=== PATIENT | male | born 1960 | race Caucasian/White ===

== ENCOUNTER 2023-12-04 14:30 | Outpatient (OUT) | payer BC, SELFPAY ==
[2023-12-04 15:39] LABS: Basophils Absolute Auto 0.1 10^3/uL (0.0-0.1); Basophils Percent Auto 0.9 % (0.2-2.0); Eosinophils Absolute Auto 0.1 10^3/uL (0.0-0.7); Eosinophils Percent Auto 2.1 % (0.9-7.0); Hematocrit 42.3 % (42.0-54.0); Hemoglobin 15.2 g/dL (14.0-18.0); Immature Granulocytes Abs Auto 0.19 10^3/uL (0.00-0.03); Immature Granulocytes Pct Auto 3.3 % (0.0-0.5); Lymphocytes Absolute Auto 1.8 10^3/uL (1.2-3.8); Lymphocytes Percent Auto 31.3 % (20.5-60.0); Mean Corpuscular HGB Conc 35.9 g/dL (29.9-35.2); Mean Corpuscular Hemoglobin 32.3 pg (25.9-34.0); Mean Corpuscular Volume 89.8 fL (80.0-94.0); Mean Platelet Volume 11.8 fL (9.5-13.5); Monocytes Absolute Auto 0.4 10^3/uL (0.3-0.8); Monocytes Percent Auto 7.5 % (1.7-12.0); Neutrophils Absolute Auto 3.2 10^3/uL (1.4-6.5); Neutrophils Percent Auto 54.9 % (43.0-75.0); Platelet Count 149 10^3/uL (150-450); Red Blood Count 4.71 10^6/uL (4.70-6.10); Red Cell Distribution Width 12.3 % (11.0-15.0); White Blood Count 5.8 10^3/uL (4.0-11.0)
--- NOTE | 2023-12-04 15:41 | CT_ITS ---
The [address] [address] Patient Name: MARGARET PRITCHETT MRN: [id number] date: 1960 Sex: M Assigned Patient Location: CT Current Patient Location: CT Accession/Order Number: [id number] Exam Date: 12/04/2023 15:39 Report Date: 12/04/2023 16:23 At the request of: LEIF SALGUERO Procedure: CT head/brain wo con CT HEAD WITHOUT CONTRAST. INDICATION: Headache. Hypertension. COMPARISON: None available for comparison TECHNIQUE: Axial CT head images from the skull base to the vertex without IV contrast were acquired. Coronal and sagittal reformats were also obtained. FINDINGS: EXTRA-AXIAL SPACE: Age-appropriate ventricles. No acute extra-axial collection. No extra-axial mass. No midline shift. CEREBRUM: There are mild areas of periventricular and deep white matter low-attenuation, which is nonspecific but likely reflective of chronic microvascular ischemic disease.. No CT evidence of acute large territorial cortical infarct, hemorrhage or mass effect. CEREBELLUM: No focal abnormality. No CT evidence of acute infarct, hemorrhage or mass effect. BRAINSTEM: No focal abnormality. No CT evidence of acute infarct, hemorrhage or mass effect. EXTRACRANIAL STRUCTURES. The paranasal sinuses are clear. Mastoid air cells are clear. Orbits are unremarkable. No discrete pituitary mass. Intact calvarium. CT/CT head/brain wo con IMPRESSION: 1. No acute intracranial abnormality. 2. Mild chronic microvascular ischemic changes. Electronically authenticated by: LAURIE MACIAS Date: 12/04/2023 16:23
[2023-12-04 16:01] LABS: Erythrocyte Sedimentation Rate 49 mm/hr (<=20)
[2023-12-04 16:08] LABS: Albumin Globulin Ratio 0.7; Albumin Level 3.1 g/dL (3.4-5.0); Alkaline Phosphatase 136 U/L (46-116); Anion Gap 14.6; BUN Creatinine Ratio 25.6; Bilirubin Total 0.5 mg/dL (0.2-1.0); C Reactive Protein 1.03 mg/dL (<=0.50); Calcium 10.3 mg/dL (8.5-10.1); Carbon Dioxide 26.8 mmol/L (21.0-32.0); Chloride 95 mmol/L (98-107); Estimated GFR (African America >60 (>=60); Estimated GFR (Non-African Ame >60 (>=60); Globulin 4.2 g/dL; Potassium 3.4 mmol/L (3.5-5.1); Sodium 133 mmol/L (136-145); Total Protein 7.3 g/dL (6.4-8.2)
[2023-12-04 16:24] LABS: Alanine Aminotransferase 30 U/L (16-63); Aspartate Amino Transferase 16 U/L (15-37)
[2023-12-04 16:42] LABS: Glucose 266 mg/dL (74-106)
== END 2023-12-04 14:31 | disposition home or self-care (01) ==
LOC: CT 14:31
PROVIDERS: PCP Internal Medicine; Visit Provider Internal Medicine
DX: R51.9 Headache, unspecified (principal); I10 Essential (primary) hypertension; E11.65 Type 2 diabetes mellitus with hyperglycemia
CPT/HCPCS: 36415; 70450; 80053; 85025; 85652; 86140

== ENCOUNTER 2024-05-04 08:56 | Outpatient (OUT) | payer BC, SELFPAY ==
--- OUTSIDE RECORDS SUMMARY | 2024-05-04 09:01 | XMS_ITS | CCD ---
Author Organization [facility] Care Team Providers Care Sap Trainer Name Role Phone Corwin Hannah Unavailable CAMDEN, DR YADAV Admitting Unavailable BALL, DR YADAV Primary Care Unavailable BALL, DR YADAV Consulting Unavailable BALL, DR YADAV Attending Unavailable KORTNEY, DR CHRIS Calhoun Consulting Unavailable CAMDEN, DR YADAV Admitting Unavailable BALL, DR YADAV Primary Care Unavailable BALL, DR YADAV Consulting Unavailable CAMDEN, DR YADAV Attending Unavailable GLENN, DR NAHID Burton Consulting Unavailable CAMDEN, DR YADAV Admitting Unavailable CAMDEN, DR YADAV Primary Care Unavailable BALL, DR YADAV Consulting Unavailable CAMDEN, DR YADAV Attending Unavailable DO Corwin Hannah Primary Care Provider [phone] DO Efren Longo Emergency Provider [phone] Community, Outreach Attending Provider [phone] DO Corwin Hannah Primary Care Provider [phone] DO Meek Franco Attending Provider Efren Longo Admitting Unavailable Efren Longo Attending Unavailable Corwin Hannah Primary Care Unavailable Corwin Hannah Primary Care Unavailable Community, Outreach Admitting Unavailable Community, Outreach Attending Unavailable Corwin Hannah Primary Care Unavailable Meek Franco Admitting Unavailable Meek Franco Attending Unavailable Allergies Allergy Classification Reported Allergen(s) Allergy Type Date of Onset Reaction(s) Facility (17 sources) metFORMIN; Translations: [metformin] Drug Allergy 12-14-2022 Swelling [facility] (14 sources) carvedilol Drug Allergy 07-19-2023 stomach upset [facility] (1 source) carvedilol Drug Allergy 07-19-2023 [facility] Repository Medications Current Medications Medication Drug Class(es) Dates Sig (Normalized) Sig (Original) acetaminophen 325 mg / HYDROcodone bitartrate 5 mg oral tablet (20 sources) Opioid Agonist Start: 05-03-2024 take 1 tablet by mouth every eight hours as needed for pain Hydrocodone-Aceta minophen 5-325 mg tablet Active 1 TAB PO Every 8 hours as needed for pain 30 09May 03, 2024 Start: 12-04-2023 End: 02-23-2024 take 1 tablet by mouth every eight hours as needed for pain Hydrocodone-Acetaminophen 5-325 mg table t Discontinued 1 TAB PO Every 8 hours as needed for pain 30 09December 04, 2023 February 23, 2024 8:10am Start: 08-04-2023 End: 12-04-2023 take 1 tablet by mouth every six hours as needed Hydrocodone-Acetaminophen 5-325 mg table t Discontinued 1 TAB PO Every 6 hours as needed August 03, 2023 11:00pm December 04, 2023 12:33pm Start: 12-30-2022 take 1 tablet by magno th every six hours as needed for pain HYDROcodone-Acetaminophen 5-325 MG 1 tab let as needed Orally every 6 hours as needed for back pain for 7 days Dec, Active Start: 09-05-2013 take 1 tablet by magno th every six hours as needed for pain [place] 5-325 MG 1 tablet as needed Orally every 6 hrs as needed for severe pain, avoid driving, machinery and alcohol use while taking for 5 days Aug, Active Start: 09-05-2013 take 1 tablet by magno th every six hours as needed for pain [place] 5-325 MG 1 tablet as needed Orally every 6 hrs as needed for severe pain, avoid driving, machinery and alcohol use while taking for 5 days Aug, Not-Taking/PRN Start: 09-05-2013 take 1 tablet by magno th every six hours as needed for pain [place] 5-325 MG 1 tablet as needed Orally every 6 hrs as needed for severe pain, avoid driving, machinery and alcohol use while taking for 5 days Aug, Not-Taking amLODIPine (20 sources) Dihydropyridine Calcium Channel Demetria Start: 03-22-2024 Amlodipine 10 mg tablet Active 0 .ROUTE .COMPLEX March 22, 2024 7:02am TAKE 1 TABLET DAILY Start: 12-26-2023 End: 03-22-2024 Amlodipine 10 mg tablet Disc ontinued 0 .ROUTE .COMPLEX December 26, 2023 7:37am Mary 10th, 2025 7:02am TAKE 1 TABLET DAILY Start: 05-23-2020 End: 12-26-2023 take 1 tablet by mouth once daily Amlodipine 10 mg tablet Discontinued 10 MG PO Daily May 23, 2020 12:00am December 26, 2023 7:37am atorvastatin 80 mg oral tablet (20 sources) HMG-CoA Reductase Inhibitor Start: 05-03-2023 End: 04-26-2024 Atorvastatin 80 mg tablet Active 0 .ROUTE .COMPLEX April 26, 2024 1:14pm TAKE 1 TABLET DAILY IN THE EVENING Start: 05-23-2020 End: 05-03-2023 take 1 tablet by mouth once daily at bedtime Atorvastatin 80 mg tablet Discontinued 80 MG PO Daily at bedtime May 23, 2020 12:00am May 03, 2023 8:36am carvedilol 6.25 mg oral tablet (3 sources) alpha-Adrenergic Demetria, beta-Adrenergic Demetria Start: 04-05-2022 take 1 tablet by mouth every twelve hours Carvedilol 6.25 MG 1 tablet Orally Twice a day for 30 day(s) Mar, Active cloNIDine hydrochloride 0.1 mg oral tablet (2 sources) Central alpha-2 Adrenergic Agonist Start: 12-04-2023 take 1 tablet by mouth twice daily Clonidine Hcl 0.1 mg tablet Active 0.1 MG PO Twice daily December 03, 2023 11:00pm Esomeprazole (20 sources) Proton Pump Inhibitor Start: 05-08-2023 Esomeprazole Magnesium Active 0 .ROUTE .COMPLEX May 08, 2023 7:49am TAKE 1 CAPSULE NEEDED Start: 05-23-2020 End: 05-08-2023 take 1 capsule by mouth once daily Esomeprazole Magnesium (Nexium) 40 mg Capsule,Delayed Release(Dr/Ec) Discontinued 40 MG PO Daily May 23, 2020 12:00am May 08, 2023 6:49am NexIUM Active NexIUM Not-Takin g/PRN NexIUM Not-Takin g Esomeprazole Magnesium 40 mg capsule,delayed release(DR/EC) (1 source) Start: 05-08-2023 Esomeprazole M agnesium 40 mg capsule,delayed release(DR/EC) Active 0 .ROUTE .COMPLEX May 08, 2023 6:49am TAKE 1 CAPSULE NEEDED fenofibrate 160 mg oral tablet (20 sources) Peroxisome Proliferator Receptor alpha Agonist Start: 05-22-2023 Fenofibrate 160 mg tablet Active 0 .ROUTE .COMPLEX 90 May 22, 2023 11:41am TAKE 1 TABLET DAILY Start: 05-23-2020 End: 05-22-2023 take 1 tablet by mouth once daily Fenofibrate 160 mg tablet Discontinued 160 MG PO Daily May 23, 2020 12:00am May 22, 2023 11:41am hydroCHLOROthiazide 25 mg / losartan potassium 100 mg oral tablet (20 sources) Thiazide Diuretic, Angiotensin 2 Receptor Demetria Start: 05-03-2023 End: 04-26-2024 Losartan-Hydrochlorothiazide 100-25 mg tablet Active 0 .ROUTE .COMPLEX April 26, 2024 1:14pm TAKE 1 TABLET DAILY Start: 05-23-2020 End: 05-03-2023 take 1 tablet by mouth once daily Losartan-Hydrochlorothiazide 100-25 mg tablet Discontinued 1 TAB PO Daily May 23, 2020 12:00am May 03, 2023 8:36am icosapent ethyl 1000 mg oral capsule (15 sources) Start: 08-04-2023 take 1 capsule by mouth twice daily Icosapent Ethyl 1 gram capsule Active 1 GM PO Twice daily August 03, 2023 11:00pm take 1 capsule by mouth every tw elve hours Vascepa 1 GM 1 capsule Orally Twice a day Active take 1 capsule by mouth every tw elve hours Vascepa 1 GM 1 capsule Orally Twice a day Active 3 ml insulin lispro 25 unt/ml / insulin lispro protamine, human 75 unt/ml pen injector (10 sources) Insulin Analog Start: 02-16-2024 inject 45 [IU] by subcutaneous injection before breakfast, then inject 20 [IU] by subcutaneous injection at dinner Insulin Lispro Protamin-Lispro (Humalog Mix 75-25 Kwikpen) 100 unit/mL (75-25) insulin pen Active 0 .ROUTE .COMPLEX 60 February 16, 2024 6:55am USE DIRECTED UNDER THE SKIN 45 UNITS BEFORE BREAKFAST AND 20 UNITS BEFORE EVENING MEAL HumaLOG Mix 75/2 5 KwikPen (75-25) 100 UNIT/ML as directed Subcutaneous 45 unit before bkfst and 20 units before evening meal Active HumaLOG Mix 75/2 5 KwikPen (75-25) 100 UNIT/ML as directed Subcutaneous 34 unit before bkfst and 20 units before evening meal Active Insulin Lispro Protamin-Lispro (6 sources) Start: 08-04-2023 Insulin Lispro Protamin-Lispro Active 0 SUBCUT .COMPLEX August 04, 2023 12:00am 45 unit before bkfst and 20 units before evening meal meloxicam 15 mg oral tablet (4 sources) Nonsteroidal Anti-inflammatory Drug Start: 08-28-2023 take 1 tablet by mouth once daily Meloxicam 15 mg tablet Active 15 MG PO Daily 90 90 August 27, 2023 11:00pm ondansetron 4 mg disintegrating oral tablet (1 source) Serotonin-3 Receptor Antagonist Start: 05-03-2024 take 1 tablet by mouth every eight hours Ondansetron 4 mg tablet,disintegratin g Active 4 MG PO Every 8 hours 10 7 May 03, 2024 12:00am Post-OP Shoe/Soft Top Men 1 (18 sources) Start: 09-05-2013 Post-OP Shoe/Soft Top Men 1 as directed right foot prn for as directed Aug, Active Start: 09-05-2013 Post-OP Shoe/S oft Top Men 1 as directed left foot prn for as directed Aug, Active Start: 09-05-2013 Post-OP Shoe/S oft Top Men 1 as directed left foot prn for as directed Aug, Not-Taking/PRN Start: 09-05-2013 Post-OP Shoe/S oft Top Men 1 as directed right foot prn for as directed Aug, Not-Taking/PRN Start: 09-05-2013 Post-OP Shoe/S oft Top Men 1 as directed right foot prn for as directed Aug, Not-Taking Start: 09-05-2013 Post-OP Shoe/S oft Top Men 1 as directed left foot prn for as directed Aug, Not-Taking Completed/Discontinued Medications Medication Drug Class(es) Dates Sig (Normalized) Sig (Original) glimepiride 1 mg oral tablet (11 sources) Sulfonylurea Start: 05-23-2020 End: 08-04-2023 take 1 tablet by mouth once daily Glimepiride 1 mg tablet Discontinued 1 MG PO Daily May 23, 2020 12:00am August 04, 2023 10:32am Insulin Lispro Protamin-Lispro 100 unit/mL (75-25) insulin pen (1 source) Start: 08-04-2023 End: 02-16-2024 Insulin Lispro Protamin-Lispro 100 unit/mL (75-25) insulin pen Discontinued 0 SUBCUT .COMPLEX August 03, 2023 11:00pm February 16, 2024 6:55am 45 unit before bkfst and 20 units before evening meal levoFLOXacin 500 mg oral tablet (11 sources) Quinolone Antimicrobial Start: 12-14-2022 End: 08-04-2023 take 1 tablet by mouth every twenty-four hours Levofloxacin 500 mg Tablet Discontinued 500 MG PO Q24H December 13, 2022 11:00pm August 04, 2023 10:32am oxyCODONE hydrochloride 5 mg oral tablet (11 sources) Opioid Agonist Start: 05-23-2020 End: 07-19-2023 take 5-10 mg by mouth every four to six hours as needed for pain Oxycodone 5 mg tablet Discontinued 5 - 10 MG PO EVERY 4-6 HOURS as needed for pain 20 5 May 23, 2020 July 19, 2023 7:49am Start: 05-23-2020 End: 07-19-2023 take 5-10 mg by mouth every four to six hours Oxycodone Discontinued 5 - 10 MG PO EVERY 4-6 HOURS 20 5 May 23, 2020 July 19, 2023 8:49am polyethylene glycol 3350 19681 mg powder for oral solution (11 sources) Osmotic Laxative Start: 05-23-2020 End: 07-19-2023 Polyethylene Glycol 3350 (Miralax) 17 gram/dose powder Discontinued 17 GM PO Daily as needed for constipation 119 May 23, 2020 12:00am July 19, 2023 7:49am traMADol hydrochloride 50 mg oral tablet (11 sources) Opioid Agonist Start: 05-23-2020 End: 07-19-2023 take 1 tablet by mouth every six hours as needed for pain Tramadol 50 mg tablet Discontinued 50 MG PO Q6H as needed for Pain May 23, 2020 12:00am July 19, 2023 7:49am Problems Active Problems Problem Classification Problem Date Documented Da te Episodic/Chronic Acute bronchitis (2 sources) Acute bronchitis; Translations: [Acute bronchitis due to other specified organisms] Episodic Aortic; peripheral; and visceral artery aneurysms (2 sources) Aneurysm of renal artery; 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] Onset: 1 Chronic Deficiency and other anemia (2 sources) Chronic anemia; Translations: [Anemia in other chronic diseases classified elsewhere] Onset: 7 Chronic Deficiency and other anemia (3 sources) Pancytopenia; Translations: [Other pancytopenia] Chronic Deficiency and other anemia (1 source) Other pancytopenia Chronic Diabetes mellitus with complications (20 sources) Type 2 diabetes mellitus; Translations: [Type 2 diabetes mellitus with hyperglycemia] Chronic Diabetes mellitus without complication (5 sources) Type 2 diabetes mellitus without complication; Translations: [Type 2 diabetes mellitus without complications] Chronic Disorders of lipid metabolism (20 sources) Mixed hyperlipidemia; Translations: [Mixed hyperlipidemia] Onset: 5 Chronic Diverticulosis and diverticulitis (2 sources) Diverticulitis of colon; Translations: [Diverticulitis of colon (without mention of hemorrhage)] Onset: 4 Chronic Esophageal disorders (20 sources) Acid reflux; Translations: [Gastro-esophageal reflux disease without esophagitis] 2023 Chronic Essential hypertension (20 sources) Hypertensive disorder; Translations: [Essential (primary) hypertension] Chronic Genitourinary symptoms and ill-defined conditions (9 sources) Delay when starting to pass urine; Translations: [Hesitancy of micturition] Episodic Headache; including migraine (12 sources) Headache; Translations: [Headache] 12-14-2022 Episodic Headache; including migraine (1 source) Headache; including migraine; Translations: [Headache, unspecified] Onset: 3 Hyperplasia of prostate (12 sources) Benign prostatic hyperplasia; Translations: [Benign prostatic hyperplasia with lower urinary tract symptoms] Onset: 8 Chronic Immunizations and screening for infectious disease (2 sources) Contact with and (suspected) exposure to other viral communicable diseases; Translations: [Contact with and (suspected) exposure to COVID-19] Episodic Melanomas of skin (2 sources) Malignant melanoma of trunk; Translations: [Malignant melanoma of other part of trunk] Onset: 7 Chronic Nonmalignant breast conditions (3 sources) Hypertrophy of breast; Translations: [HYPERTROPHY OF BREAST] Onset: 3 Episodic Osteoarthritis (20 sources) Osteoarthritis of knee; Translations: [Unilateral primary osteoarthritis, left knee] Onset: 5 07-10-2023 Chronic Other aftercare (9 sources) Long-term current use of insulin; Translations: [USP (current) use of insulin] Episodic Other aftercare (3 sources) USP (current) use of insulin Episodic Other diseases of veins and lymphatics (12 sources) Peripheral venous insufficiency; Translations: [Venous insufficiency (chronic) (peripheral)] 2023 Episodic Other diseases of veins and lymphatics (7 sources) Venous insufficiency (chronic) (peripheral); Translations: [Venous (peripheral) insufficiency, unspecified] Episodic Other gastrointestinal disorders (2 sources) H/O: gastrointestinal disease; Translations: [Personal history of other diseases of the digestive system] Episodic Other injuries and conditions due to external causes (2 sources) History of fall; Translations: [History of falling] Episodic Other non-traumatic joint disorders (2 sources) Lower limb joint arthritis; Translations: [Osteoarthrosis, unspecified whether generalized or localized, lower leg] Onset: 5 Chronic Other non-traumatic joint disorders (10 sources) Pain in right knee; Translations: [Pain in both knees] Onset: 4 07-10-2023 Episodic Other non-traumatic joint disorders (1 source) Pain in left knee; Translations: [Pain in left knee] Onset: 4 Episodic Other nutritional; endocrine; and metabolic disorders (4 sources) Simple obesity ; Translations: [Other obesity due to excess calories] Chronic Other nutritional; endocrine; and metabolic disorders (20 sources) Body mass index 30+ - obesity; Translations: [Obesity, unspecified] Onset: 5 07-19-2023 Chronic Other nutritional; endocrine; and metabolic disorders (19 sources) Obesity, unspecified; Translations: [Obesity, unspecified] Chronic Other nutritional; endocrine; and metabolic disorders (6 sources) Obese class II; Translations: [Body mass index 35.0-35.9, adult] Onset: 5 Chronic Other nutritional; endocrine; and metabolic disorders (2 sources) Obesity; Translations: [Obesity, unspecified] Onset: 2 Chronic Other nutritional; endocrine; and metabolic disorders (5 sources) Severe obesity; Translations: [Morbid (severe) obesity due to excess calories] Chronic Other nutritional; endocrine; and metabolic disorders (2 sources) Morbid (severe) obesity due to excess calories Chronic Other nutritional; endocrine; and metabolic disorders (2 sources) Body mass index (BMI) 39.0-39.9, adult Chronic Other screening for suspected conditions (not mental disorders or infectious disease) (8 sources) Encounter for screening for malignant neoplasm of prostate; Translations: [Screening for malignant neoplasms of prostate] Onset: 3 Episodic Pancreatic disorders (not diabetes) (13 sources) Pancreatitis; Translations: [Acute pancreatitis without necrosis or infection, unspecified] Resolved: 2 05-23-2020 Episodic Comment on above: Problem List clean-u p per request of Phys. EHR Cmte Pneumonia (except that caused by tuberculosis or sexually transmitted disease) (12 sources) Pneumonia; Translations: [Pneumonia, unspecified organism] 12-14-2022 Episodic Residual codes; unclassified (4 sources) Obstructive sleep apnea syndrome; Translations: [Obstructive sleep apnea (adult) (pediatric)] Onset: 7 Chronic Spondylosis; intervertebral disc disorders; other back problems (7 sources) Lumbosacral spondylosis without myelopathy; Translations: [Spondylosis without myelopathy or radiculopathy, lumbar region] Onset: 8 Chronic Spondylosis; intervertebral disc disorders; other back problems (2 sources) Pain in thoracic spine; Translations: [Thoracic back pain] Episodic Substance-related disorders (2 sources) Nicotine dependence; Translations: [Nicotine dependence, cigarettes, with other nicotine-induced disorders] Onset: 5 Chronic Superficial injury; contusion (14 sources) Contusion of right hip, initial encounter; Translations: [Contusion of right knee, initial encounter] Onset: 7 Episodic Unclassified (3 sources) CONTACT W/AND (SUSP) EXPOS COVID-19; Translations: [CONTACT W/AND (SUSP) EXPOS COVID-19] Onset: 2 Past or Other Problems Problem Classification Problem Date Documented Da te Episodic/Chronic Abdominal pain (2 sources) Epigastric pain; Translations: [Epigastric pain] Resolved: 03-29-2021 Episodic Allergic reactions (2 sources) Contact dermatitis; Translations: [Contact dermatitis and other eczema, due to unspecified cause] Onset: 05-30-2014 Episodic Deficiency and other anemia (2 sources) Anemia; Translations: [Anemia, unspecified] Onset: 03-25-2016 Episodic Diabetes mellitus without complication (2 sources) Impaired fasting glycemia; Translations: [Impaired fasting glucose] Resolved: 10-01-2019 Episodic Disorders of teeth and jaw (2 sources) Disorder of teeth AND/OR supporting structures; Translations: [Other specified disorders of teeth and supporting structures] Onset: 10-29-2018 Episodic Esophageal disorders (3 sources) Esophageal disorders Fever of unknown origin (1 source) Fever, unspecified; Translations: [Fever, unspecified] Onset: 12-14-2022 Episodic Fluid and electrolyte disorders (2 sources) Dehydration; Translations: [Dehydration] Onset: 07-31-2013 Episodic Malaise and fatigue (2 sources) Malaise and fatigue; Translations: [Other malaise and fatigue] Onset: 08-06-2014 Episodic Melanomas of skin (2 sources) History of malignant melanoma of the skin; Translations: [Personal history of malignant melanoma of skin] Onset: 04-25-2017 Episodic Neoplasms of unspecified nature or uncertain behavior (2 sources) Neoplasm of uncertain behavior of skin; Translations: [Neoplasm of uncertain behavior of skin] Onset: 10-07-2016 Episodic Other connective tissue disease (2 sources) Achilles bursitis; Translations: [Achilles bursitis or tendinitis] Onset: 11-02-2016 Episodic Other gastrointestinal disorders (2 sources) Diarrhea; Translations: [Diarrhea] Onset: 07-31-2013 Episodic Other infections; including parasitic (2 sources) Lyme disease; Translations: [Lyme disease] Onset: 10-07-2016 Episodic Other non-traumatic joint disorders (2 sources) Arthralgia of the lower leg; Translations: [Pain in joint, lower leg] Onset: 03-09-2015 Episodic Residual codes; unclassified (4 sources) Tobacco user; Translations: [Tobacco use] Onset: 08-06-2014 Episodic Skin and subcutaneous tissue infections (2 sources) Cellulitis and abscess of trunk; Translations: [Cutaneous abscess of abdominal wall] Resolved: 03-29-2021 Episodic Unclassified (1 source) CONTACT W/AND (SUSP) EXPOS COVID-19; Translations: [CONTACT W/AND (SUSP) EXPOS COVID-19] Onset: 10-04-2021 Unclassified (2 sources) Long-term current use of drug therapy; Translations: [Long-term (current) use of other medications] Onset: 03-25-2016 Results Test Name Value Interpretation Reference Range Facility XR knee BI 3V - NOT FOR ER U Indra 07-19-2023 XR knee BI 3V - NOT FOR ER USE [facility] [address] [place] [address] XRay Report Signed Patient: Margaret Woods MR#: [id number] : 1960 Acct:[id number] Age/Sex: 62 / M ADM Date: 07/19/23 [place] [facility] [place]: [facility] Attending Dr: Meek Franco DO Copies to: Meek Franco DO Ordering Provider: Meek Franco DO Date of Service: 07/19/23 XR/XR knee BI 3V - NOT FOR ER USE: M25.561 - Pain in right knee 3 views both knee plain film COMPARISON: None HISTORY: Bilateral knee pain for 5 months. Fell in February. ACUTE FINDINGS: No acute findings DEGENERATIVE CHANGE: Moderate right and medial joint space narrowing. Mild left medial joint space narrowing. Mild bilateral patellar subluxation. The bilateral superior patellar enthesophytes. SOFT TISSUE FINDINGS: Unremarkable JOINT EFFUSION: Small to moderate right joint effusion. POSTOP CHANGES: None BONE MINERALIZATION: Adequate XR/XR knee BI 3V - NOT FOR ER USE IMPRESSION: Bilateral mild to moderate medial degeneration greater on the right. A small to moderate right effusion. Impression dictated by: Connor Buck M.D.07/19/2023 11:06 AM Dictation Location: [place] [address] Transcribed By: [facility] 07/19/23 1106 Dictated By: Connor Buck DO 07/19/23 110 Signed By: 07/19/23 1106 Normal [facility] Alanine aminotransferase [En zymatic activity/volume] in Serum or PlasmaOrdered By: [facility] on 12-17-2022 ALT [Catalytic activity/Vol] 53 U/L 7 [facility] Albumin [Mass/volume] in Ser um or Plasma by Bromocresol green (BCG) dye binding methoOrdered By: [facility] on 12-17-2022 Albumin BCG dye [Mass/Vol] 3.9 g/dL 3.5-5.7 [facility] Alkaline phosphatase [Enzyma tic activity/volume] in Serum or PlasmaOrdered By: [facility] on 12-17-2022 ALP [Catalytic activity/Vol] 73 U/L 34-104 [facility] Aspartate aminotransferase [ Enzymatic activity/volume] in Serum or PlasmaOrdered By: [facility] on 12-17-2022 AST [Catalytic activity/Vol] 34 U/L 13-39 [facility] Bilirubin.total [Mass/volume ] in Serum or PlasmaOrdered By: OUTREACH [facility] on 12-17-2022 Bilirubin [Mass/Vol] 0.4 mg/dL 0.3-1.0 [facility] CBC Without Differentialon 1 Erythrocyte distribution width (RBC) [Ratio] 13.7 % Normal 12.0-14.8 [facility] Comment on above: Performed By: #### O UTREACH LIPID, LDL CHOL (M), OUTREACH GLYCO, CBCNOOUTREACH, PSA OUTREACH, OUTREACH CMP #### [facility] [address] Hematocrit (Bld) [Volume fraction] 34.7 % Low 38.8-50.0 [facility] Comment on above: Performed By: #### O UTREACH LIPID, LDL CHOL (M), OUTREACH GLYCO, CBCNOOUTREACH, PSA OUTREACH, OUTREACH CMP #### [facility] [address] [place] [address] [place] Hemoglobin (Bld) [Mass/Vol] 12.0 g/dL Low 13.0-17.0 [facility] Comment on above: Performed By: #### O UTREACH LIPID, LDL CHOL (M), OUTREACH GLYCO, CBCNOOUTREACH, PSA OUTREACH, OUTREACH CMP #### [facility] [address] MCH (RBC) [Entitic mass] 30.5 pg Normal 27.5-35.2 [facility] Comment on above: Performed By: #### O UTREACH LIPID, LDL CHOL (M), OUTREACH GLYCO, CBCNOOUTREACH, PSA OUTREACH, OUTREACH CMP #### [address] MCV (RBC) [Entitic vol] 88.3 fL Normal 83.5-101 [facility] Comment on above: Performed By: #### O UTREACH LIPID, LDL CHOL (M), OUTREACH GLYCO, CBCNOOUTREACH, PSA OUTREACH, OUTREACH CMP #### [address] Mean Corpuscular HGB Conc 34.6 g/dL Normal 32.5-35.6 [facility] Comment on above: Performed By: #### O UTREACH LIPID, LDL CHOL (M), OUTREACH GLYCO, CBCNOOUTREACH, PSA OUTREACH, OUTREACH CMP #### [address] Platelet mean volume (Bld) [Entitic vol] 8.8 fL Normal 6.6-10.1 [facility] [facility] Comment on above: Result Comment: PERF ORMED BY: [place] [address] PATHOLOGIST BULK SEALER OPERATOR ELIZABETH CR M.D. Performed By: #### O UTREACH LIPID, LDL CHOL (M), OUTREACH GLYCO, CBCNOOUTREACH, PSA OUTREACH, OUTREACH CMP #### [place] [address] [place] Platelets (Bld) [#/Vol] 141 10*3/uL Low 150-450 [facility] Comment on above: Performed By: #### O UTREACH LIPID, LDL CHOL (M), OUTREACH GLYCO, CBCNOOUTREACH, PSA OUTREACH, OUTREACH CMP #### [place] [address] [place] RBC (Bld) [#/Vol] 3.93 10*6/uL Normal 3.90-5.60 [facility] Comment on above: Performed By: #### O UTREACH LIPID, LDL CHOL (M), OUTREACH GLYCO, CBCNOOUTREACH, PSA OUTREACH, OUTREACH CMP #### [address] WBC (Bld) [#/Vol] 3.9 10*3/uL Low 4.1-10.5 [facility] Comment on above: Performed By: #### O UTREACH LIPID, LDL CHOL (M), OUTREACH GLYCO, CBCNOOUTREACH, PSA OUTREACH, OUTREACH CMP #### [address] CMP Outreachon 12-17-2022 Albumin [Mass/Vol] 3.9 g/dL Normal 3.5-5.7 [facility] Comment on above: Performed By: #### O UTREACH LIPID, LDL CHOL (M), OUTREACH GLYCO, CBCNOOUTREACH, PSA OUTREACH, OUTREACH CMP #### [address] ALP [Catalytic activity/Vol] 73 U/L Normal 34-104 [facility] Comment on above: Performed By: #### O UTREACH LIPID, LDL CHOL (M), OUTREACH GLYCO, CBCNOOUTREACH, PSA OUTREACH, OUTREACH CMP #### [address] ALT [Catalytic activity/Vol] 53 U/L High 7-52 [facility] Comment on above: Performed By: #### O UTREACH LIPID, LDL CHOL (M), OUTREACH GLYCO, CBCNOOUTREACH, PSA OUTREACH, OUTREACH CMP #### [address] Anion gap [Moles/Vol] 10.7 mmol/L Normal 6.0-15.0 [facility] Comment on above: Performed By: #### O UTREACH LIPID, LDL CHOL (M), OUTREACH GLYCO, CBCNOOUTREACH, PSA OUTREACH, OUTREACH CMP #### [address] AST [Catalytic activity/Vol] 34 U/L Normal 13-39 [facility] Comment on above: Performed By: #### O UTREACH LIPID, LDL CHOL (M), OUTREACH GLYCO, CBCNOOUTREACH, PSA OUTREACH, OUTREACH CMP #### [facility] [address] [place] [address] [place] Bilirubin [Mass/Vol] 0.4 mg/dL Normal 0.3-1.0 [facility] Comment on above: Performed By: #### O UTREACH LIPID, LDL CHOL (M), OUTREACH GLYCO, CBCNOOUTREACH, PSA OUTREACH, OUTREACH CMP #### [place] [address] [place] Calcium [Mass/Vol] 9.7 mg/dL Normal 8.6-10.3 [facility] Comment on above: Performed By: #### O UTREACH LIPID, LDL CHOL (M), OUTREACH GLYCO, CBCNOOUTREACH, PSA OUTREACH, OUTREACH CMP #### [place] [address] [place] Chloride [Moles/Vol] 105 mmol/L Normal 98-107 [facility] Comment on above: Performed By: #### O UTREACH LIPID, LDL CHOL (M), OUTREACH GLYCO, CBCNOOUTREACH, PSA OUTREACH, OUTREACH CMP #### [place] [address] [place] CO2 [Moles/Vol] 30.1 mmol/L Normal 21.0-31.0 [facility] Comment on above: Performed By: #### O UTREACH LIPID, LDL CHOL (M), OUTREACH GLYCO, CBCNOOUTREACH, PSA OUTREACH, OUTREACH CMP #### [place] [address] [place] Creatinine [Mass/Vol] 0.87 mg/dL Normal 0.70-1.30 [facility] Comment on above: Performed By: #### O UTREACH LIPID, LDL CHOL (M), OUTREACH GLYCO, CBCNOOUTREACH, PSA OUTREACH, OUTREACH CMP #### [place] [address] [place] GFR/1.73 sq M.predicted MDRD (S/P/Bld) [Vol rate/Area] mL/min/{1.73_m2} Normal [facility] Comment on above: Performed By: #### O UTREACH LIPID, LDL CHOL (M), OUTREACH GLYCO, CBCNOOUTREACH, PSA OUTREACH, OUTREACH CMP #### [facility] [address] [place] [id number] [place] Glucose [Mass/Vol] 98 mg/dL Normal 70-100 [facility] Comment on above: Result Comment: [facility] Glucose Reference Range is dependent on time and content of last meal. Glucose of more than 200 mg/dL in a nonstressed, ambulatory subject supports the diagnosis of Diabetes Mellitus. ADA recommended reference range Performed By: #### O UTREACH LIPID, LDL CHOL (M), OUTREACH GLYCO, CBCNOOUTREACH, PSA OUTREACH, OUTREACH CMP #### [facility] [address] [place] [address] [place] Potassium [Moles/Vol] 3.8 mmol/L Normal 3.5-5.1 [facility] Comment on above: Performed By: #### O UTREACH LIPID, LDL CHOL (M), OUTREACH GLYCO, CBCNOOUTREACH, PSA OUTREACH, OUTREACH CMP #### [facility] [address] [place] [address] [place] Protein [Mass/Vol] 6.5 g/dL Normal 6.4-8.9 [facility] Comment on above: Performed By: #### O UTREACH LIPID, LDL CHOL (M), OUTREACH GLYCO, CBCNOOUTREACH, PSA OUTREACH, OUTREACH CMP #### [facility] [address] [place] [id number] [place] Sodium [Moles/Vol] 142 mmol/L Normal 136-145 [facility] Comment on above: Performed By: #### O UTREACH LIPID, LDL CHOL (M), OUTREACH GLYCO, CBCNOOUTREACH, PSA OUTREACH, OUTREACH CMP #### [facility] [address] [place] [phone] [place] Urea nitrogen [Mass/Vol] 21 mg/dL Normal 7-25 [facility] Comment on above: Performed By: #### O UTREACH LIPID, LDL CHOL (M), OUTREACH GLYCO, CBCNOOUTREACH, PSA OUTREACH, OUTREACH CMP #### [facility] [address] [place] [id number] [place] Calcium [Mass/volume] in Ser um or PlasmaOrdered By: OUTREACH COMMUNITY on 12-17-2022 Calcium [Mass/Vol] 9.7 mg/dL 8.6-10.3 [facility] Carbon dioxide, total [Moles /volume] in Serum or PlasmaOrdered By: OUTREACH COMMUNITY on 12-17-2022 CO2 [Moles/Vol] 30.1 mmol/L 21.0-31.0 [facility] Chloride [Moles/volume] in S mike or PlasmaOrdered By: OUTREACH COMMUNITY on 12-17-2022 Chloride [Moles/Vol] 105 mmol/L 98-107 [facility] Cholesterol [Mass/volume] in Serum or PlasmaOrdered By: OUTREACH COMMUNITY on 12-17-2022 Cholesterol [Mass/Vol] 180 mg/dL 140-200 [facility] Comment on above: Chol less than 200 m g/dl low riskChol 201-239 mg/dl borderline riskChol 240 mg/dl and greater high risk Cholesterol in LDL Calc [Mas s/Vol]Ordered By: OUTREACH COMMUNITY on 12-17-2022 Cholesterol in LDL [Mass/Vol] TNP [facility] Comment on above: Test not performed Cholesterol in LDL [Mass/vol ume] in Serum or PlasmaOrdered By: OUTREACH COMMUNITY on 12-17-2022 Cholesterol in LDL [Mass/Vol] 59 mg/dL 0-100 [facility] Comment on above: LDL ATP III CLASSIFI CATIONLDL less than 100 mg/dL OptimalLDL 100-129 mg/dL Near or above optimalLDL 130-159 mg/dL Borderline highLDL 160-189 mg/dL HighLDL greater than 189 mg/dL Very high Cholesterol in VLDL Calc [Ma ss/Vol]Ordered By: OUTREACH COMMUNITY on 12-17-2022 Cholesterol in VLDL [Mass/Vol] 119 mg/dL [facility] Creatinine [Mass/volume] in Serum or PlasmaOrdered By: OUTREACH COMMUNITY on 12-17-2022 Creatinine [Mass/Vol] 0.87 mg/dL 0.70-1.30 [facility] Erythrocyte distribution wid th Auto (RBC) [Ratio]Ordered By: OUTREACH COMMUNITY on 12-17-2022 Erythrocyte distribution width (RBC) [Ratio] 13.7 % 12.0-14.8 [facility] Glucose [Mass/volume] in Ser um or PlasmaOrdered By: [facility] on 12-17-2022 Glucose [Mass/Vol] 98 mg/dL 70-100 [facility] Comment on above: ADA recommended refe rence rangeRandom Glucose Reference Range is dependent on time and content of last meal. Glucose of more than 200 mg/dL in a nonstressed, ambulatory subject supports the diagnosis of Diabetes Mellitus. Glucose mean value [Mass/vol ume] in Blood Estimated from glycated hemoglobinOrdered By: [facility] on 12-17-2022 Average glucose Estimated from glycated hemoglobin (Bld) [Mass/Vol] 171 mg/dL [facility] Hematocrit Auto (Bld) [Volum e fraction]Ordered By: [facility] on 12-17-2022 Hematocrit (Bld) [Volume fraction] 34.7 % 38.8-50.0 [facility] Hemoglobin [Mass/volume] in BloodOrdered By: [facility] on 12-17-2022 Hemoglobin (Bld) [Mass/Vol] 12.0 g/dL 13.0-17.0 [facility] LDL Cholesterol Measured Ref lexon 12-17-2022 LDL Cholesterol Measured Reflex 59 mg/dL Normal 0-100 [facility] Comment on above: Result Comment: LDL ATP III CLASSIFICATION LDL less than 100 mg/dL Optimal LDL 100-129 mg/dL Near or above optimal LDL 130-159 mg/dL Borderline high LDL 160-189 mg/dL High LDL greater than 189 mg/dL Very high PERFORMED BY: [place] [address] PATHOLOGIST BULK SEALER OPERATOR ELIZABETH CR M.D. Performed By: #### O [facility] LIPID, LDL CHOL (M), OUTREACH GLYCO, CBCNOOUTREACH, PSA OUTREACH, OUTREACH CMP #### [facility] [address] Laboratory - Hematology and Cell countsOrdered By: [facility] on 12-17-2022 HbA1c (Bld) [Mass fraction] 7.6 % 4.3-5.6 [facility] Comment on above: Increased risk for d iabetes: 5.7 - 6.4diabetes: >6.4glycemic control for adults with diabetes: <7.0 Leukocytes [#/volume] correc abhijeet for nucleated erythrocytes in Blood by Automated counOrdered By: OUTREACH COMMUNITY on 12-17-2022 WBC corrected for nucl RBC Auto (Bld) [#/Vol] 3.9 10*3/uL 4.1-10.5 [facility] Lipid Profile Outreachon Cholesterol [Mass/Vol] 180 mg/dL Normal 140-200 [facility] Comment on above: Result Comment: Chol less than 200 mg/dl low risk Chol 201-239 mg/dl borderline risk Chol 240 mg/dl and greater high risk Performed By: #### O UTREACH LIPID, LDL CHOL (M), OUTREACH GLYCO, CBCNOOUTREACH, PSA OUTREACH, OUTREACH CMP #### [facility] [address] Cholesterol in HDL [Mass/Vol] 25 mg/dL Normal 23-92 [facility] Comment on above: Result Comment: HDL CHOL ATP-III CLASSIFICATION Cardiovascular Risk HDL > or equal to 60 mg/dL LOW HDL < 40 mg/dL HIGH Performed By: #### O UTREACH LIPID, LDL CHOL (M), OUTREACH GLYCO, CBCNOOUTREACH, PSA OUTREACH, OUTREACH CMP #### [facility] [address] [place] [phone] [place] Cholesterol.total/Rema sterol in HDL [Mass ratio] 7.2 {ratio} Normal <5.0 [facility] Comment on above: Result Comment: PERF ORMED BY: [place] [address] PATHOLOGIST BULK SEALER OPERATOR ELIZABETH CR M.D. Performed By: #### O UTREACH LIPID, LDL CHOL (M), OUTREACH GLYCO, CBCNOOUTREACH, PSA OUTREACH, OUTREACH CMP #### [facility] [address] [place] [phone] [place] LDL Cholesterol,Calculated Not performed Normal 0-100 [facility] Comment on above: Performed By: #### O UTREACH LIPID, LDL CHOL (M), OUTREACH GLYCO, CBCNOOUTREACH, PSA OUTREACH, OUTREACH CMP #### [facility] [address] [place] [phone] [place] Triglyceride w/Reflex 595 mg/dL High 0-149 [facility] Comment on above: Result Comment: TRIG ATP III CLASSIFICATION TRIG less than 150 mg/dL Normal TRIG 150-199 mg/dL Borderline high TRIG 200-500 mg/dL High TRIG greater than 500 mg/dL Very high Standard traceable to the Center for Disease Conrtrol and Prevention (CDC) test method. If the triglyceride result is greater than 400, LDLC and related calculations cannot be calculated and resulted. Performed By: #### O UTREACH LIPID, LDL CHOL (M), OUTREACH GLYCO, CBCNOOUTREACH, PSA OUTREACH, OUTREACH CMP #### [facility] [address] VLDL CHOLESTEROL 119 mg/dL Normal [facility] Comment on above: Performed By: #### O UTREACH LIPID, LDL CHOL (M), OUTREACH GLYCO, CBCNOOUTREACH, PSA OUTREACH, OUTREACH CMP #### [facility] [address] MCH Auto (RBC) [Entitic mass ]Ordered By: OUTREACH COMMUNITY on 12-17-2022 MCH (RBC) [Entitic mass] 30.5 pg 27.5-35.2 [facility] MCHC Auto (RBC) [Mass/Vol]Or dered By: OUTREACH COMMUNITY on 12-17-2022 MCHC (RBC) [Mass/Vol] 34.6 g/dL 32.5-35.6 [facility] MCV Auto (RBC) [Entitic vol] Ordered By: OUTREACH COMMUNITY on 12-17-2022 MCV (RBC) [Entitic vol] 88.3 fL 83.5-101 [facility] No Panel InformationOrdered By: OUTREACH COMMUNITY on 12-17-2022 Estimated GFR (CKD-EPI) > 60.0 mL/Min [facility] Creatinine Clearance (Chem N/A [facility] Outreach Glycoon 12-17-2022 Glucose [Mass/Vol] 171 mg/dL Normal [facility] Comment on above: Result Comment: PERF ORMED BY: [place] [address] PATHOLOGIST BULK SEALER OPERATOR ELIZABETH CR M.D. Performed By: #### O UTREACH LIPID, LDL CHOL (M), OUTREACH GLYCO, CBCNOOUTREACH, PSA OUTREACH, OUTREACH CMP #### [facility] [address] HbA1c (Bld) [Mass fraction] 7.6 % High 4.3-5.6 [facility] Comment on above: Result Comment: Incr eased risk for diabetes: 5.7 - 6.4 diabetes: >6.4 glycemic control for adults with diabetes: <7.0 Performed By: #### O UTREACH LIPID, LDL CHOL (M), OUTREACH GLYCO, CBCNOOUTREACH, PSA OUTREACH, OUTREACH CMP #### [facility] [address] [facility] on 12-17-2022 [facility] 1.300 ng/mL Normal 0.000-4.000 [facility] Comment on above: Result Comment: PERF ORMED BY: [place] [address] PATHOLOGIST BULK SEALER OPERATOR ELIZABETH CR M.D. Performed By: #### O UTREACH LIPID, LDL CHOL (M), OUTREACH GLYCO, CBCNOOUTREACH, PSA OUTREACH, OUTREACH CMP #### [facility] [address] [place] [address] Platelet mean volume Auto (B ld) [Entitic vol]Ordered By: OUTREACH COMMUNITY on 12-17-2022 Platelet mean volume (Bld) [Entitic vol] 8.8 fL 6.6-10.1 [facility] Platelets Auto (Bld) [#/Vol] Ordered By: OUTREACH COMMUNITY on 12-17-2022 Platelets (Bld) [#/Vol] 141 10*3/uL 150-450 [facility] Potassium [Moles/volume] in Serum or PlasmaOrdered By: OUTREACH COMMUNITY on 12-17-2022 Potassium [Moles/Vol] 3.8 mmol/L 3.5-5.1 [facility] Prostate specific Ag [Mass/v olume] in Serum or PlasmaOrdered By: OUTREACH COMMUNITY on 12-17-2022 Prostate specific Ag [Mass/Vol] 1.300 ng/mL 0.000-4.000 [facility] Protein [Mass/volume] in Ser um or PlasmaOrdered By: OUTREACH COMMUNITY on 12-17-2022 Protein [Mass/Vol] 6.5 g/dL 6.4-8.9 [facility] RBC Auto (Bld) [#/Vol]Ordere d By: OUTREACH COMMUNITY on 12-17-2022 RBC (Bld) [#/Vol] 3.93 10*6/uL 3.90-5.[address] [facility] Serum or plasma anion gap de terminationOrdered By: OUTREACH [facility] on 12-17-2022 Anion gap [Moles/Vol] 10.7 mmol/L 6.0-15.0 [facility] Serum or plasma high density lipoprotein (HDL) cholesterol measurementOrdered By: OUTREACH [facility] on 12-17-2022 Cholesterol in HDL [Mass/Vol] 25 mg/dL 23-92 [facility] Comment on above: HDL CHOL ATP-III CLA SSIFICATION Cardiovascular RiskHDL > or equal to 60 mg/dL LOWHDL < 40 mg/dL HIGH Serum or plasma total choles terol/high density lipoprotein (HDL) cholesterol mass ratOrdered By: OUTREACH [facility] on 12-17-2022 Cholesterol.total/Rema sterol in HDL [Mass ratio] 7.2 {ratio} <5.0 [facility] Sodium [Moles/volume] in Ser um or PlasmaOrdered By: OUTREACH COMMUNITY on 12-17-2022 Sodium [Moles/Vol] 142 mmol/L 136-145 [facility] Triglyceride [Mass/volume] i n Serum or PlasmaOrdered By: OUTREACH COMMUNITY on 12-17-2022 Triglyceride [Mass/Vol] 595 mg/dL 0-149 [facility] Comment on above: If the triglyceride result is greater than 400, LDLC and related calculations cannot be calculated and resulted.TRIG ATP III CLASSIFICATIONTRIG less than 150 mg/dL NormalTRIG 150-199 mg/dL Borderline highTRIG 200-500 mg/dL High TRIG greater than 500 mg/dL Very highStandard traceable to the Center for Disease Conrtrol and Prevention (CDC) test method. Urea nitrogen [Mass/volume] in Serum or PlasmaOrdered By: OUTREACH COMMUNITY on 12-17-2022 Urea nitrogen [Mass/Vol] 21 mg/dL 7-25 [facility] Alanine aminotransferase [En zymatic activity/volume] in Serum or PlasmaOrdered By: Efren Longo on 12-14-2022 ALT [Catalytic activity/Vol] 46 U/L 7-52 [facility] Albumin [Mass/volume] in Ser um or Plasma by Bromocresol green (BCG) dye binding methoOrdered By: Efren Longo on 12-14-2022 Albumin BCG dye [Mass/Vol] 3.8 g/dL 3.5-5.7 [facility] Alkaline phosphatase [Enzyma tic activity/volume] in Serum or PlasmaOrdered By: Efren Longo on 12-14-2022 ALP [Catalytic activity/Vol] 65 U/L 34-104 [facility] Aspartate aminotransferase [ Enzymatic activity/volume] in Serum or PlasmaOrdered By: Efren Longo on 12-14-2022 AST [Catalytic activity/Vol] 38 U/L 13-39 [facility] Band form neutrophils/100 WB C Manual cnt (Bld)Ordered By: Efren Longo on 12-14-2022 Band form neutrophils/100 WBC (Bld) 12 % 0-5 [facility] Basophils Auto (Bld) [#/Vol] Ordered By: Efren Longo on 12-14-2022 Basophils (Bld) [#/Vol] N/A F [facility] Basophils/100 WBC Auto (Bld) Ordered By: Efren Longo on 12-14-2022 Basophils/100 WBC (Bld) N/A F [facility] Bilirubin.total [Mass/volume ] in Serum or PlasmaOrdered By: Efren Longo on 12-14-2022 Bilirubin [Mass/Vol] 0.6 mg/dL 0.3-1.0 [facility] COVID CepheidOrdered By: Fiona Longo on 12-14-2022 SARS-CoV-2 (COVID-19) Ab IA Ql Negative Negative [facility] Comment on above: This is a duplicate [employer] Xpert Xpress CoV-2/Flu/RSV Plus RNA by RT-PCR result to be used for statistical tracking purpose only. SARS-CoV-2 (COVID-19) RNA MAGALIS+probe Ql (Unsp spec) [facility] COVID-19 / Flu A/B / RSV PCR on 12-14-2022 SARS-CoV-2 (COVID-19) RNA MAGALIS+probe Ql (Unsp spec) COVID-19 Cepheid Result Negative for SARS-CoV-2 RNA by RT-PCR Flu A Cepheid Result Negative for Flu A RNA by RT-PCR Flu B Cepheid Result Negative for Flu B RNA by RT-PCR RSV Cepheid Result Negative for RSV RNA by RT-PCR COVID19 Blank Space Reference: Negative COVID19 Blank Space [employer]epheid Disclaimer The Cepheid Xpert Xpress CoV-2/Flu/RSV Plus has Cepheid Disclaimer not been FDA cleared or approved; this test has Cepheid Disclaimer been authorized by FDA under an EUA for use by Cepheid Disclaimer authorized laboratories; this test has been Cepheid Disclaimer authorized only for the simultaneous qualitative [employer]epheid Disclaimer detection and differentiation of nucleic acids from [employer]epheid Disclaimer SARS-CoV-2, influenza A, influenza B, and [employer]ep[employer] Disclaimer respiratory syncytial virus (RSV), and not for any [employer]epheid Disclaimer other viruses or pathogens; and this test is only Cepheid Disclaimer authorized for the duration of the declaration that Cepheid Disclaimer circumstances exist justifying the authorization of Cepheid Disclaimer emergency use of in vitro diagnostic tests for Cepheid Disclaimer detection and/or diagnosis of COVID-19 under Cepheid Disclaimer Section 564(b)(1) of the Act, 21 U.S.C. 360bbb- [employer]epheid Disclaimer 3(b)(1), unless the authorization is terminated or Cepheid Disclaimer revoked sooner. PERFORMED BY: [facility] [place] [address] PATHOLOGIST BULK SEALER OPERATOR ELIZABETH CR M.D. Normal [facility] Comment on above: Performed By: #### C OVID19 FLU RSV, CEPHEID NEG #### [facility] [address] [place] [address] [place] Calcium [Mass/volume] in Ser um or PlasmaOrdered By: Efren Longo on 12-14-2022 Calcium [Mass/Vol] 9.7 mg/dL 8.6-10.3 [facility] Carbon dioxide, total [Moles /volume] in Serum or PlasmaOrdered By: Efren Longo on 12-14-2022 CO2 [Moles/Vol] 26.9 mmol/L 21.0-31.0 [facility] Cepheid COVID PCR Negativeon 12-14-2022 SARS-CoV-2 (COVID-19) RNA MAGALIS+probe Ql (Unsp spec) Negative Normal Negative [facility] Comment on above: Result Comment: This is a duplicate [employer] Xpert Xpress CoV-2/Flu/RSV Plus RNA by RT-PCR result to be used for statistical tracking purpose only. PERFORMED BY: [address] [address] PATHOLOGIST BULK SEALER OPERATOR ELIZABETH CR M.D. Performed By: #### O UTREACH LIPID, LDL CHOL (M), OUTREACH GLYCO, CBCNOOUTREACH, PSA OUTREACH, OUTREACH CMP #### [facility] [address] [place] [address] [place] Chloride [Moles/volume] in S mike or PlasmaOrdered By: Efren Longo on 12-14-2022 Chloride [Moles/Vol] 100 mmol/L 98-107 [facility] Comprehensive Metabolic Pane ritu 12-14-2022 Albumin [Mass/Vol] 3.8 g/dL Normal 3.5-5.7 [facility] Comment on above: Performed By: #### O UTREACH LIPID, LDL CHOL (M), OUTREACH GLYCO, CBCNOOUTREACH, PSA OUTREACH, OUTREACH CMP #### [facility] [address] [place] [address] [place] Albumin/Globulin [Mass ratio] 1.2 {ratio} Normal [facility] Comment on above: Performed By: #### O UTREACH LIPID, LDL CHOL (M), OUTREACH GLYCO, CBCNOOUTREACH, PSA OUTREACH, OUTREACH CMP #### [facility] [address] [place] [phone] [place] ALP [Catalytic activity/Vol] 65 U/L Normal 34-104 [facility] Comment on above: Performed By: #### O UTREACH LIPID, LDL CHOL (M), OUTREACH GLYCO, CBCNOOUTREACH, PSA OUTREACH, OUTREACH CMP #### [facility] [address] [place] [address] [place] ALT [Catalytic activity/Vol] 46 U/L Normal 7-52 [facility] Comment on above: Performed By: #### O UTREACH LIPID, LDL CHOL (M), OUTREACH GLYCO, CBCNOOUTREACH, PSA OUTREACH, OUTREACH CMP #### [facility] [address] [place] [address] [place] Anion gap [Moles/Vol] 12.9 mmol/L Normal 6.0-15.0 [facility] Comment on above: Performed By: #### O UTREACH LIPID, LDL CHOL (M), OUTREACH GLYCO, CBCNOOUTREACH, PSA OUTREACH, OUTREACH CMP #### [place] [id number] [place] AST [Catalytic activity/Vol] 38 U/L Normal 13-39 [facility] Comment on above: Performed By: #### O UTREACH LIPID, LDL CHOL (M), OUTREACH GLYCO, CBCNOOUTREACH, PSA OUTREACH, OUTREACH CMP #### [place] [address] [place] Bilirubin [Mass/Vol] 0.6 mg/dL Normal 0.3-1.0 [facility] Comment on above: Performed By: #### O UTREACH LIPID, LDL CHOL (M), OUTREACH GLYCO, CBCNOOUTREACH, PSA OUTREACH, OUTREACH CMP #### [facility] [address] [place] [address] [place] Calcium [Mass/Vol] 9.7 mg/dL Normal 8.6-10.3 [facility] Comment on above: Performed By: #### O UTREACH LIPID, LDL CHOL (M), OUTREACH GLYCO, CBCNOOUTREACH, PSA OUTREACH, OUTREACH CMP #### [address] Chloride [Moles/Vol] 100 mmol/L Normal 98-107 [facility] Comment on above: Performed By: #### O UTREACH LIPID, LDL CHOL (M), OUTREACH GLYCO, CBCNOOUTREACH, PSA OUTREACH, OUTREACH CMP #### [address] CO2 [Moles/Vol] 26.9 mmol/L Normal 21.0-31.0 [facility] Comment on above: Performed By: #### O UTREACH LIPID, LDL CHOL (M), OUTREACH GLYCO, CBCNOOUTREACH, PSA OUTREACH, OUTREACH CMP #### [address] Creatinine [Mass/Vol] 0.94 mg/dL Normal 0.70-1.30 [facility] Comment on above: Performed By: #### O UTREACH LIPID, LDL CHOL (M), OUTREACH GLYCO, CBCNOOUTREACH, PSA OUTREACH, OUTREACH CMP #### [address] Creatinine Clr Calc Pharmacy 117.48 Normal [facility] Comment on above: Result Comment: PERF ORMED BY: [place] [address] PATHOLOGIST BULK SEALER OPERATOR ELIZABETH CR M.D. Performed By: #### O UTREACH LIPID, LDL CHOL (M), OUTREACH GLYCO, CBCNOOUTREACH, PSA OUTREACH, OUTREACH CMP #### [place] [address] [place] GFR/1.73 sq M.predicted MDRD (S/P/Bld) [Vol rate/Area] mL/min/{1.73_m2} Normal [facility] Comment on above: Performed By: #### O UTREACH LIPID, LDL CHOL (M), OUTREACH GLYCO, CBCNOOUTREACH, PSA OUTREACH, OUTREACH CMP #### [facility] [address] [id number] [place] Globulin (S) [Mass/Vol] 3.2 g/dL Normal T [facility] Comment on above: Performed By: #### O UTREACH LIPID, LDL CHOL (M), OUTREACH GLYCO, CBCNOOUTREACH, PSA OUTREACH, OUTREACH CMP #### [facility] [address] [place] [address] [place] Glucose [Mass/Vol] 169 mg/dL High 70-100 [facility] Comment on above: Result Comment: [facility] Glucose Reference Range is dependent on time and content of last meal. Glucose of more than 200 mg/dL in a nonstressed, ambulatory subject supports the diagnosis of Diabetes Mellitus. ADA recommended reference range Performed By: #### O UTREACH LIPID, LDL CHOL (M), OUTREACH GLYCO, CBCNOOUTREACH, PSA OUTREACH, OUTREACH CMP #### [facility] [address] [place] [address] [place] Potassium [Moles/Vol] 3.8 mmol/L Normal 3.5-5.1 [facility] Comment on above: Performed By: #### O UTREACH LIPID, LDL CHOL (M), OUTREACH GLYCO, CBCNOOUTREACH, PSA OUTREACH, OUTREACH CMP #### [facility] [address] [phone] [place] Protein [Mass/Vol] 7.0 g/dL Normal 6.4-8.9 [facility] Comment on above: Performed By: #### O UTREACH LIPID, LDL CHOL (M), OUTREACH GLYCO, CBCNOOUTREACH, PSA OUTREACH, OUTREACH CMP #### [facility] [address] [phone] [place] Sodium [Moles/Vol] 136 mmol/L Normal 136-145 [facility] Comment on above: Performed By: #### O UTREACH LIPID, LDL CHOL (M), OUTREACH GLYCO, CBCNOOUTREACH, PSA OUTREACH, OUTREACH CMP #### [facility] [address] [phone] [place] Urea nitrogen [Mass/Vol] 18 mg/dL Normal 7-25 [facility] Comment on above: Performed By: #### O UTREACH LIPID, LDL CHOL (M), OUTREACH GLYCO, CBCNOOUTREACH, PSA OUTREACH, OUTREACH CMP #### [facility] [address] Creatinine [Mass/volume] in Serum or PlasmaOrdered By: Efren Longo on 12-14-2022 Creatinine [Mass/Vol] 0.94 mg/dL 0.70-1.30 [facility] Diff and CBCon 12-14-2022 Band form neutrophils/100 WBC (Bld) 12 % High 0-5 [facility] Comment on above: Performed By: #### O UTREACH LIPID, LDL CHOL (M), OUTREACH GLYCO, CBCNOOUTREACH, PSA OUTREACH, OUTREACH CMP #### [facility] [address] [place] [address] Erythrocyte distribution width (RBC) [Ratio] 13.6 % Normal 12.0-14.8 [facility] Comment on above: Performed By: #### O UTREACH LIPID, LDL CHOL (M), OUTREACH GLYCO, CBCNOOUTREACH, PSA OUTREACH, OUTREACH CMP #### [facility] [address] [place] [address] Giant Platelet Tally 3 /100{WBC} Normal [facility] Comment on above: Performed By: #### O UTREACH LIPID, LDL CHOL (M), OUTREACH GLYCO, CBCNOOUTREACH, PSA OUTREACH, OUTREACH CMP #### [facility] [address] [place] [address] Hematocrit (Bld) [Volume fraction] 37.7 % Low 38.8-50.0 [facility] Comment on above: Performed By: #### O UTREACH LIPID, LDL CHOL (M), OUTREACH GLYCO, CBCNOOUTREACH, PSA OUTREACH, OUTREACH CMP #### [facility] [address] [place] [address] Hemoglobin (Bld) [Mass/Vol] 12.9 g/dL Low 13.0-17.0 [facility] Comment on above: Performed By: #### O UTREACH LIPID, LDL CHOL (M), OUTREACH GLYCO, CBCNOOUTREACH, PSA OUTREACH, OUTREACH CMP #### [place] [address] [place] Lymphocytes/100 WBC (Bld) 14 % Low 18-42 [facility] Comment on above: Performed By: #### O UTREACH LIPID, LDL CHOL (M), OUTREACH GLYCO, CBCNOOUTREACH, PSA OUTREACH, OUTREACH CMP #### [address] MCH (RBC) [Entitic mass] 30.4 pg Normal 27.5-35.2 [facility] Comment on above: Performed By: #### O UTREACH LIPID, LDL CHOL (M), OUTREACH GLYCO, CBCNOOUTREACH, PSA OUTREACH, OUTREACH CMP #### [address] MCV (RBC) [Entitic vol] 88.9 fL Normal 83.5-101 [facility] Comment on above: Performed By: #### O UTREACH LIPID, LDL CHOL (M), OUTREACH GLYCO, CBCNOOUTREACH, PSA OUTREACH, OUTREACH CMP #### [address] Mean Corpuscular HGB Conc 34.2 g/dL Normal 32.5-35.6 [facility] Comment on above: Performed By: #### O UTREACH LIPID, LDL CHOL (M), OUTREACH GLYCO, CBCNOOUTREACH, PSA OUTREACH, OUTREACH CMP #### [place] [address] [place] Monocytes/100 WBC (Bld) 36.68 % High 0.00-20.00 [facility] Comment on above: Result Comment: The predictive value of MDW for identifying sepsis in patients with hematological abnormalities has not been established Performed By: #### O UTREACH LIPID, LDL CHOL (M), OUTREACH GLYCO, CBCNOOUTREACH, PSA OUTREACH, OUTREACH CMP #### [place] [address] [place] Monocytes/100 WBC (Bld) 17 % High 2-11 [facility] Comment on above: Performed By: #### O UTREACH LIPID, LDL CHOL (M), OUTREACH GLYCO, CBCNOOUTREACH, PSA OUTREACH, OUTREACH CMP #### [address] Myelocytes 2 % High 0-0 [facility] Comment on above: Performed By: #### O UTREACH LIPID, LDL CHOL (M), OUTREACH GLYCO, CBCNOOUTREACH, PSA OUTREACH, OUTREACH CMP #### [place] [address] [place] Platelet Estimate Decreased Normal Normal [facility] Comment on above: Performed By: #### O UTREACH LIPID, LDL CHOL (M), OUTREACH GLYCO, CBCNOOUTREACH, PSA OUTREACH, OUTREACH CMP #### [place] [address] [place] Platelet mean volume (Bld) [Entitic vol] 8.9 fL Normal 6.6-10.1 [facility] Comment on above: Performed By: #### O UTREACH LIPID, LDL CHOL (M), OUTREACH GLYCO, CBCNOOUTREACH, PSA OUTREACH, OUTREACH CMP #### [address] Platelet Morphology Normal Normal Normal [facility] Comment on above: Result Comment: PERF ORMED BY: [place] [address] PATHOLOGIST BULK SEALER OPERATOR ELIZABETH RC M.D. Performed By: #### O UTREACH LIPID, LDL CHOL (M), OUTREACH GLYCO, CBCNOOUTREACH, PSA OUTREACH, OUTREACH CMP #### [place] [address] [place] Platelets (Bld) [#/Vol] 106 10*3/uL Low 150-450 [facility] Comment on above: Performed By: #### O UTREACH LIPID, LDL CHOL (M), OUTREACH GLYCO, CBCNOOUTREACH, PSA OUTREACH, OUTREACH CMP #### [place] [address] [place] RBC (Bld) [#/Vol] 4.24 10*6/uL Normal 3.90-5.60 [facility] Comment on above: Performed By: #### O UTREACH LIPID, LDL CHOL (M), OUTREACH GLYCO, CBCNOOUTREACH, PSA OUTREACH, OUTREACH CMP #### [address] RBC morphology finding Nom (Bld) Normal Normal Normal [facility] Comment on above: Performed By: #### O UTREACH LIPID, LDL CHOL (M), OUTREACH GLYCO, CBCNOOUTREACH, PSA OUTREACH, OUTREACH CMP #### [address] Segmented neutrophils/100 WBC (Bld) 56 % Normal 50-70 [facility] Comment on above: Performed By: #### O UTREACH LIPID, LDL CHOL (M), OUTREACH GLYCO, CBCNOOUTREACH, PSA OUTREACH, OUTREACH CMP #### [address] WBC (Bld) [#/Vol] 2.9 10*3/uL Low 4.1-10.5 [facility] Comment on above: Performed By: #### O UTREACH LIPID, LDL CHOL (M), OUTREACH GLYCO, CBCNOOUTREACH, PSA OUTREACH, OUTREACH CMP #### [address] ECG 12 lead ECGon 12-14-2022 ECG 12 lead ECG [facility] Main [place] [place] [address] Electrocardiograph Report Signed Patient: Margaret Woods MR#: [id number] : 1960 Acct:[id number] Age/Sex: 62 / M ADM Date: 12/14/22 Loc: ER Room: Type: [facility] ER Attending Dr: Ordering Provider: Efren Longo DO Date of Service: 12/14/2207/04/539 ECG/ECG 12 lead ECG: Headache Copies to: Test Reason : Blood Pressure : 134/098 mmHG Vent. Rate : 080 BPM Atrial Rate : 080 BPM P-R Int : 198 ms QRS Dur : 164 ms QT Int : 428 ms P-R-T Axes : 051 -80 -05 degrees QTc Int : 493 ms Normal sinus rhythm Left axis deviation Right bundle branch block Abnormal ECG No previous ECGs available Confirmed by EFREN LONGO DO ([id number]) on 12/14/2022 6:58:21 AM Referred By: Electronically Signed By:EFREN LONGO DO Transcribed By: MUS Signed By Efren Longo DO [id number] Normal [facility] Eosinophils Auto (Bld) [#/Vo l]Ordered By: Efren Longo on 12-14-2022 Eosinophils (Bld) [#/Vol] N/A [facility] Eosinophils/100 WBC Auto (Bl d)Ordered By: Efren Longo on 12-14-2022 Eosinophils/100 WBC (Bld) N/A [facility] Erythrocyte distribution wid th Auto (RBC) [Ratio]Ordered By: Efren Longo on 12-14-2022 Erythrocyte distribution width (RBC) [Ratio] 13.6 % 12.0-14.8 [facility] Giant platelets/100 leukocyt es [Ratio] in Blood by Manual countOrdered By: Efren Longo on 12-14-2022 Giant platelets/100 WBC Manual cnt (Bld) [Ratio] 3 /100{WBC} [facility] Globulin Calc (S) [Mass/Vol] Ordered By: Efren Longo on 12-14-2022 Globulin (S) [Mass/Vol] 3.2 g/dL [facility] Glucose [Mass/volume] in Ser um or PlasmaOrdered By: Efren Longo on 12-14-2022 Glucose [Mass/Vol] 169 mg/dL 70-100 [facility] Comment on above: ADA recommended refe rence rangeRandom Glucose Reference Range is dependent on time and content of last meal. Glucose of more than 200 mg/dL in a nonstressed, ambulatory subject supports the diagnosis of Diabetes Mellitus. Hematocrit Auto (Bld) [Volum e fraction]Ordered By: Efren Longo on 12-14-2022 Hematocrit (Bld) [Volume fraction] 37.7 % 38.8-50.0 [facility] Hemoglobin [Mass/volume] in BloodOrdered By: Efren Longo on 12-14-2022 Hemoglobin (Bld) [Mass/Vol] 12.9 g/dL 13.0-17.0 [facility] Leukocytes [#/volume] correc abhijeet for nucleated erythrocytes in Blood by Automated counOrdered By: Efren Longo on 12-14-2022 WBC corrected for nucl RBC Auto (Bld) [#/Vol] 2.9 10*3/uL 4.1-10.5 [facility] Lymphocytes Auto (Bld) [#/Vo l]Ordered By: Efren Longo on 12-14-2022 Lymphocytes (Bld) [#/Vol] N/A [facility] Lymphocytes/100 WBC Auto (Bl d)Ordered By: Efren Longo on 12-14-2022 Lymphocytes/100 WBC (Bld) N/A [facility] Lymphocytes/100 WBC Manual c nt (Bld)Ordered By: Efren Longo on 12-14-2022 Lymphocytes/100 WBC (Bld) 14 % 18-42 [facility] MCH Auto (RBC) [Entitic mass ]Ordered By: Efren Longo on 12-14-2022 MCH (RBC) [Entitic mass] 30.4 pg 27.5-35.2 [facility] MCHC Auto (RBC) [Mass/Vol]Or dered By: Efren Longo on 12-14-2022 MCHC (RBC) [Mass/Vol] 34.2 g/dL 32.5-35.6 [facility] MCV Auto (RBC) [Entitic vol] Ordered By: Efren Longo on 12-14-2022 MCV (RBC) [Entitic vol] 88.9 fL 83.5-101 F [facility] Monocyte distribution width [Entitic volume] in Blood by AutomatedOrdered By: Efren Longo on 12-14-2022 Monocyte distribution width Auto (Bld) [Entitic vol] 36.68 % 0.00-20.00 [facility] Comment on above: The predictive value of MDW for identifying sepsis in patients with hematological abnormalities has not been established Monocytes Auto (Bld) [#/Vol] Ordered By: Efren Longo on 12-14-2022 Monocytes (Bld) [#/Vol] N/A [facility] Monocytes/100 WBC Auto (Bld) Ordered By: Efren Longo on 12-14-2022 Monocytes/100 WBC (Bld) N/A [facility] Monocytes/100 WBC Manual cnt (Bld)Ordered By: Efren Longo on 12-14-2022 Monocytes/100 WBC (Bld) 17 % 2-11 [facility] Myelocytes/100 WBC Manual cn t (Bld)Ordered By: Efren Longo on 12-14-2022 Myelocytes/100 WBC (Bld) 2 % 0-0 [facility] Neutrophils Auto (Bld) [#/Vo l]Ordered By: Efren Longo on 12-14-2022 Neutrophils (Bld) [#/Vol] N/A [facility] Neutrophils/100 WBC Auto (Bl d)Ordered By: Efren Longo on 12-14-2022 Neutrophils/100 WBC (Bld) N/A [facility] No Panel InformationOrdered By: Efren Longo on 12-14-2022 Estimated GFR (CKD-EPI) > 60.0 mL/Min [facility] Creatinine Clearance (Chem 117.48 [facility] Nucleated erythrocytes [Pres ence] in Blood by Automated countOrdered By: Efren Longo on 12-14-2022 Nucleated RBC Auto Ql (Bld) N/A [facility] Platelet adequacy [Presence] in Blood by Light microscopyOrdered By: Efren Longo on 12-14-2022 Platelets LM Ql (Bld) Decreased Normal [facility] Platelet mean volume Auto (B ld) [Entitic vol]Ordered By: Efren Longo on 12-14-2022 Platelet mean volume (Bld) [Entitic vol] 8.9 fL 6.6-10.1 [facility] Platelet morphology finding [Identifier] in BloodOrdered By: Efren Longo on 12-14-2022 Platelet morphology finding Nom (Bld) Normal Normal [facility] Platelets Auto (Bld) [#/Vol] Ordered By: Efren Longo on 12-14-2022 Platelets (Bld) [#/Vol] 106 10*3/uL 150-450 [facility] Potassium [Moles/volume] in Serum or PlasmaOrdered By: Efren Longo on 12-14-2022 Potassium [Moles/Vol] 3.8 mmol/L 3.5-5.1 [facility] Protein [Mass/volume] in Ser um or PlasmaOrdered By: Efren Longo on 12-14-2022 Protein [Mass/Vol] 7.0 g/dL 6.4-8.9 [facility] RBC Auto (Bld) [#/Vol]Ordere d By: Efren Longo on 12-14-2022 RBC (Bld) [#/Vol] 4.24 10*6/uL 3.90-5.[address] [facility] RBC morphologyOrdered By: Nadir Longo on 12-14-2022 RBC morphology finding Nom (Bld) Normal Normal [facility] Segmented neutrophils/100 WB C Manual cnt (Bld)Ordered By: Efren Longo on 12-14-2022 Segmented neutrophils/100 WBC (Bld) 56 % 50-70 [facility] Serum or plasma albumin/glob ulin mass ratioOrdered By: Efren Longo on 12-14-2022 Albumin/Globulin [Mass ratio] 1.2 {ratio} [facility] Serum or plasma anion gap de terminationOrdered By: Efren Longo on 12-14-2022 Anion gap [Moles/Vol] 12.9 mmol/L 6.0-15.0 [facility] Sodium [Moles/volume] in Ser um or PlasmaOrdered By: Efren Longo on 12-14-2022 Sodium [Moles/Vol] 136 mmol/L 136-145 [facility] Urea nitrogen [Mass/volume] in Serum or PlasmaOrdered By: Efren Longo on 12-14-2022 Urea nitrogen [Mass/Vol] 18 mg/dL 7-25 [facility] WBC Auto (Bld) [#/Vol]Ordere d By: Efren Longo on 12-14-2022 WBC (Bld) [#/Vol] 2.9 10*3/uL 4.1-10.5 [facility] XR chest 1V portableon 12-14 XR chest 1V portable [address] [address] XRay Report Signed Patient: Margaret Woods MR#: [id number] : 1960 Acct:[id number] Age/Sex: 62 / M ADM Date: 12/14/22 Loc: ER Room: Type: [facility] ER Attending Dr: Copies to: Efren Longo DO Ordering Provider: Efren Longo DO Date of Service: 12/14/22 XR/XR chest 1V portable: Headache PORTABLE AP ERECT CHEST 0534 hours CLINICAL HISTORY: Headaches, chills, body aches and weakness COMPARISON: None There is slight elevation of the left hemidiaphragm. The heart is within normal limits. There is no vascular congestion. No focal consolidation is noted. There is no effusion or pneumothorax. The osseous structures are intact. XR/XR chest 1V portable IMPRESSION: NO ACUTE FINDINGS Impression dictated by: Lynn Renner M.D.12/14/2022 8:10 AM Dictation Location: [place] [address] Transcribed By: [facility] 12/14/22809 Dictated By: Lynn Renner MD 12/14/22808 Signed By: 12/14/22809 Normal [facility] LIPID PROFILE SEND OUTon Cholesterol [Mass/Vol] 471 mg/dL Critically high 100-199 [facility] Comment on above: Performed By: #### L IPIDLC, CMPLC #### [facility] [address] [address] [address] Smitha Finnegan Cholesterol in HDL [Mass/Vol] 15 mg/dL Critically low >39 [facility] Comment on above: Performed By: #### L IPIDLC, CMPLC #### [facility] [address] [address] [address] Smitha Finnegan Comment: Normal [facility] Comment on above: Performed By: #### L IPIDLC, CMPLC #### [facility] [address] [address] [address] Smitha Finnegan LDL Chol. Calc. ([facility]) Comment Abnormal 0-99 [facility] Comment on above: Result Comment: Trig lyceride result indicated is too high for an accurate LDL cholesterol estimation. Performed By: #### L IPIDLC, CMPLC #### [facility] [address] [place] [address] Dr. Smitha Finnegan Triglyceride [Mass/Vol] 3806 mg/dL Invalid Interpretation Code 0-149 [facility] Comment on above: Result Comment: Resu lts confirmed on dilution. Performed By: #### L IPIDLC, CMPLC #### [facility] [address] [address] [address] Smitha Finnegan VLDL Cholesterol, Calc Comment Abnormal 40 [facility] Comment on above: Result Comment: The calculation for the VLDL cholesterol is not valid when triglyceride level is >800 mg/dL. Performed By: #### L IPIDLC, CMPLC #### [facility] [address] [place] [address] Dr. Smitha Finnegan PROF 14(COMP METB) SEND OUTo n 04-14-2022 Albumin [Mass/Vol] 4.2 g/dL Normal 3.8-4.8 [facility] Comment on above: Result Comment: Spec imen received lipemic. Value may be decreased by lipemia. Clinical correlation indicated. Performed By: #### L IPIDLC, CMPLC #### [facility] [address] [place] [address] Dr. Smitha Finnegan Albumin/Globulin [Mass ratio] 1.4 {ratio} Normal 1.2-2.2 [facility] Comment on above: Performed By: #### L IPIDLC, CMPLC #### [facility] [address] [place] [address] Dr. Smitha Finnegan ALP [Catalytic activity/Vol] 131 U/L Critically high 44-121 [facility] Comment on above: Performed By: #### L IPIDLC, CMPLC #### [facility] [address] [place] [address] Dr. Smitha Finnegan ALT [Catalytic activity/Vol] 42 U/L Normal 0-44 [facility] Comment on above: Performed By: #### L IPIDLC, CMPLC #### [facility] [address] [place], [place] [address] Dr. Smitha Finnegan AST [Catalytic activity/Vol] 31 U/L Normal 0-40 [facility] Comment on above: Performed By: #### L IPIDLC, CMPLC #### [facility] [address] [place] [address] Dr. Smitha Finnegan Bilirubin [Mass/Vol] mg/dL Normal 0.0-1.2 [facility] Comment on above: Performed By: #### L IPIDLC, CMPLC #### [facility] [address] [place] [address] Dr. Smitha Finnegan Calcium [Mass/Vol] 10.2 mg/dL Normal 8.6-10.[address] [facility] Comment on above: Performed By: #### L IPIDLC, CMPLC #### [facility] [address] [place] [address] Dr. Smitha Finnegan Chloride [Moles/Vol] 95 mmol/L Critically low 96-106 [facility] Comment on above: Performed By: #### L IPIDLC, CMPLC #### [facility] [address] [place] [address] Dr. Smitha Finnegan CO2 [Moles/Vol] 23 mmol/L Normal 20-29 [facility] Comment on above: Performed By: #### L IPIDLC, CMPLC #### [facility] [address] [place] [address] Dr. Smitha Finnegan Creatinine [Mass/Vol] 0.92 mg/dL Normal 0.76-1.27 [facility] Comment on above: Performed By: #### L IPIDLC, CMPLC #### [facility] [address] [place] [address] Dr. Smitha Finnegan GFR/1.73 sq M.predicted among non-blacks MDRD (S/P/Bld) [Vol rate/Area] 95 mL/min/{1.73_m2} Normal >59 [facility] Comment on above: Performed By: #### L IPIDLC, CMPLC #### [facility] [address] [place] [address] Dr. Smitha Finnegan Globulin (S) [Mass/Vol] 3.0 g/dL Normal 1.5-4.5 [facility] Comment on above: Performed By: #### L IPIDLC, CMPLC #### [facility] [address] [address] [address] Smitha Finnegan Glucose [Mass/Vol] 281 mg/dL Critically high 70-99 [facility] Comment on above: Performed By: #### L IPIDLC, CMPLC #### [facility] [address] [address] [address] Smitha Finnegan Potassium [Moles/Vol] 4.2 mmol/L Normal 3.5-5.2 [facility] Comment on above: Performed By: #### L IPIDLC, CMPLC #### [facility] [address] [place] [address] Dr. Smitha Finnegan Protein [Mass/Vol] 7.2 g/dL Normal 6.0-8.5 [facility] Comment on above: Performed By: #### L IPIDLC, CMPLC #### [facility] [address] [place] [address] Dr. Smitha Finnegan Sodium [Moles/Vol] 135 mmol/L Normal 134-[address] [facility] Comment on above: Performed By: #### L IPIDLC, CMPLC #### [facility] [address] [place] [address] Dr. Smitha Finnegan Urea nitrogen [Mass/Vol] 17 mg/dL Normal 8-27 [facility] Comment on above: Performed By: #### L IPIDLC, CMPLC #### [facility] [address] [place] [address] Dr. Smitha Finnegan Urea nitrogen/Creatinine [Mass ratio] 18 mg/mg Normal 10-24 [facility] Comment on above: Performed By: #### L IPIDLC, CMPLC #### [facility] [address] [place] [address] Dr. Smitha Finnegan CBC AUTO DIFFon 04-13-2022 BASO # 0.0 103/ul Normal 0.0-0.1 [facility] Comment on above: Performed By: #### C BC ####[facility] [address] [place] [id number]. Smitha Finnegan Basophils/100 WBC (Bld) 0.4 % Normal 0.2-2.0 [facility] Comment on above: Performed By: #### C BC ####[facility] [address] [place] [id number]. Smitha Finnegan EO # 0.1 103/ul Normal 0.0-0.7 [facility] Comment on above: Performed By: #### C BC ####[facility] [address] [place], [place] [address]Dr. Smitha Finnegan Eosinophils/100 WBC (Bld) 1.9 % Normal 0.9-7.0 [facility] Comment on above: Performed By: #### C BC ####[facility] [address] [place], [place] [address]Dr. Smitha Finnegan Erythrocyte distribution width (RBC) [Ratio] 12.9 % Normal 11.0-15.0 [facility] Comment on above: Performed By: #### C BC ####[facility] [address] [place], [place] [address]Dr. Smitha Finnegan Hematocrit (Bld) [Volume fraction] 42.8 % Normal 42.0-54.0 [facility] Comment on above: Performed By: #### C BC ####[facility] [address] [place], [place] [address]Dr. Smitha Finnegan Hemoglobin (Bld) [Mass/Vol] 15.2 g/dL Normal 14.0-18.0 [facility] Comment on above: Performed By: #### C BC ####[facility] [address] [place], [place] [address]Dr. Smitha Finnegan IG # 0.09 10e3/ul Critically high 0.00-0.03 [facility] Comment on above: Performed By: #### C BC ####[facility] [address] [place], [place] [address]Dr. Smitha Finnegan IG % 1.3 % Critically high 0.0-0.5 [facility] Comment on above: Performed By: #### C BC ####[facility] [address] [place] [id number]. Smitha Finnegan LYMPH # 1.7 103/ul Normal 1.2-3.8 [facility] Comment on above: Performed By: #### C BC ####[facility] [address] [place] [id number]. Smitha Finnegan Lymphocytes/100 WBC (Bld) 24.3 % Normal 20.5-60.0 [facility] [facility] Comment on above: Performed By: #### C BC ####[facility] [address] [place] [id number]. Smitha Finnegan MANUAL DIFF REQ NO Normal [facility] Comment on above: Performed By: #### C BC ####[facility] [address] [place] [id number]. Smitha Finnegan MCH (RBC) [Entitic mass] 32.1 pg Normal 25.9-34.0 [facility] Comment on above: Performed By: #### C BC ####[facility] [address] [place] [id number]. Smitha Finnegan MCHC (RBC) [Mass/Vol] 35.5 g/dL Critically high 29.9-35.2 [facility] Comment on above: Performed By: #### C BC ####[facility] [address]off[address]tb[address] [place] [id number]. Smitha Finnegan MCV (RBC) [Entitic vol] 90.5 fL Normal 80.0-94.0 [facility] Comment on above: Performed By: #### C BC ####[facility] [address] [place] [id number]. Smitha Finnegan MONO # 0.4 103/ul Normal 0.3-0.8 [facility] Comment on above: Performed By: #### C BC ####[facility] [address] [place] [id number]. Smitha Finnegan Monocytes/100 WBC (Bld) 6.5 % Normal 1.7-12.0 [facility] Comment on above: Performed By: #### C BC ####[facility] [address]ccfol[address] [place] [id number]. Sarinabelgica Finnegan NEUT # 4.5 103/ul Normal 1.4-6.5 [facility] Comment on above: Performed By: #### C BC ####[facility] Fr[address]ws[address] [place] [id number] Finnegan Neutrophils/100 WBC (Bld) 65.6 % Normal 43.0-75.0 [facility] Comment on above: Performed By: #### C BC ####[facility] [address] [place] [id number] Finnegan Platelet mean volume (Bld) [Entitic vol] 10.5 fL Normal 9.5-13.5 [facility] Comment on above: Performed By: #### C BC ####[facility] [address] [place] [id number]. Smitha Finnegan PLT 192 103/ul Normal 150-450 [facility] Comment on above: Performed By: #### C BC ####[facility] [address] [place] [id number] Finnegan RBC 4.73 106/ul Normal 4.70-6.10 [facility] Comment on above: Performed By: #### C BC ####[facility] [address] [place] [id number] Finnegan WBC 6.8 103/ul Normal 4.0-11.0 [facility] Comment on above: Performed By: #### C BC ####[facility] [address]pop[address] [place] [id number]. Smitha Finnegan GLYCOHEMOGLOBIN A1Con 2022 ADA RECOMMENDATION SEE BELOW Normal [facility] Comment on above: Result Comment: ADA RECOMMENDED LIMIT 4.0 - 6.0 ADA THERAPEUTIC TARGET < 7.0 ACTION SUGGESTED > 7.0 Performed By: #### A 1C #### [facility] Laboratory [address] [place], [place] [address] Dr. Smitha Finnegan Glucose [Mass/Vol] 194 mg/dL Normal [facility] Comment on above: Performed By: #### A 1C #### [facility] Laboratory [address] [place], [place] [address] Dr. Smitha Finnegan HbA1c (Bld) [Mass fraction] 8.4 % Critically high 4.5-6.2 [facility] Comment on above: Performed By: #### A 1C #### [facility] Laboratory [address] [place], [place] [address] Dr. Smitha Finnegan MG MAMM DIAGNOSTIC 3D JERMAINE CA Don 04-13-2022 MG MAMM DIAGNOSTIC 3D JERMAINE CAD Patient: MARGARET WOODS Exam Date: 04/13/2022 : 1960 Gender:M Ordering : DR CORWIN HANNAH D.O. Admission #: [id number] Family : Order #: [id number] CLICK HERE TO VIEW EXAM RADIOLOGY REPORT PROCEDURE: MAMMOGRAM DIAGNOSTIC 3D BILATERAL CAD, 04/13/2022, 12:46 ULTRASOUND BREAST LEFT LIMITED, 04/13/2022, 13:38 COMPARISON: None. INDICATIONS: Hypertrophy of breast Calculator Name NCI Breast Cancer Risk Assessment Tool 5 Year Breast Cancer Risk Not Applicable. Lifetime Breast Cancer Risk Not Applicable. Personal Breast Cancer No Personal Ovarian Cancer No Treatments None Family Cancers None LOCATION: [facility] BREAST COMPOSITION: Almost entirely fatty. FINDINGS: DIAGNOSTIC CATEGORY 3--PROBABLY BENIGN FINDING. THE FOLLOWING FINDING(S) HAS A HIGH PROBABILITY OF A BENIGN ETIOLOGY: RIGHT BREAST: No significant suspicious finding. LEFT BREAST: Several subtle rounded fatty areas within the fatty tissue of the anterior upper-outer quadrant on today's mammogram. Ultrasound evaluation demonstrates at the 3 o'clock position what appears to be a 6.7 x 2.8 x 2.1 cm fatty mass and adjacent 3.6 x 2.8 x 1.9 cm fatty mass. Given the appearance on the mammogram, these most likely represent lipomas. Ultrasound-guided tissue sampling could be performed if clinically desired. Otherwise consider follow-up imaging in 3 -6 months to document stability. RECOMMENDATIONS: SHORT TERM FOLLOW-UP DIAGNOSTIC MAMMOGRAM LEFT BREAST IN 6 MONTHS. SHORT TERM FOLLOW-UP ULTRASOUND LEFT BREAST IN 6 MONTHS. PLEASE NOTE: A NORMAL MAMMOGRAM DOES NOT EXCLUDE THE POSSIBILITY OF BREAST CANCER. A CLINICALLY SUSPICIOUS PALPABLE LUMP SHOULD BE BIOPSIED. Dictated by: Chris Reno M.D. on 04/13/2022 at 14:37 Approved by: Chris Reno M.D. on 04/13/2022 at 14:54 Normal [facility] MICROALBUMIN, RAND URon 02-0 mALB 35.6 mg/L Critically high <=30.0 [facility] Comment on above: Performed By: #### M ALBR #### [facility] Laboratory [address] [place] [address] [address] Smitha Finnegan US BREAST LEFT LIMITEDon US BREAST LEFT LIMITED Patient: ZINA WOODS Exam Date: 04/13/2022 : 1960 Gender:M Ordering : DR CORWIN HANNAH D.O. Admission #: [id number] Family : Order #: [id number] CLICK HERE TO VIEW EXAM RADIOLOGY REPORT PROCEDURE: MAMMOGRAM DIAGNOSTIC 3D BILATERAL CAD, 04/13/2022, 12:46 ULTRASOUND BREAST LEFT LIMITED, 04/13/2022, 13:38 COMPARISON: None. INDICATIONS: Hypertrophy of breast Calculator Name NCI Breast Cancer Risk Assessment Tool 5 Year Breast Cancer Risk Not Applicable. Lifetime Breast Cancer Risk Not Applicable. Personal Breast Cancer No Personal Ovarian Cancer No Treatments None Family Cancers None LOCATION: [facility] BREAST COMPOSITION: Almost entirely fatty. FINDINGS: DIAGNOSTIC CATEGORY 3--PROBABLY BENIGN FINDING. THE FOLLOWING FINDING(S) HAS A HIGH PROBABILITY OF A BENIGN ETIOLOGY: RIGHT BREAST: No significant suspicious finding. LEFT BREAST: Several subtle rounded fatty areas within the fatty tissue of the anterior upper-outer quadrant on today's mammogram. Ultrasound evaluation demonstrates at the 3 o'clock position what appears to be a 6.7 x 2.8 x 2.1 cm fatty mass and adjacent 3.6 x 2.8 x 1.9 cm fatty mass. Given the appearance on the mammogram, these most likely represent lipomas. Ultrasound-guided tissue sampling could be performed if clinically desired. Otherwise consider follow-up imaging in 3 -6 months to document stability. RECOMMENDATIONS: SHORT TERM FOLLOW-UP DIAGNOSTIC MAMMOGRAM LEFT BREAST IN 6 MONTHS. SHORT TERM FOLLOW-UP ULTRASOUND LEFT BREAST IN 6 MONTHS. PLEASE NOTE: A NORMAL MAMMOGRAM DOES NOT EXCLUDE THE POSSIBILITY OF BREAST CANCER. A CLINICALLY SUSPICIOUS PALPABLE LUMP SHOULD BE BIOPSIED. Dictated by: Chris Reno M.D. on 04/13/2022 at 14:37 Approved by: Chris Reno M.D. on 04/13/2022 at 14:54 Normal [facility] Covid-19 PCR (CVDTB)on 09-11 SARS-CoV-2 (COVID-19) RNA MAGALIS+probe Ql (Unsp spec) Not detected Normal NOT DETECTED [facility] Comment on above: Result Comment: When diagnostic testing is negative, the possibility of a false negative should be considered in the context of a patient's recent exposures and the presence of clinical signs and symptoms consistent with SARS-CoV-2. This test is not yet approved or cleared by the [place] FDA. When there are no FDA-approved or cleared tests available, and other criteria are met, FDA can make tests available under an emergency access mechanism called an Emergency Use Authorization (EUA). The EUA for this test is supported by the Cadastral Surveyor of Health and Human Service's declaration that circumstances exist to justify the emergency use of in vitro diagnostics for the detection and/or diagnosis of the virus that causes COVID-19. This EUA will remain in effect for the duration of the COVID-19 declaration justifying emergency of IVDs, unless it is terminated or revoked by the FDA (after which the test may no longer be used). Performed By: #### C [facility] ####[facility] [address] [place], [place] [address]Vu. Sarinabelgica Finnegan Physician Orderon 05-20-2020 Physician Order [id number]# 1.00CD:127 Normal [facility] Vital Signs Date Time Vital Sign Value Performing Clinician Facility 05-03-2024 11:49-0500 Body height 187.96 cm [facility] 05-03-2024 11:49-0500 Body mass index (BMI) [Ratio] 40.4 kg/m2 [facility] 05-03-2024 11:49-0500 Body weight 142.93 kg [facility] 05-03-2024 11:49-0500 Diastolic blood pressure 123 mm[Hg] [facility] 05-03-2024 11:49-0500 Heart rate 108 /min [facility] 05-03-2024 11:49-0500 Respiratory rate 12 /min [facility] 05-03-2024 11:49-0500 Systolic blood pressure 187 mm[Hg] [facility] 12-04-2023 13:32-0400 Body height 187.96 cm [facility] 12-04-2023 13:32-0400 Body mass index (BMI) [Ratio] 40 kg/m2 [facility] 12-04-2023 13:32-0400 Body temperature 97.8 [degF] [facility] 12-04-2023 13:32-0400 Body weight 141.52 kg [facility] 12-04-2023 13:32-0400 Diastolic blood pressure 80 mm[Hg] [facility] 12-04-2023 13:32-0400 Heart rate 90 /min [facility] 12-04-2023 13:32-0400 SaO2% (BldA) [Mass fraction] 98 % [facility] 12-04-2023 13:32-0400 Systolic blood pressure 156 mm[Hg] [facility] 08-08-2023 08:40-0400 Body height 187.96 cm DO Corwin Ball Work Phone: [facility] 08-08-2023 08:40-0400 Body mass index (BMI) [Ratio] 39.6 kg/m2 DO Corwin Ball Work Phone: [facility] 08-08-2023 08:40-0400 Body weight 140.33 kg DO Corwin Ball Work Phone: [facility] 08-08-2023 08:40-0400 Diastolic blood pressure 100 mm[Hg] DO Corwin Ball Work Phone: [facility] 08-08-2023 08:40-0400 Heart rate 109 /min DO Corwin Ball Work Phone: [facility] 08-08-2023 08:40-0400 Respiratory rate 16 /min DO Corwin Ball Work Phone: [facility] 08-08-2023 08:40-0400 Systolic blood pressure 176 mm[Hg] DO Corwin Ball Work Phone: [facility] 07-19-2023 09:06-0400 Body height 187.96 cm DO Corwin Ball Work Phone: [facility] 07-19-2023 09:06-0400 Body mass index (BMI) [Ratio] 39.5 kg/m2 DO Corwin Ball Work Phone: [facility] 07-19-2023 09:06-0400 Body weight 139.7 kg DO Corwin Ball Work Phone: [facility] 12-30-2022 09:30-0400 Body height 187.96 cm Corwin Ball Other [employer] [facility] [employer] Other 12-30-2022 09:30-0400 Body mass index (BMI) [Ratio] 39.62 kg/m2 Corwin Ball Other [employer] [facility] [employer] Other 12-30-2022 09:30-0400 Body weight 139.98 kg Corwin Ball Other [employer] Other 12-30-2022 09:30-0400 Diastolic blood pressure 88 mm[Hg] Corwin Ball Other [employer] Other 12-30-2022 09:30-0400 Respiratory rate 12 /min Corwin Ball Other [employer] Other 12-30-2022 09:30-0400 Systolic blood pressure 138 mm[Hg] Corwin Ball Other [employer] Other 12-14-2022 06:56-0400 Body temperature 98 [degF] DO Corwin Ball Work Phone: [facility] 12-14-2022 06:56-0400 Diastolic blood pressure 85 mm[Hg] DO Corwin Ball Work Phone: [facility] 12-14-2022 06:56-0400 Heart rate 78 /min DO Corwin Ball Work Phone: [facility] 12-14-2022 06:56-0400 Respiratory rate 20 /min DO Corwin Ball Work Phone: [facility] 12-14-2022 06:56-0400 SaO2% (BldA) [Mass fraction] 95 % DO Corwin Ball Work Phone: [facility] 12-14-2022 06:56-0400 Systolic blood pressure 134 mm[Hg] DO Corwin Ball Work Phone: [facility] 12-14-2022 02:49-0400 Body height 187.96 cm DO Corwin Ball Work Phone: [facility] 12-14-2022 02:49-0400 Body weight 131.54 kg DO Corwin Ball Work Phone: [facility] 07-04-2022 12:15-0400 Body height 187.96 cm Corwin Ball Other [facility] [employer] Other 07-04-2022 12:15-0400 Body mass index (BMI) [Ratio] 40.18 kg/m2 Corwin Ball Other [facility] [employer] Other 07-04-2022 12:15-0400 Body weight 141.98 kg Corwin Ball Other [employer] Other 07-04-2022 12:15-0400 Diastolic blood pressure 90 mm[Hg] Corwin Ball Other [employer] Other 07-04-2022 12:15-0400 Respiratory rate 16 /min Corwin Ball Other [employer] Other 07-04-2022 12:15-0400 Systolic blood pressure 170 mm[Hg] Corwin Ball Other [employer] Other 04-05-2022 10:00-0500 Body height 187.96 cm Corwin Ball Other [employer] Other 04-05-2022 10:00-0500 Body mass index (BMI) [Ratio] 38.94 kg/m2 Corwin Hannah Other [employer] Other 04-05-2022 10:00-0500 Body weight 137.58 kg Corwin Hannah Other [employer] Other 04-05-2022 10:00-0500 Respiratory rate 16 /min Corwin Hannah Other [employer] Other Encounters Encounter Date Encounter Type Care Provider Facility Start: 05-03-2024 End: 05-03-2024 ambulatory [facility] Work Phone: Start: 05-03-2024 End: 05-03-2024 Patient encounter procedure [facility] Work Phone: Start: 03-08-2024 End: 03-08-2024 Patient encounter procedure [facility] Work Phone: Start: 03-01-2024 End: 03-01-2024 Patient encounter procedure [facility] Work Phone: Start: 02-23-2024 End: 02-23-2024 Patient encounter procedure [facility] Work Phone: Start: 12-04-2023 End: 12-04-2023 ambulatory [facility] Work Phone: Start: 12-04-2023 End: 12-04-2023 Patient encounter procedure [facility] Work Phone: Start: 09-04-2023 End: 09-04-2023 ambulatory DO Corwin Ball Work Phone: [facility] Work Phone: Start: 09-04-2023 End: 09-04-2023 Patient encounter procedure DO Corwin Ball Work Phone: [facility] Work Phone: Start: 08-28-2023 End: 08-28-2023 ambulatory DO Corwin Ball Work Phone: [facility] Work Phone: Start: 08-28-2023 End: 08-28-2023 Patient encounter procedure DO Corwin Ball Work Phone: [facility] Work Phone: Start: 08-21-2023 End: 08-21-2023 ambulatory DO Corwin Ball Work Phone: [facility] Work Phone: Start: 08-21-2023 End: 08-21-2023 Patient encounter procedure DO Corwin Ball Work Phone: [facility] [place] Work Phone: Start: 08-08-2023 End: 08-08-2023 ambulatory DO Corwin Ball Work Phone: [facility] Work Phone: Start: 08-08-2023 End: 08-08-2023 Encounter for general adult medical examination without abnormal findings DO Corwin Ball Work Phone: [facility] Start: 08-08-2023 End: 08-08-2023 Patient encounter procedure DO Corwin Ball Work Phone: [facility] Work Phone: Start: 07-19-2023 End: 07-19-2023 ambulatory Corwin Ball Facility:[facility] Start: 07-19-2023 End: 07-19-2023 ambulatory DO Corwin Ball Work Phone: [facility] Work Phone: Start: 07-19-2023 End: 07-19-2023 Patient encounter procedure DO Corwin Hannah Work Phone: [facility] [place] [place] Work Phone: Start: 04-06-2023 End: 04-06-2023 ambulatory Corwin Hannah Other [employer] Other Start: 04-06-2023 Encounter for genera l adult medical examination without abnormal findings Corwin Hannah [facility] Start: 04-06-2023 Periodic preventive med est patient 40-64yrs Corwin Hannah [facility] Start: 02-21-2023 End: 02-21-2023 ambulatory Corwin Hannah Other [employer] Other Start: 02-21-2023 Telephone encounter Corwin Hannah [facility] Start: 12-30-2022 End: 12-30-2022 ambulatory Corwin Hannah Other [employer] Other Start: 12-30-2022 Office outpatient vi sit 25 minutes Corwin Hannah [facility] Start: 12-20-2022 End: 12-20-2022 ambulatory Corwin Hannah Other [employer] Other Start: 12-20-2022 Telephone encounter Crowin Hannah [facility] Start: 12-17-2022 End: 12-17-2022 ambulatory Corwin [place] Facility:[facility] Start: 12-17-2022 End: 12-17-2022 ambulatory DO Corwin Ball Work Phone: [facility] Work Phone: Start: 12-17-2022 End: 12-17-2022 Departed Referred DO Corwin Ball Work Phone: [facility] Work Phone: Start: 12-14-2022 End: 12-14-2022 ambulatory Corwin [place] Other [employer] Other Start: 12-14-2022 Telephone encounter Corwin Hannah [facility] Start: 12-14-2022 End: 12-14-2022 Emergency department patient visit Efren Longo Facility:[facility] Start: 12-14-2022 End: 12-14-2022 Emergency department patient visit DO Corwin Hannah Work Phone: [facility] Work Phone: Start: 07-04-2022 End: 07-04-2022 ambulatory Corwin Hannah Other [employer] Other Start: 07-04-2022 Office outpatient vi sit 25 minutes Corwin Hannah [facility] Start: 04-16-2022 Encounter for genera l adult medical examination without abnormal findings DR CORWIN HANNAH [facility] Start: 04-14-2022 End: 04-14-2022 ambulatory Corwin Hannah Other [employer] Other Start: 04-14-2022 Telephone encounter Corwin Hannah [facility] Start: 04-13-2022 End: 04-14-[address] CORWIN HANNAH Facility:[facility] Start: 04-13-2022 End: 04-14-2022 Encounter for general adult medical examination without abnormal findings DR CORWIN HANNAH Facility:[facility] Start: 04-06-2022 End: 04-06-2022 ambulatory Corwin Hannah Other [employer] Other Start: 04-06-2022 Telephone encounter Corwin ARAIZA [facility] Start: 04-05-2022 End: 04-05-2022 ambulatory Corwin Hannah Other [employer] Other Start: 04-05-2022 Patient encounter procedure Corwin Hannah [facility] Start: 04-05-2022 Periodic preventive med est patient 40-64yrs Corwin Hannah [facility] Start: 01-10-2022 End: 01-11-[address] CORWIN HANNAH Facility:[facility] Start: 10-04-2021 End: 10-04-[address] CORWIN HANNAH Facility:[facility] Start: 09-29-2020 Adult health examination Corwin Hannah Other [employer] Other Procedures Date Procedure Procedure Detail Performing Clinician Start: 07-19-2023 X-ray of both knees DO Corwin Hannah Work Phone: Start: 12-14-2022 SARS-CoV-2, Influenz a & RSV (PCR) DO Corwin Hannah Work Phone: Start: 12-14-2022 Plain chest X-ray DO Be josh Hannah Work Phone: Start: 04-13-[address] JIMENEZ IN [place] Comment on above: Performed By: #### P [facility] #### [facility] Laboratory [address] [place] [address] Dr. Smitha Finnegan Start: 09-29-2020 Depression screening Be josh Hannah Other Start: 03-16-2016 General examination of patient Corwin Hannah Other Start: 03-16-2016 Screening for malign ant neoplasm of colon Corwin Hannah Other Start: 03-16-2016 Screening for malign ant neoplasm of prostate Corwin Hannah Other Screening for malign ant neoplasm of prostate Corwin Hannah Other Plan of Treatment Date Care Activity Detail Author Start: 07-19-2023 X-ray of both knees XR knee BI 3V - NOT FOR ER USE [facility] Start: 07-19-2023 XR Knee - bilateral 3 Views [facility] Start: 12-14-2022 Plain chest X-ray XR chest 1V portab le [facility] Start: 12-14-2022 XR Chest Single view [facility] Comprehensive metabo lic 1999 panel - Serum or Plasma [facility] Comprehensive metabo lic 1999 panel - Serum or Plasma [facility] Comprehensive metabo lic 1999 panel - Serum or Plasma [facility] CT Unspecified body region WO contrast [facility] Microalbumin [Mass/v olume] in Urine [facility] Patient Education Pneumonia, Adult ED [facility] Work Phone: Patient referral [facility] Work Phone: [facility] Payers Date Payer Category Payer Unknown [id number] 2022 Self-pay [id number] 1960 Unknown [id number] 2.16.84 [id number] 1960 Unknown [id number] 2.16.84 [id number] 1960 Unknown [id number] 2.16.84 [id number] 1959 [place] [id number] 1959 Unknown [id number] Unknown MMO [id number] Unknown [id number] 2.16.8 [id number] Unknown [id number] 2.16.8 [id number] Unknown [id number] 2.16.8 [id number] Unknown Suze BC/BS [id number] Social History Date Type Detail Facility Sex Assigned At [facility] Other Start: [facility]14-20[facility] Start: 1960 Sex Assigned At Male F [facility] Start: 04-09-2023 End: 04-09-2023 Tobacco smoking status NHIS Current some day smoker [facility] Start: 05-03-2024 Sex Male (finding) [facility] Medical Equipment Procedure Code Equipment Code Equipment Original Text Equi pment Identifier Dates Clinical Notes 04-13-2016 to 02-23-2024 Note Date & Type Note Facility 02-23-2024 Evaluation note Diagnosis Onset Date Resolution Obesity (BMI 30-39.9) acute Dec ember 2023 8:04am Primary osteoarthritis of knees, bilateral acute February 8:04am Obesity (BMI 30-39.9) acute Dec ember 2023 7:56am Primary osteoarthritis of knees, bilateral acute February 7:56am Obesity (BMI 30-39.9) acute Dec ember 2023 8:20am Primary osteoarthritis of knees, bilateral acute February 8:20am [facility] Work Phone: [phone] 557-774901-25-2024 Evaluation note* Encounter Date Diagnosis Assessment Notes Treatment Notes Treatment Clinical Notes Mar, Wellness examination (ICD-10 - Z00.00) Healthy diet and exercise. Reviewed age-appropriate preventive testing recommended. Mar, Type 2 diabetes mellitus with hyperglycemia (ICD-10 - E11.65) This patient is following a comprehensive diabetic treatment plan. They are checking their feet daily for calluses and nonhealing ulcers. They are being seen for yearly dilated eye examinations. Goals: SBP less than 130, LDL less than 100, FBS less than 140, A1C less than 7%. They are checking their BS daily, will which are reviewed at the office visit. Continue regular routine monitoring of A1C, Microalbumin, Dilated eye exam and Foot exam Mar, Type 2 diabetes mellitus with diabetic polyneuropathy (ICD-10 - E11.42) Inspect feet daily for cuts and calluses.Recommend diabetic shoes and inserts to prevent callus formation.Fall precautions. Mar, Primary hypertension (ICD-10 - I10) This patient is instructed to consume a healthy, low-fat, low-salt diet. They are also encouraged to continue exercise to achieve/maintain a normal BMI. Patient is instructed on home BP measurements: - rest for 5 minutes w/o talking.- positioned w/ feet on floor and arm supported.- average best 2/3 readings w/ goal < 135/85.- update office w/ home readings in 2 weeks. Mar, Mixed hyperlipidemia (ICD-10 - E78.2) Instructed on diet and exercise with continued statin therapy.Discussed the beneficial effects of lowering cholesterol in reducing the risk for cerebrovascular and cardiovascular disease. Mar, Gastroesophageal reflux disease with esophagitis without hemorrhage (ICD-10 - K21.00) Avoid lying flat after eating. Avoid eating 2 hours prior to bedtime. Smaller, frequent meals may be better tolerated.Weight loss if overweight.PPI with any heartburn.Monitor for dysphagia. Mar, Chronic venous insufficiency (ICD-10 - I87.2) Avoid salt and elevate lower extremities, support stockings, inspect legs and feet daily for blisters and ulcerations. Mar, Morbid (severe) obesity due to excess calories (ICD-10 - E66.01) This patient has been instructed on a low-fat, high-fiber diet. They are instructed to reduce calories, portion sizes and snacks. It is recommended that they exercise for 30 minutes, 3-5 times weekly. Mar, Body mass index [BMI ] 39.0-39.9, adult (ICD-10 - Z68.39) Mar, Lumbar spondylosis (ICD-10 - M47.816) The patient is instructed to avoid bending, twisting or lifting. They are to use intermittent heat and ice as needed. They may schedule a massage or gentle manipulation. They may safely use Tylenol as needed. 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 They are checking their feet daily for calluses and nonhealing ulcers. They are being seen for yearly dilated eye examinations. Goals: SBP less than 130, LDL less than 100, FBS less than 140, A1C less than 7%. They are checking their BS daily, will which are reviewed at the office visit. Continue regular routine monitoring of A1C,] Microalbumin, Dilated eye exam and Foot exam Dec, Type 2 diabetes mellitus with diabetic polyneuropathy (ICD-10 - E11.42) Inspect feet daily for cuts and calluses.Recommend diabetic shoes and inserts to prevent callus formation.Fall precautions. Dec, Primary hypertension (ICD-10 - I10) This patient is instructed to consume a healthy, low-fat, low-salt diet. They are also encouraged to continue exercise to achieve/maintain a normal BMI. Dec, Mixed hyperlipidemia (ICD-10 - E78.2) Instructed on diet and exercise with continued statin therapy.Discussed the beneficial effects of lowering cholesterol in reducing the risk for cerebrovascular and cardiovascular disease. Dec, Pancytopenia (ICD-10 - D61.818) Due to pneumonia, likely will recover but recommend rechecking in month Dec, Pneumonia of left lower lobe due to infectious organism (ICD-10 - J18.9) Clinically recovered w/ fever or cough. Recommend recheck CXR in month Dec, Gastroesophageal reflux disease with esophagitis without hemorrhage (ICD-10 - K21.00) Diet instructions: Smaller portions, avoid eating and laying flat, avoid eating or drinking prior to bedtime. Weight loss. Dec, Chronic venous insufficiency (ICD-10 - I87.2) Avoid salt and elevate lower extremities, support stockings, inspect legs and feet daily for blisters and ulcerations. Dec, Morbid (severe) obesity due to excess calories (ICD-10 - E66.01) This patient has been instructed on a low-fat, high-fiber diet. They are instructed to reduce calories, portion sizes and snacks. It is recommended that they exercise for 30 minutes, 3-5 times weekly. Dec, Body mass index [BMI ] 39.0-39.9, adult (ICD-10 - Z68.39) Dec, Lumbar spondylosis (ICD-10 - M47.816) The patient is instructed to avoid bending, twisting or lifting. They are to use intermittent heat and ice as needed. They may schedule a massage or gentle manipulation. They may safely use Tylenol as needed. 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 They are also encouraged to continue exercise to achieve/maintain a normal BMI. Check BP mid day w/ instructions on proper way to take BP GOal < 135/85 Jun, Type 2 diabetes mellitus with hyperglycemia (ICD-10 - E11.65) This patient is following a comprehensive diabetic treatment plan. They are checking their feet daily for calluses and nonhealing ulcers. They are being seen for yearly dilated eye examinations. Goals: SBP less than 130, LDL less than 100, FBS less than 140, AC and A1C less than 7%. They are checking their BS daily, will which are reviewed at the office visit. A1C: [ ] Microalbumin: [ ] Eye exam: [ ] Foot exam: [ ] Increase Insulin to 45/20 Jun, Mixed hyperlipidemia (ICD-10 - E78.2) Continue Statin and Fenofibrate. Add Fish oil Events Core Other 01-25-2023 Evaluation note* Encounter Date Diagnosis Assessment Notes Treatment Notes Treatment Clinical Notes Mar, Gynecomastia, male (ICD-10 - N62) Left sided gynecomastia w/ fullness UIQ and UOQ Events Core Other 01-24-2023 Evaluation note* Encounter Date Diagnosis Assessment Notes Treatment Notes Treatment Clinical Notes Mar, Annual physical exam (ICD-10 - Z00.00) Healthy diet and exercise. Reviewed age-appropriate preventive testing recommended. Mar, Gastroesophageal reflux disease with esophagitis without hemorrhage (ICD-10 - K21.00) Diet instructions: Smaller portions, avoid eating and laying flat, avoid eating or drinking prior to bedtime. Weight loss. Continue PPI Mar, Type 2 diabetes mellitus with hyperglycemia (ICD-10 - E11.65) This patient is following a comprehensive diabetic treatment plan. They are checking their feet daily for calluses and nonhealing ulcers. They are being seen for yearly dilated eye examinations. Goals: SBP less than 130, LDL less than 100, FBS less than 140, AC and A1C less than 7%. They are checking their BS daily, will which are reviewed at the office visit. Mar, Primary hypertension (ICD-10 - I10) Mar, Mixed hyperlipidemia (ICD-10 - E78.2) Diet and exercise with continued statin therapy. Mar, Gynecomastia, male (ICD-10 - N62) Fullness superior to the right nipple, recommend mammogram. Mar, Benign prostatic hyperplasia with lower urinary tract symptoms (ICD-10 - N40.1) Yearly HUONG and PSA Mar, Obesity (BMI 35.0-39 .9 without comorbidity) (ICD-10 - E66.9) This patient has been instructed on a low-fat, high-fiber diet. They are instructed to reduce calories, portion sizes and snacks. It is recommended that they exercise for 30 minutes, 3-5 times weekly. Mar, Screening PSA (prostate specific antigen) (ICD-10 - Z12.5) Mar, USP (current) use of insulin (ICD-10 - Z79.4) Mar, Other This patient is instructed to consume a healthy, low-fat, low-salt diet. They are also encouraged to continue exercise to achieve/maintain a normal BMI. Events Core Other 10-31-2022 NotePROCEDURE: XR KNEE RT 1_2 V COMPARISON: None. HISTORY: Contusion of knee FINDINGS: BONES:No acute fracture or dislocation. Enthesopathic spurring of the patella at the quadriceps insertion SOFT TISSUES:Negative. No visible soft tissue swelling. EFFUSION:None visible. OTHER: Negative. IMPRESSION: No acute abnormality Electronically authenticated by: NAHID ELIZABETH Date: 2022-01-10 13:34[facility]10-31-2022 NotePROCEDURE: XR HIP RT 2 3V WO PELVIS COMPARISON: None. HISTORY: Contusion of right hip region FINDINGS: BONES:No acute fracture or dislocation. Minimal marginal osteophyte formation of the acetabulum SOFT TISSUES:Negative. No visible soft tissue swelling. EFFUSION:None visible. OTHER: Negative. IMPRESSION: Minimal degenerative changes Electronically authenticated by: NAHID ELIZABETH Date: 2022-01-10 13:33[facility]10-31-2022 NotePROCEDURE: XR ANKLE RT 2V COMPARISON: None. HISTORY: Contusion of right ankle FINDINGS: BONES:No acute fracture or dislocation. Corticated calcific density inferior medial malleolus, remote injury. Moderate to severe enthesopathic spurring of the calcaneus. Degenerative changes with marginal osteophyte formation and joint space narrowing SOFT TISSUES:Negative. No visible soft tissue swelling. EFFUSION:None visible. OTHER: Negative. IMPRESSION: Degenerative changes, no acute fracture Electronically authenticated by: NAHID ELIZABETH Date: 2022-01-10 13:32[facility]02-01-2017 History general Narrative - Reported* Type Description Date Medical History Hypertension Medical History Acid reflux Medical History Hyperlipidemia Surgical History colonoscopy 04/2016 Surgical History EGD 04/2016 Surgical History Excision of Melanoma 2016 Hospitalization History see surgical history [facility] [place] [employer] Other Evaluation noteNo [facility] [place] [employer] Other evaluation noteNo assessment information available [facility] Work Phone: Evaluation note* Diagnosis Onset Date Resolution Status Obesity (BMI 30-39.9) acute Primary osteoarthritis of knees, bilateral acute [facility] Work Phone: Evaluation note* Diagnosis Onset Date Resolution Status Obesity (BMI 30-39.9) acute Primary osteoarthritis of knees, bilateral acute Chronic venous insufficiency acute Mixed hyperlipidemia acute Primary hypertension acute Primary osteoarthritis of knee acute Type 2 diabetes mellitus wit h diabetic polyneuropathy acute Type 2 diabetes mellitus with hyperglycemia acute Screening PSA (prostate specific antigen) noneactive Wellness examination noneact dina [facility] Work Phone: Evaluation note* Diagnosis Onset Date Resolution Status Obesity (BMI 30-39.9) acute Primary osteoarthritis of knees, bilateral acute Chronic venous insufficiency acute Mixed hyperlipidemia acute Primary hypertension acute Primary osteoarthritis of knee acute Type 2 diabetes mellitus wit h diabetic polyneuropathy acute Type 2 diabetes mellitus with hyperglycemia acute Screening PSA (prostate specific antigen) noneactive Wellness examination noneact dina Obesity (BMI 30-39.9) acute Primary osteoarthritis of knees, bilateral acute [facility] Work Phone: Evaluation note* Diagnosis Onset Date Resolution Status Obesity (BMI 30-39.9) acute Primary osteoarthritis of knees, bilateral acute Chronic venous insufficiency acute Mixed hyperlipidemia acute Primary hypertension acute Primary osteoarthritis of knee acute Type 2 diabetes mellitus wit h diabetic polyneuropathy acute Type 2 diabetes mellitus with hyperglycemia acute Screening PSA (prostate specific antigen) noneactive Wellness examination noneact dina Obesity (BMI 30-39.9) acute Primary osteoarthritis of knees, bilateral acute Obesity (BMI 30-39.9) acute Primary osteoarthritis of knees, bilateral acute [facility] Work Phone: Evaluation note* Diagnosis Onset Date Resolution Status Obesity (BMI 30-39.9) acute Primary osteoarthritis of knees, bilateral acute Chronic venous insufficiency acute Mixed hyperlipidemia acute Primary hypertension acute Primary osteoarthritis of knee acute Type 2 diabetes mellitus wit h diabetic polyneuropathy acute Type 2 diabetes mellitus with hyperglycemia acute Screening PSA (prostate specific antigen) noneactive Wellness examination noneact dina Obesity (BMI 30-39.9) acute Primary osteoarthritis of knees, bilateral acute Obesity (BMI 30-39.9) acute Primary osteoarthritis of knees, bilateral acute Obesity (BMI 30-39.9) acute Primary osteoarthritis of knees, bilateral acute [facility] Work Phone: Evaluation note* Diagnosis Onset Date Resolution Status Primary hypertension acute Type 2 diabetes mellitus with hyperglycemia acute [facility] Work Phone: History general Narrative - Reported* Type Description Date Medical History Hypertension Medical History Acid reflux Medical History Hyperlipidemia Events [facility] Other Summary Purpose Family History Relationship Condition Age at Onset Recorded Date/T desirae father Malignant neoplasm Unknown Not Specified Malignant neoplasm Unknown Relationship Condition Age at Onset Recorded Date/T desirae father Malignant neoplasm Unknown mother Malignant neoplasm Unknown Advance Directives Advance Directive Response Recorded Date/ Time Advance Directives No December 24, 2016 7:48am Advance Directive Response Recorded Date/ Time Advance Directives No December 24, 2016 6:48am Chief Complaint and Reason for Visit Chief Complaint Headache/ ill Chief Complaint Headache/ ill cbc psa a1c Chief Complaint ER [facility] BILAT KNEE P AIN NX M25.561 - Pain in right knee Reason for Visit Obesity (BMI 30-39.9 ) Primary osteoarthritis of knees, bilateral Chief Complaint ER [facility] BILAT KNEE P AIN NX M25.561 M25.562 4 MONTH FOLLOW UP Reason for Visit Obesity (BMI 30-39.9 ) Primary osteoarthritis of knees, bilateral Chronic venous insufficiency Mixed hyperlipidemia Primary hypertension Primary osteoarthritis of knee Type 2 diabetes mellitus with diabetic polyneuropathy Type 2 diabetes mellitus with hyperglycemia Screening PSA (prostate specific antigen) Wellness examination Chief Complaint ER [facility] BILAT KNEE P AIN NX M25.561 M25.562 4 MONTH FOLLOW UP VISCO 3 RT KNEE Reason for Visit Obesity (BMI 30-39.9 ) Primary osteoarthritis of knees, bilateral Chronic venous insufficiency Mixed hyperlipidemia Primary hypertension Primary osteoarthritis of knee Type 2 diabetes mellitus with diabetic polyneuropathy Type 2 diabetes mellitus with hyperglycemia Screening PSA (prostate specific antigen) Wellness examination Obesity (BMI 30-39.9) Primary osteoarthritis of knees, bilateral Chief Complaint ER [facility] BILAT KNEE P AIN NX M25.561 M25.562 4 MONTH FOLLOW UP VISCO 3 RT KNEE VISCO 3 RT KNEE Reason for Visit Obesity (BMI 30-39.9 ) Primary osteoarthritis of knees, bilateral Chronic venous insufficiency Mixed hyperlipidemia Primary hypertension Primary osteoarthritis of knee Type 2 diabetes mellitus with diabetic polyneuropathy Type 2 diabetes mellitus with hyperglycemia Screening PSA (prostate specific antigen) Wellness examination Obesity (BMI 30-39.9) Primary osteoarthritis of knees, bilateral Obesity (BMI 30-39.9) Primary osteoarthritis of knees, bilateral Chief Complaint ER [facility] BILAT KNEE P AIN NX M25.561 M25.562 4 MONTH FOLLOW UP VISCO 3 RT KNEE VISCO 3 RT KNEE VISCO 3 RT KNEE Reason for Visit Obesity (BMI 30-39.9 ) Primary osteoarthritis of knees, bilateral Chronic venous insufficiency Mixed hyperlipidemia Primary hypertension Primary osteoarthritis of knee Type 2 diabetes mellitus with diabetic polyneuropathy Type 2 diabetes mellitus with hyperglycemia Screening PSA (prostate specific antigen) Wellness examination Obesity (BMI 30-39.9) Primary osteoarthritis of knees, bilateral Obesity (BMI 30-39.9) Primary osteoarthritis of knees, bilateral Obesity (BMI 30-39.9) Primary osteoarthritis of knees, bilateral Chief Complaint Headaches Reason for Visit Primary hypertension Type 2 diabetes mellitus with hyperglycemia Chief Complaint Admit Date VISCO #1 RT KNEE February 23, 2024 8:04am VISCO #2 RT KNEE March 01, 2024 7:56am VISCO #3 RT KNEE March 08, 2024 8:20am possible pancreatitis May 03 11:43am Reason for Visit Admit Date Obesity (BMI 30-39.9) February 22 8:04am Primary osteoarthritis of knees, bilater al February 23, 2024 8:04am Obesity (BMI 30-39.9) March 01 7:56am Primary osteoarthritis of knees, bilater al March 01, 2024 7:56am Obesity (BMI 30-39.9) March 08 8:20am Primary osteoarthritis of knees, bilater al March 08, 2024 8:20am Additional Source Comments (unrecognized sect ion and content) No Status Records FoundNo Status Records FoundNo Status Records Found INFORMATION SOURCE (unrecogn ized section and content) DATE CREATED AUTHOR 05/22/2020 [facility] DATE CREATED AUTHOR AUTHOR'S ORGANIZ ATION 06/19/2022 [facility] DATE CREATED AUTHOR AUTHOR'S ORGANIZ ATION 07/24/2023 [facility] REASON FOR VISIT (unrecogniz ed section and content) WellnessNo Informationmessag eelevated BS/BP, back painfollow upLab results4 month Follow upRefillwellness Care Teams (unrecognized sec tion and content) Team Status: Active Member Role Status Dates Corwin Hannah DO Primary Care Provider Active Team Status: Inactive Member Role Status Dates Corwin Hannah DO Primary Care Provider Active Efren Longo DO Emergency Provider Active Team Status: Inactive Member Role Status Dates [employer] Attending Provider Active Corwin Hannah DO Primary Care Provider Active Team Status: Inactive Member Role Status Dates Corwin Hannah DO Primary Care Provider Active Start: July 19, 2023 End: July 19, 2023 Meek Franco DO Attending Provider Active S tart: July 19, 2023 End: July 19, 2023 Team Status: Active Member Role Status Dates Corwin Hannah DO Primary Care Provider Active Start: July 19, 2023 Meek Franco DO Attending Provider Active S tart: July 19, 2023 Team Status: Inactive Member Role Status Dates Corwin Hannah DO Primary Care Provide r, Attending Provider Active Start: August 08, 2023 End: August 08, 2023 Team Status: Inactive Member Role Status Dates Corwin Hannah DO Primary Care Provider Active Start: August 21, 2023 End: August 21, 2023 Meek Franco , DO Attending Provider Active S tart: August 21, 2023 End: August 21, 2023 Team Status: Inactive Member Role Status Dates Corwin Hannah DO Primary Care Provider Active Start: August 28, 2023 End: August 28, 2023 Meek Franco DO Active Start: August 28, 2023 End: August 28, 2023 Melida Rodriguez NP-C Attending Provider Active Start: August 28, 2023 End: August 28, 2023 Team Status: Inactive Member Role Status Dates Corwin Hannah DO Primary Care Provider Active Start: August 28, 2023 End: August 28, 2023 Meek Franco , DO Attending Provider Active S tart: August 28, 2023 End: August 28, 2023 Team Status: Inactive Member Role Status Dates Corwin Hannah DO Primary Care Provider Active Start: September 04, 2023 End: September 04, 2023 Meek Franco , DO Attending Provider Active S tart: September 04, 2023 End: September 04, 2023 Team Status: Inactive Member Role Status Dates Corwin Hannah DO Primary Care Provide r, Attending Provider Active Start: December 04, 2023 End: December 04, 2023 Team Status: Inactive Member Role Status Dates Corwin Hannah DO Primary Care Provider Active Start: February 23, 2024 End: February 23, 2024 Meek Franco , DO Attending Provider Active S tart: February 23, 2024 End: February 23, 2024 Team Status: Inactive Member Role Status Dates Corwin Hannah DO Primary Care Provider Active Start: March 01, 2024 End: March 01, 2024 Meek Franco , DO Attending Provider Active S tart: March 01, 2024 End: March 01, 2024 Team Status: Inactive Member Role Status Dates Corwin Hannah DO Primary Care Provider Active Start: March 08, 2024 End: March 08, 2024 Meek Franco , DO Attending Provider Active S tart: March 08, 2024 End: March 08, 2024 Team Status: Inactive Member Role Status Dates Corwin Hannah , DO Primary Care Provide r, Attending Provider Active Start: May 03, 2024 End: May 03, 2024 Goals (unrecognized section and content) Goals may be documented in a n alternate section FOR RECORDS PERTAINING TO PATIENTS WHO ARE OR HAVE BEEN ENROLLED IN A CHEMICAL DEPENDENCY/SUBSTANCEABUSE PROGRAM, SOME INFORMATION MAY BE OMITTED. This clinical summary was aggregated from multiple sources. Caution should be exercised in using it in the provision of clinical care. This summary normalizes information from multiple sources, and as a consequence, information in this document may materially change the coding, format and clinical context of patient data. In addition, data may be omitted in some cases. CLINICAL DECISIONS SHOULD BE BASED ON THE PRIMARY CLINICAL RECORDS. [employer] provides no warranty or guarantee of the accuracy or completeness of information in this document.
[2024-05-04 09:52] LABS: Basophils Percent Auto 0.3 % (0.2-2.0); Eosinophils Absolute Auto 0.2 10^3/uL (0.0-0.7); Eosinophils Percent Auto 2.5 % (0.9-7.0); Hematocrit 39.6 % (42.0-54.0); Hemoglobin 14.7 g/dL (14.0-18.0); Immature Granulocytes Abs Auto 0.05 10^3/uL (0.00-0.03); Immature Granulocytes Pct Auto 0.8 % (0.0-0.5); Lymphocytes Absolute Auto 1.8 10^3/uL (1.2-3.8); Lymphocytes Percent Auto 29.9 % (20.5-60.0); Mean Corpuscular HGB Conc 37.1 g/dL (29.9-35.2); Mean Corpuscular Hemoglobin 32.9 pg (25.9-34.0); Mean Corpuscular Volume 88.6 fL (80.0-94.0); Mean Platelet Volume 11.1 fL (9.5-13.5); Monocytes Absolute Auto 0.4 10^3/uL (0.3-0.8); Monocytes Percent Auto 6.9 % (1.7-12.0); Neutrophils Absolute Auto 3.5 10^3/uL (1.4-6.5); Neutrophils Percent Auto 59.6 % (43.0-75.0); Platelet Count 213 10^3/uL (150-450); Red Blood Count 4.47 10^6/uL (4.70-6.10); Red Cell Distribution Width 12.9 % (11.0-15.0); White Blood Count 5.9 10^3/uL (4.0-11.0)
== END 2024-05-04 08:57 | disposition home or self-care (01) ==
LOC: LAB 08:58
PROVIDERS: PCP Internal Medicine; Visit Provider Internal Medicine
DX: M54.9 Dorsalgia, unspecified (principal); E11.65 Type 2 diabetes mellitus with hyperglycemia; I10 Essential (primary) hypertension
CPT/HCPCS: 36415; 80053; 83690; 85025

== ENCOUNTER 2024-05-14 15:19 | Outpatient (OUT) | payer BC, SELFPAY ==
--- NOTE | 2024-05-14 15:25 | XR_ITS ---
The [address] [address] Patient Name: MARGARET PRITCHETT MRN: [id number] date: 1960 Sex: M Assigned Patient Location: [facility] Current Patient Location: [facility] Accession/Order Number: [id number] Exam Date: 05/14/2024 15:54 Report Date: 05/14/2024 16:00 At the request of: LEIF SALGUERO DO Procedure: XR thoracic spine 3V THORACIC SPINE - 3 views: CLINICAL HISTORY: Mid Back Pain On Right Side. No injury. COMPARISON: None AP and lateral upper and lower views were obtained. There is slight dextroscoliotic curvature. There is no evidence of compression fracture or displacement. The pedicles, as visualized are intact. There are flowing anterior osteophytes. This may be DISH. There are no paraspinal soft tissue abnormalities. XR/XR thoracic spine 3V IMPRESSION: DEGENERATIVE CHANGES. NO ACUTE BONY FINDINGS. Impression dictated by: Lynn Renner M.D.05/14/2024 4:00 PM Dictation Location: [email or web address] Electronically authenticated by: [id number] Y Date: 05/14/2024 16:00
== END 2024-05-14 15:20 | disposition home or self-care (01) ==
LOC: RAD 15:20
PROVIDERS: PCP Internal Medicine; Visit Provider Internal Medicine
DX: M54.6 Pain in thoracic spine (principal)
CPT/HCPCS: 72072

== ENCOUNTER 2024-05-22 08:00 | Outpatient (RCR) | payer BC, SELFPAY | END 2024-05-23 06:50 | disposition home or self-care (01) | LOC: PT 08:00 | PROVIDERS: PCP Internal Medicine; Visit Provider Internal Medicine | DX: M54.50 Low back pain, unspecified (principal) | CPT/HCPCS: 97010; 97014; 97110; 97162 ==

== ENCOUNTER 2025-01-28 06:33 | Outpatient (OUT) | payer BC, SELFPAY ==
--- OUTSIDE RECORDS SUMMARY | 2025-01-24 09:18 | XMS_ITS | Continuity of Care Document ---
Author Organization [facility] Address [address] [place] [address] Phone Care Team Providers Care Sour Bleaching Pleater Name Role Phone Corwin Hannah DO Primary Care Provider [phone] Corwin Hannah DO Attending Provider Care Teams Patient Care Team Team Status: Active Member Role/Relationship Status Dates Corwin Hannah DO Primary Care Provider Active Patient Care Team Team Status: Inactive Member Role/Relationship Status Dates Corwin Hannah DO Primary Care Provider Active Start: January 24, 2025 End: January 24enzuly Hannah DOAttending ProviderActiveStart: January 24, 2025 End: January 24, 2025 Chief Complaint and Reason for Visit Chief Complaint Admit Date 5 Month F/U January 24, 2025 1:22pm Reason for Visit Admit Date Benign prostatic hyperplasia with lower urinary tract symptoms January 24, 2025 1:22pm Chronic venous insufficiency January 242024 1:22pm Daily headache January 24, 2025 1:22pm GERD (gastroesophageal reflux disease) N ovember 2024 1:22pm Mixed hyperlipidemia January 24, 2025 1:22pm Obesity January 24, 2025 1:22pm Primary hypertension January 24, 2025 1:22pm Type 2 diabetes mellitus with diabetic p olyneuropathy January 24, 2025 1:22pm Type 2 diabetes mellitus with hyperglyce roxanna January 24, 2025 1:22pm Allergies, Adverse Reactions, Alerts Allergen Type Severity Reaction Last Updated Verified Status carvedilol Allergy Unknown stomach upset January 24, 2025 1:3 5pm Yes Active metformin Allergy Unknown Swelling January 24, 2025 1:35pm Ye s Active Social History Smoking Status Status Start Date End Date Date of Observa tion Current some day smoker April 09, 2023 8:29pm Observation Status Observation Response Date of Response Legal Sex Male (finding) Sex Assigned At BirthMaleMay 1960 Family History Relationship Condition Age at Onset Recorded Date/T desirae father Malignant neoplasm Unknown motherMalignant neoplasmUnknown Problems Active Problems Problem Diagnosis/Recorded Date Onset Date Status C omments Daily headache January 24, 2025 2:10pm Unknown Activ e Screening PSA (prostate specific antigen)August 10, 2024 7:10amUnknownActiveType 2 diabetes mellitus with hyperglycemiaMay 2023 7:43amUnknownActiveType 2 diabetes mellitus with diabetic polyneuropathyMay 2023 7:43amUnknownActive Primary osteoarthritis of knees, bilateralApril 2023 4:44pmUnknownActive Wellness examinationMay 2024 7:06amUnknownActiveMixed hyperlipidemiaMay 2023 7:43amUnknownActivePrimary osteoarthritis of kneeMay 2023 8:16am UnknownActivePrimary hypertensionMay 2023 7:43amUnknownActiveBenign prostatic hyperplasia with lower urinary tract symptomsNov2024 2:09pmUnknownActiveChronic venous insufficiencyMay 2023 7:43amUnknownActive GERD (gastroesophageal reflux disease)May 23, 2020 6:45amUnknownActive ObesityJune 2024 9:28amUnknownActiveInactive/Resolved Problems Problem Diagnosis/Recorded Date Onset Date Status C omments Headache December 14, 2022 4:47am Unknown Resolved PancreatitisMarch 2020 10:26amUnknownResolvedProblem List clean-up per request of Phys. EHR CmtePneumoniaOct2022 4:47amUnknownResolved Medications Medication Status Dose Units Route Directions Qty Days Refills S tart Date Stop Date End Date Reason(s) Instructions Adherence Atorvastatin 80 mg tablet Discontinued 0 .ROUTE.CNXKKGZ659Wdhmzdxz 2023 8:36amFebruary 2024 1:14pmTAKE 1 TABLET DAILY IN THE EVENINGLosartan-Hydrochlorothiazide 100-25 mg tablet Discontinued0.ROUTE.NDUCYIQ518Rbfwdkdb 2023 8:36amFebrva [facility] 20[facility] 1:14pmTAKE 1 TABLET DAILYEsomeprazole Magnesium 40 mg capsule,delayed release(DR/EC)Active0.ROUTE.KHBEOFI969Mzsxcdby 2023 6:49amTAKE 1 CAPSULE NEEDEDComplies with drug therapyFenofibrate 160 mg tabletDiscontinued0.ROUTE .SQSXQMR716Vmkwc 2023 11:41amMarch 2024 8:43amTAKE 1 TABLET DAILY Amlodipine 10 mg tabletDiscontinued0.ROUTE.[address] 2023 7:37am March 22, 2024 7:02amTAKE 1 TABLET DAILYInsulin Lispro Protamin-Lispro (Humalog Mix 75-25 Kwikpen) 100 unit/mL (75-25) insulin penDiscontinued0.ROUTE .DYLEBIN182Fxgoshar 2023 6:55amFebruary 2024 1:18pmUSE DIRECTED UNDER THE SKIN 45 UNITS BEFORE BREAKFAST AND 20 UNITS BEFORE EVENING MEAL Amlodipine 10 mg tabletDiscontinued0.ROUTE.UUDLUIF793Ibluqmx 2024 7:02am June 20, 2024 6:30amTAKE 1 TABLET DAILYAtorvastatin 80 mg tabletActive0.ROUTE .IYTQBSI070Eehvrhpy 2024 1:14pmTAKE 1 TABLET DAILY IN THE EVENINGComplies with drug therapyLosartan-Hydrochlorothiazide 100-25 mg tabletActive0.ROUTE .YSNYORL015Oilrcecf 2024 1:14pmTAKE 1 TABLET DAILYComplies with drug therapyClonidine Hcl 0.2 mg tabletDiscontinued0.2MGPOTwice nqwhn15955Zsevfaag 2024 1:05pmC[facility] 20[facility] 2:58pmInsulin Lispro Protamin-Lispro (Humalog Mix 75-25 Kwikpen) 100 unit/mL (75-25) insulin ymsPfasukclomfw6ELNIJCRpmfq daily 78289Mumeyzsv 2024 4:57pmMarch 2024 3:57pm51 units SC BEFORE BREAKFAST AND 21 units SC BEFORE EVENING MEAL; subcutaneously twice daily; Fenofibrate 160 mg tabletActive0.ROUTE.GLXLNIV883Xpbjg 2024 8:43amTAKE 1 TABLET DAILYComplies with drug therapyInsulin Lispro Protamin-Lispro (Humalog Mix 75-25 Kwikpen) 100 unit/mL (75-25) insulin xcvRnkqwz0WVXLFUFjlvi pbksb19705 May 22, 2024 3:46pm65 units SC BEFORE BREAKFAST AND 35 units SC BEFORE EVENING MEAL; subcutaneously twice daily;Complies with drug therapyAmlodipine 10 mg tabletActive0.ROUTE.RYFVMIZ431Bzcdq 2024 6:30amTAKE 1 TABLET DAILY Complies with drug therapyClonidine Hcl 0.1 mg tabletDiscontinued0.1MGPOTwice zwfiu35024Baw 2024 11:59amAugust 2024 11:45amClonidine Hcl 0.1 mg tabletActive0.1MGPOTwice evkhe63619Jcrdnx 2024 11:45amComplies with drug therapyLevofloxacin 500 mg EncgwqEawrqipcrfxv404NHAKY52K633Mqfkdur 2022 11:00pmMay 2023 10:32amAtorvastatin 80 mg hwpmdsYcgtynfidabv43XDTJBtccx at bedtimeMarch 2020 12:00amFebruary 2023 8:36amTramadol 50 mg tablet Davkoltouhir13PFOSJ6R as needed for PainMarch 2020 12:00amMay 2023 7:49amGlimepiride 1 mg hzkwscPiefglffprdu9FMUDBqoxfUxpqa 2020 12:00amMay 2023 10:32amLosartan-Hydrochlorothiazide 100-25 mg pzmzmaHdwjxhewohlz2QQW PODailyMarch 2020 12:00amFebruary 2023 8:36amAmlodipine 10 mg tablet Rfwclfuqxsyo37TLOFZeyhsSqolj 2020 12:00amOctober 2023 7:37am Esomeprazole Magnesium (Nexium) 40 mg Capsule,Delayed Release(Dr/Ec)Discontinued 40MGPODailyMarch 2020 12:00amFebruary 2023 6:49amFenofibrate 160 mg fpnbvdGhfgynlzdoso695MUVNLcppzKguto 2020 12:00amMarch 2023 11:41am Oxycodone 5 mg tabletDiscontinued5 - 10MGPOEVERY 4-6 HOURS as needed for zvwm869 0March 2020May 2023 7:49amPancreatitis Acute pancreatitis without necrosis or infection, unspecifiedPolyethylene Glycol 3350 (Miralax) 17 gram/dose eiqwliRaflbpgyfcil84SEAMSxaay as needed for iowttuclgmpj1060Kduko 2020 12:00amMay 2023 7:49amInsulin Lispro Protamin-Lispro 100 unit/mL (75-25) insulin tqaIahbsqdirfkk8SLLYOS.COMPLEXMay 2023 11:00pmDecember 2023 6:55am45 unit before bkfst and 20 units before evening mealHydrocodone-Acetaminophen 5-325 mg whedujGvxztbkxresu3FEEFW Every 6 hours as ydntlx9Hoq 2023 11:00pmSeptember 2023 12:33pm Icosapent Ethyl 1 gram epbnprlVhjjtqfdndlw0CZLLYstbc dailyMay 2023 11:00pm August 14, 2024 2:29pmHydrocodone-Acetaminophen 5-325 mg jkqgyxVwhhdhtmhwxu2XBILC Every 8 hours as needed for vcni2260Jeonckcd 2024March 2024 3:13pmMid back pain on right side Dorsalgia, unspecifiedOndansetron 4 mg tablet,qntztdycdlvuadNqpjujqiwgqj6ENWO Every 8 iuwko3148Apitlpdm 2024 12:00amJune 2024 2:29pmInsulin Lispro Protamin-Lispro (Humalog Mix 75-25 Kwikpen) 100 unit/mL (75-25) insulin pen Discontinued0.ROUTE.COMPLEXFebruary 2024 1:18pmFebruary 2024 4:58pm USE DIRECTED UNDER THE SKIN 51 UNITS BEFORE BREAKFAST AND 26 UNITS BEFORE EVENING MEALMeloxicam 15 mg rxemraErwczqyqsmyr74YWCQDromt37017Jemt 2023 11:00pmJune 2024 7:18amPrimary osteoarthritis of knee Unilateral primary osteoarthritis, unspecified kneeHydrocodone-Acetaminophen 5- 325 mg fjwairOgmfwmvjzeam7YAGTZLombw 8 hours as needed for raxs5201Loipowvjw 23rd, 2024Deceer 2023 8:10amHeadache Headache, unspecifiedClonidine Hcl 0.1 mg tabletDiscontinued0.1MGPOTwice daily60 302Sept2023 11:00pmFebruary 2024 1:05pmSemaglutide (Ozempic) 0.25 mg or 0.5 mg (2 mg/3 mL) pen injectorDiscontinued0.25MGSUBCUTevery dila0733 September 03, 2024 11:00pmNov2024 1:34pmfor 4 weeksClonidine Hcl 0.1 mg tabletDiscontinued0.1MGPOTwice dekcq95194Xazbt 2024 2:58pmMay 2024 11:59amHydrocodone-Acetaminophen 5-325 mg nbwjcpSjkjthfgmreq7JLRKUQhspx 8 hours as needed for dqdv5298Mshze 2024June 2024 6:53amMid back pain on right side Dorsalgia, unspecifiedMeloxicam 15 mg cxwexiAmgqzo53RCQMBjuhk30668Lzrj 11th, 2025 7:17amPrimary osteoarthritis of knee Unilateral primary osteoarthritis, unspecified kneeComplies with drug therapy Hydrocodone-Acetaminophen 5-325 mg njxsxyJflwfe3XRRARTmxxc at bedtime as needed for kfvw96473Mxwkikoq2024Primary osteoarthritis of both knees Bilateral primary osteoarthritis of kneeComplies with drug therapyTamsulosin 0.4 mg capsuleActive0.3SSYCLcgka70680Tgobodjd 14th, 2025 12:00amTake after evening mealComplies with drug therapy Vital Signs Vital Reading Result Reference Range Collection Date/Time Height 74 [in_i] January 24, 2025 1:26joXygndz699.41 kgJanuary 24, 2025 1:34pmHeart Axhc984 /dws70-703IuonddwnJanuary 24, 2025 1:34pmRespiratory rate14 /cem65-24AmoxxgerJanuary 24, 2025 1:34pmOxygen saturation by Pulse tovlyzaw23 %95-100January 24, 2025 1:34pmBP Hfdfqmep256 mm[Hg]100-140January 24, 2025 1:34pmBP Lnkkfmlqd86 mm[Hg]60-100January 24, 2025 1:34pmBMI (Body Mass Index)41.7 kg/o1UifquigmJanuary 24, 2025 1:34pm Advance Directives Advance Directive Response Recorded Date/ Time Advance Directives No December 24, 2016 6:48am Insurance Providers Guarantor Jean Woods [facility] [address] [facility] [address]Wxxvblb Info.Home Phone: Coverage Status Update:2024 Payer Group Member ID Coverage Type Subscriber Relationship to Subscriber Effective Date Expiration Date MMO Retired Id: [id number] E Gill Id: [id number] [address] [facility] [address] Home Phone: Email: [email or web address]. Louis Behavior[facility]/ Retired Id: [id number] E Gill Id: [id number] [address] [facility] [address] Home Phone: Email: [email or web address]/BS [id number] E Gill Id: [id number] [address] [place] [address] Home Phone: Email: [email or web address] Encounter Location(s) Arrival/Admit Date Discharge/Departure Date Discharge/Departure Disposition Provider(s) Departed Physician/ Provider [facility] January 24, 2025 1:22pm January 24, 2025 2:17pm Discharged to home care or self care (routine discharge) Corwin Hannah , Recent Diagnosis Onset Date Admit Date Benign prostatic hyperplasia with lower urinary tract symptoms Unknown January 24, 2025 1:22pm Chronic venous insufficiency Unknown Nov ember 2024 1:22pm Daily headache Unknown January 24, 025 1:22pm GERD (gastroesophageal reflux disease) Unknown January 24, 2025 1:22pm Mixed hyperlipidemia Unknown January 242024 1:22pm Obesity Unknown January 24, 025 1:22pm Primary hypertension Unknown January 242024 1:22pm Type 2 diabetes mellitus wit h diabetic polyneuropathy Unknown January 24, 2025 1:22pm Type 2 diabetes mellitus with hyperglycemia Unkn own January 24, 2025 1:22pm Assessments Diagnosis Onset Date Resolution Status Admit Date Benign prostatic hyperplasia with lower urinary tract symptoms acuteNov2024 1:22pmChronic venous insufficiencyacuteJanuary 24, 2025 1:22pmDaily headacheacuteNov2024 1:22pmGERD (gastroesophageal reflux disease)acuteJanuary 24, 2025 1:22pmMixed hyperlipidemiaacuteJanuary 24, 2025 1:22pmObesityacuteNov2024 1:22pmPrimary hypertensionacute January 24, 2025 1:22pmType 2 diabetes mellitus with diabetic polyneuropathy acuteJanuary 24, 2025 1:22pmType 2 diabetes mellitus with hyperglycemiaacute January 24, 2025 1:22pm Plan of Treatment Author Corwin Hannah [facility] CenterAuthodoctors hospital of mantecaNov2024 2:11pmI have instructed this patient to follow a comprehensive diabetic treatment plan. I have also instructed them to check their feet daily for calluses and nonhealing ulcers. I have instructed them to have a yearly dilated eye examination. I have reviewed their treatment goals: SBP less than 130, LDL less than 100, FBS less than 140, A1C less than 7%. I have instructed them to maintain a home BS log and bring the results to each of their office visits for review. I have explained the importance of routine monitoring of their A1C, Microalbumin and Lipids. I have explained the benefits of well controlled diabetes in preventing micro and macrovascular complications. Recommend initiating GLP1 to improve BS control, weight reduction, ASCVD risk reduction and metabolic liver disease, but insurance wouldn't approve I have instructed the patient to inspect their feet daily for cuts and calluses. I have recommended shoes and inserts to prevent callus formation. I have reviewed fall precautions. I have instructed this patient to consume a healthy, low-fat, low-salt diet. I have also encouraged them to continue exercise with weight loss to achieve/maintain a BMI < 30. I have instructed this patient on the correct procedure for obtaining home BP measurements:? - rest for 5 minutes w/o talking. - positioned w/ feet on floor and arms supported. - average best 2/3 readings w/ goal < 135/85. Continue Amlodipine, Losartan and Clonidine without interruption I have instructed this patient to avoid lying flat after eating.?? I have also recommended to avoid eating 2 hours prior to bedtime.?? They were also informed that smaller, frequent meals may be better tolerated. I have discussed additional treatment options for persistent symptoms, which includes: weight loss, H2 blockers and PPI. I have also instructed them to notify the office with any pain or difficulty swallowing. Continue Nexium without interruption I have instructed this patient to avoid salt and elevate their lower extremities. I have also recommended use of support stockings. I instructed them to inspect their legs and feet daily for blisters and ulcerations. I have instructed this patient on a low fat, high fiber diet and exercise. I have discussed the primary and secondary prevention benefits attributed to lowering LDL cholesterol. I have also discussed the medical treatment of elevated cholesterol, which is based on the 10 year ASCVD risk. Continue Atorvastatin and Fenofibrate without interruption I have instructed this patient on a low-fat, high-fiber diet.?? I have also instructed them to reduce calories, portions sizes, sweet drinks and snacks.?? I have also recommended they exercise for 30 minutes, 3-5 times weekly. They are aware of the comorbid conditions associated with excessive weight: Diabetes, HTN, Hyperlipidemia, CAD and arthritis. Instructed to decrease evening fluid Initiated Flomax, update office in week Suspect secondary to poor sleep habits and HTN Flomax to improve sleep Continue to use CPAP nightly I have instructed this patient to consume a healthy, low-fat, low-salt diet. I have also encouraged them to continue exercise with weight loss to achieve/maintain a BMI < 30. I have instructed this patient on the correct procedure for obtaining home BP measurements:? - rest for 5 minutes w/o talking. - positioned w/ feet on floor and arms supported. - average best 2/3 readings w/ goal < 135/85. Update office w/ home readings in 2 weeks. Future Tests Future scheduled test information is unavailable Pending Tests Pending diagnostic test information is unavailable Future Visits Future appointment information is unavailable Future Procedures Procedure Name Ordered Date Scheduled Date Michelle Moran January 24, 2025 2:01pm Future Medications Future medication information is unavailable Patient Instructions Patient instructions are unavailable
--- OUTSIDE RECORDS SUMMARY | 2025-01-27 08:08 | XMS_ITS | CCD ---
Author Organization [facility] CliniSywi Care Team Providers Care Plant General Manager Name Role Phone Corwin Hannah Unavailable NOEMY, DR YADAV Admitting Unavailable BALL, DR YADAV Primary Care Unavailable BALL, DR YADAV Consulting Unavailable BALL, DR YADAV Attending Unavailable KORTNEY, DR CHRIS Calhoun Consulting Unavailable BALL, DR YADAV Admitting Unavailable BALL, DR YADAV Primary Care Unavailable BALL, DR YADAV Consulting Unavailable BALL, DR YADAV Attending Unavailable WEST, DR NAHID Burton Consulting Unavailable NOEMY, DR YADAV Admitting Unavailable BALL, DR YADAV Primary Care Unavailable BALL, DR YADAV Consulting Unavailable BALL, DR YADAV Attending Unavailable DO Corwin Hannah Primary Care Provider [phone] DO Efren Longo Emergency Provider [phone] Community, Outreach Attending Provider [phone] DO Corwin Hannah Primary Care Provider [phone] DO Meek Franco Attending Provider [phone] Efren Longo Admitting Unavailable Efren Longo Attending Unavailable Corwin Hannah Primary Care Unavailable Corwin Hannah Primary Care Unavailable Community, Outreach Admitting Unavailable Community, Outreach Attending Unavailable Corwin Hannah Primary Care Unavailable Meek Franco Admitting Unavailable Meek Franco Attending Unavailable Corwin Hannah DO Primary Care Provider [phone] Meek Franco DO Attending Provider [phone] Corwin Hannah DO Attending Provider [phone] Allergies Allergy ClassificationReported Allergen(s)Allergy TypeDate of OnsetReaction(s) Facility (20 sources)metFORMIN; Translations: [metformin]Drug Nwgvbeo03-65-2272QapyxmklMer[facility] (19 sources)carvedilolDrug Tcfqnjy92-49-0692owpejuzUniversity Hospitals Health System (1 source)carvedilolDrug Pbvtwuc91-67-4085CvibavgxrAk[facility] Medications Current Medications MedicationDrug Class(es)DatesSig (Normalized)Sig (Original)amLODIPine 10 mg oral tablet (20 sources)Dihydropyridine Calcium Channel BlockerStart: 92-61-4738Ievyoruozi 10 mg tablet Active 0 .ROUTE .COMPLEX June 20, 2024 7:30am TAKE 1 TABLET DAILYStart: 03-22-2024 End: 84-24-7928Ztkxwdgqet 10 mg tablet Discontinued 0 .ROUTE .COMPLEX March 22, 2024 8:02am June 20, 2024 7:30am TAKE 1 TABLET DAILYStart: 03-22-2024 Amlodipine 10 mg tablet Active 0 .ROUTE .COMPLEX March 22, 2024 7:02am TAKE 1 TABLET DAILYStart: 12-26-2023 End: 12-10-1377Ajqkfgolyi 10 mg tablet Active 0 .ROUTE .COMPLEX June 20, 2024 7:30am TAKE 1 TABLET DAILY Complies with drug therapyStart: 12-26-2023 End: 75-31-8761Bxetgafujq 10 mg tablet Discontinued 0 .ROUTE .COMPLEX December 26, 2023 8:37am March 22, 2024 8:02am TAKE 1 TABLET DAILYStart: 12-26-2023 End: 38-59-7729Tgynetklnb 10 mg tablet Discontinued 0 .ROUTE .COMPLEX December 26, 2023 7:37am March 22, 2024 7:02am TAKE 1 TABLET DAILYStart: 05-23-2020 End: 58-76-2985mrxr 1 tablet by mouth once dailyAmlodipine 10 mg tablet Discontinued 10 MG PO Daily May 23, 2020 1:00am December 26, 2023 8:37am atorvastatin 80 mg oral tablet (20 sources)HMG-CoA Reductase InhibitorStart: 05-03-2023 End: 81-37-0776Jyhuyifsvceb 80 mg tablet Active 0 .ROUTE .COMPLEX April 26, 2024 2:14pm TAKE 1 TABLET DAILY IN THE EVENING Complies with drug therapy Start: 05-23-2020 End: 35-22-1469ymlo 1 tablet by mouth once daily at bedtimeAtorvastatin 80 mg tablet Discontinued 80 MG PO Daily at bedtime May 23, 2020 1:00am May 03, 2023 9:36amcarvedilol 6.25 mg oral tablet (3 sources)alpha-Adrenergic Demetria, beta-Adrenergic BlockerStart: 04-05-2022 take 1 tablet by mouth every twelve hoursCarvedilol 6.25 MG 1 tablet Orally Twice a day for 30 day(s) Mar, ActivecloNIDine hydrochloride 0.1 mg oral tablet (20 sources)Central alpha-2 Adrenergic AgonistStart: 05-14-2024 End: 64-35-9849nhoz 1 tablet by mouth twice dailyClonidine Hcl 0.1 mg tablet Active 0.1 MG PO Twice daily 60 August 09, 2024 12:59pm Complies withdrug therapyStart: 05-10-2024 End: 16-75-3766jpsn 1 tablet by mouth twice dailyClonidine Hcl 0.2 mg tablet Discontinued 0.2 MG PO Twice daily 60 May 10, 2024 2:05pm May 14, 2024 3:58pmStart: 12-04-2023 End: 44-50-7366tmdg 1 tablet by mouth twice dailyClonidine Hcl 0.1 mg tablet Discontinued 0.1 MG PO Twice daily 60 December 04, 2023 12:00am May 10, 2024 2:05pmesomeprazole 40 mg delayed release oral capsule (20 sources)Proton Pump InhibitorStart: 68-93-2192Lfdgrikutlhz Magnesium 40 mg capsule,delayed release(DR/EC) Active 0 .ROUTE .COMPLEX May 08, 2023 7:49am TAKE 1 CAPSULE NEEDED Complies with drug therapyStart: 05-08-2023 Esomeprazole Magnesium Active 0 .ROUTE .COMPLEX May 08, 2023 7:49am TAKE 1 CAPSULE NEEDEDStart: 05-23-2020 End: 10-26-5871jowb 1 capsule by mouth once dailyEsomeprazole Magnesium (Nexium) 40 mg Capsule,Delayed Release(Dr/Ec) Discontinued 40 MG PO Daily May 23, 2020 1:00am May 08, 2023 7:49amNexIUM ActiveNexIUM Not-Taking/PRNNexIUM Not-TakingEsomeprazole Magnesium 40 mg capsule,delayed release(DR/EC) (5 sources)Start: 29-77-2674Wxgouujlfxxd Magnesium 40 mg capsule,delayed release(DR/EC) Active 0 .ROUTE .COMPLEX May 08, 2023 7:49am TAKE 1 CAPSULE NEEDEDStart: 30-66-9682Vqbdtumbfffq Magnesium 40 mg capsule,delayed release(DR/EC) Active 0 .ROUTE .COMPLEX May 08, 2023 6:49am TAKE 1 CAPSULE NEEDEDfenofibrate 160 mg oral tablet (20 sources)Peroxisome Proliferator Receptor alpha AgonistStart: 05-22-2023 End: 82-73-5584Varmogsrzzf 160 mg tablet Active 0 .ROUTE .COMPLEX May 16, 2024 9:43am TAKE 1 TABLET DAILY Complies with drug therapyStart: 05-23-2020 End: 92-84-7195ahfl 1 tablet by mouth once dailyFenofibrate 160 mg tablet Discontinued 160 MG PO Daily May 23, 2020 1:00am May 22, 2023 12:41pm hydroCHLOROthiazide 25 mg / losartan potassium 100 mg oral tablet (20 sources)Thiazide Diuretic, Angiotensin 2 Receptor BlockerStart: 05-03-2023 End: 19-65-0451Paplhtiu-Hydrochlorothiazide 100-25 mg tablet Active 0 .ROUTE .COMPLEX April 26, 2024 2:14pm TAKE 1 TABLET DAILY Complies with drug therapyStart: 05-23-2020 End: 64-61-4984zcev 1 tablet by mouth once dailyLosartan-Hydrochlorothiazide 100-25 mg tablet Discontinued 1 TAB PO Daily May 23, 2020 1:00am May 03, 2023 9:36am3 ml insulin lispro 25 unt/ml / insulin lispro protamine, human 75 unt/ml pen injector (19 sources)Insulin AnalogStart: 63-59-2506lxfiid 65 [IU] by subcutaneous injection twice daily before breakfast, then inject 35 [IU] by subcutaneous injection at dinnerInsulin Lispro Protamin-Lispro (Humalog Mix 75-25 Kwikpen) 100 unit/mL (75-25) insulin pen Active 0SUBCUT Twice daily May 22, 2024 4:46pm 65 units SC BEFORE BREAKFAST AND 35 units SC BEFORE EVENING MEAL; subcutaneously twice daily; Complies with drug therapyStart: 05-10-2024 End: 92-66-0487embmcm 51 [IU] by subcutaneous injection twice daily before breakfast, then inject 21 [IU] by subcutaneous injection at dinnerInsulin Lispro Protamin-Lispro (Humalog Mix 75-25 Kwikpen) 100 unit/mL (75-25) insulin pen Discontinued 0 SUBCUT Twice daily May 10, 2024 5:57pm May 22, 2024 4:57pm 51 units SC BEFORE BREAKFAST AND 21 units SC BEFORE EVENING MEAL; subcutaneously twice daily;Start: 05-10-2024 End: 36-03-0855dhuucq 51 [IU] by subcutaneous injection before breakfast, then inject 26 [IU] by subcutaneous injection at dinnerInsulin Lispro Protamin-Lispro (Humalog Mix 75-25 Kwikpen) 100 unit/mL (75-25) insulin pen Discontinued 0 .ROUTE .COMPLEX May 10, 2024 2:18pm May 10, 2024 5:58pm USE DIRECTED UNDER THE SKIN 51 UNITS BEFORE BREAKFAST AND 26 UNITS BEFORE EVENING MEALStart: 08-04-2023 End: 53-79-1459wrfpms 45 [IU] by subcutaneous injection before breakfast, then inject 20 [IU] by subcutaneous injection at dinnerInsulin Lispro Protamin-Lispro (Humalog Mix 75-25 Kwikpen) 100 unit/mL (75-25) insulin pen Discontinued 0 .ROUTE .COMPLEX 60 February 16, 2024 7:55am May 10, 2024 2:18pm USE DIRECTED UNDERTHE SKIN 45 UNITS BEFORE BREAKFAST AND 20 UNITS BEFORE EVENING MEALHumaLOG Mix 75/25 KwikPen (75-25) 100 UNIT/ML as directed Subcutaneous 45 unit before bkfst and 20 units before evening meal ActiveHumaLOG Mix 75/25 KwikPen (75-25) 100 UNIT/ML as directed Subcutaneous 34 unit before bkfst and 20 units before evening meal ActiveInsulin Lispro Protamin-Lispro (6 sources)Start: 03-17-8993Dsaucfj Lispro Protamin-Lispro Active 0 SUBCUT .COMPLEX August 04, 2023 12:00am 45 unit before bkfstand 20 units before evening mealInsulin Lispro Protamin-Lispro (Humalog Mix 75-25 Kwikpen) 100 unit/mL (75- 25) insulin pen (11 sources)Start: 69-27-4330fvpplg 65 [IU] by subcutaneous injection twice daily before breakfast, then inject 35 [IU] by subcutaneous injection at dinner Insulin Lispro Protamin-Lispro (Humalog Mix 75-25 Kwikpen) 100 unit/mL (75-25) insulin pen Active 0SUBCUT Twice daily 90 May 22, 2024 4:46pm 65 units SC BEFORE BREAKFAST AND 35 units SC BEFORE EVENING MEAL; subcutaneously twice daily;Start: 05-10-2024 End: 10-71-3380yklhmj 51 [IU] by subcutaneous injection twice daily before breakfast, then inject 21 [IU] by subcutaneous injection at dinnerInsulin Lispro Protamin-Lispro (Humalog Mix 75-25 Kwikpen) 100 unit/mL (75-25) insulin pen Discontinued 0 SUBCUT Twice daily May 10, 2024 5:57pm May 22, 2024 4:57pm 51 units SC BEFORE BREAKFAST AND 21 units SC BEFORE EVENING MEAL; subcutaneously twice daily;Start: 28-95-4131hskyjr 51 [IU] by subcutaneous injection twice daily before breakfast, then inject 21 [IU] by subcutaneous injection at dinnerInsulin Lispro Protamin-Lispro (Humalog Mix 75-25 Kwikpen) 100 unit/mL (75-25) insulin pen Active 0SUBCUT Twice daily May 10, 2024 4:57pm 51 units SC BEFORE BREAKFAST AND 21 units SC BEFORE EVENING MEAL; subcutaneously twice daily;Start: 05-10-2024 End: 58-86-9091wetovz 51 [IU] by subcutaneous injection before breakfast, then inject 26 [IU] by subcutaneous injection at dinnerInsulin Lispro Protamin-Lispro (Humalog Mix 75-25 Kwikpen) 100 unit/mL (75-25) insulin pen Discontinued 0 .ROUTE .COMPLEX May 10, 2024 2:18pm May 10, 2024 5:58pm USE DIRECTED UNDER THE SKIN 51 UNITS BEFORE BREAKFAST AND 26 UNITS BEFORE EVENING MEALStart: 05-10-2024 End: 11-81-9671toymvj 51 [IU] by subcutaneous injection before breakfast, then inject 26 [IU] by subcutaneous injection at dinnerInsulin Lispro Protamin-Lispro (Humalog Mix 75-25 Kwikpen) 100 unit/mL (75-25) insulin pen Discontinued 0 .ROUTE .COMPLEX May 10, 2024 1:18pm May 10, 2024 4:58pm USE DIRECTED UNDER THE SKIN 51 UNITS BEFORE BREAKFAST AND 26 UNITS BEFORE EVENING MEALmeloxicam 15 mg oral tablet (11 sources)Nonsteroidal Anti-inflammatory DrugStart: 08-28-2023 End: 66-49-7308xcbq 1 tablet by mouth once dailyMeloxicam 15 mg tablet Active 15 MG PO Daily August 21, 2024 8:17am Complies with drug therapyPost-OP Shoe/Soft Top Men 1 (18 sources)Start: 83-72-8504Acni-OP Shoe/Soft Top Men 1 as directed right foot prn for as directed Aug, ActiveStart: 89-38-2051Yuoc-OP Shoe/Soft Top Men 1 as directed left foot prn for as directed Aug, ActiveStart: 46-21-9191Soon-OP Shoe/Soft Top Men 1 as directed left foot prn for as directed Aug, Not-Taking/PRNStart: 36-46-7977Wtta-OP Shoe/Soft Top Men 1 as directed right foot prn for as directed Aug, Not-Taking/PRNStart: 87-90-9055Zurj-OP Shoe/Soft Top Men 1 as directed right foot prn for as directed Aug, Not-TakingStart: 59-28-1337Ncmc-OP Shoe/Soft Top Men 1 as directed left foot prn for as directed Aug, Not-TakingSemaglutide (1 source)Start: 09-89-3263Jxirgsftszy (Ozempic) 0.25 mg or 0.5 mg (2 mg/3 mL) pen injector Active 0.25 MG SUBCUT every week 328 September 04, 2024 12:00am for 4 weeks Complies with drug therapy Completed/Discontinued Medications MedicationDrug Class(es)DatesSig (Normalized)Sig (Original)acetaminophen 325 mg / HYDROcodone bitartrate 5 mg oral tablet (20 sources)Opioid AgonistStart: 05-03-2024 End: 35-02-6212lpqo 1 tablet by mouth every eight hours as needed for pain Hydrocodone-Acetaminophen 5-325 mg tablet Discontinued 1 TAB PO Every 8 hours as needed for pain 217 May 14, 2024 August 21, 2024 7:53amStart: 12-04-2023 End: 18-15-6812ngpz 1 tablet by mouth every eight hours as needed for pain Hydrocodone-Acetaminophen 5-325 mg tablet Discontinued 1 TAB PO Every 8 hours as needed for pain 217 December 04, 2023 February 23, 2024 9:10amStart: 08-04-2023 End: 51-21-3676ngap 1 tablet by mouth every six hours as neededHydrocodone- Acetaminophen 5-325 mg tablet Discontinued 1 TAB PO Every 6 hours as needed August 04, 2023 12:00am December 04, 2023 1:33pmStart: 05-80-3179yotl 1 tablet by mouth every six hours as needed for painHYDROcodone-Acetaminophen 5-325 MG 1 tablet as needed Orally every 6 hours as needed for back pain for 7 days Dec, ActiveStart: 45-16-6343bnkr 1 tablet by mouth every six hours as needed for painNorco 5-325 MG 1 tablet as needed Orally every 6 hrs as needed for severe pain, avoid driving, machinery and alcohol use while taking for 5 days Aug, ActiveStart: 92-90-9399hkgc 1 tablet by mouth every six hours as needed for painNorco 5-325 MG 1 tablet as needed Orally every 6 hrs as needed for severe pain, avoid driving, machinery and alcohol use while taking for 5 days Aug, Not-Taking/PRNStart: 74-38-5180egaj 1 tablet by mouth every six hours as needed for painNorco 5-325 MG 1 tablet as needed Orally every 6 hrs as needed for severe pain, avoid driving, machinery and alcohol use while taking for 5 days Aug, Not-Takingglimepiride 1 mg oral tablet (16 sources)SulfonylureaStart: 05-23-2020 End: 87-85-5704nfeh 1 tablet by mouth once dailyGlimepiride 1 mg tablet Discontinued 1 MG PO Daily May 23, 2020 1:00am August 04, 2023 11:32am icosapent ethyl 1000 mg oral capsule (20 sources)Start: 08-04-2023 End: 62-01-2768bqzg 1 capsule by mouth twice dailyIcosapent Ethyl 1 gram capsule Discontinued 1 GM PO Twice daily August 04, 2023 12:00am August 14, 2024 3:29pm take 1 capsule by mouth every twelve hoursVascepa 1 GM 1 capsule Orally Twice a day Activetake 1 capsule by mouth every twelve hoursVascepa 1 GM 1 capsule Orally Twice a day ActiveInsulin Lispro Protamin-Lispro 100 unit/mL (75-25) insulin pen (5 sources)Start: 08-04-2023 End: 70-88-4525Zwxyryt Lispro Protamin-Lispro 100 unit/mL (75-25) insulin pen Discontinued 0 SUBCUT .COMPLEX August 04, 2023 12:00am February 16, 2024 7:55am 45 unit before bkfst and 20 units before evening mealStart: 08-04-2023 End: 35-12-9219Kpsizvk Lispro Protamin-Lispro 100 unit/mL (75-25) insulin pen Discontinued 0 SUBCUT .COMPLEX August 03, 2023 11:00pm February 16, 2024 6:55am 45 unit before bkfst and 20 units before evening meallevoFLOXacin 500 mg oral tablet (16 sources)Quinolone AntimicrobialStart: 12-14-2022 End: 38-61-2694nthh 1 tablet by mouth every twenty-four hoursLevofloxacin 500 mg Tablet Discontinued 500 MG PO Q24H December 14, 2022 12:00am August 04, 2023 11:32amondansetron 4 mg disintegrating oral tablet (6 sources)Serotonin-3 Receptor AntagonistStart: 05-03-2024 End: 47-46-2158jccc 1 tablet by mouth every eight hoursOndansetron 4 mg tablet,disintegrating Discontinued 4 MG PO Every 8 hours 12 17May 03, 2024 1:00am August 14, 2024 3:29pmoxyCODONE hydrochloride 5 mg oral tablet (16 sources)Opioid AgonistStart: 05-23-2020 End: 50-17-1437iewf 5-10 mg by mouth every four to six hours as needed for pain Oxycodone 5 mg tablet Discontinued 5 - 10 MG PO EVERY 4-6 HOURS as needed for pain MayJuly 19, 2023 8:49amStart: 05-23-2020 End: 29-66-7129gwmz 5-10 mg by mouth every four to six hoursOxycodone Discontinued 5 - 10 MG PO EVERY 4-6 HOURS 30 07May 23, 2020 July 19, 2023 8:49ampolyethylene glycol 3350 09452 mg powder for oral solution (16 sources)Osmotic LaxativeStart: 05-23-2020 End: 43-78-8464Pxhtlykvknig Glycol 3350 (Miralax) 17 gram/dose powder Discontinued 17 GM PO Daily as needed for constipation 119 May 23, 2020 1:00am July 19, 2023 8:49amtraMADol hydrochloride 50 mg oral tablet (16 sources)Opioid AgonistStart: 05-23-2020 End: 09-44-9431prjk 1 tablet by mouth every six hours as needed for painTramadol 50 mg tablet Discontinued 50 MG PO Q6H as needed for Pain May 23, 2020 1:00am July 8:49am Problems Active Problems Problem ClassificationProblemDateDocumented DateEpisodic/ChronicAcute bronchitis (2 sources)Acute bronchitis; Translations: [Acute bronchitis due to other specified organisms]EpisodicAortic; peripheral; and visceral artery aneurysms (2 sources)Aneurysm of renal artery; 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] Onset: 06-38-0885KuclaffBschjbrhcz and other anemia (2 sources)Chronic anemia; Translations: [Anemia in other chronic diseases classified elsewhere]Onset: 46-83-8698IcmbfmaTnisctzgoy and other anemia (3 sources)Pancytopenia; Translations: [Other pancytopenia]ChronicDeficiency and other anemia (1 source)Other pancytopeniaChronicDiabetes mellitus with complications (20 sources)Type 2 diabetes mellitus; Translations: [Type 2 diabetes mellitus with hyperglycemia]ChronicDiabetes mellitus without complication (5 sources)Type 2 diabetes mellitus without complication; Translations: [Type 2 diabetes mellitus without complications]ChronicDisorders of lipid metabolism (20 sources)Mixed hyperlipidemia; Translations: [Mixed hyperlipidemia]Onset: 73-81-2694YjruhoqAktusdxyijpjbu and diverticulitis (2 sources)Diverticulitis of colon; Translations: [Diverticulitis of colon (without mention of hemorrhage)]Onset: 76-24-3426HbxxdwdFyxdithilo disorders (20 sources)Acid reflux; Translations: [Gastro-esophageal reflux disease without esophagitis]56-57-6250IclbwhhTxjbanhfx hypertension (20 sources)Hypertensive disorder; Translations: [Essential (primary) hypertension]ChronicGenitourinary symptoms and ill-defined conditions (9 sources)Delay when starting to pass urine; Translations: [Hesitancy of micturition]EpisodicHeadache; including migraine (19 sources)Headache; Translations: [Headache]56-37-6853XqbobavmEpyrdmto; including migraine (1 source)Headache; including migraine; Translations: [Headache, unspecified] Onset: 47-08-2783Gvdrfkoruei of prostate (12 sources)Benign prostatic hyperplasia; Translations: [Benign prostatic hyperplasia with lower urinary tract symptoms]Onset: 21-46-1674Kjjqgph Immunizations and screening for infectious disease (2 sources)Contact with and (suspected) exposure to other viral communicable diseases; Translations: [Contact with and (suspected) exposure to COVID-19] EpisodicMelanomas of skin (2 sources)Malignant melanoma of trunk; Translations: [Malignant melanoma of other part of trunk]Onset: 01-73-4245UklginjLiusgawsgyzg breast conditions (3 sources)Hypertrophy of breast; Translations: [HYPERTROPHY OF BREAST]Onset: 84-22-5191YxfaqgstCvodqfzwpenlly (20 sources)Osteoarthritis of knee; Translations: [Unilateral primary osteoarthritis, left knee]Onset: 688439-68-9233MclzcfwEbvqc aftercare (9 sources)Long-term current use of insulin; Translations: [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]EpisodicOther aftercare (3 sources)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EpisodicOther diseases of veins and lymphatics (18 sources)Peripheral venous insufficiency; Translations: [Venous insufficiency (chronic) (peripheral)]62-73-4179YpmqxwhoEbapi diseases of veins and lymphatics (7 sources)Venous insufficiency (chronic) (peripheral); Translations: [Venous (peripheral) insufficiency, unspecified]EpisodicOther gastrointestinal disorders (2 sources)H/O: gastrointestinal disease; Translations: [Personal history of other diseases of the digestive system]EpisodicOther injuries and conditions due to external causes (2 sources)History of fall; Translations: [History of falling]EpisodicOther non- traumatic joint disorders (2 sources)Lower limb joint arthritis; Translations: [Osteoarthrosis, unspecified whether generalized or localized, lower leg]Onset: 72-23-6870Svbdltd Other non-traumatic joint disorders (12 sources)Pain in right knee; Translations: [Pain in both knees]Onset: 910617-91-6146XpjmrksqKtsbd non-traumatic joint disorders (1 source)Pain in left knee; Translations: [Pain in left knee]Onset: 07-19-2023 EpisodicOther nutritional; endocrine; and metabolic disorders (4 sources)Simple obesity ; Translations: [Other obesity due to excess calories] ChronicOther nutritional; endocrine; and metabolic disorders (20 sources)Body mass index 30+ - obesity; Translations: [Obesity, unspecified] Onset: 630225-09-0995CgzydqlZjowc nutritional; endocrine; and metabolic disorders (20 sources)Obesity, unspecified; Translations: [Obesity, unspecified]Chronic Other nutritional; endocrine; and metabolic disorders (6 sources)Obese class II; Translations: [Body mass index 35.0-35.9, adult] Onset: 91-17-7682VxreuciNlhfu nutritional; endocrine; and metabolic disorders (4 sources)Obesity; Translations: [Obesity, unspecified]Onset: 03-31-2021 97-82-4805TjkdmmuMeqyp nutritional; endocrine; and metabolic disorders (5 sources)Severe obesity; Translations: [Morbid (severe) obesity due to excess calories]ChronicOther nutritional; endocrine; and metabolic disorders (2 sources)Morbid (severe) obesity due to excess caloriesChronicOther nutritional; endocrine; and metabolic disorders (2 sources)Body mass index (BMI) 39.0-39.9, adultChronicOther screening for suspected conditions (not mental disorders or infectious disease) (12 sources)Encounter for screening for malignant neoplasm of prostate; Translations: [Screening for malignant neoplasms of prostate]Onset: 04-16-2022 EpisodicPancreatic disorders (not diabetes) (20 sources)Pancreatitis; Translations: [Acute pancreatitis without necrosis or infection, unspecified] Resolved: [id number] on above:Problem List clean-up per request of Phys. EHR CmtePneumonia (except that caused by tuberculosis or sexually transmitted disease) (17 sources)Pneumonia; Translations: [Pneumonia, unspecified organism]12-14-2022 EpisodicResidual codes; unclassified (4 sources)Obstructive sleep apnea syndrome; Translations: [Obstructive sleep apnea (adult) (pediatric)]Onset: 81-06-5512UtjtbslVizhysscazj; intervertebral disc disorders; other back problems (7 sources)Lumbosacral spondylosis without myelopathy; Translations: [Spondylosis without myelopathy or radiculopathy, lumbar region]Onset: 66-53-1112PjmhbsuZmgopnhvrom; intervertebral disc disorders; other back problems (5 sources)Pain in thoracic spine; Translations: [Thoracic back pain]Episodic Sprains and strains (2 sources)Strain of thoracic region; Translations: [Strain of muscle and tendon of unspecified wall of thorax, initial encounter]98-52-2704CslghthuSvebvrxlv- related disorders (2 sources)Nicotine dependence; Translations: [Nicotine dependence, cigarettes, with other nicotine-induced disorders]Onset: 14-85-6868LuqanspHhbdbfxyvqr injury; contusion (14 sources)Contusion of right hip, initial encounter; Translations: [Contusion of right knee, initial encounter]Onset: 03-08-9140IyekolrvAzhbxqhfdsqu (3 sources)CONTACT W/AND (SUSP) EXPOS COVID-19; Translations: [CONTACT W/AND (SUSP) EXPOS COVID-19]Onset: 10-05-2021 Past or Other Problems Problem ClassificationProblemDateDocumented DateEpisodic/ChronicAbdominal pain (2 sources)Epigastric pain; Translations: [Epigastric pain] Resolved: 45-14-7446GshfpmkjUnerysev reactions (2 sources)Contact dermatitis; Translations: [Contact dermatitis and other eczema, due to unspecified cause]Onset: 42-61-9983QfpsxtxbLxlmkgcabc and other anemia (2 sources)Anemia; Translations: [Anemia, unspecified]Onset: 22-15-0347Bkcjozzn Diabetes mellitus without complication (2 sources)Impaired fasting glycemia; Translations: [Impaired fasting glucose] Resolved: 05-05-4675AkeuxwipPcupwhzdb of teeth and jaw (2 sources)Disorder of teeth AND/OR supporting structures; Translations: [Other specified disorders of teeth and supporting structures]Onset: 00-24-6264Acucrskx Esophageal disorders (3 sources)Esophageal disordersFever of unknown origin (1 source)Fever, unspecified; Translations: [Fever, unspecified]Onset: 36-45-7899WxvpswynHmdua and electrolyte disorders (2 sources)Dehydration; Translations: [Dehydration]Onset: 62-18-6136Fxbkwjrk Malaise and fatigue (2 sources)Malaise and fatigue; Translations: [Other malaise and fatigue]Onset: 03-50-7185RoeyhfxeOuvmyqzwm of skin (2 sources)History of malignant melanoma of the skin; Translations: [Personal history of malignant melanoma ofskin]Onset: 68-19-6373ZcjmmmxxCuwsufait of unspecified nature or uncertain behavior (2 sources)Neoplasm of uncertain behavior of skin; Translations: [Neoplasm of uncertain behavior of skin]Onset: 99-69-1824CyjukbfiWfjbp connective tissue disease (2 sources)Achilles bursitis; Translations: [Achilles bursitis or tendinitis] Onset: 62-91-0728ZakeysoePgwqo gastrointestinal disorders (2 sources)Diarrhea; Translations: [Diarrhea]Onset: 34-24-5206CxuexojbBbpul infections; including parasitic (2 sources)Lyme disease; Translations: [Lyme disease]Onset: 74-85-5544Uofnveau Other non-traumatic joint disorders (2 sources)Arthralgia of the lower leg; Translations: [Pain in joint, lower leg] Onset: 76-64-0787CfmbygqxXzowbbsy codes; unclassified (4 sources)Tobacco user; Translations: [Tobacco use]Onset: 29-11-2141Ilhjmkxy Skin and subcutaneous tissue infections (2 sources)Cellulitis and abscess of trunk; Translations: [Cutaneous abscess of abdominal wall] Resolved: 25-04-4007XshbnobyUdzfzcqeksqm (1 source)CONTACT W/AND (SUSP) EXPOS COVID-19; Translations: [CONTACT W/AND (SUSP) EXPOS COVID-19]Onset: 17-66-3347Ujdhwnzkamci (2 sources)Long-term current use of drug therapy; Translations: [Long-term (current) use of other medications]Onset: 03-25-2016 Results Test NameValueInterpretationReference RangeFacilityBasophils Auto (Bld) [#/Vol] on 15-81-2439Oedjvxarq (Bld) [#/Vol]Automated basophil count0.0-0.1FMercy Health St. Joseph [place] HospitalBasophils/100 WBC Auto (Bld)on 05-20-9698Pbanxbtgf/100 WBC (Bld)Automated basophil %0.2-2.0[facility] Eosinophils/100 WBC Auto (Bld)on 25-91-2097Edlpjbfawso/100 WBC (Bld)Automated eosinophil %0.9-7.0[facility] HospitalErythrocyte distribution width Auto (RBC) [Ratio]on 99-44-1793Bzmwisgshdx distribution width (RBC) [Ratio]Erythrocyte distribution width [Ratio] by Automated count11.0-15.0 [facility] HospitalHematocrit Auto (Bld) [Volume fraction]on 84-88-2953Uiqrwqkgkq (Bld) [Volume fraction]Hematocrit [Volume Fraction] of Blood by Automated byslvZby37.0-54.0[facility] HospitalHemoglobin [Mass/volume] in Bloodon 53-07-0482Vokublflgy (Bld) [Mass/Vol]Hemoglobin [Mass/volume] in Blood14.0-18.0[facility] HospitalLaboratory - Hematology and Cell countson 83-25-7820Wcnrliah granulocytes/100 WBC (Bld)0.8 % High0.0-0.5FMercy Health St. Joseph [place] HospitalLeukocytes [#/volume] corrected for nucleated erythrocytes in Blood by Automated counon 36-17-0149XBR corrected for nucl RBC Auto (Bld) [#/Vol]Leukocytes [#/volume] corrected for nucleated erythrocytes in Blood by Automated coun4.0-11.0[facility] Lymphocytes Auto (Bld) [#/Vol]on 81-11-2091Fnunfspbboi (Bld) [#/Vol]Lymphocytes [#/volume] in Blood by Automated count1.2-3.8[facility] Lymphocytes/100 WBC Auto (Bld)on 92-62-1456Uyoktdekwlt/100 WBC (Bld) Lymphocytes/100 leukocytes in Blood by Automated count20.5-60.0[facility] HospitalMCH Auto (RBC) [Entitic mass]on 30-90-9951DNV (RBC) [Entitic mass]MCH [Entitic mass] by Automated count25.9-34.0[facility] HospitalMCHC Auto (RBC) [Mass/Vol]on 73-91-8407KBWO (RBC) [Mass/Vol]MCHC [Mass/volume] by Automated lsyjfFjhn23.9-35.2FMercy Health St. [facility] [place] [facility] MCV Auto (RBC) [Entitic vol]on 93-45-2672QHH (RBC) [Entitic vol]MCV [Entitic volume] by Automated count80.0-94.0[facility] HospitalMonocytes Auto (Bld) [#/Vol]on 56-27-8604Pgwnothda (Bld) [#/Vol]Automated blood monocyte count0.3-0.8[facility] HospitalMonocytes/100 WBC Auto (Bld)on 79-94-7478Ifcdxiexi/100 WBC (Bld)Automated monocyte %1.7-12.0[facility] HospitalNeutrophils Auto (Bld) [#/Vol]on 48-31-6856Uybdcohzbzi (Bld) [#/Vol]Neutrophils [#/volume] in Blood by Automated count1.4-6.5FMercy Health St. Joseph [place] HospitalNeutrophils/100 WBC Auto (Bld)on 05-04-2024 Neutrophils/100 WBC (Bld)Automated neutrophil %43.0-75.0[facility] HospitalNo Panel Informationon 29-16-6365Raipzfluqpk # (Auto)0.2 10 3/uL 0.0-0.7FMercy Health St. Joseph [place] HospitalImmature Granulocyte # (Auto)0.05 10 3/uLHigh0.00-0.03[facility] HospitalMiscellaneous TestCOMMENT. [facility] HospitalComment on above:Test Ordered: 251907 Comp. Metabolic Panel (14)Glucose 252 [H ] mg/dL CB Reference Range: 70-99BUN 21 mg/dL CB Reference Range: 8-27Creatinine 0.99 mg/dL CB Reference Range: 0.76-1.27eGFR 86 CB Unitsof Measure: mL/min/1.73 Reference Range: >59BUN/Creatinine Ratio 21 CB Reference Range: 10-24Sodium 130 [L ] mmol/L CB Reference Range: 134- 144Potassium mmol/L CB Reference Range: .Test not performed. Specimen is hemolyzed. Unable to obtainvalid results.Chloride 91 [L ] mmol/L CB Reference Range: 96-106Carbon Dioxide, Total 19 [L ] mmol/L CB Reference Range: 20- 29Calcium 10.0 mg/dL CB Reference Range: 8.6-10.2Protein, Total 6.5 g/dL CB Reference Range: 6.0-8.5Albumin 4.2 g/dL CB Reference Range: 3.9-4.9Globulin, Total 2.3 g/dL CB Reference Range: 1.5-4.5Bilirubin, Total 0.2 mg/dL CB Referen ce Range: 0.0-1.2Alkaline Phosphatase 125 [H ] IU/L CB Reference Range: 44- 121AST (SGOT) 40 IU/L CBReference Range: 0-40Specimen received hemolyzed. Value may be increased by hemolysis.Clinical correlation indicated.ALT (SGPT) 33 IU/L CB Reference Range: 0-44Performed at: CB - [facility] [address] [id number] Director: Willy Isaacs PhD, Phone: [phone] Platelet mean volume Auto (Bld) [Entitic vol]on 52-48-5243Yclzsrwc mean volume (Bld) [Entitic vol]Platelet mean volume [Entitic volume] in Blood by Automated count9.5-13.5FMercy Health St. Joseph [place] HospitalPlatelets Auto (Bld) [#/Vol]on 36-21-9517Adlgxymvz (Bld) [#/Vol]Platelets [#/volume] in Blood by Automated qepff439-101FdayqcztbAkron Children'S HospitalRBC Auto (Bld) [#/Vol]on 05-04-2024 RBC (Bld) [#/Vol]Erythrocytes [#/volume] in Blood by Automated countLow4.70-6.10 [facility] HospitalXR knee BI 3V - NOT FOR ER USEon 24-73-9434UJ knee BI 3V - NOT FOR ER USEST[facility] [place] [address] XRay Report Signed Patient: Margaret Woods MR#: [id number] : 1960 Acct:[id number] Age/Sex: 62 / M ADM Date: 07/19/23 Loc: SOXD Room: Type: [facility] Attending Dr: Meek Franco DO Copies [...] Connor Buck M.D.07/19/2023 11:06 AM Dictation Location: [place] [address] Transcribed By: [facility] 07/19/23 1106 Dictated By: Connor Buck DO 07/19/23 1104 Signed By: 07/19/23 1106[facility] Physician GroupAlanine aminotransferase [Enzymatic activity/volume] in Serum or PlasmaOrdered By: OUTREACH COMMUNITY on 22-43-4942IUJ [Catalytic activity/Vol]53 U/L7-52[facility] HospitalAlbumin [Mass/volume] in Serum or Plasma by Bromocresol green (BCG) dye binding methoOrdered By: OUTREACH COMMUNITY on 70-66-5440Pjluwjv BCG dye [Mass/Vol]3.9 g/dL3.5-5.7FMercy Health St. Joseph [place] HospitalAlkaline phosphatase [Enzymatic activity/volume] in Serum or PlasmaOrdered By: OUTREACH COMMUNITY on 27-53-6404OSX [Catalytic activity/Vol]73 U/T97-737SlhrngokiAkron Children'S HospitalAspartate aminotransferase [Enzymatic activity/volume] in Serum or Plasma Ordered By: OUTREACH COMMUNITY on 42-25-5018DZF [Catalytic activity/Vol]34 U/L 13-39[facility] HospitalBilirubin.total [Mass/volume] in Serum or PlasmaOrdered By: OUTREACH COMMUNITY on 03-04-0948Bxhhgcgzb [Mass/Vol]0.4 mg/dL 0.3-1.0[facility] HospitalCBC Without Differentialon 12-17-2022 Erythrocyte distribution width (RBC) [Ratio]13.7 %Kapntp99.0-14.8The [facility] Physician GroupComment on above:Performed By: #### OUTREACH LIPID, LDL CHOL (M), OUTREACH GLYCO, CBCNOOUTREACH, PSA OUTREACH, OUTREACH CMP #### [facility] [address] [place] [address] USAHematocrit (Bld) [Volume fraction]34.7 %Low38.8-50.0The [facility] Physician GroupComment on above:Performed By: #### OUTREACH LIPID, LDL CHOL (M), OUTREACH GLYCO, CBCNOOUTREACH, PSA OUTREACH, OUTREACH CMP #### [facility] [address] [place] [address] USAHemoglobin (Bld) [Mass/Vol]12.0 g/dLLow13.0-17.0The [facility] Physician GroupComment on above:Performed By: #### OUTREACH LIPID, LDL CHOL (M), OUTREACH GLYCO, CBCNOOUTREACH, PSA OUTREACH, OUTREACH CMP #### [facility] [address] [place] [id number] [facility] ([facility]BC) [Entitic mass]30.5 pgRshsey58.5-35.2The [facility] Physician GroupComment on above:Performed By: #### OUTREACH LIPID, LDL CHOL (M), OUTREACH GLYCO, CBCNOOUTREACH, PSA OUTREACH, OUTREACH CMP #### [facility] [address] [place] [id number] [facility] (RBC) [Entitic vol]88.3 gFZrqcam52.5-101The [facility] Physician GroupComment on above:Performed By: #### OUTREACH LIPID, LDL CHOL (M), OUTREACH GLYCO, CBCNOOUTREACH, PSA OUTREACH, OUTREACH CMP #### [place] [address] USAMean Corpuscular HGB Conc34.6 g/pDBnvisc39.5-35.6The [facility] Physician GroupComment on above:Performed By: #### OUTREACH LIPID, LDL CHOL (M), OUTREACH GLYCO, CBCNOOUTREACH, PSA OUTREACH, OUTREACH CMP #### [place] [address] USAPlatelet mean volume (Bld) [Entitic vol]8.8 fLNormal 6.6-10.1The [facility] Physician GroupComment on above:Result Comment: PERFORMED BY: [place] [address] PATHOLOGIST PRESS OPERATOR [employer] ELIZABETH CR M.D.Performed By: #### OUTREACH LIPID, LDL CHOL (M), OUTREACH GLYCO, CBCNOOUTREACH, PSA OUTREACH, OUTREACH CMP #### [place] [address] USAPlatelets (Bld) [#/Vol]141 10*3/zPQdw165-558Wdy [facility] Physician GroupComment on above:Performed By: #### OUTREACH LIPID, LDL CHOL (M), OUTREACH GLYCO, CBCNOOUTREACH, PSA OUTREACH, OUTREACH CMP #### [place] [address] USARBC (Bld) [#/Vol]3.93 10*6/uLNormal3.90-5.60The [facility] Physician GroupComment on above:Performed By: #### OUTREACH LIPID, LDL CHOL (M), OUTREACH GLYCO, CBCNOOUTREACH, PSA OUTREACH, OUTREACH CMP #### [place] [address] USAWBC (Bld) [#/Vol]3.9 10*3/uLLow4.1-10.5The [facility] Physician GroupComment on above:Performed By: #### OUTREACH LIPID, LDL CHOL (M), OUTREACH GLYCO, CBCNOOUTREACH, PSA OUTREACH, OUTREACH CMP #### [place] [address] USACMP Outreachon 34-43-4018Wqtxgsa [Mass/Vol]3.9 g/dLNormal 3.5-5.7The [facility] Physician GroupComment on above:Performed By: #### OUTREACH LIPID, LDL CHOL (M), OUTREACH GLYCO, CBCNOOUTREACH, PSA OUTREACH, OUTREACH CMP #### [facility] [address] [place] [id number] USAALP [Catalytic activity/Vol]73 U/ROrvplq78-990Zuy [facility] Physician GroupComment on above:Performed By: #### OUTREACH LIPID, LDL CHOL (M), OUTREACH GLYCO, CBCNOOUTREACH, PSA OUTREACH, OUTREACH CMP #### [facility] [address] [place] [address] USAALT [Catalytic activity/Vol]53 U/LHigh7-52The [facility] Physician GroupComment on above:Performed By: #### OUTREACH LIPID, LDL CHOL (M), OUTREACH GLYCO, CBCNOOUTREACH, PSA OUTREACH, OUTREACH CMP #### [facility] [address] [place] [address] USAAnion gap [Moles/Vol]10.7 mmol/LNormal6.0-15.0The [facility] Physician GroupComment on above:Performed By: #### OUTREACH LIPID, LDL CHOL (M), OUTREACH GLYCO, CBCNOOUTREACH, PSA OUTREACH, OUTREACH CMP #### [facility] [address] [place], [place] [id number] USAAST [Catalytic activity/Vol]34 U/LHyjqtt77-07Ukk [facility]ician GroupComment on above:Performed By: #### OUTREACH LIPID, LDL CHOL (M), OUTREACH GLYCO, CBCNOOUTREACH, PSA OUTREACH, OUTREACH CMP #### [facility] [address] [place], [place] [phone] USABilirubin [Mass/Vol]0.4 mg/dLNormal0.3-1.0The [facility] Physician GroupComment on above:Performed By: #### OUTREACH LIPID, LDL CHOL (M), OUTREACH GLYCO, CBCNOOUTREACH, PSA OUTREACH, OUTREACH CMP #### [facility] [address] [place], [place] [phone] USACalcium [Mass/Vol]9.7 mg/dLNormal8.6-10.3The [facility] Physician GroupComment on above:Performed By: #### OUTREACH LIPID, LDL CHOL (M), OUTREACH GLYCO, CBCNOOUTREACH, PSA OUTREACH, OUTREACH CMP #### [facility] [address] [place] [address] USAChloride [Moles/Vol]105 mmol/QWdzbnq38-432Rpf [facility] Physician GroupComment on above:Performed By: #### OUTREACH LIPID, LDL CHOL (M), OUTREACH GLYCO, CBCNOOUTREACH, PSA OUTREACH, OUTREACH CMP #### [facility] [address] [place] [id number] USACO2 [Moles/Vol]30.1 mmol/EYavrsi44.0-31.0The [facility] Physician GroupComment on above:Performed By: #### OUTREACH LIPID, LDL CHOL (M), OUTREACH GLYCO, CBCNOOUTREACH, PSA OUTREACH, OUTREACH CMP #### [facility] [address] [place] [address] USACreatinine [Mass/Vol]0.87 mg/dLNormal0.70-1.30The [facility] Physician GroupComment on above:Performed By: #### OUTREACH LIPID, LDL CHOL (M), OUTREACH GLYCO, CBCNOOUTREACH, PSA OUTREACH, OUTREACH CMP #### [place] [address] USAGFR/1.73 sq M.predicted MDRD (S/P/Bld) [Vol rate/Area] mL/min/{1.73_m2}NormalThe [facility] Physician GroupComment on above:Performed By: #### OUTREACH LIPID, LDL CHOL (M), OUTREACH GLYCO, CBCNOOUTREACH, PSA OUTREACH, OUTREACH CMP #### [facility] [address] [place] [id number] USAGlucose [Mass/Vol]98 mg/yJHmxopy83-333Eko [facility] Physician GroupComment on above:Result Comment: Random Glucose Reference Range is dependent on time and content of last meal. Glucose of more than 200 mg/dL in a nonstressed, ambulatory subject supports the diagnosis of Diabetes Mellitus. ADA recommended reference rangePerformed By: #### OUTREACH LIPID, LDL CHOL (M), OUTREACH GLYCO, CBCNOOUTREACH, PSA OUTREACH, OUTREACH CMP #### [address] [place] [address] USAPotassium [Moles/Vol]3.8 mmol/LNormal3.5-5.1The [facility] Physician GroupComment on above:Performed By: #### OUTREACH LIPID, LDL CHOL (M), OUTREACH GLYCO, CBCNOOUTREACH, PSA OUTREACH, OUTREACH CMP #### [facility] [address] [place] [id number] USAProtein [Mass/Vol]6.5 g/dLNormal6.4-8.9The [facility] Physician GroupComment on above:Performed By: #### OUTREACH LIPID, LDL CHOL (M), OUTREACH GLYCO, CBCNOOUTREACH, PSA OUTREACH, OUTREACH CMP #### [facility] [address] [place] [id number] USASodium [Moles/Vol]142 mmol/UPbxjwn694-322Teg [facility] Physician GroupComment on above:Performed By: #### OUTREACH LIPID, LDL CHOL (M), OUTREACH GLYCO, CBCNOOUTREACH, PSA OUTREACH, OUTREACH CMP #### [facility] [address] [place] [id number] USAUrea nitrogen [Mass/Vol]21 mg/dLNormal7-25The [facility] Physician GroupComment on above:Performed By: #### OUTREACH LIPID, LDL CHOL (M), OUTREACH GLYCO, CBCNOOUTREACH, PSA OUTREACH, OUTREACH CMP #### [facility] [address] [place], [place] [phone] USACalcium [Mass/volume] in Serum or PlasmaOrdered By: OUTREACH COMMUNITY on 34-02-6076Wszxbkn [Mass/Vol]9.7 mg/dL8.6-10.3FMercy Health St. Joseph [place] HospitalCarbon dioxide, total [Moles/volume] in Serum or Plasma Ordered By: OUTREACH COMMUNITY on 36-61-4772IP8 [Moles/Vol]30.1 mmol/L21.0-31.0 [facility] HospitalChloride [Moles/volume] in Serum or Plasma Ordered By: OUTREACH COMMUNITY on 32-66-1819Goxnwauq [Moles/Vol]105 mmol/L98-107 [facility] HospitalCholesterol [Mass/volume] in Serum or Plasma Ordered By: OUTREACH COMMUNITY on 69-36-7586Dvnpepvsosb [Mass/Vol]180 mg/dL 140-200[facility] HospitalComment on above:Chol less than 200 mg/dl low riskChol 201-239 mg/dl borderline riskChol 240 mg/dl and greater high riskCholesterol in LDL Calc [Mass/Vol]Ordered By: [facility] on 55-63-0427Rbuyifnshot in LDL [Mass/Vol]TNPAkron Children'S Hospital Comment on above:Test not performedCholesterol in LDL [Mass/volume] in Serum or PlasmaOrdered By: [facility] on 12-93-9933Oxxfkatandf in LDL [Mass/Vol] 59 mg/dL0-100[facility] HospitalComment on above:LDL ATP III CLASSIFICATIONLDL less than 100 mg/dL OptimalLDL 100-129 mg/dL Near or above ieliulhPHF446-923 mg/dL Borderline highLDL 160-189 mg/dL HighLDL greater than 189 mg/dL Very highCholesterol in VLDL Calc [Mass/Vol]Ordered By: [facility] on 99-12-6692Sjgdeuvscrz in VLDL [Mass/Vol]119 mg/dLAkron Children'S HospitalCreatinine [Mass/volume] in Serum or PlasmaOrdered By: [facility] on 55-40-9669Xljdjqamdl [Mass/Vol]0.87 mg/dL0.70-1.30[facility] HospitalErythrocyte distribution width Auto (RBC) [Ratio]Ordered By: [facility] on 34-77-6233Ufhrujvvaxy distribution width (RBC) [Ratio] 13.7 %12.0-14.8[facility] HospitalGlucose [Mass/volume] in Serum or PlasmaOrdered By: [facility] on 48-70-0630Cchbkzs [Mass/Vol]98 mg/dL 70-100[facility] HospitalComment on above:ADA recommended reference rangeRandom Glucose Reference Range is dependent on time and content of last meal. Glucose of more than 200 mg/dL in a nonstressed, ambulatory subject supports the diagnosisof Diabetes Mellitus.Glucose mean value [Mass/volume] in Blood Estimated from glycated hemoglobinOrdered By: [facility] on 71-66-1116Afwdjtz glucose Estimated from glycated hemoglobin (Bld) [Mass/Vol]171 mg/dLAkron Children'S HospitalHematocrit Auto (Bld) [Volume fraction]Ordered By: [facility] on 87-69-0914Rzqralkgbm (Bld) [Volume fraction]34.7 %38.8-50.0[facility] HospitalHemoglobin [Mass/volume] in BloodOrdered By: [facility] on 52-20-8525Tvvjoqmlwq (Bld) [Mass/Vol]12.0 g/dL13.0-17.0[facility] HospitalLDL Cholesterol Measured Reflexon 41-13-2984MOW Cholesterol Measured Nigkxe73 mg/dL Normal0-100The [facility] Physician GroupComment on above:Result Comment: LDL ATP III CLASSIFICATION LDL less than 100 mg/dL Optimal LDL 100-129 mg/dL Near or above optimal LDL 130-159 mg/dL Borderline high LDL 160-189 mg/dL High LDL greater than 189 mg/dL Very high PERFORMED BY: [place] [address] PATHOLOGIST PRESS OPERATOR [employer] ELIZABETH CR M.D.Performed By: #### OUTREACH LIPID, LDL CHOL (M), OUTREACH GLYCO, CBCNOOUTREACH, PSA OUTREACH, OUTREACH CMP #### [place] [address] USALaboratory - Hematology and Cell countsOrdered By: [facility] on 60-38-8710FzC2z (Bld) [Mass fraction]7.6 %4.3-5.6FMercy Health St. Joseph [place] HospitalComment on above:Increased risk for diabetes: 5.7 - 6.4diabetes: >6.4glycemic control for adults with diabetes: <7.0Leukocytes [#/volume] corrected for nucleated erythrocytes in Blood by Automated coun Ordered By: [facility] on 58-53-0716MAA corrected for nucl RBC Auto (Bld) [#/Vol]3.9 10*3/uL4.1-10.5FMercy Health St. Joseph [place] HospitalLipid Profile Outreachon 28-06-1657Sohcrdgbdsh [Mass/Vol]180 mg/vLRedtht661-789Gct [facility] Physician GroupComment on above:Result Comment: Chol less than 200 mg/dl low risk Chol 201-239 mg/dl borderline risk Chol 240 mg/dl and greater high riskPerformed By: #### OUTREACH LIPID, LDL CHOL (M), OUTREACH GLYCO, CBCNOOUTREACH, PSA OUTREACH, OUTREACH CMP #### [facility] [address] [place] [address] USACholesterol in HDL [Mass/Vol]25 mg/tVPfskbz12-35Qrj [facility] Physician GroupComment on above:Result Comment: HDL CHOL ATP-III CLASSIFICATION Cardiovascular Risk HDL > or equal to 60 mg/dL LOW HDL < 40 mg/dL HIGHPerformed By: #### OUTREACH LIPID, LDL CHOL (M), OUTREACH GLYCO, CBCNOOUTREACH, PSA OUTREACH, OUTREACH CMP #### [facility] [address] [place] [address] USACholesterol.total/Cholesterol in HDL [Mass ratio]7.2 {ratio}Normal<5.0The [facility] Physician GroupComment on above:Result Comment: PERFORMED BY: [place] [address] PATHOLOGIST PRESS OPERATOR [employer] ELIZABETH CR M.D.Performed By: #### OUTREACH LIPID, LDL CHOL (M), OUTREACH GLYCO, CBCNOOUTREACH, PSA OUTREACH, OUTREACH CMP #### [facility] [address] [place] [address] USALDL Cholesterol,CalculatedNot performedNormal0-100The [facility] Physician GroupComment on above:Performed By: #### OUTREACH LIPID, LDL CHOL (M), OUTREACH GLYCO, CBCNOOUTREACH, PSA OUTREACH, OUTREACH CMP #### [facility] [address] [place] [id number] USATriglyceride w/Ttipwb797 mg/dLHigh0-149The [facility] Physician GroupComment on above:Result Comment: TRIG ATP III CLASSIFICATION TRIG less than 150 mg/dL Normal TRIG 150-199 mg/dL Borderline high TRIG 200-500 mg/dL High TRIG greater than 500 mg/dL Very high Standard traceable to the Center for Disease Conrtrol and Prevention (CDC) test method. If the triglyceride result is greater than 400, LDLC and related calculations cannot be calculated and resulted.Performed By: #### OUTREACH LIPID, LDL CHOL (M), OUTREACH GLYCO, CBCNOOUTREACH, PSA OUTREACH, OUTREACH CMP #### [facility] [address] [place] [address] USAVLDL DZNSMVDVXYW408 mg/dLNoUNC Health Appalachian Physician GroupComment on above:Performed By: #### OUTREACH LIPID, LDL CHOL (M), OUTREACH GLYCO, CBCNOOUTREACH, PSA OUTREACH, OUTREACH CMP #### [facility] [address] [place] [address] [facility] Auto (RBC) [Entitic mass]Ordered By: OUTREACH COMMUNITY on 62-53-2306SLJ (RBC) [Entitic mass]30.5 pg27.5-35.2FKettering Health HamiltonHC Auto (RBC) [Mass/Vol]Ordered By: OUTREACH COMMUNITY on 85-45-8852ASTW (RBC) [Mass/Vol]34.6 g/dL32.5-35.6FMercy Health St. Joseph [place] HospitalMCV Auto (RBC) [Entitic vol]Ordered By: OUTREACH COMMUNITY on 12-17-2022 MCV (RBC) [Entitic vol]88.3 fL83.5-101[facility] HospitalNo Panel InformationOrdered By: OUTREACH COMMUNITY on 94-29-1689Ekwrdxezi GFR (CKD-EPI)> 60.0 mL/MinAkron Children'S HospitalPharmacy Creatinine Clearance (Chem N/[facility] JacksonOutreach Glycoon 00-31-2797Ejdxlzj [Mass/Vol]171 mg/dLNoUNC Health Appalachian Physician GroupComment on above:Result Comment: PERFORMED BY: [facility] [address] [place] [address] PATHOLOGIST PRESS OPERATOR [employer] ELIZABETH CR M.D.Performed By: #### OUTREACH LIPID, LDL CHOL (M), OUTREACH GLYCO, CBCNOOUTREACH, PSA OUTREACH, OUTREACH CMP #### [facility] [address] [place] [address] CGRFtV1k (Bld) [Mass fraction]7.6 %High4.3-5.6The [facility] Physician GroupComment on above:Result Comment: Increased risk for diabetes: 5.7 - 6.4 diabetes: >6.4 glycemic control for adults with diabetes: <7.0Performed By: #### OUTREACH LIPID, LDL CHOL (M), OUTREACH GLYCO, CBCNOOUTREACH, PSA OUTREACH, OUTREACH CMP #### [facility] [address] [place] [id number] USAPSA Total Community Outreachon 07-84-7996KKQ Total Community Outreach1.300 ng/mLNormal0.000-4.000The [facility] Comment on above:Result Comment: PERFORMED BY: [facility] [address] [facility] [place] [address] PATHOLOGIST PRESS OPERATOR [employer] ELIZABETH CR M.D.Performed By: #### OUTREACH LIPID, LDL CHOL (M), OUTREACH GLYCO, CBCNOOUTREACH, PSA OUTREACH, OUTREACH CMP #### [facility] [address] [place] [id number] USAPlatelet mean volume Auto (Bld) [Entitic vol]Ordered By: OUTREACH COMMUNITY on 13-77-0784Kacuhcop mean volume (Bld) [Entitic vol]8.8 fL 6.6-10.1FMercy Health St. Joseph [place] HospitalPlatelets Auto (Bld) [#/Vol]Ordered By: OUTREACH COMMUNITY on 47-77-8289Mnmwrepni (Bld) [#/Vol]141 10*3/eO686-456 [facility] HospitalPotassium [Moles/volume] in Serum or Plasma Ordered By: [facility] on 48-74-7217Nwiobsofm [Moles/Vol]3.8 mmol/L 3.5-5.1FMercy Health St. Joseph [place] HospitalProstate specific Ag [Mass/volume] in Serum or PlasmaOrdered By: [facility]REACH COMMUNITY on 26-73-1348Rkxkkjlf specific Ag [Mass/Vol]1.300 ng/mL0.000-4.000[facility]'S HospitalProtein [Mass/volume] in Serum or PlasmaOrdered By: OUTREACH COMMUNITY on 12-17-2022 Protein [Mass/Vol]6.5 g/dL6.4-8.9[facility]S HospitalRBC Auto (Bld) [#/Vol]Ordered By: [facility]REACH COMMUNITY on 52-28-7628KLE (Bld) [#/Vol]3.93 10*6/uL3.90-5.60Detwiler Memorial Hospitalerum or plasma anion gap determinationOrdered By: [facility]REACH COMMUNITY on 92-50-4186Oivze gap [Moles/Vol] 10.7 mmol/L6.0-15.0Detwiler Memorial Hospitalerum or plasma high density lipoprotein (HDL) cholesterol measurementOrdered By: [facility] on 59-65-6584Cyildocutni in HDL [Mass/Vol]25 mg/zT17-61KiesovgtcAkron Children'S HospitalComment on above:HDL CHOL ATP-III CLASSIFICATION Cardiovascular RiskHDL > or equal to 60 mg/dL LOWHDL < 40 mg/dL HIGHSerum or plasma total cholesterol/high density lipoprotein (HDL) cholesterol mass ratOrdered By: [facility] on 93-35-5985Hynmjvraijj.total/Cholesterol in HDL [Mass ratio]7.2 {ratio}<5.0Det[facility] Hospitalodium [Moles/volume] in Serum or PlasmaOrdered By: [facility] on 64-00-7279Peaxhf [Moles/Vol]142 mmol/A554-197WkpzqurklAkron Children'S HospitalTriglyceride [Mass/volume] in Serum or PlasmaOrdered By: [facility] on 78-84-0729Tqskrqmyabwz [Mass/Vol]595 mg/dL0-149[facility]S HospitalComment on above:If the triglyceride result is greater than 400, LDLC and related calculations cannot be calculated and resulted.TRIG ATP III CLASSIFICATIONTRIG less than 150 mg/dL NormalTRIG 150-199 mg/dL BorderlinehighTRIG 200-500 mg/dL High TRIG greater than 500 mg/dL Very highStandard traceable to the Center for Disease Conrtrol and Prevention (CDC) test method.Urea nitrogen [Mass/volume] in Serum or Plasma Ordered By: [facility] on 52-47-8422Kuqm nitrogen [Mass/Vol]21 mg/dL7-25 [facility]S HospitalAlanine aminotransferase [Enzymatic activity/volume] in Serum or PlasmaOrdered By: Efren Longo on 96-50-0629KRA [Catalytic activity/Vol]46 U/L7-52[facility]S HospitalAlbumin [Mass/volume] in Serum or Plasma by Bromocresol green (BCG) dye binding metho Ordered By: Efren Longo on 26-31-4808Ohofyku BCG dye [Mass/Vol]3.8 g/dL3.5-5.7 [facility]S HospitalAlkaline phosphatase [Enzymatic activity/volume] in Serum or PlasmaOrdered By: fEren Longo on 09-91-6917GYG [Catalytic activity/Vol]65 U/E31-705NglojpfryAkron Children'S HospitalAspartate aminotransferase [Enzymatic activity/volume] in Serum or PlasmaOrdered By: Efren Longo on 91-25-1896FHR [Catalytic activity/Vol]38 U/J37-99EafdtjizxAkron Children'S HospitalBand form neutrophils/100 WBC Manual cnt (Bld)Ordered By: Efren Longo on 77-90-6865Wotl form neutrophils/100 WBC (Bld)12 %0-5FMercy Health St. Joseph Warren HospitalBasophils Auto (Bld) [#/Vol]Ordered By: Efren Longo on 39-70-6468Ghnbohbxr (Bld) [#/Vol]N/[facility] Basophils/100 WBC Auto (Bld)Ordered By: Efren Longo on 73-34-8990Pboxanpor/100 WBC (Bld)N/[facility] JacksonBilirubin.total [Mass/volume] in Serum or PlasmaOrdered By: Efren Longo on 31-42-6908Movmdhvfy [Mass/Vol]0.6 mg/dL0.3-1.0[facility] HospitalCOVID CepheidOrdered By: Efren Longo on 27-68-2621YQCQ-CoV-2 (COVID-19) Ab IA QlNegativeNegativeAkron Children'S HospitalComment on above:This is a duplicate Cepheid Xpert Xpress CoV-2/Flu/RSV Plus RNA by RT-PCR result to be used for statistical tracking purpose only.SARS-CoV-2 (COVID-19) RNA MAGALIS+probe Ql (Unsp spec)[facility]S HospitalCOVID-19 / Flu A/B / RSV PCRon 71-86-0212HWFW-CoV-2 (COVID-19) RNA MAGALIS+probe Ql (Unsp spec)COVID-19 Cepheid Result Negative for SARS-CoV-2 RNA by [...] or Cepheid Disclaimer revoked sooner. PERFORMED BY: [facility] [address] [place] [address] PATHOLOGIST PRESS OPERATOR [employer] ELIZABETH CR M.D.[facility] Physician GroupComment on above:Performed By: #### COVID19 FLU RSV, CEPHEID NEG #### [facility] [address] [place] [address] USACalcium [Mass/volume] in Serum or PlasmaOrdered By: Efren Longo on 08-32-1298Bcmpmmh [Mass/Vol]9.7 mg/dL8.6-10.3FMercy Health St. Joseph Warren HospitalCarbon dioxide, total [Moles/volume] in Serum or PlasmaOrdered By: Efren Longo on 17-45-8049MM1 [Moles/Vol]26.9 mmol/L21.0-31.0[facility]S HospitalCepheid COVID PCR Negativeon 59-84-2887SVNQ-CoV-2 (COVID-19) RNA MAGALIS+probe Ql (Unsp spec)NegativeNormalNegativeThe [facility] Comment on above:Result Comment: This is a duplicate Cepheid Xpert Xpress CoV- 2/Flu/RSV Plus RNA by RT-PCR result to be used for statistical tracking purpose only. PERFORMED BY: [place] [address] PATHOLOGIST PRESS OPERATOR [employer] ELIZABETH CR M.D.Performed By: #### OUTREACH LIPID, LDL CHOL (M), OUTREACH GLYCO, CBCNOOUTREACH, PSA OUTREACH, OUTREACH CMP #### [facility] [address] [place] [address] USAChloride [Moles/volume] in Serum or PlasmaOrdered By: Efren Qing on 16-88-4340Rioytvpt [Moles/Vol]100 mmol/R40-825KhffnpjfaAkron Children'S HospitalComprehensive Metabolic Panelon 44-19-9781Kibpmnx [Mass/Vol]3.8 g/dLNormal3.5-5.7The [facility] Physician GroupComment on above:Performed By: #### OUTREACH LIPID, LDL CHOL (M), OUTREACH GLYCO, CBCNOOUTREACH, PSA OUTREACH, OUTREACH CMP #### [facility] [address] [place] [address] USAAlbumin/Globulin [Mass ratio]1.2 {ratio}NormalThe [facility] Physician GroupComment on above:Performed By: #### OUTREACH LIPID, LDL CHOL (M), OUTREACH GLYCO, CBCNOOUTREACH, PSA OUTREACH, OUTREACH CMP #### [facility] [address] [place] [address] USAALP [Catalytic activity/Vol]65 U/QTptipv63-241Sok [facility] Physician GroupComment on above:Performed By: #### OUTREACH LIPID, LDL CHOL (M), OUTREACH GLYCO, CBCNOOUTREACH, PSA OUTREACH, OUTREACH CMP #### [facility] [address] [place] [address] USAALT [Catalytic activity/Vol]46 U/LNormal7-52The [facility] Physician GroupComment on above:Performed By: #### OUTREACH LIPID, LDL CHOL (M), OUTREACH GLYCO, CBCNOOUTREACH, PSA OUTREACH, OUTREACH CMP #### [facility] [address] [place] [address] USAAnion gap [Moles/Vol]12.9 mmol/LNormal6.0-15.0The [facility] Physician GroupComment on above:Performed By: #### OUTREACH LIPID, LDL CHOL (M), OUTREACH GLYCO, CBCNOOUTREACH, PSA OUTREACH, OUTREACH CMP #### [facility] [address] [place] [address] USAAST [Catalytic activity/Vol]38 U/JFpyowv93-55Itw [facility] Physician GroupComment on above:Performed By: #### OUTREACH LIPID, LDL CHOL (M), OUTREACH GLYCO, CBCNOOUTREACH, PSA OUTREACH, OUTREACH CMP #### [facility] [address] [place], [place] [id number] USABilirubin [Mass/Vol]0.6 mg/dLNormal0.3-1.0The [facility] Physician GroupComment on above:Performed By: #### OUTREACH LIPID, LDL CHOL (M), OUTREACH GLYCO, CBCNOOUTREACH, PSA OUTREACH, OUTREACH CMP #### [facility] [address] [place] [address] USACalcium [Mass/Vol]9.7 mg/dLNormal8.6-10.3The [facility] Physician GroupComment on above:Performed By: #### OUTREACH LIPID, LDL CHOL (M), OUTREACH GLYCO, CBCNOOUTREACH, PSA OUTREACH, OUTREACH CMP #### [facility] [address] [place] [address] USAChloride [Moles/Vol]100 mmol/WFckwpm46-368Sbc [facility] Physician GroupComment on above:Performed By: #### OUTREACH LIPID, LDL CHOL (M), OUTREACH GLYCO, CBCNOOUTREACH, PSA OUTREACH, OUTREACH CMP #### [place] [address] USACO2 [Moles/Vol]26.9 mmol/QBnfdkb11.0-31.0The [facility] Physician GroupComment on above:Performed By: #### OUTREACH LIPID, LDL CHOL (M), OUTREACH GLYCO, CBCNOOUTREACH, PSA OUTREACH, OUTREACH CMP #### [place] [address] USACreatinine [Mass/Vol]0.94 mg/dLNormal0.70-1.30The [facility] Physician GroupComment on above:Performed By: #### OUTREACH LIPID, LDL CHOL (M), OUTREACH GLYCO, CBCNOOUTREACH, PSA OUTREACH, OUTREACH CMP #### [place] [address] USACreatinine Clr Calc Lkjhydjl420.48NormHealthPark Medical Center Physician GroupComment on above:Result Comment: PERFORMED BY: [place] [address] PATHOLOGIST PRESS OPERATOR [employer] ELIZABETH CR M.D.Performed By: #### OUTREACH LIPID, LDL CHOL (M), OUTREACH GLYCO, CBCNOOUTREACH, PSA OUTREACH, OUTREACH CMP #### [place] [address] USAGFR/1.73 sq M.predicted MDRD (S/P/Bld) [Vol rate/Area] mL/min/{1.73_m2}NormalThe [facility] Physician GroupComment on above:Performed By: #### OUTREACH LIPID, LDL CHOL (M), OUTREACH GLYCO, CBCNOOUTREACH, PSA OUTREACH, OUTREACH CMP #### [place] [address] USAGlobulin (S) [Mass/Vol]3.2 g/dLNoUNC Health Appalachian Physician GroupComment on above:Performed By: #### OUTREACH LIPID, LDL CHOL (M), OUTREACH GLYCO, CBCNOOUTREACH, PSA OUTREACH, OUTREACH CMP #### [address] [address] USAGlucose [Mass/Vol]169 mg/xCOkwg38-608Ytp [facility] Physician GroupComment on above:Result Comment: Random Glucose Reference Range is dependent on time and content of last meal. Glucose of more than 200 mg/dL in a nonstressed, ambulatory subject supports the diagnosis of Diabetes Mellitus. ADA recommended reference rangePerformed By: #### OUTREACH LIPID, LDL CHOL (M), OUTREACH GLYCO, CBCNOOUTREACH, PSA OUTREACH, OUTREACH CMP #### [facility] [address] [place] [address] USAPotassium [Moles/Vol]3.8 mmol/LNormal3.5-5.1The [facility] Physician GroupComment on above:Performed By: #### OUTREACH LIPID, LDL CHOL (M), OUTREACH GLYCO, CBCNOOUTREACH, PSA OUTREACH, OUTREACH CMP #### [facility] [address] [place] [address] USAProtein [Mass/Vol]7.0 g/dLNormal6.4-8.9The [facility] Physician GroupComment on above:Performed By: #### OUTREACH LIPID, LDL CHOL (M), OUTREACH GLYCO, CBCNOOUTREACH, PSA OUTREACH, OUTREACH CMP #### [facility] [address] [place] [address] USASodium [Moles/Vol]136 mmol/ZTzdgkh110-531Iwh [facility] Physician GroupComment on above:Performed By: #### OUTREACH LIPID, LDL CHOL (M), OUTREACH GLYCO, CBCNOOUTREACH, PSA OUTREACH, OUTREACH CMP #### [facility] [address] [place] [address] USAUrea nitrogen [Mass/Vol]18 mg/dLNormal7-25The [facility] Physician GroupComment on above:Performed By: #### OUTREACH LIPID, LDL CHOL (M), OUTREACH GLYCO, CBCNOOUTREACH, PSA OUTREACH, OUTREACH CMP #### [facility] [address] [place] [address] USACreatinine [Mass/volume] in Serum or PlasmaOrdered By: Efren Longo on 28-03-6016Srmqdqpblf [Mass/Vol]0.94 mg/dL0.70-1.30[facility] HospitalDiff and CBCon 44-17-5905Zdlb form neutrophils/100 WBC (Bld)12 %High0-5The [facility] Physician GroupComment on above:Performed By: #### OUTREACH LIPID, LDL CHOL (M), OUTREACH GLYCO, CBCNOOUTREACH, PSA OUTREACH, OUTREACH CMP #### [facility] [address] [place] [address] USAErythrocyte distribution width (RBC) [Ratio]13.6 %Normal 12.0-14.8The [facility] Physician GroupComment on above:Performed By: #### OUTREACH LIPID, LDL CHOL (M), OUTREACH GLYCO, CBCNOOUTREACH, PSA OUTREACH, OUTREACH CMP #### [facility] [address] [place] [address] USAGiant Platelet Tally3 /100{WBC}NormalThe [facility] Physician GroupComment on above:Performed By: #### OUTREACH LIPID, LDL CHOL (M), OUTREACH GLYCO, CBCNOOUTREACH, PSA OUTREACH, OUTREACH CMP #### [facility] [address] [place] [address] USAHematocrit (Bld) [Volume fraction]37.7 %Low38.8-50.0The [facility] Physician GroupComment on above:Performed By: #### OUTREACH LIPID, LDL CHOL (M), OUTREACH GLYCO, CBCNOOUTREACH, PSA OUTREACH, OUTREACH CMP #### [facility] [address] [place], [place] [address] USAHemoglobin (Bld) [Mass/Vol]12.9 g/dLLow13.0-17.0The [facility] Physician GroupComment on above:Performed By: #### OUTREACH LIPID, LDL CHOL (M), OUTREACH GLYCO, CBCNOOUTREACH, PSA OUTREACH, OUTREACH CMP #### [facility] [address] [place], [place] [address] USALymphocytes/100 WBC (Bld)14 %Ddc45-87Szi [facility] Physician GroupComment on above:Performed By: #### OUTREACH LIPID, LDL CHOL (M), OUTREACH GLYCO, CBCNOOUTREACH, PSA OUTREACH, OUTREACH CMP #### Fire[address] Quinn StreetH (RBC) [Entitic mass]30.4 mfRslqcs95.5-35.2The [facility] Physician GroupComment on above:Performed By: #### OUTREACH LIPID, LDL CHOL (M), OUTREACH GLYCO, CBCNOOUTREACH, PSA OUTREACH, OUTREACH CMP #### [address]V (RBC) [Entitic vol]88.9 rIIluspe50.5-101The [facility] Physician GroupComment on above:Performed By: #### OUTREACH LIPID, LDL CHOL (M), OUTREACH GLYCO, CBCNOOUTREACH, PSA OUTREACH, OUTREACH CMP #### [place] [address] USAMean Corpuscular HGB Conc34.2 g/pVKdrzpw17.5-35.6The [facility] Physician GroupComment on above:Performed By: #### OUTREACH LIPID, LDL CHOL (M), OUTREACH GLYCO, CBCNOOUTREACH, PSA OUTREACH, OUTREACH CMP #### [place] [address] USAMonocytes/100 WBC (Bld)36.68 %High0.00-20.00The [facility] Physician GroupComment on above:Result Comment: The predictive value of MDW for identifying sepsis in patients with hematological abnormalities has not been establishedPerformed By: #### OUTREACH LIPID, LDL CHOL (M), OUTREACH GLYCO, CBCNOOUTREACH, PSA OUTREACH, OUTREACH CMP #### [place] [address] USAMonocytes/100 WBC (Bld)17 %High2-11The [facility] Physician GroupComment on above:Performed By: #### OUTREACH LIPID, LDL CHOL (M), OUTREACH GLYCO, CBCNOOUTREACH, PSA OUTREACH, OUTREACH CMP #### [place] [address] USAMyelocytes2 %High0-0The [facility] Physician GroupComment on above:Performed By: #### OUTREACH LIPID, LDL CHOL (M), OUTREACH GLYCO, CBCNOOUTREACH, PSA OUTREACH, OUTREACH CMP #### [place] [address] USAPlatelet EstimateDecreasedNormalUF Health Shands Hospital Physician GroupComment on above:Performed By: #### OUTREACH LIPID, LDL CHOL (M), OUTREACH GLYCO, CBCNOOUTREACH, PSA OUTREACH, OUTREACH CMP #### [place] [address] USAPlatelet mean volume (Bld) [Entitic vol]8.9 fLNormal 6.6-10.1The [facility] Physician GroupComment on above:Performed By: #### OUTREACH LIPID, LDL CHOL (M), OUTREACH GLYCO, CBCNOOUTREACH, PSA OUTREACH, OUTREACH CMP #### [place] [address] USAPlatelet MorphologyNormalNormalUF Health Shands Hospital Physician GroupComment on above:Result Comment: PERFORMED BY: [place] [address] PATHOLOGIST PRESS OPERATOR [employer] ELIZABETH CR M.D.Performed By: #### OUTREACH LIPID, LDL CHOL (M), OUTREACH GLYCO, CBCNOOUTREACH, PSA OUTREACH, OUTREACH CMP #### [place] [address] USAPlatelets (Bld) [#/Vol]106 10*3/iUQgd534-922Zet [facility] Physician GroupComment on above:Performed By: #### OUTREACH LIPID, LDL CHOL (M), OUTREACH GLYCO, CBCNOOUTREACH, PSA OUTREACH, OUTREACH CMP #### [place] [address] USARBC (Bld) [#/Vol]4.24 10*6/uLNormal3.90-5.60The [facility] Physician GroupComment on above:Performed By: #### OUTREACH LIPID, LDL CHOL (M), OUTREACH GLYCO, CBCNOOUTREACH, PSA OUTREACH, OUTREACH CMP #### [place] [address] USARBC morphology finding Nom (Bld)NormalNormalUF Health [facility] Hospital Physician GroupComment on above:Performed By: #### OUTREACH LIPID, LDL CHOL (M), OUTREACH GLYCO, CBCNOOUTREACH, PSA OUTREACH, OUTREACH CMP #### [facility] [address] [place] [address] USASegmented neutrophils/100 WBC (Bld)56 %Tlcaat15-69Fil [facility] Physician GroupComment on above:Performed By: #### OUTREACH LIPID, LDL CHOL (M), OUTREACH GLYCO, CBCNOOUTREACH, PSA OUTREACH, OUTREACH CMP #### [facility] [address] [place] [address] USAWBC (Bld) [#/Vol]2.9 10*3/uLLow4.1-10.5The [facility] Physician GroupComment on above:Performed By: #### OUTREACH LIPID, LDL CHOL (M), OUTREACH GLYCO, CBCNOOUTREACH, PSA OUTREACH, OUTREACH CMP #### [facility] [address] [place], [place] [phone] USAECG 12 lead ECGon 20-04-4456BPK 12 lead ECGST[facility] [place] [address] [place] [address] Electrocardiograph Report Signed Patient: Margaret Woods MR#: [id number] : 1960 Acct:[id number] Age/Sex: 62 / M ADM Date: 12/14/22 Loc: ER Room: Type: [facility] ER Attending Dr: Ordering Provider: Efren Longo [...] By: MUS Signed By Efren Longo DO 0658[facility] Physician GroupEosinophils Auto (Bld) [#/Vol]Ordered By: Efren Longo on 35-82-8291Eceduffmcjg (Bld) [#/Vol]N/[facility] JacksonEosinophils/100 WBC Auto (Bld)Ordered By: Efren Longo on 80-79-3113Hppwulppjzw/100 WBC (Bld)N/[facility] Erythrocyte distribution width Auto (RBC) [Ratio]Ordered By: Efren Longo on 03-70-9701Qvbtwvnnxmf distribution width (RBC) [Ratio]13.6 %12.0-14.8[facility]S HospitalGiant platelets/100 leukocytes [Ratio] in Blood by Manual countOrdered By: Efren Longo on 83-41-0890Yrovh platelets/100 WBC Manual cnt (Bld) [Ratio]3 /100{WBC}[facility]'S HospitalGlobulin Calc (S) [Mass/Vol]Ordered By: Efren Longo on 49-16-7902Bhijouyc (S) [Mass/Vol]3.2 g/dL [facility] HospitalGlucose [Mass/volume] in Serum or PlasmaOrdered By: Efren Longo on 56-50-3548Gjkktye [Mass/Vol]169 mg/fU42-560YoaklsjnsAkron Children'S HospitalComment on above:ADA recommended reference rangeRandom Glucose Reference Range is dependent on time and content of last meal. Glucose of more than 200 mg/dL in a nonstressed, ambulatory subject supports the diagnosisof Diabetes Mellitus.Hematocrit Auto (Bld) [Volume fraction]Ordered By: Efren Longo on 76-35-9735Udaikkjlln (Bld) [Volume fraction]37.7 %38.8-50.0 [facility]S HospitalHemoglobin [Mass/volume] in BloodOrdered By: Efren Longo on 73-73-0668Lfdjukrodc (Bld) [Mass/Vol]12.9 g/dL13.0-17.0[facility]S HospitalLeukocytes [#/volume] corrected for nucleated erythrocytes in Blood by Automated counOrdered By: Efren Longo on 04-38-7779BPX corrected for nucl RBC Auto (Bld) [#/Vol]2.9 10*3/uL4.1-10.5FMercy Health St. Joseph Warren HospitalLymphocytes Auto (Bld) [#/Vol]Ordered By: Efren Longo on 17-49-6454Ithhnhsrowy (Bld) [#/Vol]N/[facility] Lymphocytes/100 WBC Auto (Bld)Ordered By: Efren Longo on 12-14-2022 Lymphocytes/100 WBC (Bld)N/[facility] JacksonLymphocytes/100 WBC Manual cnt (Bld)Ordered By: Efren Longo on 38-56-2474Ylhdlhknggg/100 WBC (Bld) 14 %18-42[facility] HospitalH Auto (RBC) [Entitic mass]Ordered By: Efren Longo on 90-70-3248CUH (RBC) [Entitic mass]30.4 pg27.5-35.2FKettering Health HamiltonHC Auto (RBC) [Mass/Vol]Ordered By: Efren Longo on 97-16-4638LQMS (RBC) [Mass/Vol]34.2 g/dL32.5-35.6FMercy Health St. Joseph Warren HospitalMCV Auto (RBC) [Entitic vol]Ordered By: Efren Longo on 42-10-0799COP (RBC) [Entitic vol]88.9 fL83.5-101[facility]S HospitalMonocyte distribution width [Entitic volume] in Blood by AutomatedOrdered By: Efren Longo on 95-21-2103Gziebiyz distribution width Auto (Bld) [Entitic vol]36.68 % 0.00-20.00[facility] HospitalComment on above:The predictive value of MDW for identifying sepsis in patients with hematological abnormalities has not been establishedMonocytes Auto (Bld) [#/Vol]Ordered By: Efren Longo on 76-14-6786Iiyaiourg (Bld) [#/Vol]N/[facility] Monocytes/100 WBC Auto (Bld)Ordered By: Efren Longo on 80-12-1595Rhkxxocdy/100 WBC (Bld)N/[facility] JacksonMonocytes/100 WBC Manual cnt (Bld) Ordered By: Efren Longo on 29-82-0229Gjzfhmdwo/100 WBC (Bld)17 %2-11[facility] HospitalMyelocytes/100 WBC Manual cnt (Bld)Ordered By: Efren Longo on 43-68-3780Eiphdhlxfr/100 WBC (Bld)2 %0-0[facility] HospitalNeutrophils Auto (Bld) [#/Vol]Ordered By: Efren Longo on 12-14-2022 Neutrophils (Bld) [#/Vol]N/[facility] JacksonNeutrophils/100 WBC Auto (Bld)Ordered By: Efren Longo on 01-01-2712Ulpobqkzgmt/100 WBC (Bld)N/A [facility] HospitalNo Panel InformationOrdered By: Efren Longo on 85-76-1913Qmzmsarox GFR (CKD-EPI)> 60.0 mL/MinAkron Children'S Hospital Pharmacy Creatinine Clearance (Ajuc475.48[facility] Nucleated erythrocytes [Presence] in Blood by Automated countOrdered By: Efren Longo on 29-70-5185Txrorfjpp RBC Auto Ql (Bld)N/[facility] JacksonPlatelet adequacy [Presence] in Blood by Light microscopyOrdered By: Efren Longo on 06-24-6831Dwqbriuhs LM Ql (Bld)DecreasedNormAkron Children's HospitalPlatelet mean volume Auto (Bld) [Entitic vol]Ordered By: Efren Longo on 83-92-7052Zlthsfmn mean volume (Bld) [Entitic vol]8.9 fL6.6-10.1 [facility]S HospitalPlatelet morphology finding [Identifier] in BloodOrdered By: Efren Longo on 44-59-7827Kxucnzbc morphology finding Nom (Bld) NormalNormAkron Children's HospitalPlatelets Auto (Bld) [#/Vol]Ordered By: Efren Longo on 32-03-7024Ouhxyfgkl (Bld) [#/Vol]106 10*3/cO534-847 [facility] HospitalPotassium [Moles/volume] in Serum or Plasma Ordered By: Efren Longo on 78-53-1139Xhoaonrdn [Moles/Vol]3.8 mmol/L3.5-5.1 [facility] HospitalProtein [Mass/volume] in Serum or PlasmaOrdered By: Efren Longo on 41-88-3092Ofgthuh [Mass/Vol]7.0 g/dL6.4-8.9[facility] HospitalRBC Auto (Bld) [#/Vol]Ordered By: Efren Longo on 89-31-8579SFG (Bld) [#/Vol]4.24 10*6/uL3.90-5.60[facility] HospitalRB morphologyOrdered By: Efren Longo on 72-50-0330GIS morphology finding Nom (Bld)NormalNormalDetwiler Memorial Hospitalegmented neutrophils/100 WBC Manual cnt (Bld)Ordered By: Efren Longo on 14-53-3342Kfzycxoji neutrophils/100 WBC (Bld)56 %50-70Det[facility] Memorial Hospitalerum or plasma albumin/globulin mass ratioOrdered By: Efren Longo on 12-14-2022 Albumin/Globulin [Mass ratio]1.2 {ratio}[facility] Hospitalerum or plasma anion gap determinationOrdered By: Efren Longo on 15-95-9841Xvojb gap [Moles/Vol]12.9 mmol/L6.0-15.0[facility] Hospitalodium [Moles/volume] in Serum or PlasmaOrdered By: Efren Longo on 42-36-4768Kyggbj [Moles/Vol]136 mmol/B069-055EhgxautvvAkron Children'S HospitalUrea nitrogen [Mass/volume] in Serum or PlasmaOrdered By: Efren Longo on 50-14-2091Qczw nitrogen [Mass/Vol]18 mg/dL7-25[facility]S HospitalWBC Auto (Bld) [#/Vol]Ordered By: Efren Longo on 26-59-9233KWN (Bld) [#/Vol]2.9 10*3/uL 4.1-10.5FMercy Health St. Joseph Warren HospitalXR chest 1V portableon 94-48-2504ZD chest 1[place] [address] XRay Report Signed Patient: Margaret Woods MR#: [id number] : 1960 Acct:[id number] Age/Sex: 62 / M ADM Date: 12/14/22 Loc: ER Room: Type: [facility] ER Attending Dr: Copies to: Efren Longo [...] Lynn Renner M.D.12/14/2022 8:10 AM Dictation Location: [place] [address] Transcribed By: KIMMY 12/14/22809 Dictated By: Lynn Renner MD 12/14/22808 Signed By: 12/14/22 0810[facility] Physician GroupLIPID PROFILE SEND OUTon 45-52-1956Cjnwecipzuz [Mass/Vol]471 mg/dLCritically ugqr941-204Etl [facility] HospitalComment on above:Performed By: #### LIPIDLC, CMPLC #### [facility] [address] [place] [address] Dr. Smitha FinneganCholesterol in HDL [Mass/Vol]15 mg/dLCritically low>39The [facility]erm[facility] HospitalComment on above:Performed By: #### LIPIDLC, CMPLC #### [facility] [address] [place] [address] [address] Smitha FinneganComment:NormalThe [facility]erm[facility] HospitalComment on above:Performed By: #### LIPIDLC, CMPLC #### [facility] [address] [place] [address] [address] Smitha FinneganLDL Chol. Calc. ([facility])CommentAbnormal0-99[facility] Comment on above:Result Comment: Triglyceride result indicated is too high for an accurate LDL cholesterol estimation.Performed By: #### LIPIDLC, CMPLC #### [facility] 62 [place] [address] [address]. Smitha FinneganTriglyceride [Mass/Vol]3806 mg/dLInvalid Interpretation Code0-149 [facility] on above:Result Comment: Results confirmed on dilution.Performed By: #### LIPIDLC, CMPLC #### [facility] [address] [place] [address] Dr. Smitha FinneganVLDL Cholesterol, CalcCommentAbnormal5-40The [facility] Comment on above:Result Comment: The calculation for the VLDL cholesterol is not valid when triglyceride level is >800 mg/dL.Performed By: #### LIPIDLC, CMPLC #### [facility] [address] [place] [address] Dr. Smitha FinneganPROF 14(COMP METB) SEND OUTon 20-20-1953Qughmhy [Mass/Vol]4.2 g/dLNormal3.8-4.8The [facility] HospitalComment on above:Result Comment: Specimen received lipemic. Value may be decreased by lipemia. Clinical correlation indicated.Performed By: #### LIPIDLC, CMPLC #### [facility] [address] [place] [address] Dr. Smitha FinneganAlbumin/Globulin [Mass ratio]1.4 {ratio}Normal1.2-2.2The [facility] HospitalComment on above:Performed By: #### LIPIDLC, CMPLC #### [facility] [address] [place] [address] Dr. Smitha Bhandari [Catalytic activity/Vol]131 U/LCritically rqls10-461Apv [facility] HospitalComment on above:Performed By: #### LIPIDLC, CMPLC #### [facility] [address] [place] [address] Dr. Smitha Whitman [Catalytic activity/Vol]42 U/LNormal0-44The [facility] Comment on above:Performed By: #### LIPIDLC, CMPLC #### [facility] [address] [place] [address] Dr. Simtha FinneganAST [Catalytic activity/Vol]31 U/LNormal0-40The [facility] Comment on above:Performed By: #### LIPIDLC, CMPLC #### [facility] [address] [place] [address] Dr. Smitha FinneganBilirubin [Mass/Vol]mg/dLNormal0.0-1.2The [facility] Comment on above:Performed By: #### LIPIDLC, CMPLC #### [facility] [address] [place] [address] Dr. Smitha FinneganCalcium [Mass/Vol]10.2 mg/dLNormal8.6-10.2The [facility] Comment on above:Performed By: #### LIPIDLC, CMPLC #### [facility] [address] [place] [address] Dr. Smitha FinneganChloride [Moles/Vol]95 mmol/LCritically fqt64-629Lax [facility] HospitalComment on above:Performed By: #### LIPIDLC, CMPLC #### [facility] [address] [place] [address] Dr. Smitha FinneganCO2 [Moles/Vol]23 mmol/LGrarkp80-34Xfo [facility] HospitalComment on above:Performed By: #### LIPIDLC, CMPLC #### [facility] [address] [place] [address] Dr. Smitha FinneganCreatinine [Mass/Vol]0.92 mg/dLNormal0.76-1.27The [facility] HospitalComment on above:Performed By: #### LIPIDLC, CMPLC #### [facility] [address] [place] [address] Dr. Smitha FinneganGFR/1.73 sq M.predicted among non-blacks MDRD (S/P/Bld) [Vol rate/Area]95 mL/min/{1.73_m2}Normal>59The [facility] HospitalComment on above: Performed By: #### LIPIDLC, CMPLC #### [facility] [address] [place] [address] Dr. Smitha FinneganGlobulin (S) [Mass/Vol]3.0 g/dLNormal1.5-4.5The [facility] Comment on above:Performed By: #### LIPIDLC, CMPLC #### [facility] [address] [address] [address] Smitha FinneganGlucose [Mass/Vol]281 mg/dLCritically mgcb71-05Zll [facility] HospitalComment on above:Performed By: #### LIPIDLC, CMPLC #### [facility] [address] [address] [address] Smitha FinneganPotassium [Moles/Vol]4.2 mmol/LNormal3.5-5.2[facility] Comment on above:Performed By: #### LIPIDLC, CMPLC #### [facility] [address] [address] [address] Smitha FinneganProtein [Mass/Vol]7.2 g/dLNormal6.0-8.5ThBlanchard [facility] Comment on above:Performed By: #### LIPIDLC, CMPLC #### [facility] [address] [address] [address] Smitha FinneganSodium [Moles/Vol]135 mmol/SAvcgwn521-074JmdPromedica Defiance Regional Hospital Comment on above:Performed By: #### LIPIDLC, CMPLC #### [facility] [address] [address] [address] Smitha FinneganUrea nitrogen [Mass/Vol]17 mg/dLNormal8-27[facility] Comment on above:Performed By: #### LIPIDLC, CMPLC #### [facility] [address] [address] [address] Smitha FinneganUrea nitrogen/Creatinine [Mass ratio]18 mg/cjXirazz99-69Abe [facility] HospitalComment on above:Performed By: #### LIPIDLC, CMPLC #### [facility] [address] [place] [address] Dr. Smitha FinneganCBC AUTO DIFFon 56-05-2749WDMT #0.0 103/ulNormal0.0-0.1The [facility] HospitalComment on above:Performed By: #### CBC ####[facility] [address] [place], [place] [address]Dr.Smitha ChangBasophils/100 WBC (Bld)0.4 %Normal0.2-2.0The [facility] HospitalComment on above:Performed By: #### CBC ####[facility] Cs[address] [place], [place] [address]Dr.Yilan ChangEO #0.1 103/ulNormal0.0-0.7The [facility] HospitalComment on above:Performed By: #### CBC ####[facility] [address] [place], [place] [address]Dr.Smitha ChangEosinophils/100 WBC (Bld)1.9 %Normal 0.9-7.0The [facility] HospitalComment on above:Performed By: #### CBC ####[facility] [address] [place], [place] [address]Dr.Sarinabelgica Finnegan Erythrocyte distribution width (RBC) [Ratio]12.9 %Qtnkzz49.0-15.0The [facility] HospitalComment on above:Performed By: #### CBC ####[facility] [address] [place], [place] [address]Dr.Smitha ChangHematocrit (Bld) [Volume fraction]42.8 %Lswczw57.0-54.0The [facility] HospitalComment on above:Performed By: #### CBC ####[facility] V[address] [place], [place] [address]Dr.Smitha ChangHemoglobin (Bld) [Mass/Vol]15.2 g/dL Vynowf12.0-18.0The [facility] HospitalComment on above:Performed By: #### CBC ####[facility] [address] [place], [place] [address]Dr. Sarinalan ChangIG #0.09 10e3/ulCritically high0.00-0.03The [facility] HospitalComment on above:Performed By: #### CBC ####[facility] [address]kx[address] [place], [place] [address]Dr.Smitha ChangIG %1.3 %Critically high0.0-0.5The [facility] HospitalComment on above:Performed By: #### CBC ####[facility] [address] [address]Dr.Smitha KainLYMPH #1.7 103/ulNormal1.2-3.8The [facility] HospitalComment on above:Performed By: #### CBC ####[facility] [address] [address]Dr. Smitha KainLymphocytes/100 WBC (Bld)24.3 %Ukesnu82.5-60.0The [facility] Comment on above:Performed By: #### CBC ####[facility] K[address] [place], [place] [address]Dr.Sarinabelgica KainMANUAL DIFF REQNONormalThe [facility] HospitalComment on above:Performed By: #### CBC ####[facility] [address] [place], [place] [address]Dr.Smitha FinneganH (RBC) [Entitic mass]32.1 ppUphxiv61.9-34.0The [facility] HospitalComment on above: Performed By: #### CBC ####[facility] [address] [place], [place] [address]Dr.Smitha FinneganMCHC (RBC) [Mass/Vol]35.5 g/dLCritically high29.9-35.2[facility] HospitalComment on above:Performed By: #### CBC ####[facility] [address] [place], [place] [address]Dr. Smitha FinneganV (RBC) [Entitic vol]90.5 iAMmwkkv03.0-94.0[facility] Comment on above:Performed By: #### CBC ####[facility] [address] [place], [place] [address]Dr.Smitha FinneganMONO #0.4 103/ulNormal0.3-0.8 The [facility] HospitalComment on above:Performed By: #### CBC ####[facility] [address] [place], [place] [address]Dr.Smitha Finnegan Monocytes/100 WBC (Bld)6.5 %Normal1.7-12.0The [facility] HospitalComment on above: Performed By: #### CBC ####[facility] [address] [address]Dr.Smitha FinneganNEUT #4.5 103/ulNormal1.4-6.5The [facility] HospitalComment on above:Performed By: #### CBC ####[facility] [address] [address]Dr.Smitha FinneganNeutrophils/100 WBC (Bld)65.6 %Ngvwko22.0-75.0The [facility] HospitalComment on above:Performed By: #### CBC ####[facility] [address] [address]Dr.Smitha FinneganPlatelet mean volume (Bld) [Entitic vol]10.5 fLNormal9.5-13.5 The [facility] HospitalComment on above:Performed By: #### CBC ####[facility] [address] [place], [place] [address]Dr.Smitha OasrdTEG319 103/ivDifhnc541-990Uly [facility] HospitalComment on above:Performed By: #### CBC ####[facility] U[address] [place], [place] [address]Dr. Smitha ChangRBC4.73 106/ulNormal4.70-6.10The [facility] HospitalComment on above: Performed By: #### CBC ####[facility] Im[address] [place], [place] [address]Dr.Smitha ChangWBC6.8 103/ulNormal4.0-11.0The [facility] HospitalComment on above:Performed By: #### CBC ####[facility] Z[address] [place], [place] [address]Dr.Smitha FinneganGLYCOHEMOGLOBIN A1Con 22-22-9561SJT RECOMMENDATIONSEE [facility] on above:Result Comment: ADA RECOMMENDED LIMIT 4.0 - 6.0 ADA THERAPEUTIC TARGET < 7.0 ACTION SUGGESTED > 7.0Performed By: #### A1C #### [facility] [address] [place], [place] [address] Dr. Smitha FinneganGlucose [Mass/Vol]194 mg/dLNormalThe [facility] HospitalComment on above:Performed By: #### A1C #### [facility] [address] [place], [place] [address] Dr. Smitha FinneganHbA1c (Bld) [Mass fraction]8.4 %Critically high4.5-6.2The [facility] HospitalComment on above:Performed By: #### A1C #### [facility] [address] [address] [address] Smitha FinneganMG MAMM DIAGNOSTIC 3D JERMAINE CADon 64-76-9699WP MAMM DIAGNOSTIC 3D JERMAINE CADPatient: MARGARET WOODS Exam Date: 04/13/2022 : 1960 Gender:M Ordering : DR CORWIN HANNAH D.O. Admission #: [id number] Family : Order #: [id number] CLICK HERE TO VIEW EXAM RADIOLOGY REPORT PROCEDURE: MAMMOGRAM DIAGNOSTIC 3D BILATERAL CAD, 04/13/2022, 12:46 ULTRASOUND BREAST LEFT LIMITED, 04/13/2022, 13:38 COMPARISON: None. INDICATIONS: Hypertrophy of breast Calculator Name NCI Breast Cancer Risk Assessment Tool 5 Year Breast Cancer Risk Not Applicable. Lifetime Breast Cancer Risk Not Applicable. Personal Breast Cancer No Personal Ovarian Cancer No Treatments None Family Cancers None LOCATION: The [facility] BREAST COMPOSITION: Almost entirely fatty. FINDINGS: DIAGNOSTIC [...] by: Chris Reno M.D. on 04/13/2022 at 14:54[facility] HospitalMICROALBUMIN, RAND URon 22-56-8661xTXO21.6 mg/LCritically high<=30.0The [facility] HospitalComment on above:Performed By: #### MALBR #### [facility] [address] [address] [address] Smitha Hawkins BREAST LEFT LIMITEDon 65-53-2137BZ BREAST LEFT LIMITEDPatient: MARGARET WOODS Exam Date: 04/13/2022 : 1960 Gender:M Ordering : DR CORWIN HANNAH D.O. Admission #: [id number] Family : Order #: [id number] CLICK HERE TO VIEW EXAM RADIOLOGY REPORT PROCEDURE: MAMMOGRAM DIAGNOSTIC 3D BILATERAL CAD, 04/13/2022, 12:46 ULTRASOUND BREAST LEFT LIMITED, 04/13/2022, 13:38 COMPARISON: None. INDICATIONS: Hypertrophy of breast Calculator Name NCI Breast Cancer Risk Assessment Tool 5 Year Breast Cancer Risk Not Applicable. Lifetime Breast Cancer Risk Not Applicable. Personal Breast Cancer No Personal Ovarian Cancer No Treatments None Family Cancers None LOCATION: [facility] BREAST COMPOSITION: Almost entirely fatty. FINDINGS: DIAGNOSTIC [...] by: Chris Reno M.D. on 04/13/2022 at 14:54NoDoctors HospitalCovid-19 PCR (CVDTBH)on 31-77-4551LVCB-CoV-2 (COVID-19) RNA MAGALIS+probe Ql (Unsp spec)Not detectedNormalNOT DETECTEDThe [facility] HospitalComment on above: Result Comment: When diagnostic testing [...] for this test is supported by the [place] of Health and Human Service's declaration that circumstances exist to justify the emergency use of in vitro diagnostics for the detection and/or diagnosis of the virus that causes COVID-19. This EUA will remain in effect for the duration of the COVID-19 declaration justifying emergency of IVDs, unless it is terminated or revoked by the FDA (after which the test may no longer be used).Performed By: #### CVDTB ####[facility] [address] [place], [place] [address]Zf. Yilan ChangPhysician Orderon [id number] Order [id number]#1.00CD:127[facility] Vital Signs Date TimeVital SignValuePerforming BrcztogwuPqfezdbe16-25-9346 10:06-0400Body htziny884.96 cmBenjamin Ball DO Work Phone: [facility]06-25-2025 10:06-0400 Body mass index (BMI) [Ratio]41.2 kg/o2Vcayaxwu Ball DO Work Phone: [facility]06-25-2025 10:06-0400 Body frbhmy546.6 kgBenjamin Ball DO Work Phone: [phone]06-25-2025 10:06-0400 Diastolic blood mm[Hg]Corwin Ball DO Work Phone: [phone]06-25-2025 10:06-0400 Heart rate89 /minBenjamin Ball DO Work Phone: [phone]06-25-2025 10:06-0400 Respiratory rate12 /minBenjamin Ball DO Work Phone: [phone]06-25-2025 10:06-0400 Systolic blood unwkrohf877 mm[Hg]Corwin Ball DO Work Phone: [phone]06-11-2025 07:49-0400 Body jcdsew443.96 cmAkron [facility] Hospital06-11-2025 07:49-0400Body mass index (BMI) [Ratio]41.3 kg/c2WbeyerhruAkron Children'S Hospital06-11-2025 07:49-0400Body huvhjd748 [facility]03-04-2025 14:34-0500Body nibtoo576.96 cmAk[facility] Hospital03-04-2025 14:34-0500Body mass index (BMI) [Ratio]41.3 kg/j9GwmpgczjfAkron Children'S Hospital03-04-2025 14:34-0500Body rulwzc105.05 kgAkron [facility]'S Hospital 05-14-2024 14:34-0500Diastolic blood kqslahyz62 mm[Hg][facility]03-04-2025 14:34-0500Heart rate94 /[facility] 05-14-2024 14:34-0500Systolic blood jtynqwkb054 mm[Hg][facility]02-21-2025 11:49-0500Body .96 cmAk[facility]02-21-2025 11:49-0500Body mass index (BMI) [Ratio]40.4 kg/m5HfhsnrnwkAkron Children'S Hospital02-21-2025 11:49-0500Body aeuhyz669.93 kgAkron Children'S Hospital02-21-2025 11:49-0500Diastolic blood nigywrkd691 mm[Hg] [facility]02-21-2025 11:49-0500Heart ihci931 /min [facility]02-21-2025 11:49-0500Respiratory rate12 /min [facility]02-21-2025 11:49-0500Systolic blood fxcruzny529 mm[Hg][facility]09-23-2024 13:32-0400Body uokuny675.96 cmAk[facility] Hospital09-23-2024 13:32-0400Body mass index (BMI) [Ratio]40 kg/b9PxefoimfqAkron Children'S Hospital09-23-2024 13:32-0400Body .8 [degF][facility]09-23-2024 13:32-0400Body .52 kgAk[facility]'S Hospital09-23-2024 13:32-0400Diastolic blood mwdwegqo13 mm[Hg][facility]09-23-2024 13:32-0400 Heart rate90 /minAkron Children'S Hospital09-23-2024 13:32-8193YmP2% (BldA) [Mass fraction]98 %[facility]09-23-2024 13:32-0400 Systolic blood hgutwszl540 mm[Hg][facility]05-28-2024 08:40-0400Body .96 cmDO August Work Phone: [facility]05-28-2024 08:40-0400 Body mass index (BMI) [Ratio]39.6 kg/m2DO Corwin Ball Work Phone: [facility]05-28-2024 08:40-0400 Body bgiaka006.33 kgDO Corwin O' Doughty's Work Phone: [facility]05-28-2024 08:40-0400 Diastolic blood jdsyodva755 mm[Hg]DO Corwin O' Doughty's Work Phone: [facility]05-28-2024 08:40-0400 Heart zzla298 /minDO Corwin Ball Work Phone: [phone]05-28-2024 08:40-0400 Respiratory rate16 /minDO Corwin Ball Work Phone: [phone]05-28-2024 08:40-0400 Systolic blood mhwyrxvp425 mm[Hg]DO Corwin Ball Work Phone: [phone]05-08-2024 09:06-0400 Body wnlely512.96 cmDO Corwin Hannah Work Phone: [phone]05-08-2024 09:06-0400 Body mass index (BMI) [Ratio]39.5 kg/m2DO Corwin Hannah Work Phone: [phone]05-08-2024 09:06-0400 Body otnpfr899.7 kgDO Corwin Hannah Work Phone: [phone]10-20-2023 09:30-0400 Body cakxoa913.96 cmBenjamin Ball Other [place] [employer] Other [id number] 09:30-0400Body mass index (BMI) [Ratio] 39.62 kg/y5Afiwvowk Ball Other [place] [employer] Other 10-20-2023 09:30-0400Body vramqr535.98 kgBenjamin Ball Other [place] [employer] Other 10-20-2023 09:30-0400Diastolic blood zzcdptob18 mm[Hg] Corwin Ball Other [place] [employer] Other 10-20-2023 09:30-0400Respiratory rate12 /minBenjamin Ball Other [employer] Other 10-20-2023 09:30-0400Systolic blood rpdbapqo517 mm[Hg] Corwin Ball Other [facility] [employer] Other 10-04-2023 06:56-0400Body jhacjidavdo95 [degF]DO Corwin Ball Work Phone: [phone]10-04-2023 06:56-0400 Diastolic blood iwfohmna95 mm[Hg]DO Corwin Ball Work Phone: [phone]10-04-2023 06:56-0400 Heart rate78 /minDO Corwin Ball Work Phone: [phone]10-04-2023 06:56-0400 Respiratory rate20 /minDO Corwin Ball Work Phone: [phone] [place], [place] [address]10-04-2023 06:56-0400 SaO2% (BldA) [Mass fraction]95 %DO Corwin Ball Work Phone: [phone]10-04-2023 06:56-0400 Systolic blood ysyueumr520 mm[Hg]DO Corwin Ball Work Phone: [phone]10-04-2023 02:49-0400 Body iwpdtq527.96 cmDO Corwin Ball Work Phone: [phone]10-04-2023 02:49-0400 Body cheahp114.54 kgDO Corwin Ball Work Phone: [phone]04-24-2023 12:15-0400 Body .96 cmBenjamin Ball Other [place] [employer] Other 04-24-2023 12:15-0400Body mass index (BMI) [Ratio] 40.18 kg/j3Eymgorob Ball Other [place] [employer] Other 04-24-2023 12:15-0400Body .98 kgBenjamin Ball Other [employer] Other 04-24-2023 12:15-0400Diastolic blood rkizowlw79 mm[Hg] Corwin Ball Other [employer] Other 04-24-2023 12:15-0400Respiratory rate16 /minBenjamin Ball Other [employer] Other 04-24-2023 12:15-0400Systolic blood nvwtzcne717 mm[Hg] Corwin Ball Other [employer] Other 01-24-2023 10:00-0500Body oaqqxr509.96 cmBenjamin Ball Other [employer] Other 01-24-2023 10:00-0500Body mass index (BMI) [Ratio] 38.94 kg/s8Abehsnzc Ball Other [employer] Other 01-24-2023 10:00-0500Body xsdugz759.58 kgBenjamin Ball Other [employer] Other 01-24-2023 10:00-0500Respiratory rate16 /minBenjamin Ball Other [employer] Other Encounters Encounter DateEncounter TypeCare ProviderFacilityStart: 09-04-2024 End: 98-40-4745gzlnjkohbiXrczjayx Ball DO Work Phone: [facility] Work Phone: Start: 09-04-2024 End: 94-68-0349Lccghjb encounter procedureBenjamin Ball DO-[facility] Work Phone: Start: 09-04-2024 End: 18-02-3048Jixfudn encounter statusBenjamin [facility]: 08-21-2024 End: 93-73-9180zzxkbixbvwHdhtvrnuyEast [place] [facility] Work Phone: Start: 08-21-2024 End: 17-99-7707Zqsvful encounter procedureFirbon [facility] Phys[facility] GroupCritical [facility] Work Phone: Start: 08-14-2024 End: 04-42-1745jcozfufcbiCnsemjrjbEast [place] [facility] Work Phone: Start: 08-14-2024 End: 29-69-6336Vtixzti encounter procedureFirbon [facility] Physician GroupCritical Access Hospital [facility] Work Phone: Start: 09-95-2649Pyrgfza encounter statusDetwiler Memorial Hospitaltart: 08-07-2024 End: 80-51-4064lqrrczhclmErionttjpEast [place] [facility] Hospital Work Phone: Start: 08-07-2024 End: 57-24-4394Cqeiddj encounter procedureFirbon [facility] Physician [facility] Work Phone: Start: 05-14-2024 End: 48-88-9413fsqjvyvbclTfbldfmcrEast [place] Regional Hospital Work Phone: Start: 05-14-2024 End: 60-40-4336Xocendo encounter procedureFirnorth libertys [facility]ician [facility] Work Phone: Start: 11-38-6621Hrc-patient / Non-visitFirnorth libertys [facility]ician [facility] Work Phone: Start: 21-00-3666Smo-patient / Non-visitFirelands [facility]ician [facility] Work Phone: Start: 05-03-2024 End: 05-54-7347rqvsirnbdkKqbqmunlrEast [place] Regional Hospital Work Phone: Start: 05-03-2024 End: 13-62-7439Rfehscy encounter procedureFirnorth libertys [facility]ician [facility] Work Phone: Start: 03-08-2024 End: 89-63-8767Pqophzj encounter procedureAt[facility] Physician [facility] Work Phone: Start: 03-01-2024 End: 61-13-5751Vqkbvle encounter procedureAt[facility] Physician [facility] Work Phone: Start: 02-23-2024 End: 83-03-7696Rhcnopc encounter procedureAt[facility] Physician [facility] Work Phone: Start: 12-04-2023 End: 15-10-7005qkeptniiloDvqdbjogrLouis [facility] Work Phone: Start: 12-04-2023 End: 66-23-5480Dwqypco encounter procedureAt[facility] Health [facility] Physician [facility] Work Phone: Start: 09-04-2023 End: 70-84-7124kkjfmltodpUY Corwin Ball Work Phone: [facility] Work Phone: Start: 09-04-2023 End: 47-27-8588Yezbpma encounter procedureDO Corwin Ball Work Phone: [facility] Work Phone: Start: 08-28-2023 End: 67-75-7573rttzfotoopXB Corwin Ball Work Phone: [facility] Work Phone: Start: 08-28-2023 End: 59-92-2858Oevafwl encounter procedureDO Corwin Ball Work Phone: [facility] Work Phone: Start: 08-21-2023 End: 28-34-3671imwxmttddbSB Corwin Ball Work Phone: [facility] Work Phone: Start: 08-21-2023 End: 83-16-6482Uxxhgko encounter procedureDO Corwin Hannah Work Phone: [facility] Work Phone: Start: 08-08-2023 End: 63-22-7141mstjuugxxrBH Corwin Hannah Work Phone: [facility] Work Phone: Start: 08-08-2023 End: 73-98-2712Oubwzpplw for general adult medical examination without abnormal findingsDO Corwin Hannah Work Phone: [facility] Hospitaltart: 08-08-2023 End: 27-60-0192Edocmtm encounter procedureDO Corwin Hannah Work Phone: [facility] Work Phone: Start: 07-19-2023 End: 50-48-0783uvtvvgktclRibagcrl BallFacility:[facility] Start: 07-19-2023 End: 28-06-1206cpvlhwqrvsXR Corwin Hannah Work Phone: [facility] Work Phone: Start: 07-19-2023 End: 75-74-9092Vytmkjb encounter procedureDO Corwin Hannah Work Phone: [facility] [facility] Work Phone: Start: 04-06-2023 End: 48-03-5713ubhloceufdRykqvqka Ball Other [employer] Other Start: 91-07-3579Pftpuphyh for general adult medical examination without abnormal findingsBenjamin BallFPG [facility] Medical ClinicStart: 51-23-6693Vkeduhdr preventive med est patient 40-64yrsBenjamin BallFPG [facility] ClinicStart: 02-21-2023 End: 24-01-4923zvvvqbvofqMcdmhwoq Ball Other [employer] Other Start: 75-84-2464Qxofsmhab encounterBenjamin BallFPG [facility] ClinicStart: 12-30-2022 End: 26-80-2079eqrcwtqnfoSkieqoeo Ball Other [facility] [employer] Other Start: 37-88-1608Xastta outpatient visit 25 minutes Corwin BallFPG [facility] ClinicStart: 12-20-2022 End: 25-49-6065cyovbxmspjObkbuflt Ball Other [facility] [employer] Other Start: 81-58-8717Crwujyixc encounterBenjamin BallFPG [facility] ClinicStart: 12-17-2022 End: 74-33-2915lggyhrcmhrTjkfipnw BallFacility:[facility] Start: 12-17-2022 End: 85-54-3309ogqnxjptuiIW Corwin Hannah Work Phone: [facility] Work Phone: Start: 12-17-2022 End: 49-55-7726Joiwpbrj ReferredDO Corwin Hannah Work Phone: [facility]-Community Outreach Work Phone: start: 12-14-2022 End: 39-48-7253okmzinbwujHbzhywmh Ball Other [facility] [employer] Other Start: 33-38-1039Yykitampy encounterBenjamin BallFPG [facility] ClinicStart: 12-14-2022 End: 29-37-1226Jzkhtnqub department patient visitPatricmikey Longo [facility]: 12-14-2022 End: 62-75-2730Jsxfhvzwy department patient visitDO Corwin Hannah Work Phone: [facility]-Emergency Room Work Phone: Start: 07-04-2022 End: 90-93-8508izsbxidncdRoaczqwv Ball Other [employer] Other Start: 20-93-5199Wdfaoa outpatient visit 25 minutes Corwin Howe [facility] ClinicStart: 44-08-3319Vyuqdgdac for general adult medical examination without abnormal findingsDR CORWIN HANNAHOhiohealth Arthur [facility] HospitalStart: 04-14-2022 End: 11-15-6551pdjthmsdxgJneloccn Ball Other [employer] Other Start: 68-18-4811Gxxkzvwxe encounterBenzuly GoodmanG [facility] ClinicStart: 04-13-2022 End: 81-32-5604knwixzhjhtVC CORWIN BALLFacility:E9Jsfyx: 04-13-2022 End: 93-36-4289Imjhrhnbz for general adult medical examination without abnormal findingsDR CORWIN BALLFacility:H8Swhwr: 04-06-2022 End: 37-33-3858pintvpwycpZrjxufwz Ball Other [employer] Other Start: 77-29-9124Qkosdencd encounterBenzuly GoodmanG [facility] ClinicStart: 04-05-2022 End: 96-19-6342jozazfdwoxVmxtofsq Ball Other [employer] Other Start: 63-84-2243Nhooqlm encounter procedureBenzuly BallTEODORAG [facility] ClinicStart: 59-12-2357Kdajrxlq preventive med est patient 40-64yrsBenzuly GoodmanG [facility] ClinicStart: 01-10-2022 End: 85-30-8893ekwogepszjIW CORWIN BALLFacility:V6Ephuz: 10-04-2021 End: 74-92-4950pifpaxlnmwMG CORWIN BALLFacility:I3Kkpvc: 66-90-0825Ofasm health examinationBenzuly Ball Other [employer] Other Procedures DateProcedureProcedure DetailPerforming ClinicianStart: 26-35-2598J-ray of both kneesDO Corwin Hannah Work Phone: Start: 36-64-3973OFHN-CoV-2, Influenza & RSV (PCR)DO Corwin Hannah Work Phone: Start: 27-35-8428Jlzpf chest X-rayDO Corwin Hannah Work Phone: Start: 50-42-3194RST screeningDR CORWIN HANNAHComment on above:Performed By: #### [facility] #### [facility] [address] [place] [address] Dr. Smitha FinneganStart: 59-06-7180Myrhpovzzo screeningCorwin Hannah Other Start: 78-50-9836Laegltx examination of patient Corwin Hannah Other Start: 83-28-7099Rehxjkhsj for malignant neoplasm of colonBejosh Hannah Other Start: 73-89-6262Oqwhmioso for malignant neoplasm of prostateBenzuly Hannah Other Screening for malignant neoplasm of prostateCorwin Hannah Other Plan of Treatment DateCare ActivityDetailAuthorStart: 27-32-0392A-ray of both kneesXR knee BI 3V - NOT FOR ER USEDetwiler Memorial Hospitaltart: 71-93-7972PW Knee - bilateral 3 ViewsDetwiler Memorial Hospitaltart: 73-94-4798Xbodc chest X-rayXR chest 1V portableDetwiler Memorial Hospitaltart: 10-14-7724BH Chest Single viewAkron Children'S HospitalComprehensive metabolic 1999 panel - Serum or PlasmaAkron Children'S HospitalComprehensive metabolic 1999 panel - Serum or PlasmaAkron Children'S HospitalComprehensive metabolic 1999 panel - Serum or [facility] Comprehensive metabolic 1999 panel - Serum or [facility] HospitalCT Unspecified body region WO contrastAkron Children'S Hospital Microalbumin [Mass/volume] in UrineAkron Children'S HospitalPatient EducationPneumonia, Adult EDAtrium Health [facility] Work Phone: [facility] Work Phone: XR Thoracic spine 3 [facility] Payers DatePayer CategoryPayerPolicy [id number] [id number] 2.0.1.381558.3.579.2.36594-68-8940Onxu Cross Blue [id number] [id number] [id number] [id number] [id number] [id number] /[id number] Social History DateTypeDetailFacilitySex Assigned At Birth[facility] [employer] Other Start: 80-54-1959Cbhnykw smoking status NHISSmoker (finding)[facility]tart: 27-97-6965Era Assigned At MaleDetwiler Memorial Hospitaltart: 04-09-2023 End: 67-52-2071Sdoboar smoking status NHISCurrent some day smokerDetwiler Memorial Hospitaltart: 05-03-2024 End: 31-99-9586FqpTytz (finding)[facility] Medical Equipment Procedure CodeEquipment CodeEquipment Original TextEquipment IdentifierDates Clinical Notes 04-13-2016 to 08-07-2024 Note Date & SfgyKmhkZambrcua45-71-5059 Evaluation note* Diagnosis Onset Date Resolution Status Admit Date Primary osteoarthritis of knees, bilater al acuteMay 2024 3:14pmObesity (BMI 30-39.9)2024 3:14pm Primary osteoarthritis of knees, bilateralacuteJune 2024 3:10pm [facility] Work Phone: 1(221) 487-710705-28-2025 Evaluation note* Diagnosis Onset Date Resolution Status Admit Date Primary osteoarthritis of knees, bilater al acuteMay 2024 3:14pmObesity (BMI 30-39.9)2024 3:14pm Primary osteoarthritis of knees, bilateralacuteJune 2024 3:10pmPrimary osteoarthritis of knees, bilateralacuteJune 2024 7:48am [facility] Work Phone: 1(377) 743-558105-28-2025 Evaluation note* Diagnosis Onset Date Resolution Status Admit Date Primary osteoarthritis of knees, bilater al acuteMay 2024 3:14pmObesity (BMI 30-39.9)deletedAugust 07, 2024 3:14pm Primary osteoarthritis of knees, bilateralacuteJune 2024 3:10pmPrimary osteoarthritis of knees, bilateralacuteJune 2024 7:48amChronic venous insufficiencyacuteJune 2024 9:51amGERD (gastroesophageal reflux disease) acuteJune 2024 9:51amMixed hyperlipidemiaacuteJune 2024 9:51am ObesityacuteJune 2024 9:51amPrimary hypertensionacuteJune 2024 9:51amScreening PSA (prostate specific antigen)acuteJune 2024 9:51amType 2 diabetes mellitus with diabetic polyneuropathyacuteJune 2024 9:51amType 2 diabetes mellitus with hyperglycemiaacuteJune 2024 9:51amWellness examinationacuteJun2024 9:51am [facility] Work Phone: 1(471) 335-101103-04-2025 Evaluation note* Diagnosis Onset Date Resolution Status Admit Date Acute thoracic myofascial strain acuteMarch 2024 2:25pmPrimary hypertensionacuteMarch 2024 2:25pmType 2 diabetes mellitus with hyperglycemiaacuteMarch 2024 2:25pmObesity (BMI 30-39.9)acuteMay 2024 3:14pmPrimary osteoarthritis of knees, bilateral acuteMay 2024 3:14pm [facility] Work Phone: 1([phone]) 861-207312-13-2024 Evaluation note* Diagnosis Onset Date Resolution Status Admit Date Obesity (BMI 30-39.9) acuteDecember 2023 8:04amPrimary osteoarthritis of knees, bilateralacute February 23, 2024 8:04amObesity (BMI 30-39.9)acuteDece2023 7:56am Primary osteoarthritis of knees, bilateralacuteDecember 2023 7:56amObesity (BMI 30-39.9)acuteDecember 2023 8:20amPrimary osteoarthritis of knees, bilateralacuteDecember 2023 8:20am [facility] Work Phone: 1(493) 215-157812-13-2024 Evaluation note* Diagnosis Onset Date Resolution Status Admit Date Obesity (BMI 30-39.9) acuteDecember 2023 8:04amPrimary osteoarthritis of knees, bilateralacute February 23, 2024 8:04amObesity (BMI 30-39.9)acuteDece2023 7:56am Primary osteoarthritis of knees, bilateralacuteDecember 2023 7:56amObesity (BMI 30-39.9)acuteDecember 2023 8:20amPrimary osteoarthritis of knees, bilateralacuteDecember 2023 8:20amAcute pancreatitisacuteFebruary 2024 11:43amPrimary hypertensionacuteFebruary 2024 11:43amType 2 diabetes mellitus with hyperglycemiaacuteFebruary 2024 11:43amMid back pain on right sideacuteMarch 2024 2:25pmPrimary hypertensionacuteMarch 2024 2:25pmType 2 diabetes mellitus with hyperglycemiaacuteMarch 2024 2:25pm [facility] Work Phone: 1([phone]) 274-108801-25-2024 Evaluation note* Encounter Date Diagnosis Assessment Notes Treatment Notes Treatment Clinical Notes Mar, Wellness examination (ICD-10 - Z 00.00) Healthy diet and exercise. Reviewed age-appropriate preventive testing recommended. Mar,Type 2 diabetes mellitus with hyperglycemia (ICD-10 - E11.65)This patient is following a comprehensive diabetic treatment [...] office visit. Continue regular routine monitoring of A1C,Microalbumin, Dilated eye exam and Foot exam Mar,Type 2 diabetes mellitus with diabetic polyneuropathy (ICD-10 - E11.42)Inspect feet daily for cuts and calluses.Recommend diabetic shoes and inserts to prevent callus formation.Fall precautions. Mar,rimary hypertension (ICD-10 - I10)This patient is instructed to consume a healthy, low-fat, low-salt diet. They are also encouraged to continue exercise to achieve/maintain a normal BMI. Patient is instructed on home BP measurements: - rest for 5 minutes w/o talking.- positioned w/ feet on floor and arm supported.- average best 2/3 readings w/ goal < 135/85.- update office w/ homereadings in 2 weeks. Mar,Mixed hyperlipidemia (ICD-10 - E78.2)Instructed on diet and exercise with continued statin therapy.Discussed the beneficial effects of lowering cholesterol in reducing the risk for cerebrovascular and cardiovascular disease. Mar,Gastroesophageal reflux disease with esophagitis without hemorrhage (ICD-10 - K21.00)Avoid lying flat after eating. Avoid eating 2 hours prior to bedtime. Smaller, frequent meals may be better tolerated.Weight loss if overweight.PPI with any heartburn.Monitor for dysphagia. Mar,hronic venous insufficiency (ICD-10 - I87.2)Avoid salt and elevate lower extremities, support stockings, inspect legs and feet daily for blisters and ulcerations. Mar,Morbid (severe) obesity due to excess calories (ICD-10 - E66.01)This patient has been instructed on a low-fat, high-fiber diet. They are instructed to reduce calories, portion sizes and snacks. It is recommended that they exercise for 30 minutes, 3-5 times weekly. Mar,ody mass index [BMI] 39.0-39.9, adult (ICD-10 - Z68.39) Mar,Lumbar spondylosis (ICD-10 - M47.816)The patient is instructed to avoid bending, twisting or lifting. They are to use intermittent heat and ice as needed. They may schedule a massage or gentle manipulation. They may safely use Tylenol as needed. Mar,Long term (current) use of insulin (ICD-10 - Z79.4) Mar,Screening PSA (prostate specific antigen) (ICD-10 - Z12.5)Yearly PSA and HUONG [employer] Other 12-12-2023 Evaluation note* Encounter Date Diagnosis Assessment Notes Treatment Notes Treatment Clinical Notes Feb, Type 2 diabetes mellitus with hy perglycemia (ICD-10 - E11.65) [employer] Other 10-20-2023 Evaluation note* Encounter Date Diagnosis Assessment Notes Treatment Notes Treatment Clinical Notes Dec, Type 2 diabetes mellitus with hy perglycemia (ICD-10 - E11.65) This patient is following [...] Microalbumin, Dilated eye exam and Foot exam Dec,Type 2 diabetes mellitus with diabetic polyneuropathy (ICD-10 - E11.42)Inspect feet daily for cuts and calluses.Recommend diabetic shoes and inserts to prevent callus formation.Fall precautions. Dec,rimary hypertension (ICD-10 - I10)This patient is instructed to consume a healthy, low-fat, low-salt diet. They are also encouraged to continue exercise to achieve/maintain a normal BMI. Dec,Mixed hyperlipidemia (ICD-10 - E78.2)Instructed on diet and exercise with continued statin therapy.Discussed the beneficial effects of lowering cholesterol in reducing the risk for cerebrovascular and cardiovascular disease. Dec,ancytopenia (ICD-10 - D61.818)Due to pneumonia, likely will recover but recommend rechecking in month Dec,neumonia of left lower lobe due to infectious organism (ICD-10 - J18.9)Clinically recovered w/ fever or cough. Recommend recheck CXR in month Dec,astroesophageal reflux disease with esophagitis without hemorrhage (ICD-10 - K21.00)Diet instructions: Smaller portions, avoid eating and laying flat, avoid eating or drinking prior to bedtime. Weight loss. Dec,hronic venous insufficiency (ICD-10 - I87.2)Avoid salt and elevate lower extremities, support stockings, inspect legs and feet daily for blisters and ulcerations. Dec,Morbid (severe) obesity due to excess calories (ICD-10 - E66.01)This patient has been instructed on a low-fat, high-fiber diet. They are instructed to reduce calories, portion sizes and snacks. It is recommended that they exercise for 30 minutes, 3-5 times weekly. Dec,ody mass index [BMI] 39.0-39.9, adult (ICD-10 - Z68.39) Dec,Lumbar spondylosis (ICD-10 - M47.816)The patient is instructed to avoid bending, twisting or lifting. They are to use intermittent heat and ice as needed. They may schedule a massage or gentle manipulation. They may safely use Tylenol as needed. Dec,Long term (current) use of insulin (ICD-10 - Z79.4) [employer] Other 04-24-2023 Evaluation note* Encounter Date Diagnosis Assessment Notes Treatment Notes Treatment Clinical Notes Jun, Acute midline thoracic back pain (ICD-10 - M54.6) Suspect acute pancreatitis - check CBC, CMP and Lipase/amylase - clear liquid diet - push fluids - Tylenol for pain ER for increased pain, N/V and fever Jun,Hypertension (ICD-10 - I10)This patient is instructed to consume a healthy, low-fat, low-salt diet. They are also encouraged to continue exercise to achieve/maintain a normal BMI. Check BP mid day w/ instructions on proper way to take BP GOal < 135/85 Jun,Type 2 diabetes mellitus with hyperglycemia (ICD-10 - E11.65)This patient is following a comprehensive diabetic treatment [...] A1C: [ ] Microalbumin: [ ] Eye exam:[ ] Foot exam: [ ] Increase Insulin to 45/20 Jun,Mixed hyperlipidemia (ICD-10 - E78.2)Continue Statin and Fenofibrate. Add Fish oil [facility] Other 01-25-2023 Evaluation note* Encounter Date Diagnosis Assessment Notes Treatment Notes Treatment Clinical Notes Mar, Gynecomastia, male (ICD-10 - N62 ) Left sided gynecomastia w/ fullness UIQ and UOQ [employer] [facility] Other 01-24-2023 Evaluation note* Encounter Date Diagnosis Assessment Notes Treatment Notes Treatment Clinical Notes Mar, Annual physical exam (ICD-10 - Z 00.00) Healthy diet and exercise. Reviewed age-appropriate preventive testing recommended. Mar,astroesophageal reflux disease with esophagitis without hemorrhage (ICD-10 - K21.00)Diet instructions: Smaller portions, avoid eating and laying flat, avoid eating or drinking prior to bedtime. Weight loss. Continue PPI Mar,Type 2 diabetes mellitus with hyperglycemia (ICD-10 - E11.65)This patient is following a comprehensive diabetic treatment plan. They are checking their feet daily for calluses and nonhealing ulcers. They are being seen for yearly dilated eye examinations. Goals: SBP less than 130, LDL less than 100, FBS less than 140, AC and A1C less than 7%. They are checking their BS daily, will which are reviewed at the office visit. Mar,rimary hypertension (ICD-10 - I10) Mar,Mixed hyperlipidemia (ICD-10 - E78.2)Diet and exercise with continued statin therapy. Mar,ynecomastia, male (ICD-10 - N62)Fullness superior to the right nipple, recommend mammogram. Mar,enign prostatic hyperplasia with lower urinary tract symptoms (ICD- 10 - N40.1)Yearly HUONG and PSA Mar,Obesity (BMI 35.0-39.9 without comorbidity) (ICD-10 - E66.9)This patient has been instructed on a low-fat, high-fiber diet. They are instructed to reduce calories, portion sizes and snacks. It is recommended that they exercise for 30 minutes, 3-5 times weekly. Mar,Screening PSA (prostate specific antigen) (ICD-10 - Z12.5) Mar,Long term (current) use of insulin (ICD-10 - Z79.4) Mar,OtherThis patient is instructed to consume a healthy, low-fat, low- salt diet. They are also encouraged to continue exercise to achieve/maintain a normal BMI. [employer] [facility] Other 10-31-2022 NotePROCEDURE: XR KNEE RT 1_2 V COMPARISON: None. HISTORY: Contusion of knee FINDINGS: BONES:No acute fracture or dislocation. Enthesopathic spurring of the patella at the quadriceps insertion SOFT TISSUES:Negative. No visible soft tissue swelling. EFFUSION:None visible. OTHER: Negative. IMPRESSION: No acute abnormality Electronically authenticated by: NAHID ELIZABETH Date: 2022-01-10 13:34[facility]10-31-2022 NotePROCEDURE: XR HIP RT 2 3V WO PELVIS COMPARISON: None. HISTORY: Contusion of right hip region FINDINGS: BONES:No acute fracture or dislocation. Minimal marginal osteophyte formation of the acetabulum SOFT TISSUES:Negative. No visible soft tissue swelling. EFFUSION:None visible. OTHER: Negative. IMPRESSION: Minimal degenerative changes Electronically authenticated by: NAHID ELIZABETH Date: 2022-01-10 13:33[facility] HospitalOqrbpgag65-68-6256 NotePROCEDURE: XR ANKLE RT 2V COMPARISON: None. [...] Electronically authenticated by: NAHID ELIZABETH Date: 2022-01-10 13:32[facility] HospitalJvvmfins34-36-6360 History general Narrative - Reported* Type Description Date Medical History Hypertension Medical HistoryAcid refluxMedical HistoryHyperlipidemiaSurgical History colonoscopy2/2017Surgical HistoryEGD2/2017Surgical HistoryExcision of Melanoma 2017Hospitalization Historysee surgical history [facility] Other Evaluation noteNo InformationNortMercy [facility] Hospital [facility] Other Evaluation noteNo assessment information available [facility] Work Phone: Evaluation note* Diagnosis Onset Date Resolution Status Obesity (BMI 30-39.9) acutePrimary osteoarthritis of knees, bilateralacute [facility] Work Phone: Evaluation note* Diagnosis Onset Date Resolution Status Obesity (BMI 30-39.9) acutePrimary osteoarthritis of knees, bilateralacuteChronic venous insufficiency acuteMixed hyperlipidemiaacutePrimary hypertensionacutePrimary osteoarthritis of kneeacuteType 2 diabetes mellitus with diabetic polyneuropathyacuteType 2 diabetes mellitus with hyperglycemiaacuteScreening PSA (prostate specific antigen)noneactiveWellness examinationnoneactive [facility] Work Phone: Evaluation note* Diagnosis Onset Date Resolution Status Obesity (BMI 30-39.9) acutePrimary osteoarthritis of knees, bilateralacuteChronic venous insufficiency acuteMixed hyperlipidemiaacutePrimary hypertensionacutePrimary osteoarthritis of kneeacuteType 2 diabetes mellitus with diabetic polyneuropathyacuteType 2 diabetes mellitus with hyperglycemiaacuteScreening PSA (prostate specific antigen)noneactiveWellness examinationnoneactiveObesity (BMI 30-39.9)acute Primary osteoarthritis of knees, bilateralacute [facility] Work Phone: Evaluation note* Diagnosis Onset Date Resolution Status Obesity (BMI 30-39.9) acutePrimary osteoarthritis of knees, bilateralacuteChronic venous insufficiency acuteMixed hyperlipidemiaacutePrimary hypertensionacutePrimary osteoarthritis of kneeacuteType 2 diabetes mellitus with diabetic polyneuropathyacuteType 2 diabetes mellitus with hyperglycemiaacuteScreening PSA (prostate specific antigen)noneactiveWellness examinationnoneactiveObesity (BMI 30-39.9)acute Primary osteoarthritis of knees, bilateralacuteObesity (BMI 30-39.9)acutePrimary osteoarthritis of knees, bilateralacute [facility] Work Phone: Evaluation note* Diagnosis Onset Date Resolution Status Obesity (BMI 30-39.9) acutePrimary osteoarthritis of knees, bilateralacuteChronic venous insufficiency acuteMixed hyperlipidemiaacutePrimary hypertensionacutePrimary osteoarthritis of kneeacuteType 2 diabetes mellitus with diabetic polyneuropathyacuteType 2 diabetes mellitus with hyperglycemiaacuteScreening PSA (prostate specific antigen)noneactiveWellness examinationnoneactiveObesity (BMI 30-39.9)acute Primary osteoarthritis of knees, bilateralacuteObesity (BMI 30-39.9)acutePrimary osteoarthritis of knees, bilateralacuteObesity (BMI 30-39.9)acutePrimary osteoarthritis of knees, bilateralacute [facility] Work Phone: Evaluation note* Diagnosis Onset Date Resolution Status Primary hypertension acuteType 2 diabetes mellitus with hyperglycemiaacute [facility] Work Phone: History general Narrative - Reported* Type Description Date Medical History Hypertension Medical HistoryAcid refluxMedical HistoryHyperlipidemia [facility] Other Reason for referral (narrative)No reason for referral information availableMercy Health [facility] Hospital Work Phone: Summary Purpose Family History Relationship Condition Age at Onset Recorded Date/T desirae father Malignant neoplasm Unknown Not SpecifiedMalignant neoplasmUnknown Relationship Condition Age at Onset Recorded Date/T desirae father Malignant neoplasm Unknown motherMalignant neoplasmUnknown Advance Directives Advance Directive Response Recorded Date/ Time Advance Directives No December 24, 2016 7:48am Advance Directive Response Recorded Date/ Time Advance Directives No December 24, 2016 6:48am Chief Complaint and Reason for Visit Chief Complaint Headache/ ill Chief Complaint Headache/ ill cbc psa a1c Chief Complaint ER [facility] BILAT KNEE P AIN NX M25.561 - Pain in right kneeReason for VisitObesity (BMI 30-39.9) Primary osteoarthritis of knees, bilateral Chief Complaint ER [facility] BILAT KNEE P AIN NX M25.561 M25.562 4 MONTH FOLLOW UPReason for VisitObesity (BMI 30-39.9) Primary osteoarthritis of knees, bilateral Chronic venous insufficiency Mixed hyperlipidemia Primary hypertension Primary osteoarthritis of knee Type 2 diabetes mellitus with diabetic polyneuropathy Type 2 diabetes mellitus with hyperglycemia Screening PSA (prostate specific antigen) Wellness examination Chief Complaint ER [facility] BILAT KNEE P AIN NX M25.561 M25.562 4 MONTH FOLLOW UP VISCO 3 RT KNEEReason for VisitObesity (BMI 30-39.9) Primary osteoarthritis of knees, bilateral Chronic venous insufficiency Mixed hyperlipidemia Primary hypertension Primary osteoarthritis of knee Type 2 diabetes mellitus with diabetic polyneuropathy Type 2 diabetes mellitus with hyperglycemia Screening PSA (prostate specific antigen) Wellness examination Obesity (BMI 30-39.9) Primary osteoarthritis of knees, bilateral Chief Complaint ER [facility] BILAT KNEE P AIN NX M25.561 M25.562 4 MONTH FOLLOW UP VISCO 3 RT KNEE VISCO 3 RT KNEEReason for VisitObesity (BMI 30-39.9) Primary osteoarthritis of knees, bilateral Chronic venous insufficiency Mixed hyperlipidemia Primary hypertension Primary osteoarthritis of knee Type 2 diabetes mellitus with diabetic polyneuropathy Type 2 diabetes mellitus with hyperglycemia Screening PSA (prostate specific antigen) Wellness examination Obesity (BMI 30-39.9) Primary osteoarthritis of knees, bilateral Obesity (BMI 30-39.9) Primary osteoarthritis of knees, bilateral Chief Complaint [facility] [place] BILAT KNEE P AIN NX M25.561 M25.562 4 MONTH FOLLOW UP VISCO 3 RT KNEE VISCO 3 RT KNEE VISCO 3 RT KNEEReason for VisitObesity (BMI 30-39.9) Primary osteoarthritis of knees, bilateral Chronic venous [...] knees, bilater al March 08, 2024 8:20am Chief Complaint Admit Date VISCO #1 RT KNEE February 23, 2024 8:04am VISCO #2 RT KNEE March 01, 2024 7:56am VISCO #3 RT KNEE March 08, 2024 8:20am possible pancreatitis May 03 11:43am Amb Documentation May 10, 2024 1:17pm Reoccuring Back Pain May 14, 2024 2:2 5pm Reason for Visit Admit Date Obesity (BMI 30-39.9) February 22 8:04am Primary osteoarthritis of knees, bilater al February 23, 2024 8:04am Obesity (BMI 30-39.9) March 01 7:56am Primary osteoarthritis of knees, bilater al March 01, 2024 7:56am Obesity (BMI 30-39.9) March 08 8:20am Primary osteoarthritis of knees, bilater al March 08, 2024 8:20am Acute pancreatitis May 03, 2024 11:43am Primary hypertension May 03, 2024 11:43am Type 2 diabetes mellitus with hyperglyce roxanna May 03, 2024 11:43am Mid back pain on right side May 14, 025 2:25pm Primary hypertension May 14, 2024 2:2 5pm Type 2 diabetes mellitus with hyperglyce roxanna May 14, 2024 2:25pm Chief Complaint Admit Date Reoccuring Back Pain May 14, 2024 2:2 5pm VISCO 1/3 BILAT KNEE August 07, 2024 3:14 pm Reason for Visit Admit Date Acute thoracic myofascial strain May 142024 2:25pm Primary hypertension May 14, 2024 2:2 5pm Type 2 diabetes mellitus with hyperglyce roxanna May 14, 2024 2:25pm Obesity (BMI 30-39.9) August 07, 2024 3:1 4pm Primary osteoarthritis of knees, bilater al August 07, 2024 3:14pm Chief Complaint Admit Date VISCO 1/3 BILAT KNEE August 07, 2024 3:14 pm VISCO 2/3 BILAT KNEE August 14, 2024 3:10 pm Reason for Visit Admit Date Primary osteoarthritis of knees, bilater al August 07, 2024 3:14pm Obesity (BMI 30-39.9) August 07, 2024 3:1 4pm Primary osteoarthritis of knees, bilater al August 14, 2024 3:10pm Chief Complaint Admit Date VISCO 1/3 BILAT KNEE August 07, 2024 3:14 pm VISCO 2/3 BILAT KNEE August 14, 2024 3:10 pm VISCO 3/3 BILAT KNEE August 21, 2024 7:4 8am Reason for Visit Admit Date Primary osteoarthritis of knees, bilater al August 07, 2024 3:14pm Obesity (BMI 30-39.9) August 07, 2024 3:1 4pm Primary osteoarthritis of knees, bilater al August 14, 2024 3:10pm Primary osteoarthritis of knees, bilater al August 21, 2024 7:48am Chief Complaint Admit Date VISCO 1/3 BILAT KNEE August 07, 2024 3:14 pm VISCO 2/3 BILAT KNEE August 14, 2024 3:10 pm VISCO 3 BILAT KNEE August 21, 2024 7:4 8am Wellness September 04, 2024 9:51 am Reason for Visit Admit Date Primary osteoarthritis of knees, jermaineater al August 07, 2024 3:14pm Obesity (BMI 30-39.9) August 07, 2024 3:1 4pm Primary osteoarthritis of knees, bilater al August 14, 2024 3:10pm Primary osteoarthritis of knees, bilater al August 21, 2024 7:48am Chronic venous insufficiency September 04, 2024 9:51am GERD (gastroesophageal reflux disease) J 2024 9:51am Mixed hyperlipidemia September 04, 2024 9:5 1am Obesity September 04, 2024 9:51 am Primary hypertension September 04, 2024 9:5 1am Screening PSA (prostate specific antigen ) September 04, 2024 9:51am Type 2 diabetes mellitus with diabetic p olyneuropathy September 04, 2024 9:51am Type 2 diabetes mellitus with hyperglyce roxanna September 04, 2024 9:51am Wellness examination September 04, 2024 9:5 1am Additional Source Comments (unrecognized sect ion and content) No Status Records FoundNo Status Records FoundNo Status Records Found INFORMATION SOURCE (unrecogn ized section and content) DATE CREATED AUTHOR 05/22/2020 [facility] DATE CREATED AUTHOR AUTHOR'S ORGANIZ ATION 06/19/2022 [facility] DATE CREATED AUTHOR AUTHOR'S ORGANIZ ATION 07/24/2023 [facility] REASON FOR VISIT (unrecogniz ed section and content) WellnessNo Informationmessag eelevated BS/BP, back painfollow upLab results4 month Follow upRefillwellness Care Teams (unrecognized sec tion and content) Team Status: Active Member Role Status Dates Corwin Hannah DO Primary Care Provider Active Team Status: Inactive Member Role Status Dates Corwin Hannah DO Primary Care Provider Active Isabella Ventura ProviderActive Team Status: Inactive Member Role Status Dates Outreach [facility] Attending Provider Active Lance Trejo Care ProviderActive Team Status: Inactive Member Role Status Dates Corwin Hannah DO Primary Care Provider Active Start: July 19, 2023 End: July 19, 2023Meek Franco DOAttending ProviderActiveStart: July 19, 2023 End: July 19, 2023 Team Status: Active Member Role Status Dates Corwin Hannah DO Primary Care Provider Active Start: July 19, 2023 Courtney Arciniega ProviderActiveStart: July 19, 2023 Team Status: Inactive Member Role Status Dates Corwin Hannah DO Primary Care Provide r, Attending Provider Active Start: August 08, 2023 End: August 08, 2023 Team Status: Inactive Member Role Status Dates Corwin Hannah DO Primary Care Provider Active Start: August 21, 2023 End: August 21, 2023Judavid Franco DOAttending ProviderActiveStart: August 21, 2023 End: August 21, 2023 Team Status: Inactive Member Role Status Dates Corwin Hannah DO Primary Care Provider Active Start: August 28, 2023 End: August 28, 2023Judavid Franco DOActiveStart: August 28, 2023 End: August 28, 2023Melida Rodriguez NP-CAttending ProviderActiveStart: August 28, 2023 End: August 28, 2023 Team Status: Inactive Member Role Status Dates Corwin Hannah DO Primary Care Provider Active Start: August 28, 2023 End: August 28, 2023JuJohnathon Viverosending ProviderActiveStart: August 28, 2023 End: August 28, 2023 Team Status: Inactive Member Role Status Dates Corwin Hannah DO Primary Care Provider Active Start: September 04, 2023 End: September 04, 2023Judavid Franco DOAttending ProviderActiveStart: September 04, 2023 End: September 04, 2023 Team Status: Inactive Member Role Status Dates Corwin Hannah DO Primary Care Provide r, Attending Provider Active Start: December 04, 2023 End: December 04, 2023 Team Status: Inactive Member Role Status Dates Corwin Hannah DO Primary Care Provider Active Start: February 23, 2024 End: February 23, 2024JuJohnathon Viverosending ProviderActiveStart: February 23, 2024 End: February 23, 2024 Team Status: Inactive Member Role Status Dates Corwin Hannah DO Primary Care Provider Active Start: March 01, 2024 End: March 01, 2024JuJohnathon Viverosending ProviderActiveStart: March 01, 2024 End: March 01, 2024 Team Status: Inactive Member Role Status Dates Corwin Hannah DO Primary Care Provider Active Start: March 08, 2024 End: March 08, 2024JuCourtney Viveros ProviderActiveStart: March 08, 2024 End: March 08, 2024 Team Status: Inactive Member Role Status Dates Corwin Hannah DO Primary Care Provide r, Attending Provider Active Start: May 03, 2024 End: May 03, 2024 Team Status: Active Member Role Status Dates Corwin Hannah DO Primary Care Provide r, Attending Provider Active Start: May 04, 2024 Team Status: Active Member Role Status Dates Corwin Hannah DO Primary Care Provider Active Start: May 10, 2024 Cheryl Solorzano ProviderActiveStart: May 10, 2024 Team Status: Inactive Member Role Status Dates Corwin Hannah DO Primary Care Provide r, Attending Provider Active Start: May 14, 2024 End: May 14, 2024 Team Status: Inactive Member Role Status Dates Corwin Hannah DO Primary Care Provider Active Start: August 07, 2024 End: August 07, 2024Courtney Arciniega ProviderActiveStart: August 07, 2024 End: August 07, 2024 Team Status: Inactive Member Role Status Dates Corwin Hannah DO Primary Care Provider Active Start: August 14, 2024 End: August 14, 2024Courtney Arciniega ProviderActiveStart: August 14, 2024 End: August 14, 2024 Team Status: Inactive Member Role Status Dates Corwin Hannah DO Primary Care Provider Active Start: August 21, 2024 End: August 21, 2024JuCourtney Viveros ProviderActiveStart: August 21, 2024 End: August 21, 2024 Team Status: Inactive Member Role Status Dates Corwin Hannah DO Primary Care Provider Active Start: September 04, 2024 End: September 04enCourtney Castaneda ProviderActiveStart: September 04, 2024 End: September 04, 2024 Goals (unrecognized section and content) Goals [...] BE BASED ON THE PRIMARY CLINICAL RECORDS. [facility] [employer] [facility]. provides no warranty or guarantee of the accuracy or completeness of information in this document.
--- OUTSIDE RECORDS SUMMARY | 2025-01-28 06:35 | XMS_ITS | CCD ---
Author Organization [facility]iniSy[facility] Care Team Providers Care Mechanotherapist Name Role Phone Corwin Hannah Unavailable NOEMY, DR YADAV Admitting Unavailable BALL, DR YADAV Primary Care Unavailable BALL, DR YADAV Consulting Unavailable BALL, DR YADAV Attending Unavailable JESSICAEBGUMARO, DR CHRIS Calhoun Consulting Unavailable BALL, DR YADAV Admitting Unavailable BALL, DR YADAV Primary Care Unavailable BALL, DR YADAV Consulting Unavailable BALL, DR YADAV Attending Unavailable WEST, DR NAHID Burton Consulting Unavailable NOEMY, DR YADAV Admitting Unavailable BALL, DR YADAV Primary Care Unavailable BALL, DR YADAV Consulting Unavailable BALL, DR YADAV Attending Unavailable DO Corwin Hannah Primary Care Provider [phone] DO Efren Longo Emergency Provider [phone] Community, Outreach Attending Provider [phone] DO Corwin Hannah Primary Care Provider [phone] DO Meek Franco Attending Provider [phone] Efren Longo Admitting Unavailable Efren Longo Attending Unavailable Corwin Hannah Primary Care Unavailable Corwin Hannah Primary Care Unavailable Community, Outreach Admitting Unavailable Community, Outreach Attending Unavailable Corwin Hannah Primary Care Unavailable Meek Franco Admitting Unavailable Meek Franco Attending Unavailable Corwin Hannah DO Primary Care Provider [phone] Meek Franco DO Attending Provider [phone] Corwin Hannah DO Attending Provider [phone] Allergies Allergy ClassificationReported Allergen(s)Allergy TypeDate of OnsetReaction(s) Facility (20 sources)metFORMIN; Translations: [metformin]Drug Yivnboe31-71-3046[facility]ifccb[facility] ([facility] sources)carvedilolDrug Naxxvwe35-36-2716mqzgfuj[facility] ([facility] source)carvedilolDrug Xvcyqbl54-25-2716UjctkjmenWayne Hospital Repository Medications Current Medications MedicationDrug Class(es)DatesSig (Normalized)Sig (Original)amLODIPine 10 mg oral tablet (20 sources)Dihydropyridine Calcium Channel BlockerStart: 83-51-6420Kcmdpkqhqb 10 mg tablet Active 0 .ROUTE .COMPLEX June 20, 2024 7:30am TAKE 1 TABLET DAILYStart: 03-22-2024 End: 09-46-3213Qmvsnyevrm 10 mg tablet Discontinued 0 .ROUTE .COMPLEX March 22, 2024 8:02am June 20, 2024 7:30am TAKE 1 TABLET DAILYStart: 03-22-2024 Amlodipine 10 mg tablet Active 0 .ROUTE .COMPLEX March 22, 2024 7:02am TAKE 1 TABLET DAILYStart: 12-26-2023 End: 17-69-0498Trlgwxmapd 10 mg tablet Active 0 .ROUTE .COMPLEX June 20, 2024 7:30am TAKE 1 TABLET DAILY Complies with drug therapyStart: 12-26-2023 End: 03-96-8790Srrjfiihmf 10 mg tablet Discontinued 0 .ROUTE .COMPLEX December 26, 2023 8:37am March 22, 2024 8:02am TAKE 1 TABLET DAILYStart: 12-26-2023 End: 58-93-1651Leuxstaenc 10 mg tablet Discontinued 0 .ROUTE .COMPLEX December 26, 2023 7:37am March 22, 2024 7:02am TAKE 1 TABLET DAILYStart: 05-23-2020 End: 86-65-6549ixhe 1 tablet by mouth once dailyAmlodipine 10 mg tablet Discontinued 10 MG PO Daily May 23, 2020 1:00am December 26, 2023 8:37am atorvastatin 80 mg oral tablet (20 sources)HMG-CoA Reductase InhibitorStart: 05-03-2023 End: 55-97-1794Iqmitrcgcagx 80 mg tablet Active 0 .ROUTE .COMPLEX April 26, 2024 2:14pm TAKE 1 TABLET DAILY IN THE EVENING Complies with drug therapy Start: 05-23-2020 End: 27-17-4578bogt 1 tablet by mouth once daily at [...] (20 sources)Central alpha-2 Adrenergic AgonistStart: 05-14-2024 End: 36-70-6645eqzz 1 tablet by mouth twice dailyClonidine Hcl 0.1 mg tablet Active 0.1 MG PO Twice daily 60 August 09, 2024 12:59pm Complies withdrug therapyStart: 05-10-2024 End: 04-23-6902caub 1 tablet by mouth twice dailyClonidine Hcl 0.2 mg tablet Discontinued 0.2 MG PO Twice daily 60 May 10, 2024 2:05pm May 14, 2024 3:58pmStart: 12-04-2023 End: 82-20-8187gyuz 1 tablet by mouth twice dailyClonidine Hcl 0.1 mg tablet Discontinued 0.1 MG PO Twice daily 60 December 04, 2023 12:00am May 10, 2024 2:05pmesomeprazole 40 mg delayed release oral capsule (20 sources)Proton Pump InhibitorStart: 15-05-3294Fgegqfblyofv Magnesium 40 mg capsule,delayed release(DR/EC) Active 0 .ROUTE .COMPLEX May 08, 2023 7:49am TAKE 1 CAPSULE NEEDED Complies with drug therapyStart: 05-08-2023 Esomeprazole Magnesium Active 0 .ROUTE .COMPLEX May 08, 2023 7:49am TAKE 1 CAPSULE NEEDEDStart: 05-23-2020 End: 87-35-5549dqux 1 capsule by mouth once dailyEsomeprazole Magnesium (Nexium) 40 mg Capsule,Delayed Release(Dr/Ec) Discontinued 40 MG PO Daily May 23, 2020 1:00am May 08, 2023 7:49amNexIUM ActiveNexIUM Not-Taking/PRNNexIUM Not-TakingEsomeprazole Magnesium 40 mg capsule,delayed release(DR/EC) (5 sources)Start: 71-96-2280Nfccunlutogl Magnesium 40 mg capsule,delayed release(DR/EC) Active 0 .ROUTE .COMPLEX May 08, 2023 7:49am TAKE 1 CAPSULE NEEDEDStart: 16-43-4411Prftkyskussj Magnesium 40 mg capsule,delayed release(DR/EC) Active 0 .ROUTE .COMPLEX May 08, 2023 6:49am TAKE 1 CAPSULE NEEDEDfenofibrate 160 mg oral tablet (20 sources)Peroxisome Proliferator Receptor alpha AgonistStart: 05-22-2023 End: 42-65-7080Ujbonrgpekg 160 mg tablet Active 0 .ROUTE .COMPLEX May 16, 2024 9:43am TAKE 1 TABLET DAILY Complies with drug therapyStart: 05-23-2020 End: 36-02-0166osnv 1 tablet by mouth once dailyFenofibrate 160 mg tablet Discontinued 160 MG PO Daily May 23, 2020 1:00am May 22, 2023 12:41pm hydroCHLOROthiazide 25 mg / losartan potassium 100 mg oral tablet (20 sources)Thiazide Diuretic, Angiotensin 2 Receptor BlockerStart: 05-03-2023 End: 66-82-3253Ocpxveye-Hydrochlorothiazide 100-25 mg tablet Active 0 .ROUTE .COMPLEX April 26, 2024 2:14pm TAKE 1 TABLET DAILY Complies with drug therapyStart: 05-23-2020 End: 14-28-6192vcud 1 tablet by mouth once dailyLosartan-Hydrochlorothiazide 100-25 mg tablet Discontinued 1 TAB PO Daily May 23, 2020 1:00am May 03, 2023 9:36am3 ml insulin lispro 25 unt/ml / insulin lispro protamine, human 75 unt/ml pen injector (19 sources)Insulin AnalogStart: 46-86-0385ufiddh 65 [IU] by subcutaneous injection twice daily before breakfast, then inject 35 [IU] by subcutaneous injection at dinnerInsulin Lispro Protamin-Lispro (Humalog Mix 75-25 Kwikpen) 100 unit/mL (75-25) insulin pen Active 0SUBCUT Twice daily May 22, 2024 4:46pm 65 units SC BEFORE BREAKFAST AND 35 units SC BEFORE EVENING MEAL; subcutaneously twice daily; Complies with drug therapyStart: 05-10-2024 End: 70-71-7568ccnrnm 51 [IU] by subcutaneous injection twice daily before breakfast, then inject 21 [IU] by subcutaneous injection at dinnerInsulin Lispro Protamin-Lispro (Humalog Mix 75-25 Kwikpen) 100 unit/mL (75-25) insulin pen Discontinued 0 SUBCUT Twice daily May 10, 2024 5:57pm May 22, 2024 4:57pm 51 units SC BEFORE BREAKFAST AND 21 units SC BEFORE EVENING MEAL; subcutaneously twice daily;Start: 05-10-2024 End: 75-17-4019iccxgn 51 [IU] by subcutaneous injection before breakfast, then inject 26 [IU] by subcutaneous injection at dinnerInsulin Lispro Protamin-Lispro (Humalog Mix 75-25 Kwikpen) 100 unit/mL (75-25) insulin pen Discontinued 0 .ROUTE .COMPLEX May 10, 2024 2:18pm May 10, 2024 5:58pm USE DIRECTED UNDER THE SKIN 51 UNITS BEFORE BREAKFAST AND 26 UNITS BEFORE EVENING MEALStart: 08-04-2023 End: 45-35-6246trvubc 45 [IU] by subcutaneous injection before breakfast, [...] evening meal ActiveInsulin Lispro Protamin-Lispro (6 sources)Start: 03-33-5432Xksnsxe Lispro Protamin-Lispro Active 0 SUBCUT .COMPLEX August 04, 2023 12:00am 45 unit before bkfstand 20 units before evening mealInsulin Lispro Protamin-Lispro (Humalog Mix 75-25 Kwikpen) 100 unit/mL (75- 25) insulin pen (11 sources)Start: 05-43-2667xzmgqf 65 [IU] by subcutaneous injection twice daily before breakfast, then inject 35 [IU] by subcutaneous injection at dinner Insulin Lispro Protamin-Lispro (Humalog Mix 75-25 Kwikpen) 100 unit/mL (75-25) insulin pen Active 0SUBCUT Twice daily 90 May 22, 2024 4:46pm 65 units SC BEFORE BREAKFAST AND 35 units SC BEFORE EVENING MEAL; subcutaneously twice daily;Start: 05-10-2024 End: 77-08-1256wztokl 51 [IU] by subcutaneous injection twice daily before breakfast, then inject 21 [IU] by subcutaneous injection at dinnerInsulin Lispro Protamin-Lispro (Humalog Mix 75-25 Kwikpen) 100 unit/mL (75-25) insulin pen Discontinued 0 SUBCUT Twice daily May 10, 2024 5:57pm May 22, 2024 4:57pm 51 units SC BEFORE BREAKFAST AND 21 units SC BEFORE EVENING MEAL; subcutaneously twice daily;Start: 23-56-2486aydqrc 51 [IU] by subcutaneous injection twice daily before breakfast, then inject 21 [IU] by subcutaneous injection at dinnerInsulin Lispro Protamin-Lispro (Humalog Mix 75-25 Kwikpen) 100 unit/mL (75-25) insulin pen Active 0SUBCUT Twice daily May 10, 2024 4:57pm 51 units SC BEFORE BREAKFAST AND 21 units SC BEFORE EVENING MEAL; subcutaneously twice daily;Start: 05-10-2024 End: 43-01-0003vdmlpz 51 [IU] by subcutaneous injection before breakfast, then inject 26 [IU] by subcutaneous injection at dinnerInsulin Lispro Protamin-Lispro (Humalog Mix 75-25 Kwikpen) 100 unit/mL (75-25) insulin pen Discontinued 0 .ROUTE .COMPLEX May 10, 2024 2:18pm May 10, 2024 5:58pm USE DIRECTED UNDER THE SKIN 51 UNITS BEFORE BREAKFAST AND 26 UNITS BEFORE EVENING MEALStart: 05-10-2024 End: 47-05-3929dqaryq 51 [IU] by subcutaneous injection before breakfast, [...] tablet (11 sources)Nonsteroidal Anti-inflammatory DrugStart: 08-28-2023 End: 81-38-8677sgxj 1 tablet by mouth once dailyMeloxicam 15 mg tablet Active 15 MG PO Daily August 21, 2024 8:17am Complies with drug therapyPost-OP Shoe/Soft Top Men 1 (18 sources)Start: 54-27-6888Bone-OP Shoe/Soft Top Men 1 as directed right foot prn for as directed Aug, ActiveStart: 60-87-7175Bdpt-OP Shoe/Soft Top Men 1 as directed left foot prn for as directed Aug, ActiveStart: 33-82-8778Gjhm-OP Shoe/Soft Top Men 1 as directed left foot prn for as directed Aug, Not-Taking/PRNStart: 76-67-1818Lbja-OP Shoe/Soft Top Men 1 as directed right foot prn for as directed Aug, Not-Taking/PRNStart: 31-96-9690Qhys-OP Shoe/Soft Top Men 1 as directed right foot prn for as directed Aug, Not-TakingStart: 02-39-0931Vhoh-OP Shoe/Soft Top Men 1 as directed left foot prn for as directed Aug, Not-TakingSemaglutide (1 source)Start: 12-69-1139Rhdhwdlkzol (Ozempic) 0.25 mg or 0.5 mg (2 mg/3 mL) pen injector Active 0.25 MG SUBCUT every week 328 September 04, 2024 12:00am for 4 weeks Complies with drug therapy Completed/Discontinued Medications MedicationDrug Class(es)DatesSig (Normalized)Sig (Original)acetaminophen 325 mg / HYDROcodone bitartrate 5 mg oral tablet (20 sources)Opioid AgonistStart: 05-03-2024 End: 94-45-9055nuzq 1 tablet by mouth every eight hours as needed for pain Hydrocodone-Acetaminophen 5-325 mg tablet Discontinued 1 TAB PO Every 8 hours as needed for pain 217 May 14, 2024 August 21, 2024 7:53amStart: 12-04-2023 End: 77-54-2095dbbm 1 tablet by mouth every eight hours as needed for pain Hydrocodone-Acetaminophen 5-325 mg tablet Discontinued 1 TAB PO Every 8 hours as needed for pain 217 December 04, 2023 February 23, 2024 9:10amStart: 08-04-2023 End: 48-61-2330kdlx 1 tablet by mouth every six hours as neededHydrocodone- Acetaminophen 5-325 mg tablet Discontinued 1 TAB PO Every 6 hours as needed August 04, 2023 12:00am December 04, 2023 1:33pmStart: 97-22-6697epeh 1 tablet by mouth every six hours as needed for painHYDROcodone-Acetaminophen 5-325 MG 1 tablet as needed Orally every 6 hours as needed for back pain for 7 days Dec, ActiveStart: 01-24-7479tsdb 1 tablet by mouth every six hours as needed for painNorco 5-325 MG 1 tablet as needed Orally every 6 hrs as needed for severe pain, avoid driving, machinery and alcohol use while taking for 5 days Aug, ActiveStart: 69-46-5980hxgf 1 tablet by mouth every six hours as needed for painNorco 5-325 MG 1 tablet as needed Orally every 6 hrs as needed for severe pain, avoid driving, machinery and alcohol use while taking for 5 days Aug, Not-Taking/PRNStart: 20-08-0025cwsz 1 tablet by mouth every six hours as needed for painNorco 5-325 MG 1 tablet as needed Orally every 6 hrs as needed for severe pain, avoid driving, machinery and alcohol use while taking for 5 days Aug, Not-Takingglimepiride 1 mg oral tablet (16 sources)SulfonylureaStart: 05-23-2020 End: 53-73-1281htmf 1 tablet by mouth once dailyGlimepiride 1 mg tablet Discontinued 1 MG PO Daily May 23, 2020 1:00am August 04, 2023 11:32am icosapent ethyl 1000 mg oral capsule (20 sources)Start: 08-04-2023 End: 18-70-2896cdcl 1 capsule by mouth twice dailyIcosapent Ethyl [...] (75-25) insulin pen (5 sources)Start: 08-04-2023 End: 04-45-2566Ifbatyi Lispro Protamin-Lispro 100 unit/mL (75-25) insulin pen Discontinued 0 SUBCUT .COMPLEX August 04, 2023 12:00am February 16, 2024 7:55am 45 unit before bkfst and 20 units before evening mealStart: 08-04-2023 End: 54-18-0436Dkohvmr Lispro Protamin-Lispro 100 unit/mL (75-25) insulin pen Discontinued 0 SUBCUT .COMPLEX August 03, 2023 11:00pm February 16, 2024 6:55am 45 unit before bkfst and 20 units before evening meallevoFLOXacin 500 mg oral tablet (16 sources)Quinolone AntimicrobialStart: 12-14-2022 End: 84-64-5424ymfh 1 tablet by mouth every twenty-four hoursLevofloxacin 500 mg Tablet Discontinued 500 MG PO Q24H December 14, 2022 12:00am August 04, 2023 11:32amondansetron 4 mg disintegrating oral tablet (6 sources)Serotonin-3 Receptor AntagonistStart: 05-03-2024 End: 62-27-8887gxbz 1 tablet by mouth every eight hoursOndansetron 4 mg tablet,disintegrating Discontinued 4 MG PO Every 8 hours 12 17May 03, 2024 1:00am August 14, 2024 3:29pmoxyCODONE hydrochloride 5 mg oral tablet (16 sources)Opioid AgonistStart: 05-23-2020 End: 04-41-4544oyfr 5-10 mg by mouth every four to six hours as needed for pain Oxycodone 5 mg tablet Discontinued 5 - 10 MG PO EVERY 4-6 HOURS as needed for pain MayJuly 19, 2023 8:49amStart: 05-23-2020 End: 13-08-8545lulr 5-10 mg by mouth every four to six hoursOxycodone Discontinued 5 - 10 MG PO EVERY 4-6 HOURS 30 07May 23, 2020 July 19, 2023 8:49ampolyethylene glycol 3350 88929 mg powder for oral solution (16 sources)Osmotic LaxativeStart: 05-23-2020 End: 53-60-6942Rwbvyeqafwer Glycol 3350 (Miralax) 17 gram/dose powder Discontinued 17 GM PO Daily as needed for constipation 119 May 23, 2020 1:00am July 19, 2023 8:49amtraMADol hydrochloride 50 mg oral tablet (16 sources)Opioid AgonistStart: 05-23-2020 End: 16-09-3450lzua 1 tablet by mouth every six hours as needed for painTramadol 50 mg tablet Discontinued 50 MG PO Q6H as needed for Pain May 23, 2020 1:00am July 8:49am Problems Active Problems Problem ClassificationProblemDateDocumented DateEpisodic/ChronicAcute bronchitis (2 sources)Acute bronchitis; Translations: [Acute bronchitis due to other specified organisms]EpisodicAortic; peripheral; and visceral artery aneurysms (2 sources)Aneurysm of renal artery; 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] Onset: 71-27-5748KdfglsyOcdxfpiusy and other anemia (2 sources)Chronic anemia; Translations: [Anemia in other chronic diseases classified elsewhere]Onset: 96-22-9958YdwkyogWnsmwldrlk and other anemia (3 sources)Pancytopenia; Translations: [Other pancytopenia]ChronicDeficiency and other anemia (1 source)Other pancytopeniaChronicDiabetes mellitus with complications (20 sources)Type 2 diabetes mellitus; Translations: [Type 2 diabetes mellitus with hyperglycemia]ChronicDiabetes mellitus without complication (5 sources)Type 2 diabetes mellitus without complication; Translations: [Type 2 diabetes mellitus without complications]ChronicDisorders of lipid metabolism (20 sources)Mixed hyperlipidemia; Translations: [Mixed hyperlipidemia]Onset: 68-95-1835JnmhadvLsvhewatofmymi and diverticulitis (2 sources)Diverticulitis of colon; Translations: [Diverticulitis of colon (without mention of hemorrhage)]Onset: 25-32-7830XhsyommQhydyzufew disorders (20 sources)Acid reflux; Translations: [Gastro-esophageal reflux disease without esophagitis]21-69-6184BmxduiuGqgbzfgji hypertension (20 sources)Hypertensive disorder; Translations: [Essential (primary) hypertension]ChronicGenitourinary symptoms and ill-defined conditions (9 sources)Delay when starting to pass urine; Translations: [Hesitancy of micturition]EpisodicHeadache; including migraine (19 sources)Headache; Translations: [Headache]97-95-9661LtvsfdnjGwocopeu; including migraine (1 source)Headache; including migraine; Translations: [Headache, unspecified] Onset: 78-87-9020Axyvvxaeuca of prostate (12 sources)Benign prostatic hyperplasia; Translations: [Benign prostatic hyperplasia with lower urinary tract symptoms]Onset: 04-19-4737Tqdofir Immunizations and screening for infectious disease (2 sources)Contact with and (suspected) exposure to other viral communicable diseases; Translations: [Contact with and (suspected) exposure to COVID-19] EpisodicMelanomas of skin (2 sources)Malignant melanoma of trunk; Translations: [Malignant melanoma of other part of trunk]Onset: 27-97-7511MspvdsiBdefzksrlfhu breast conditions (3 sources)Hypertrophy of breast; Translations: [HYPERTROPHY OF BREAST]Onset: 17-78-9362JkhivzbgSvhkerkyvkuxur (20 sources)Osteoarthritis of knee; Translations: [Unilateral primary osteoarthritis, left knee]Onset: 554864-79-5162LzjvrhsNboun aftercare (9 sources)Long-term current use of insulin; Translations: [terminal 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 insulin]EpisodicOther aftercare (3 sources)terminal 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 insulinEpisodicOther diseases of veins and lymphatics (18 sources)Peripheral venous insufficiency; Translations: [Venous insufficiency (chronic) (peripheral)]97-78-7911EumfukasOsrip diseases of veins and lymphatics (7 sources)Venous [...] unspecified whether generalized or localized, lower leg]Onset: 00-53-7448Dgggzey Other non-traumatic joint disorders (12 sources)Pain in right knee; Translations: [Pain in both knees]Onset: 518264-51-6018UbjhotglPagtn non-traumatic joint disorders (1 source)Pain in left knee; Translations: [Pain in left knee]Onset: 07-19-2023 EpisodicOther nutritional; endocrine; and metabolic disorders (4 sources)Simple obesity ; Translations: [Other obesity due to excess calories] ChronicOther nutritional; endocrine; and metabolic disorders (20 sources)Body mass index 30+ - obesity; Translations: [Obesity, unspecified] Onset: 363994-62-6664RynvuhjEnsbw nutritional; endocrine; and metabolic disorders (20 sources)Obesity, unspecified; Translations: [Obesity, unspecified]Chronic Other nutritional; endocrine; and metabolic disorders (6 sources)Obese class II; Translations: [Body mass index 35.0-35.9, adult] Onset: 76-01-6184QqaqowbUoxew nutritional; endocrine; and metabolic disorders (4 sources)Obesity; Translations: [Obesity, unspecified]Onset: 03-31-2021 39-61-0235JjbzvhvYwccr nutritional; endocrine; and metabolic disorders (5 sources)Severe [...] pancreatitis without necrosis or infection, unspecified] Resolved: 554881-06-4215RhhhvapfFeeeprz on above:Problem List clean-up per request of Phys. EHR CmtePneumonia (except that caused by tuberculosis or sexually transmitted disease) (17 sources)Pneumonia; Translations: [Pneumonia, unspecified organism]12-14-2022 EpisodicResidual codes; unclassified (4 sources)Obstructive sleep apnea syndrome; Translations: [Obstructive sleep apnea (adult) (pediatric)]Onset: 41-97-8624VjcfkrxWsqxeeywkzn; intervertebral disc disorders; other back problems (7 sources)Lumbosacral spondylosis without myelopathy; Translations: [Spondylosis without myelopathy or radiculopathy, lumbar region]Onset: 25-05-8647KrnhokvKwvaomjckwf; intervertebral disc disorders; other back problems (5 sources)Pain in thoracic spine; Translations: [Thoracic back pain]Episodic Sprains and strains (2 sources)Strain of thoracic region; Translations: [Strain of muscle and tendon of unspecified wall of thorax, initial encounter]14-70-5686JthdjhabZdumbpzxn- related disorders (2 sources)Nicotine dependence; Translations: [Nicotine dependence, cigarettes, with other nicotine-induced disorders]Onset: 50-15-8021VulygymUumncinpypt injury; contusion (14 sources)Contusion of right hip, initial encounter; Translations: [Contusion of right knee, initial encounter]Onset: 34-03-3629DjgcvqwiJqpyekzvacql (3 sources)CONTACT W/AND (SUSP) EXPOS COVID-19; Translations: [CONTACT W/AND (SUSP) EXPOS COVID-19]Onset: 10-05-2021 Past or Other Problems Problem ClassificationProblemDateDocumented DateEpisodic/ChronicAbdominal pain (2 sources)Epigastric pain; Translations: [Epigastric pain] Resolved: 66-50-3935VzcpwrblEbshzpew reactions (2 sources)Contact dermatitis; Translations: [Contact dermatitis and other eczema, due to unspecified cause]Onset: 56-19-5176UqpslewhSevtrzqpxz and other anemia (2 sources)Anemia; Translations: [Anemia, unspecified]Onset: 41-41-7111Cgvpukpc Diabetes mellitus without complication (2 sources)Impaired fasting glycemia; Translations: [Impaired fasting glucose] Resolved: 17-22-0991SwhuqhbdVanpzefkj of teeth and jaw (2 sources)Disorder of teeth AND/OR supporting structures; Translations: [Other specified disorders of teeth and supporting structures]Onset: 96-79-0261Mibwvxdq Esophageal disorders (3 sources)Esophageal disordersFever of unknown origin (1 source)Fever, unspecified; Translations: [Fever, unspecified]Onset: 91-16-0903MmdfeqaxZovhr and electrolyte disorders (2 sources)Dehydration; Translations: [Dehydration]Onset: 34-95-9223Klrhmwgl Malaise and fatigue (2 sources)Malaise and fatigue; Translations: [Other malaise and fatigue]Onset: 95-66-2125KchklpytJjkcragak of skin (2 sources)History of malignant melanoma of the skin; Translations: [Personal history of malignant melanoma ofskin]Onset: 45-18-9193TgxcpkvkObxswkoho of unspecified nature or uncertain behavior (2 sources)Neoplasm of uncertain behavior of skin; Translations: [Neoplasm of uncertain behavior of skin]Onset: 57-19-4772MjjefelbLiauv connective tissue disease (2 sources)Achilles bursitis; Translations: [Achilles bursitis or tendinitis] Onset: 25-54-7767OeburutgHqtwo gastrointestinal disorders (2 sources)Diarrhea; Translations: [Diarrhea]Onset: 34-52-1088TbsqkrokWzkpq infections; including parasitic (2 sources)Lyme disease; Translations: [Lyme disease]Onset: 64-23-3890Bcuhogld Other non-traumatic joint disorders (2 sources)Arthralgia of the lower leg; Translations: [Pain in joint, lower leg] Onset: 06-75-5475GkcbfbioHugsnpyt codes; unclassified (4 sources)Tobacco user; Translations: [Tobacco use]Onset: 17-77-8036Ehrovouc Skin and subcutaneous tissue infections (2 sources)Cellulitis and abscess of trunk; Translations: [Cutaneous abscess of abdominal wall] Resolved: 64-16-8207CpijujjcLhgzeoeybtij (1 source)CONTACT W/AND (SUSP) EXPOS COVID-19; Translations: [CONTACT W/AND (SUSP) EXPOS COVID-19]Onset: 03-41-0230Akyxsndwgzur (2 sources)Long-term current use of drug therapy; Translations: [Long-term (current) use of other medications]Onset: 03-25-2016 Results Test NameValueInterpretationReference RangeFacilityBasophils Auto (Bld) [#/Vol] on 67-75-8607Txnedayzs (Bld) [#/Vol]Automated basophil count0.0-0.1FMercy Health St. [facility] HospitalBasophils/100 WBC Auto (Bld)on 64-01-8880Uuwbneacm/100 WBC (Bld)Automated basophil %0.2-2.0[facility] Eosinophils/100 WBC Auto (Bld)on 07-48-6914Fdnqsrcerwm/100 WBC (Bld)Automated eosinophil %0.9-7.0[facility] HospitalErythrocyte distribution width Auto (RBC) [Ratio]on 57-00-2597Vtrwufthisv distribution width (RBC) [Ratio]Erythrocyte distribution width [Ratio] by Automated count11.0-15.0 [facility] HospitalHematocrit Auto (Bld) [Volume fraction]on 89-28-0431Avmyiutejj (Bld) [Volume fraction]Hematocrit [Volume Fraction] of Blood by Automated xnrusYjg48.0-54.0[facility] HospitalHemoglobin [Mass/volume] in Bloodon 53-12-0590Xocfsfrhop (Bld) [Mass/Vol]Hemoglobin [Mass/volume] in Blood14.0-18.0[facility] HospitalLaboratory - Hematology and Cell countson 85-07-2641Fhsdtcxv granulocytes/100 WBC (Bld)0.8 % High0.0-0.5FMercy Health St. Elizabeth Boardman HospitalLeukocytes [#/volume] corrected for nucleated erythrocytes in Blood by Automated counon 37-87-8113TKR corrected for nucl RBC Auto (Bld) [#/Vol]Leukocytes [#/volume] corrected for nucleated erythrocytes in Blood by Automated coun4.0-11.0[facility] Lymphocytes Auto (Bld) [#/Vol]on 52-27-9572Gvaspunemxy (Bld) [#/Vol]Lymphocytes [#/volume] in Blood by Automated count1.2-3.8[facility] Lymphocytes/100 WBC Auto (Bld)on 27-08-7838Osfmvhchhoi/100 WBC (Bld) Lymphocytes/100 leukocytes in Blood by Automated count20.5-60.0[facility] HospitalMCH Auto (RBC) [Entitic mass]on 05-60-5127GNK (RBC) [Entitic mass]MCH [Entitic mass] by Automated count25.9-34.0[facility] HospitalMCHC Auto (RBC) [Mass/Vol]on 71-80-4233ALAU (RBC) [Mass/Vol]MCHC [Mass/volume] by Automated gszedGluf72.9-35.2FMercy Health St[facility] MCV Auto (RBC) [Entitic vol]on 27-87-2415BRP (RBC) [Entitic vol]MCV [Entitic volume] by Automated count80.0-94.0[facility] HospitalMonocytes Auto (Bld) [#/Vol]on 77-85-7619Wsqgoeogl (Bld) [#/Vol]Automated blood monocyte count0.3-0.8[facility] HospitalMonocytes/100 WBC Auto (Bld)on 23-04-2060Tmticvgzh/100 WBC (Bld)Automated monocyte %1.7-12.0[facility] HospitalNeutrophils Auto (Bld) [#/Vol]on 02-40-4912Fbikkurjluy (Bld) [#/Vol]Neutrophils [#/volume] in Blood by Automated count1.4-6.5FMercy Health St. Elizabeth Board[facility] HospitalNeutrophils/100 WBC Auto (Bld)on 05-04-2024 Neutrophils/100 WBC (Bld)Automated neutrophil %43.0-75.0[facility] HospitalNo Panel Informationon 50-12-6099Azxhmpmixtc # (Auto)0.2 10 3/uL 0.0-0.7FMercy Health St. Elizabeth Board[facility] HospitalImmature Granulocyte # (Auto)0.05 10 3/uLHigh0.00-0.03[facility] HospitalMiscellaneous TestCOMMENT. [facility] HospitalComment on above:Test Ordered: [id number] Comp. Metabolic Panel (14)Glucose 252 [H ] [...] Reference Range: 0-44Performed at: CB - [facility] [address] [id number] Director: Willy Isaacs PhD, Phone: [phone] Platelet mean volume Auto (Bld) [Entitic vol]on 84-26-9095Xlnackxe mean volume (Bld) [Entitic vol]Platelet mean volume [Entitic volume] in Blood by Automated count9.5-13.5FMercy Health St. Elizabeth Boardman HospitalPlatelets Auto (Bld) [#/Vol]on 49-40-4700Jqecoffio (Bld) [#/Vol]Platelets [#/volume] in Blood by Automated ofvrx766-501JnlsdvyghWayne HospitalRBC Auto (Bld) [#/Vol]on 05-04-2024 RBC (Bld) [#/Vol]Erythrocytes [#/volume] in Blood by Automated countLow4.70-6.10 [facility] HospitalXR knee BI 3V - NOT FOR ER USEon 16-85-7844CF knee BI 3V - NOT FOR ER USEUNIVERSITY [facility] Bone [facility] [place] [address] XRay Report Signed Patient: Margaret Woods MR#: [id number] : 1960 Acct:[id number] Age/Sex: 62 / M ADM Date: 07/19/23 Loc: SOXD Room: Type: [facility] Attending Dr: Meek Franco DO Copies [...] Connor Buck M.D.07/19/2023 11:06 AM Dictation Location: [place] [address] Transcribed By: [facility] 07/19/23 1106 Dictated By: Connor Buck DO 07/19/23 1104 Signed By: 07/19/23 1106[facility] Physician GroupAlanine aminotransferase [Enzymatic activity/volume] in Serum or PlasmaOrdered By: [facility]REACH COMMUNITY on 16-46-7398QHR [Catalytic activity/Vol]53 U/L7-52[facility] HospitalAlbumin [Mass/volume] in Serum or Plasma by Bromocresol green (BCG) dye binding methoOrdered By: [facility] COMMUNITY on 08-35-9088Zygqyvt BCG dye [Mass/Vol]3.9 g/dL3.5-5.7FMercy Health St. Elizabeth Boardman HospitalAlkaline phosphatase [Enzymatic activity/volume] in Serum or PlasmaOrdered By: [facility]UN[facility] on 27-02-0948QJM [Catalytic activity/Vol]73 U/H99-508RdkjhgigrWayne HospitalAspartate aminotransferase [Enzymatic activity/volume] in Serum or Plasma Ordered By: [facility] on 30-82-6282MZU [Catalytic activity/Vol]34 U/L 13-39[facility] HospitalBilirubin.total [Mass/volume] in Serum or PlasmaOrdered By: [facility] COMMUN[facility] on 11-49-0820Bnpagimei [Mass/Vol]0.4 mg/dL 0.3-1.0[facility] HospitalCBC Without Differentialon 12-17-2022 Erythrocyte distribution width (RBC) [Ratio]13.7 %Kbhfsi69.0-14.8The [facility] Physician GroupComment on above:Performed By: #### OUTREACH LIPID, LDL CHOL (M), OUTREACH GLYCO, CBCNOOUTREACH, PSA OUTREACH, OUTREACH CMP #### [facility] [address] [place] [address] USAHematocrit (Bld) [Volume fraction]34.7 %Low38.8-50.0The [facility] Physician GroupComment on above:Performed By: #### OUTREACH LIPID, LDL CHOL (M), OUTREACH GLYCO, CBCNOOUTREACH, PSA OUTREACH, OUTREACH CMP #### [facility] [address] [place] [address] USAHemoglobin (Bld) [Mass/Vol]12.0 g/dLLow13.0-17.0The [facility] Physician GroupComment on above:Performed By: #### OUTREACH LIPID, LDL CHOL (M), OUTREACH GLYCO, CBCNOOUTREACH, PSA OUTREACH, OUTREACH CMP #### [facility] [address] [place] [id number] [facility] (RBC) [Entitic mass]30.5 bvIwvclv41.5-35.2The [facility] Physician GroupComment on above:Performed By: #### OUTREACH LIPID, LDL CHOL (M), OUTREACH GLYCO, CBCNOOUTREACH, PSA OUTREACH, OUTREACH CMP #### [facility] [address] [place] [id number] [facility] (RBC) [Entitic vol]88.3 kSQtzqpz10.5-101The [facility] Physician GroupComment on above:Performed By: #### OUTREACH LIPID, LDL CHOL (M), OUTREACH GLYCO, CBCNOOUTREACH, PSA OUTREACH, OUTREACH CMP #### [place] [address] USAMean Corpuscular HGB Conc34.6 g/pDDzrbmr73.5-35.6The [facility] Physician GroupComment on above:Performed By: #### OUTREACH LIPID, LDL CHOL (M), OUTREACH GLYCO, CBCNOOUTREACH, PSA OUTREACH, OUTREACH CMP #### [place] [address] USAPlatelet mean volume (Bld) [Entitic vol]8.8 fLNormal 6.6-10.1The [facility] Physician GroupComment on above:Result Comment: PERFORMED BY: [place] [address] PATHOLOGIST DATA DEVELOPER ELIZABETH CR M.D.Performed By: #### OUTREACH LIPID, LDL CHOL (M), OUTREACH GLYCO, CBCNOOUTREACH, PSA OUTREACH, OUTREACH CMP #### [place] [address] USAPlatelets (Bld) [#/Vol]141 10*3/aVTqp202-494Nhb [facility] Physician GroupComment on above:Performed By: #### OUTREACH LIPID, LDL CHOL (M), OUTREACH GLYCO, CBCNOOUTREACH, PSA OUTREACH, OUTREACH CMP #### [place] [address] USARBC (Bld) [#/Vol]3.93 10*6/uLNormal3.90-5.60The [facility] Physician GroupComment on above:Performed By: #### OUTREACH LIPID, LDL CHOL (M), OUTREACH GLYCO, CBCNOOUTREACH, PSA OUTREACH, OUTREACH CMP #### [place] [address] USAWBC (Bld) [#/Vol]3.9 10*3/uLLow4.1-10.5The [facility] Physician GroupComment on above:Performed By: #### OUTREACH LIPID, LDL CHOL (M), OUTREACH GLYCO, CBCNOOUTREACH, PSA OUTREACH, OUTREACH CMP #### [place] [address] USACMP Outreachon 74-06-1663Vjwzlba [Mass/Vol]3.9 g/dLNormal 3.5-5.7The [facility] Physician GroupComment on above:Performed By: #### OUTREACH LIPID, LDL CHOL (M), OUTREACH GLYCO, CBCNOOUTREACH, PSA OUTREACH, OUTREACH CMP #### [facility] [address] [place] [phone] USAALP [Catalytic activity/Vol]73 U/EHrvrgp26-171Kia [facility] Physician GroupComment on above:Performed By: #### OUTREACH LIPID, LDL CHOL (M), OUTREACH GLYCO, CBCNOOUTREACH, PSA OUTREACH, OUTREACH CMP #### [facility] [address] [place] [address] USAALT [Catalytic activity/Vol]53 U/LHigh7-52The [facility] Physician GroupComment on above:Performed By: #### OUTREACH LIPID, LDL CHOL (M), OUTREACH GLYCO, CBCNOOUTREACH, PSA OUTREACH, OUTREACH CMP #### [facility] [address] [place] [place] [address] USAAnion gap [Moles/Vol]10.7 mmol/LNormal6.0-15.0The [facility] Physician GroupComment on above:Performed By: #### OUTREACH LIPID, LDL CHOL (M), OUTREACH GLYCO, CBCNOOUTREACH, PSA OUTREACH, OUTREACH CMP #### [facility] [address] [place], [place] [address] USAAST [Catalytic activity/Vol]34 U/XQijvxr42-42Jod [facility] Physician GroupComment on above:Performed By: #### OUTREACH LIPID, LDL CHOL (M), OUTREACH GLYCO, CBCNOOUTREACH, PSA OUTREACH, OUTREACH CMP #### [facility] [address] [place], [place] [address] USABilirubin [Mass/Vol]0.4 mg/dLNormal0.3-1.0The [facility] Physician GroupComment on above:Performed By: #### OUTREACH LIPID, LDL CHOL (M), OUTREACH GLYCO, CBCNOOUTREACH, PSA OUTREACH, OUTREACH CMP #### [facility] [address] [place], [place] [address] USACalcium [Mass/Vol]9.7 mg/dLNormal8.6-10.3The [facility] Physician GroupComment on above:Performed By: #### OUTREACH LIPID, LDL CHOL (M), OUTREACH GLYCO, CBCNOOUTREACH, PSA OUTREACH, OUTREACH CMP #### [facility] [address] [place] [address] USAChloride [Moles/Vol]105 mmol/IRkkdzf32-222Woo [facility] Physician GroupComment on above:Performed By: #### OUTREACH LIPID, LDL CHOL (M), OUTREACH GLYCO, CBCNOOUTREACH, PSA OUTREACH, OUTREACH CMP #### [facility] [address] [place] [phone] USACO2 [Moles/Vol]30.1 mmol/SKlpiui42.0-31.0The [facility] Physician GroupComment on above:Performed By: #### OUTREACH LIPID, LDL CHOL (M), OUTREACH GLYCO, CBCNOOUTREACH, PSA OUTREACH, OUTREACH CMP #### [facility] [address] [place] [address] USACreatinine [Mass/Vol]0.87 mg/dLNormal0.70-1.30The [facility] Physician GroupComment on above:Performed By: #### OUTREACH LIPID, LDL CHOL (M), OUTREACH GLYCO, CBCNOOUTREACH, PSA OUTREACH, OUTREACH CMP #### [place] [address] USAGFR/1.73 sq M.predicted MDRD (S/P/Bld) [Vol rate/Area] mL/min/{1.73_m2}NormalThe [facility] Physician GroupComment on above:Performed By: #### OUTREACH LIPID, LDL CHOL (M), OUTREACH GLYCO, CBCNOOUTREACH, PSA OUTREACH, OUTREACH CMP #### [facility] [address] [place] [phone] USAGlucose [Mass/Vol]98 mg/oYDwpjhc42-490Zap [facility] Physician GroupComment on above:Result Comment: Random Glucose Reference Range is dependent on time and content of last meal. Glucose of more than 200 mg/dL in a nonstressed, ambulatory subject supports the diagnosis of Diabetes Mellitus. ADA recommended reference rangePerformed By: #### OUTREACH LIPID, LDL CHOL (M), OUTREACH GLYCO, CBCNOOUTREACH, PSA OUTREACH, OUTREACH CMP #### [address] [place] [address] USAPotassium [Moles/Vol]3.8 mmol/LNormal3.5-5.1The [facility] Physician GroupComment on above:Performed By: #### OUTREACH LIPID, LDL CHOL (M), OUTREACH GLYCO, CBCNOOUTREACH, PSA OUTREACH, OUTREACH CMP #### [facility] [address] [place] [phone] USAProtein [Mass/Vol]6.5 g/dLNormal6.4-8.9The [facility] Physician GroupComment on above:Performed By: #### OUTREACH LIPID, LDL CHOL (M), OUTREACH GLYCO, CBCNOOUTREACH, PSA OUTREACH, OUTREACH CMP #### [facility] [address] [place] [phone] USASodium [Moles/Vol]142 mmol/GTnnrgi661-477Gkx [facility] Physician GroupComment on above:Performed By: #### OUTREACH LIPID, LDL CHOL (M), OUTREACH GLYCO, CBCNOOUTREACH, PSA OUTREACH, OUTREACH CMP #### [facility] [address] [place] [phone] USAUrea nitrogen [Mass/Vol]21 mg/dLNormal7-25The [facility] Physician GroupComment on above:Performed By: #### OUTREACH LIPID, LDL CHOL (M), OUTREACH GLYCO, CBCNOOUTREACH, PSA OUTREACH, OUTREACH CMP #### [facility] [address] [place], [place] [address] USACalcium [Mass/volume] in Serum or PlasmaOrdered By: OUTREACH COMMUNITY on 13-92-2122Wqnndai [Mass/Vol]9.7 mg/dL8.6-10.3FMercy Health St. Elizabeth [facility] HospitalCarbon dioxide, total [Moles/volume] in Serum or Plasma Ordered By: [facility]REACH COMMUNITY on 47-36-5211CS7 [Moles/Vol]30.1 mmol/L21.0-31.0 [facility] HospitalChloride [Moles/volume] in Serum or Plasma Ordered By: OUTREACH COMMUNITY on 53-19-9936Pohwdwuo [Moles/Vol]105 mmol/L98-107 [facility] HospitalCholesterol [Mass/volume] in Serum or Plasma Ordered By: OUTREACH COMMUNITY on 36-58-8455Ynijquhokjp [Mass/Vol]180 mg/dL 140-200[facility] HospitalComment on above:Chol less than 200 mg/dl low riskChol 201-239 mg/dl borderline riskChol 240 mg/dl and greater high riskCholesterol in LDL Calc [Mass/Vol]Ordered By: [facility] on 50-60-5900Zbggmnwbukx in LDL [Mass/Vol]TNPWay[facility] Hospital Comment on above:Test not performedCholesterol in LDL [Mass/volume] in Serum or PlasmaOrdered By: [facility] on 89-11-9035Gnhruggktgo in LDL [Mass/Vol] 59 mg/dL0-100[facility] HospitalComment on above:LDL ATP III CLASSIFICATIONLDL less than 100 mg/dL OptimalLDL 100-129 mg/dL Near or above fbfdzkuKWN358-943 mg/dL Borderline highLDL 160-189 mg/dL HighLDL greater than 189 mg/dL Very highCholesterol in VLDL Calc [Mass/Vol]Ordered By: [facility] on 33-84-0295Evpoxtzvkru in VLDL [Mass/Vol]119 mg/dLWayne HospitalCreatinine [Mass/volume] in Serum or PlasmaOrdered By: [facility] on 44-71-1121Bcfnltdfmo [Mass/Vol]0.87 mg/dL0.70-1.30[facility] HospitalErythrocyte distribution width Auto (RBC) [Ratio]Ordered By: [facility] on 13-67-2231Cixddkpcese distribution width (RBC) [Ratio] 13.7 %12.0-14.8[facility] HospitalGlucose [Mass/volume] in Serum or PlasmaOrdered By: [facility] on 44-69-3570Jhbskoi [Mass/Vol]98 mg/dL 70-100[facility] HospitalComment on above:ADA recommended reference rangeRandom Glucose Reference Range is dependent on time and content of last meal. Glucose of more than 200 mg/dL in a nonstressed, ambulatory subject supports the diagnosisof Diabetes Mellitus.Glucose mean value [Mass/volume] in Blood Estimated from glycated hemoglobinOrdered By: [facility] on 29-65-8276Vrysrxt glucose Estimated from glycated hemoglobin (Bld) [Mass/Vol]171 mg/dLWayne HospitalHematocrit Auto (Bld) [Volume fraction]Ordered By: [facility] on 39-04-3635Dvaoewrcdh (Bld) [Volume fraction]34.7 %38.8-50.0[facility] HospitalHemoglobin [Mass/volume] in BloodOrdered By: [facility] on 06-52-8533Kgmvmywkhg (Bld) [Mass/Vol]12.0 g/dL13.0-17.0Wayne HospitalLDL Cholesterol Measured Reflexon 25-20-1462TVJ Cholesterol Measured Bzukad13 mg/dL Normal0-100The [facility] Physician GroupComment on above:Result Comment: LDL ATP III CLASSIFICATION LDL less than 100 mg/dL Optimal LDL 100-129 mg/dL Near or above optimal LDL 130-159 mg/dL Borderline high LDL 160-189 mg/dL High LDL greater than 189 mg/dL Very high PERFORMED BY: [place] [address] PATHOLOGIST DATA DEVELOPER ELIZABETH CR M.D.Performed By: #### OUTREACH LIPID, LDL CHOL (M), OUTREACH GLYCO, CBCNOOUTREACH, PSA OUTREACH, OUTREACH CMP #### [place] [address] USALaboratory - Hematology and Cell countsOrdered By: [facility] on 79-23-4476HzR7f (Bld) [Mass fraction]7.6 %4.3-5.6FMercy Health St. Elizabeth Boardman HospitalComment on above:Increased risk for diabetes: 5.7 - 6.4diabetes: >6.4glycemic control for adults with diabetes: <7.0Leukocytes [#/volume] corrected for nucleated erythrocytes in Blood by Automated coun Ordered By: [facility] on 86-70-0430IXU corrected for nucl RBC Auto (Bld) [#/Vol]3.9 10*3/uL4.1-10.5FMercy Health St. Elizabeth Boardman HospitalLipid Profile Outreachon 38-26-6908Ogxloztwpfb [Mass/Vol]180 mg/gXYbfjke336-241Thv [facility] Physician GroupComment on above:Result Comment: Chol less than 200 mg/dl low risk Chol 201-239 mg/dl borderline risk Chol 240 mg/dl and greater high riskPerformed By: #### OUTREACH LIPID, LDL CHOL (M), OUTREACH GLYCO, CBCNOOUTREACH, PSA OUTREACH, OUTREACH CMP #### [facility] [address] [place] [address] USACholesterol in HDL [Mass/Vol]25 mg/zOBkpotf81-73Yzd [facility] Physician GroupComment on above:Result Comment: HDL CHOL ATP-III CLASSIFICATION Cardiovascular Risk HDL > or equal to 60 mg/dL LOW HDL < 40 mg/dL HIGHPerformed By: #### OUTREACH LIPID, LDL CHOL (M), OUTREACH GLYCO, CBCNOOUTREACH, PSA OUTREACH, OUTREACH CMP #### [facility] [address] [place] [address] USACholesterol.total/Cholesterol in HDL [Mass ratio]7.2 {ratio}Normal<5.0The [facility] Physician GroupComment on above:Result Comment: PERFORMED BY: [place] [address] PATHOLOGIST DATA DEVELOPER ELIZABETH CR M.D.Performed By: #### OUTREACH LIPID, LDL CHOL (M), OUTREACH GLYCO, CBCNOOUTREACH, PSA OUTREACH, OUTREACH CMP #### [facility] [address] [place] [address] USALDL Cholesterol,CalculatedNot performedNormal0-100The [facility] Physician GroupComment on above:Performed By: #### OUTREACH LIPID, LDL CHOL (M), OUTREACH GLYCO, CBCNOOUTREACH, PSA OUTREACH, OUTREACH CMP #### [facility] [address] [place] [phone] USATriglyceride w/Geoahy586 mg/dLHigh0-149The [facility] Physician GroupComment on above:Result Comment: TRIG ATP [...] GLYCO, CBCNOOUTREACH, PSA OUTREACH, OUTREACH CMP #### [facility] [address] [place] [address] USAVLDL OBEEACCOEIY089 mg/dLNoFormerly [facility] Physician GroupComment on above:Performed By: #### OUTREACH LIPID, LDL CHOL (M), OUTREACH GLYCO, CBCNOOUTREACH, PSA OUTREACH, OUTREACH CMP #### [facility] [address] [place] [address] [facility] Auto (RBC) [Entitic mass]Ordered By: OUTREACH COMMUNITY on 75-41-2496VPX (RBC) [Entitic mass]30.5 pg27.5-35.2FFayette County Memorial HospitalHC Auto (RBC) [Mass/Vol]Ordered By: OUTREACH COMMUNITY on 86-04-5875WVXY (RBC) [Mass/Vol]34.6 g/dL32.5-35.6FMercy Health St. Elizabeth Boardman HospitalMCV Auto (RBC) [Entitic vol]Ordered By: OUTREACH COMMUNITY on 12-17-2022 MCV (RBC) [Entitic vol]88.3 fL83.5-101[facility] HospitalNo Panel InformationOrdered By: OUTREACH COMMUNITY on 65-34-9714Mgpvakers GFR (CKD-EPI)> 60.0 mL/MinWayne HospitalPharmacy Creatinine Clearance (Chem N/[facility] JacksonOutreach Glycoon 08-30-7923Ewmafwb [Mass/Vol]171 mg/dLNoFormerly [facility] Physician GroupComment on above:Result Comment: PERFORMED BY: [facility] [address] [place] [address] PATHOLOGIST DATA DEVELOPER ELIZABETH CR M.D.Performed By: #### OUTREACH LIPID, LDL CHOL (M), OUTREACH GLYCO, CBCNOOUTREACH, PSA OUTREACH, OUTREACH CMP #### [facility] [address] [place] [address] BSYSvH4k (Bld) [Mass fraction]7.6 %High4.3-5.6The [facility] Physician GroupComment on above:Result Comment: Increased risk for diabetes: 5.7 - 6.4 diabetes: >6.4 glycemic control for adults with diabetes: <7.0Performed By: #### OUTREACH LIPID, LDL CHOL (M), OUTREACH GLYCO, CBCNOOUTREACH, PSA OUTREACH, OUTREACH CMP #### [facility] [address] [place] [id number] USAPSA Total Community Outreachon 93-04-6834RIM Total Community Outreach1.300 ng/mLNormal0.000-4.000The [facility] Comment on above:Result Comment: PERFORMED BY: [facility] [address] [facility] [place] [address] PATHOLOGIST DATA DEVELOPER ELIZABETH CR M.D.Performed By: #### OUTREACH LIPID, LDL CHOL (M), OUTREACH GLYCO, CBCNOOUTREACH, PSA OUTREACH, OUTREACH CMP #### [facility] [address] [place] [phone] USAPlatelet mean volume Auto (Bld) [Entitic vol]Ordered By: [facility]REACH COMMUNITY on 16-91-3854Pfimblju mean volume (Bld) [Entitic vol]8.8 fL 6.6-10.1FMercy Health St. Elizabeth Boardman HospitalPlatelets Auto (Bld) [#/Vol]Ordered By: OUTREACH COMMUNITY on 51-05-9388Qtiipxzvh (Bld) [#/Vol]141 10*3/kR431-506 [facility] HospitalPotassium [Moles/volume] in Serum or Plasma Ordered By: OUTREACH [facility] on 27-42-1307Ejxowhnck [Moles/Vol]3.8 mmol/L 3.5-5.1FMercy Health St. Elizabeth Boardman HospitalProstate specific Ag [Mass/volume] in Serum or PlasmaOrdered By: OUTREACH COMMUNITY on 65-66-1954Qpqrpqrj specific Ag [Mass/Vol]1.300 ng/mL0.000-4.000[facility] HospitalProtein [Mass/volume] in Serum or PlasmaOrdered By: OUTREACH COMMUNITY on 12-17-2022 Protein [Mass/Vol]6.5 g/dL6.4-8.9Way[facility] HospitalRBC Auto (Bld) [#/Vol]Ordered By: OUTREACH COMMUNITY on 96-06-2248GMX (Bld) [#/Vol]3.93 10*6/uL3.90-5.60Bluffton Hospitalerum or plasma anion gap determinationOrdered By: OUTREACH COMMUNITY on 45-03-9313Ubdvk gap [Moles/Vol] 10.7 mmol/L6.0-15.0Bluffton Hospitalerum or plasma high density lipoprotein (HDL) cholesterol measurementOrdered By: [facility] on 85-55-4819Nbuqihehxgf in HDL [Mass/Vol]25 mg/tD28-52WkioxooosWayne HospitalComment on above:HDL CHOL ATP-III CLASSIFICATION Cardiovascular RiskHDL > or equal to 60 mg/dL LOWHDL < 40 mg/dL HIGHSerum or plasma total cholesterol/high density lipoprotein (HDL) cholesterol mass ratOrdered By: [facility] on 33-78-6397Bqkafvisdpu.total/Cholesterol in HDL [Mass ratio]7.2 {ratio}<5.0Bluffton Hospitalodium [Moles/volume] in Serum or PlasmaOrdered By: [facility] on 60-18-0765Hopgcq [Moles/Vol]142 mmol/Q076-032RpgfdiczvWayne HospitalTriglyceride [Mass/volume] in Serum or PlasmaOrdered By: [facility] on 25-66-8147Ywwmucytghtp [Mass/Vol]595 mg/dL0-149Way[facility] HospitalComment on above:If the triglyceride result is greater than 400, LDLC and related calculations cannot be calculated and resulted.TRIG ATP III CLASSIFICATIONTRIG less than 150 mg/dL NormalTRIG 150-199 mg/dL BorderlinehighTRIG 200-500 mg/dL High TRIG greater than 500 mg/dL Very highStandard traceable to the Center for Disease Conrtrol and Prevention (CDC) test method.Urea nitrogen [Mass/volume] in Serum or Plasma Ordered By: OUTREACH [facility] on 58-54-2645Cfwt nitrogen [Mass/Vol]21 mg/dL7-25 [facility] HospitalAlanine aminotransferase [Enzymatic activity/volume] in Serum or PlasmaOrdered By: Efren Longo on 28-09-7264DSA [Catalytic activity/Vol]46 U/L7-52Way[facility] HospitalAlbumin [Mass/volume] in Serum or Plasma by Bromocresol green (BCG) dye binding metho Ordered By: Efren Longo on 98-49-7295Roqwwtw BCG dye [Mass/Vol]3.8 g/dL3.5-5.7 [facility] HospitalAlkaline phosphatase [Enzymatic activity/volume] in Serum or PlasmaOrdered By: Efren Longo on 36-29-7496MOS [Catalytic activity/Vol]65 U/S67-909UiqykplafWayne HospitalAspartate aminotransferase [Enzymatic activity/volume] in Serum or PlasmaOrdered By: Efren Longo on 94-03-9853VOT [Catalytic activity/Vol]38 U/V00-83JoaefzgrfWayne HospitalBand form neutrophils/100 WBC Manual cnt (Bld)Ordered By: Efren Longo on 15-84-0994Meib form neutrophils/100 WBC (Bld)12 %0-5FMercy Health St. Elizabeth Boardman HospitalBasophils Auto (Bld) [#/Vol]Ordered By: Efren Longo on 96-11-4991Oobqukalj (Bld) [#/Vol]N/[facility] Basophils/100 WBC Auto (Bld)Ordered By: Efren Longo on 29-13-3523Gektoaatq/100 WBC (Bld)N/[facility] – JacksonBilirubin.total [Mass/volume] in Serum or PlasmaOrdered By: Efren Longo on 21-81-2980Datbnglyl [Mass/Vol]0.6 mg/dL0.3-1.0Wayne HospitalCOVID CepheidOrdered By: Efren Longo on 62-66-6202WZVM-CoV-2 (COVID-19) Ab IA QlNegativeNegativeWayne HospitalComment on above:This is a duplicate Cepheid Xpert Xpress CoV-2/Flu/RSV Plus RNA by RT-PCR result to be used for statistical tracking purpose only.SARS-CoV-2 (COVID-19) RNA MAGALIS+probe Ql (Unsp spec)Way[facility] HospitalCOVID-19 / Flu A/B / RSV PCRon 20-92-8545LMTO-CoV-2 (COVID-19) RNA MAGALIS+probe Ql (Unsp spec)COVID-19 Cepheid [...] or Cepheid Disclaimer revoked sooner. PERFORMED BY: [facility] [address] [place] [address] PATHOLOGIST DATA DEVELOPER ELIZABETH CR M.D.[facility] Physician GroupComment on above:Performed By: #### COVID19 FLU RSV, CEPHEID NEG #### [facility] [address] [place] [address] USACalcium [Mass/volume] in Serum or PlasmaOrdered By: Efren Longo on 15-49-1502Yoqkoqg [Mass/Vol]9.7 mg/dL8.6-10.3FMercy Health St. Elizabeth Boardman HospitalCarbon dioxide, total [Moles/volume] in Serum or PlasmaOrdered By: Efren Longo on [id number] [Moles/Vol]26.9 mmol/L21.0-31.0Wayne HospitalCepheid COVID PCR Negativeon [id number]-CoV-2 (COVID-19) RNA MAGALIS+probe Ql (Unsp spec)NegativeNormalNegativeThe [facility] Comment on above:Result Comment: This is a duplicate Cepheid Xpert Xpress CoV- 2/Flu/RSV Plus RNA by RT-PCR result to be used for statistical tracking purpose only. PERFORMED BY: [place] [address] PATHOLOGIST DATA DEVELOPER ELIZABETH CR M.D.Performed By: #### OUTREACH LIPID, LDL CHOL (M), OUTREACH GLYCO, CBCNOOUTREACH, PSA OUTREACH, OUTREACH CMP #### [facility] [address] [place] [id number] USAChloride [Moles/volume] in Serum or PlasmaOrdered By: Efren Qing on 85-28-4770Pibjxyks [Moles/Vol]100 mmol/D90-399NzizzgyuvWayne HospitalComprehensive Metabolic Panelon 39-55-2786Xyepeuv [Mass/Vol]3.8 g/dLNormal3.5-5.7The [facility] [facility] Physician GroupComment on above:Performed By: #### OUTREACH LIPID, LDL CHOL (M), OUTREACH GLYCO, CBCNOOUTREACH, PSA OUTREACH, OUTREACH CMP #### [facility] [address] [place] [address] USAAlbumin/Globulin [Mass ratio]1.2 {ratio}NormalThe [facility] Physician GroupComment on above:Performed By: #### OUTREACH LIPID, LDL CHOL (M), OUTREACH GLYCO, CBCNOOUTREACH, PSA OUTREACH, OUTREACH CMP #### [facility] [address] [place] [address] USAALP [Catalytic activity/Vol]65 U/HQghhnj85-927Mnw [facility] Physician GroupComment on above:Performed By: #### OUTREACH LIPID, LDL CHOL (M), OUTREACH GLYCO, CBCNOOUTREACH, PSA OUTREACH, OUTREACH CMP #### [facility] [address] [place] [address] USAALT [Catalytic activity/Vol]46 U/LNormal7-52The [facility] Physician GroupComment on above:Performed By: #### OUTREACH LIPID, LDL CHOL (M), OUTREACH GLYCO, CBCNOOUTREACH, PSA OUTREACH, OUTREACH CMP #### [facility] [address] [place] [address] USAAnion gap [Moles/Vol]12.9 mmol/LNormal6.0-15.0The [facility] Physician GroupComment on above:Performed By: #### OUTREACH LIPID, LDL CHOL (M), OUTREACH GLYCO, CBCNOOUTREACH, PSA OUTREACH, OUTREACH CMP #### [facility] [address] [place] [address] USAAST [Catalytic activity/Vol]38 U/EMgozdr79-76Xex [facility] Physician GroupComment on above:Performed By: #### OUTREACH LIPID, LDL CHOL (M), OUTREACH GLYCO, CBCNOOUTREACH, PSA OUTREACH, OUTREACH CMP #### [facility] [address] [place], [place] [id number] USABilirubin [Mass/Vol]0.6 mg/dLNormal0.3-1.0The [facility] Physician GroupComment on above:Performed By: #### OUTREACH LIPID, LDL CHOL (M), OUTREACH GLYCO, CBCNOOUTREACH, PSA OUTREACH, OUTREACH CMP #### [facility] [address] [place] [address] USACalcium [Mass/Vol]9.7 mg/dLNormal8.6-10.3The [facility] Physician GroupComment on above:Performed By: #### OUTREACH LIPID, LDL CHOL (M), OUTREACH GLYCO, CBCNOOUTREACH, PSA OUTREACH, OUTREACH CMP #### [facility] [address] [place] [address] USAChloride [Moles/Vol]100 mmol/XPvvuso61-086Icp [facility] Physician GroupComment on above:Performed By: #### OUTREACH LIPID, LDL CHOL (M), OUTREACH GLYCO, CBCNOOUTREACH, PSA OUTREACH, OUTREACH CMP #### [place] [address] USACO2 [Moles/Vol]26.9 mmol/LOqthgo83.0-31.0The [facility] Physician GroupComment on above:Performed By: #### OUTREACH LIPID, LDL CHOL (M), OUTREACH GLYCO, CBCNOOUTREACH, PSA OUTREACH, OUTREACH CMP #### [place] [address] USACreatinine [Mass/Vol]0.94 mg/dLNormal0.70-1.30The [facility] Physician GroupComment on above:Performed By: #### OUTREACH LIPID, LDL CHOL (M), OUTREACH GLYCO, CBCNOOUTREACH, PSA OUTREACH, OUTREACH CMP #### [place] [address] USACreatinine Clr Calc Bzesfnxz301.48NormCleveland Clinic Weston Hospital Physician GroupComment on above:Result Comment: PERFORMED BY: [place] [address] PATHOLOGIST DATA DEVELOPER ELIZABETH CR M.D.Performed By: #### OUTREACH LIPID, LDL CHOL (M), OUTREACH GLYCO, CBCNOOUTREACH, PSA OUTREACH, OUTREACH CMP #### [place] [address] USAGFR/1.73 sq M.predicted MDRD (S/P/Bld) [Vol rate/Area] mL/min/{1.73_m2}NormalThe [facility] Physician GroupComment on above:Performed By: #### OUTREACH LIPID, LDL CHOL (M), OUTREACH GLYCO, CBCNOOUTREACH, PSA OUTREACH, OUTREACH CMP #### [place] [address] USAGlobulin (S) [Mass/Vol]3.2 g/dLNoFormerly [facility] Physician GroupComment on above:Performed By: #### OUTREACH LIPID, LDL CHOL (M), OUTREACH GLYCO, CBCNOOUTREACH, PSA OUTREACH, OUTREACH CMP #### [address] [address] USAGlucose [Mass/Vol]169 mg/zMWbyl65-133Oxj [facility] Physician GroupComment on above:Result Comment: Random Glucose Reference Range is dependent on time and content of last meal. Glucose of more than 200 mg/dL in a nonstressed, ambulatory subject supports the diagnosis of Diabetes Mellitus. ADA recommended reference rangePerformed By: #### OUTREACH LIPID, LDL CHOL (M), OUTREACH GLYCO, CBCNOOUTREACH, PSA OUTREACH, OUTREACH CMP #### [facility] [address] [place] [address] USAPotassium [Moles/Vol]3.8 mmol/LNormal3.5-5.1The [facility] Physician GroupComment on above:Performed By: #### OUTREACH LIPID, LDL CHOL (M), OUTREACH GLYCO, CBCNOOUTREACH, PSA OUTREACH, OUTREACH CMP #### [facility] [address] [place] [place] [address] USAProtein [Mass/Vol]7.0 g/dLNormal6.4-8.9The [facility] Physician GroupComment on above:Performed By: #### OUTREACH LIPID, LDL CHOL (M), OUTREACH GLYCO, CBCNOOUTREACH, PSA OUTREACH, OUTREACH CMP #### [facility] [address] [place] [place] [address] USASodium [Moles/Vol]136 mmol/EAensml905-921Huu [facility]ician GroupComment on above:Performed By: #### OUTREACH LIPID, LDL CHOL (M), OUTREACH GLYCO, CBCNOOUTREACH, PSA OUTREACH, OUTREACH CMP #### [facility] [address] [place] [place] [address] USAUrea nitrogen [Mass/Vol]18 mg/dLNormal7-25The [facility]ician GroupComment on above:Performed By: #### OUTREACH LIPID, LDL CHOL (M), OUTREACH GLYCO, CBCNOOUTREACH, PSA OUTREACH, OUTREACH CMP #### [facility] [address] [place] [place] [address] USACreatinine [Mass/volume] in Serum or PlasmaOrdered By: Efren Longo on 67-05-6435Txqjqcfmkf [Mass/Vol]0.94 mg/dL0.70-1.30Wayne HospitalDiff and CBCon 50-86-1213Eybq form neutrophils/100 WBC (Bld)12 %High0-5The [facility] Physician GroupComment on above:Performed By: #### OUTREACH LIPID, LDL CHOL (M), OUTREACH GLYCO, CBCNOOUTREACH, PSA OUTREACH, OUTREACH CMP #### [facility] [address] [place] [address] USAErythrocyte distribution width (RBC) [Ratio]13.6 %Normal 12.0-14.8The [facility] Physician GroupComment on above:Performed By: #### OUTREACH LIPID, LDL CHOL (M), OUTREACH GLYCO, CBCNOOUTREACH, PSA OUTREACH, OUTREACH CMP #### [facility] [address] [place] [address] USAGiant Platelet Tally3 /100{WBC}NormalThe [facility] Physician GroupComment on above:Performed By: #### OUTREACH LIPID, LDL CHOL (M), OUTREACH GLYCO, CBCNOOUTREACH, PSA OUTREACH, OUTREACH CMP #### [facility] [address] [place] [address] USAHematocrit (Bld) [Volume fraction]37.7 %Low38.8-50.0The [facility] Physician GroupComment on above:Performed By: #### OUTREACH LIPID, LDL CHOL (M), OUTREACH GLYCO, CBCNOOUTREACH, PSA OUTREACH, OUTREACH CMP #### [facility] [address] [place], [place] [address] USAHemoglobin (Bld) [Mass/Vol]12.9 g/dLLow13.0-17.0The [facility]ician GroupComment on above:Performed By: #### OUTREACH LIPID, LDL CHOL (M), OUTREACH GLYCO, CBCNOOUTREACH, PSA OUTREACH, OUTREACH CMP #### [facility] [address] [place], [place] [address] USALymphocytes/100 WBC (Bld)14 %Upl32-03Zkz [facility] Physician GroupComment on above:Performed By: #### OUTREACH LIPID, LDL CHOL (M), OUTREACH GLYCO, CBCNOOUTREACH, PSA OUTREACH, OUTREACH CMP #### [address] StreetH (RBC) [Entitic mass]30.4 woLzymwt22.5-35.2The [facility] Physician GroupComment on above:Performed By: #### OUTREACH LIPID, LDL CHOL (M), OUTREACH GLYCO, CBCNOOUTREACH, PSA OUTREACH, OUTREACH CMP #### [address]V (RBC) [Entitic vol]88.9 mDGkptum70.5-101The [facility] Physician GroupComment on above:Performed By: #### OUTREACH LIPID, LDL CHOL (M), OUTREACH GLYCO, CBCNOOUTREACH, PSA OUTREACH, OUTREACH CMP #### [place] [address] USAMean Corpuscular HGB Conc34.2 g/mXNqkedg92.5-35.6The [facility] Physician GroupComment on above:Performed By: #### OUTREACH LIPID, LDL CHOL (M), OUTREACH GLYCO, CBCNOOUTREACH, PSA OUTREACH, OUTREACH CMP #### [place] [address] USAMonocytes/100 WBC (Bld)36.68 %High0.00-20.00The [facility] Physician GroupComment on above:Result Comment: The predictive value of MDW for identifying sepsis in patients with hematological abnormalities has not been establishedPerformed By: #### OUTREACH LIPID, LDL CHOL (M), OUTREACH GLYCO, CBCNOOUTREACH, PSA OUTREACH, OUTREACH CMP #### [place] [address] USAMonocytes/100 WBC (Bld)17 %High2-11The [facility]ician GroupComment on above:Performed By: #### OUTREACH LIPID, LDL CHOL (M), OUTREACH GLYCO, CBCNOOUTREACH, PSA OUTREACH, OUTREACH CMP #### [place] [address] USAMyelocytes2 %High0-0The [facility] Physician GroupComment on above:Performed By: #### OUTREACH LIPID, LDL CHOL (M), OUTREACH GLYCO, CBCNOOUTREACH, PSA OUTREACH, OUTREACH CMP #### [place] [address] USAPlatelet EstimateDecreasedNormalHalifax Health [facility] of [facility] Physician GroupComment on above:Performed By: #### OUTREACH LIPID, LDL CHOL (M), OUTREACH GLYCO, CBCNOOUTREACH, PSA OUTREACH, OUTREACH CMP #### [place] [address] USAPlatelet mean volume (Bld) [Entitic vol]8.9 fLNormal 6.6-10.1The [facility] Physician GroupComment on above:Performed By: #### OUTREACH LIPID, LDL CHOL (M), OUTREACH GLYCO, CBCNOOUTREACH, PSA OUTREACH, OUTREACH CMP #### [place] [address] USAPlatelet MorphologyNormalNormalHalifax [facility] Physician GroupComment on above:Result Comment: PERFORMED BY: [place] [address] PATHOLOGIST DATA DEVELOPER ELIZABETH CR M.D.Performed By: #### OUTREACH LIPID, LDL CHOL (M), OUTREACH GLYCO, CBCNOOUTREACH, PSA OUTREACH, OUTREACH CMP #### [place] [address] USAPlatelets (Bld) [#/Vol]106 10*3/rASei780-097Nka [facility] Physician GroupComment on above:Performed By: #### OUTREACH LIPID, LDL CHOL (M), OUTREACH GLYCO, CBCNOOUTREACH, PSA OUTREACH, OUTREACH CMP #### [place] [address] USARBC (Bld) [#/Vol]4.24 10*6/uLNormal3.90-5.60The [facility] Physician GroupComment on above:Performed By: #### OUTREACH LIPID, LDL CHOL (M), OUTREACH GLYCO, CBCNOOUTREACH, PSA OUTREACH, OUTREACH CMP #### [place] [address] USARBC morphology finding Nom (Bld)NormalNormalHalifax [facility] Physician GroupComment on above:Performed By: #### OUTREACH LIPID, LDL CHOL (M), OUTREACH GLYCO, CBCNOOUTREACH, PSA OUTREACH, OUTREACH CMP #### [facility] [address] [place] [address] USASegmented neutrophils/100 WBC (Bld)56 %Uxvaqc23-81Sdl [facility] Physician GroupComment on above:Performed By: #### OUTREACH LIPID, LDL CHOL (M), OUTREACH GLYCO, CBCNOOUTREACH, PSA OUTREACH, OUTREACH CMP #### [facility] [address] [place] [address] USAWBC (Bld) [#/Vol]2.9 10*3/uLLow4.1-10.5The [facility] Physician GroupComment on above:Performed By: #### OUTREACH LIPID, LDL CHOL (M), OUTREACH GLYCO, CBCNOOUTREACH, PSA OUTREACH, OUTREACH CMP #### [facility] [address] [place], [place] [address] USAECG 12 lead ECGon 28-34-1717IKZ 12 lead ECGUNIVERSITY [facility] Main [place] [address] [place] [address] Electrocardiograph Report Signed Patient: Margaret Woods MR#: [id number] : 1960 Acct:[id number] Age/Sex: 62 / M ADM Date: 12/14/22 Loc: ER Room: Type: [facility] ER Attending Dr: Ordering Provider: Efren [...] By: MUS Signed By Efren Longo DO 0658[facility] Physician GroupEosinophils Auto (Bld) [#/Vol]Ordered By: Efren Longo on 03-10-0522Aopnqlyhcqr (Bld) [#/Vol]N/[facility] JacksonEosinophils/100 WBC Auto (Bld)Ordered By: Efren Longo on 05-94-6176Sbeipwqjwve/100 WBC (Bld)N/[facility] Erythrocyte distribution width Auto (RBC) [Ratio]Ordered By: Efren Longo on 32-88-9844Bhlfsbbwpcl distribution width (RBC) [Ratio]13.6 %12.0-14.8Wayne HospitalGiant platelets/100 leukocytes [Ratio] in Blood by Manual countOrdered By: Efren Longo on 03-94-8478Jntnm platelets/100 WBC Manual cnt (Bld) [Ratio]3 /100{WBC}Wayne HospitalGlobulin Calc (S) [Mass/Vol]Ordered By: Efren Longo on 76-83-7728Oqclvcbh (S) [Mass/Vol]3.2 g/dL Wayne HospitalGlucose [Mass/volume] in Serum or PlasmaOrdered By: Efren Longo on 53-61-3774Qansvbx [Mass/Vol]169 mg/aV93-388DzlhacuziWayne HospitalComment on above:ADA recommended reference rangeRandom Glucose Reference Range is dependent on time and content of last meal. Glucose of more than 200 mg/dL in a nonstressed, ambulatory subject supports the diagnosisof Diabetes Mellitus.Hematocrit Auto (Bld) [Volume fraction]Ordered By: Efren Longo on 12-00-3059Mltxuszxvk (Bld) [Volume fraction]37.7 %38.8-50.0 Wayne HospitalHemoglobin [Mass/volume] in BloodOrdered By: Efren Longo on 34-35-1674Egahdkintg (Bld) [Mass/Vol]12.9 g/dL13.0-17.0Wayne HospitalLeukocytes [#/volume] corrected for nucleated erythrocytes in Blood by Automated counOrdered By: Efren Longo on 83-89-9717AFH corrected for nucl RBC Auto (Bld) [#/Vol]2.9 10*3/uL4.1-10.5FMercy Health St. Elizabeth Boardman HospitalLymphocytes Auto (Bld) [#/Vol]Ordered By: Efren Longo on 17-09-4198Ccdicihghlk (Bld) [#/Vol]N/[facility] Lymphocytes/100 WBC Auto (Bld)Ordered By: Efren Longo on 12-14-2022 Lymphocytes/100 WBC (Bld)N/[facility] – JacksonLymphocytes/100 WBC Manual cnt (Bld)Ordered By: Efren Longo on 15-47-5707Zzrwcsuwxgk/100 WBC (Bld) 14 %18-42[facility] CenterH Auto (RBC) [Entitic mass]Ordered By: Efren Longo on 43-63-3662RRO (RBC) [Entitic mass]30.4 pg27.5-35.2FFayette County Memorial HospitalHC Auto (RBC) [Mass/Vol]Ordered By: Efren Longo on 21-94-7457DIJY (RBC) [Mass/Vol]34.2 g/dL32.5-35.6FMercy Health St. Elizabeth Boardman HospitalMCV Auto (RBC) [Entitic vol]Ordered By: Efren Longo on 78-13-6278IGA (RBC) [Entitic vol]88.9 fL83.5-101Wayne HospitalMonocyte distribution width [Entitic volume] in Blood by AutomatedOrdered By: Efren Longo on 95-99-4084Ihuzvhst distribution width Auto (Bld) [Entitic vol]36.68 % 0.00-20.00Wayne HospitalComment on above:The predictive value of MDW for identifying sepsis in patients with hematological abnormalities has not been establishedMonocytes Auto (Bld) [#/Vol]Ordered By: Efren Longo on 55-17-4187Zhmjkmtyx (Bld) [#/Vol]N/[facility] Monocytes/100 WBC Auto (Bld)Ordered By: Efren Longo on 84-82-9773Itqofpwil/100 WBC (Bld)N/[facility] JacksonMonocytes/100 WBC Manual cnt (Bld) Ordered By: Efren Longo on 00-07-9189Djcuiwvag/100 WBC (Bld)17 %2-11Wayne HospitalMyelocytes/100 WBC Manual cnt (Bld)Ordered By: Efren Longo on 34-75-8530Ebvdeuvass/100 WBC (Bld)2 %0-0Wayne HospitalNeutrophils Auto (Bld) [#/Vol]Ordered By: Efren Longo on 12-14-2022 Neutrophils (Bld) [#/Vol]N/[facility] JacksonNeutrophils/100 WBC Auto (Bld)Ordered By: Efren Longo on 34-88-0171Vrigyjxybrf/100 WBC (Bld)N/A Wayne HospitalNo Panel InformationOrdered By: Efren Longo on 53-88-7765Eywrnzizv GFR (CKD-EPI)> 60.0 mL/MinWayne Hospital Pharmacy Creatinine Clearance (Swvq659.48[facility] Nucleated erythrocytes [Presence] in Blood by Automated countOrdered By: Efren Longo on 67-16-4848Pstwpsige RBC Auto Ql (Bld)N/[facility] JacksonPlatelet adequacy [Presence] in Blood by Light microscopyOrdered By: Efren Longo on 04-06-4364Gqbtdzbzj LM Ql (Bld)DecreasedNormCleveland Clinic Mentor HospitalPlatelet mean volume Auto (Bld) [Entitic vol]Ordered By: Efren Longo on 20-88-5510Iehsiyws mean volume (Bld) [Entitic vol]8.9 fL6.6-10.1 Wayne HospitalPlatelet morphology finding [Identifier] in BloodOrdered By: Efren Longo on 63-23-8121Sdyvodot morphology finding Nom (Bld) NormalNormCleveland Clinic Mentor HospitalPlatelets Auto (Bld) [#/Vol]Ordered By: Efren Longo on 59-24-6398Zoejfkovu (Bld) [#/Vol]106 10*3/lC382-139 Wayne HospitalPotassium [Moles/volume] in Serum or Plasma Ordered By: Efren Longo on 67-10-5620Vmypyykyr [Moles/Vol]3.8 mmol/L3.5-5.1 [facility] HospitalProtein [Mass/volume] in Serum or PlasmaOrdered By: Efren Longo on 54-21-2785Jmafdhc [Mass/Vol]7.0 g/dL6.4-8.9Wayne HospitalRBC Auto (Bld) [#/Vol]Ordered By: Efren Longo on 45-87-1938HWG (Bld) [#/Vol]4.24 10*6/uL3.90-5.60Wayne HospitalRB morphologyOrdered By: Efren Longo on 24-10-8238USV morphology finding Nom (Bld)NormalNormalBluffton Hospitalegmented neutrophils/100 WBC Manual cnt (Bld)Ordered By: Efren Longo on 01-47-9841Kdsackkwi neutrophils/100 WBC (Bld)56 %50-70Bluffton Hospitalerum or plasma albumin/globulin mass ratioOrdered By: Efren Longo on 12-14-2022 Albumin/Globulin [Mass ratio]1.2 {ratio}Bluffton Hospitalerum or plasma anion gap determinationOrdered By: Efren Longo on 38-75-9369Mvmna gap [Moles/Vol]12.9 mmol/L6.0-15.0Bluffton Hospitalodium [Moles/volume] in Serum or PlasmaOrdered By: Efren Longo on 57-77-5308Gztxig [Moles/Vol]136 mmol/S473-475AknlyibjtWayne HospitalUrea nitrogen [Mass/volume] in Serum or PlasmaOrdered By: Efren Longo on 65-69-6392Raqc nitrogen [Mass/Vol]18 mg/dL7-25Wayne HospitalWBC Auto (Bld) [#/Vol]Ordered By: Efren Longo on 37-97-2264GHA (Bld) [#/Vol]2.9 10*3/uL 4.1-10.5FMercy Health St. Elizabeth Boardman HospitalXR chest 1V portableon 53-86-3675KF chest 1[place] [address] XRay Report Signed Patient: Margaret Woods MR#: [id number] : 1960 Acct:[id number] Age/Sex: 62 / M ADM Date: 12/14/22 Loc: ER Room: Type: [facility] ER Attending Dr: Copies to: Efren [...] Lynn Renner M.D.12/14/2022 8:10 AM Dictation Location: [place] [address] Transcribed By: KIMMY 12/14/22809 Dictated By: Lynn Renner MD 12/14/22808 Signed By: 12/14/22 0810[facility] Physician GroupLIPID PROFILE SEND OUTon 02-89-2747Dmursnapcvi [Mass/Vol]471 mg/dLCritically ljfr243-250Wlg [facility] HospitalComment on above:Performed By: #### LIPIDLC, CMPLC #### [facility] [address] [place] [address] Dr. Smitha FinneganCholesterol in HDL [Mass/Vol]15 mg/dLCritically low>39The [facility] HospitalComment on above:Performed By: #### LIPIDLC, CMPLC #### [facility] [address] [address] [address] Smitha FinneganComment:NormalThe [facility] HospitalComment on above:Performed By: #### LIPIDLC, CMPLC #### [facility] [address] [address] [address] Smitha FinneganLDL Chol. Calc. ([facility])CommentAbnormal0-99[facility] Comment on above:Result Comment: Triglyceride result indicated is too high for an accurate LDL cholesterol estimation.Performed By: #### LIPIDLC, CMPLC #### [facility] [address] [place] [address] Dr. Smitha FinneganTriglyceride [Mass/Vol]3806 mg/dLInvalid Interpretation Code0-149 [facility] on above:Result Comment: Results confirmed on dilution.Performed By: #### LIPIDLC, CMPLC #### [facility] [address] [place] [address] Dr. Smitha FinneganVLDL Cholesterol, CalcCommentAbnormal5-40The [facility] Comment on above:Result Comment: The calculation for the VLDL cholesterol is not valid when triglyceride level is >800 mg/dL.Performed By: #### LIPIDLC, CMPLC #### [facility] [address] [place] [address] Dr. Smitha FinneganPROF 14(COMP METB) SEND OUTon 43-61-7225Dhxstox [Mass/Vol]4.2 g/dLNormal3.8-4.8The [facility] HospitalComment on above:Result Comment: Specimen received lipemic. Value may be decreased by lipemia. Clinical correlation indicated.Performed By: #### LIPIDLC, CMPLC #### [facility] [address] [place] [address] Dr. Smitha FinneganAlbumin/Globulin [Mass ratio]1.4 {ratio}Normal1.2-2.2The [facility] HospitalComment on above:Performed By: #### LIPIDLC, CMPLC #### [facility] [address] [place] [address] Dr. Smitha Bhandari [Catalytic activity/Vol]131 U/LCritically vlcx15-624Vva [facility] HospitalComment on above:Performed By: #### LIPIDLC, CMPLC #### [facility] [address] [place] [address] Dr. Smitha Whitman [Catalytic activity/Vol]42 U/LNormal0-44The [facility] Comment on above:Performed By: #### LIPIDLC, CMPLC #### [facility] [address] [place] [address] Dr. Smitha FinneganAST [Catalytic activity/Vol]31 U/LNormal0-40The [facility] Comment on above:Performed By: #### LIPIDLC, CMPLC #### [facility] [address] [place] [address] Dr. Smitha FinneganBilirubin [Mass/Vol]mg/dLNormal0.0-1.2The [facility] Comment on above:Performed By: #### LIPIDLC, CMPLC #### [facility] [address] [place] [address] Dr. Smitha FinneganCalcium [Mass/Vol]10.2 mg/dLNormal8.6-10.2The [facility] Comment on above:Performed By: #### LIPIDLC, CMPLC #### [facility] [address] [place] [address] Dr. Smitha FinneganChloride [Moles/Vol]95 mmol/LCritically mji93-526Qdl [facility] HospitalComment on above:Performed By: #### LIPIDLC, CMPLC #### [facility] [address] [place] [address] Dr. Smitha FinneganCO2 [Moles/Vol]23 mmol/HGbzffz63-83Ofz [facility] HospitalComment on above:Performed By: #### LIPIDLC, CMPLC #### [facility] [address] [place] [address] Dr. Smitha FinneganCreatinine [Mass/Vol]0.92 mg/dLNormal0.76-1.27The [facility] HospitalComment on above:Performed By: #### LIPIDLC, CMPLC #### [facility] [address] [place] [address] Dr. Smitha FinneganGFR/1.73 sq M.predicted among non-blacks MDRD (S/P/Bld) [Vol rate/Area]95 mL/min/{1.73_m2}Normal>59The [facility] HospitalComment on above: Performed By: #### LIPIDLC, CMPLC #### [facility] [address] [place] [address] Dr. Smitha FinneganGlobulin (S) [Mass/Vol]3.0 g/dLNormal1.5-4.5The [facility] Comment on above:Performed By: #### LIPIDLC, CMPLC #### [facility] [address] [address] [address] Smitha FinneganGlucose [Mass/Vol]281 mg/dLCritically ggmm65-35Eaj [facility] HospitalComment on above:Performed By: #### LIPIDLC, CMPLC #### [facility] [address] [address] [address] Smitha FinneganPotassium [Moles/Vol]4.2 mmol/LNormal3.5-5.2[facility] Comment on above:Performed By: #### LIPIDLC, CMPLC #### [facility] [address] [address] [address] Smitha FinneganProtein [Mass/Vol]7.2 g/dLNormal6.0-8.5ThBarnesville Hospital Comment on above:Performed By: #### LIPIDLC, CMPLC #### [facility] [address] [address] [address] Smitha FinneganSodium [Moles/Vol]135 mmol/MDnrlkr909-786IvtTrinity Health System West Campus Comment on above:Performed By: #### LIPIDLC, CMPLC #### [facility] [address] [address] [address] Smitha FinneganUrea nitrogen [Mass/Vol]17 mg/dLNormal8-27[facility] Comment on above:Performed By: #### LIPIDLC, CMPLC #### [facility] [address] [address] [address] Smitha FinneganUrea nitrogen/Creatinine [Mass ratio]18 mg/hcWhvzkl83-85Wgx [facility] HospitalComment on above:Performed By: #### LIPIDLC, CMPLC #### [facility] Laboratory [address] [place] [address] Dr. Smitha FinneganCBC AUTO DIFFon 51-65-1332DOPX #0.0 103/ulNormal0.0-0.1The [facility] HospitalComment on above:Performed By: #### CBC ####[facility] [address]vb[address]vjy[address] [place], [place] [address]Dr.Smitha ChangBasophils/100 WBC (Bld)0.4 %Normal0.2-2.0The [facility] HospitalComment on above:Performed By: #### CBC ####[facility] Hruepmwqog[address] [place], [place] [address]Dr.Yilan ChangEO #0.1 103/ulNormal0.0-0.7The [facility] HospitalComment on above:Performed By: #### CBC ####[facility] I[address] [place], [place] [address]Dr.Smitha ChangEosinophils/100 WBC (Bld)1.9 %Normal 0.9-7.0The [facility] HospitalComment on above:Performed By: #### CBC ####[facility] Sdhlud[address] [place], [place] [address]Dr.Sarinabelgica Finnegan Erythrocyte distribution width (RBC) [Ratio]12.9 %Vrhugv55.0-15.0The [facility] HospitalComment on above:Performed By: #### CBC ####[facility] [address] [place], [place] [address]Dr.Smitha ChangHematocrit (Bld) [Volume fraction]42.8 %Mhbiwd89.0-54.0The [facility] HospitalComment on above:Performed By: #### CBC ####[facility] Oonyxhlfya[address] [place], [place] [address]Dr.Smitha ChangHemoglobin (Bld) [Mass/Vol]15.2 g/dL Hpdukh27.0-18.0The [facility] HospitalComment on above:Performed By: #### CBC ####[facility] Srnyorzsij[address] [place], [place] [address]Dr. Sarinalan ChangIG #0.09 10e3/ulCritically high0.00-0.03The [facility] HospitalComment on above:Performed By: #### CBC ####[facility] Licdhdxnkw[address] [place], [place] [address]Dr.Smitha ChangIG %1.3 %Critically high0.0-0.5The [facility] HospitalComment on above:Performed By: #### CBC ####[facility] [address] [address]Dr.Smitha KainLYMPH #1.7 103/ulNormal1.2-3.8The [facility] HospitalComment on above:Performed By: #### CBC ####[facility] [address] [address]Dr. Smitha KainLymphocytes/100 WBC (Bld)24.3 %Tkauie41.5-60.0The [facility] Comment on above:Performed By: #### CBC ####[facility] Tyzcfaqepy[address] [place], [place] [address]Dr.Sarinabelgica KainMANUAL DIFF REQNONormalThe [facility] HospitalComment on above:Performed By: #### CBC ####[facility] Jgpxakxhmm[address] [place], [place] [address]Dr.Smitha FinneganH (RBC) [Entitic mass]32.1 csWwewdu32.9-34.0The [facility] HospitalComment on above: Performed By: #### CBC ####[facility] Yzofytonyd[address] [place], [place] [address]Dr.Smitha FinneganMCHC (RBC) [Mass/Vol]35.5 g/dLCritically high29.9-35.2[facility] CampusComment on above:Performed By: #### CBC ####[facility] Sokhcamdeh[address] [place], [place] [address]Dr. Smitha FinneganV (RBC) [Entitic vol]90.5 aTIodale92.0-94.0[facility] Comment on above:Performed By: #### CBC ####[facility] [address]qwugmbt[address] [place], [place] [address]Dr.Smitha FinneganMONO #0.4 103/ulNormal0.3-0.8 The [facility] HospitalComment on above:Performed By: #### CBC ####[facility] Mcfjjcgwat[address] [place], [place] [address]Dr.Smitha Finnegan Monocytes/100 WBC (Bld)6.5 %Normal1.7-12.0The [facility] HospitalComment on above: Performed By: #### CBC ####[facility] [address] [address]Dr.Smitha FinneganNEUT #4.5 103/ulNormal1.4-6.5The [facility] HospitalComment on above:Performed By: #### CBC ####[facility] [address] [address]Dr.Smitha FinneganNeutrophils/100 WBC (Bld)65.6 %Qtnhww65.0-75.0The [facility] HospitalComment on above:Performed By: #### CBC ####[facility] [address] [place] [address]Dr.Smitha FinneganPlatelet mean volume (Bld) [Entitic vol]10.5 fLNormal9.5-13.5 The [facility] HospitalComment on above:Performed By: #### CBC ####[facility] Fyxoblskcb[address] [place], [place] [address]Dr.Smitha HztwsODP611 103/wxMxxpda910-903Hsj [facility] HospitalComment on above:Performed By: #### CBC ####[facility] Oikfahykux[address] [place], [place] [address]Dr. Smitha ChangRBC4.73 106/ulNormal4.70-6.10The [facility] HospitalComment on above: Performed By: #### CBC ####[facility] Eueydatemr[address] [place], [place] [address]Dr.Smitha ChangWBC6.8 103/ulNormal4.0-11.0The [facility] HospitalComment on above:Performed By: #### CBC ####[facility] Uzmgpchoka[address] [place], [place] [address]Dr.Smitha FinneganGLYCOHEMOGLOBIN A1Con 52-52-4605OLK RECOMMENDATIONSEE [facility] HospitalComformerly [facility] on above:Result Comment: ADA RECOMMENDED LIMIT 4.0 - 6.0 ADA THERAPEUTIC TARGET < 7.0 ACTION SUGGESTED > 7.0Performed By: #### A1C #### [facility] [address] [place], [place] [address] Dr. Smitha FinneganGlucose [Mass/Vol]194 mg/dLNormalThe [facility] HospitalComment on above:Performed By: #### A1C #### [facility] [address] [place], [place] [address] Dr. Smitha FinneganHbA1c (Bld) [Mass fraction]8.4 %Critically high4.5-6.2The [facility] HospitalComment on above:Performed By: #### A1C #### [facility] [address] [address] [address] Smitha FinneganMG MAMM DIAGNOSTIC 3D JERMAINE CADon 70-19-7717MY MAMM DIAGNOSTIC 3D JERMAINE CADPatient: MARGARET WOODS Exam Date: 04/13/2022 : 1960 Gender:M Ordering : DR CORWIN HANNAH D.O. Admission #: [id number] Family : Order #: [id number] CLICK HERE TO VIEW EXAM RADIOLOGY REPORT PROCEDURE: MAMMOGRAM DIAGNOSTIC 3D BILATERAL CAD, 04/13/2022, 12:46 ULTRASOUND BREAST LEFT LIMITED, 04/13/2022, 13:38 COMPARISON: None. INDICATIONS: Hypertrophy of breast Calculator Name NCI Breast Cancer Risk Assessment Tool 5 Year Breast Cancer Risk Not Applicable. Lifetime Breast Cancer Risk Not Applicable. Personal Breast Cancer No Personal Ovarian Cancer No Treatments None Family Cancers None LOCATION: [facility] BREAST COMPOSITION: Almost entirely fatty. FINDINGS: [...] by: Chris Reno M.D. on 04/13/2022 at 14:54[facility] HospitalMICROALBUMIN, RAND URon 59-29-6543dJND01.6 mg/LCritically high<=30.0The [facility] HospitalComment on above:Performed By: #### MALBR #### [facility] Laboratory [address] [address] [address] Smitha Hawkins BREAST LEFT LIMITEDon 69-35-7897XQ BREAST LEFT LIMITEDPatient: MARGARET WOODS Exam Date: 04/13/2022 : 1960 Gender:M Ordering : DR CORWIN HANNAH D.O. Admission #: [id number] Family : Order #: [id number] CLICK HERE TO VIEW EXAM RADIOLOGY REPORT PROCEDURE: MAMMOGRAM DIAGNOSTIC 3D BILATERAL CAD, 04/13/2022, 12:46 ULTRASOUND BREAST LEFT LIMITED, 04/13/2022, 13:38 COMPARISON: None. INDICATIONS: Hypertrophy of breast Calculator Name NCI Breast Cancer Risk Assessment Tool 5 Year Breast Cancer Risk Not Applicable. Lifetime Breast Cancer Risk Not Applicable. Personal Breast Cancer No Personal Ovarian Cancer No Treatments None Family Cancers None LOCATION: [facility] BREAST COMPOSITION: Almost entirely fatty. FINDINGS: [...] by: Chris Reno M.D. on 04/13/2022 at 14:54[address] [facility] Warren HospitalCovid-19 PCR (CVDTBH)on 78-33-1589GBBP-CoV-2 (COVID-19) RNA MAGALIS+probe Ql (Unsp spec)Not detectedNormalNOT DETECTEDThe [facility] HospitalComment on above: Result Comment: When diagnostic [...] for this test is supported by the [place] of Health and Human Service's declaration that [...] no longer be used).Performed By: #### CVDTB ####[facility] [address] [place], [place] [address]Ua. Yilan ChangPhysician Orderon 28-33-6527Qqbtrolnk Order [id number]#1.00CD:127[facility] Vital Signs Date TimeVital SignValuePerforming EdwqvorqgSjdphoty17-08-6711 10:06-0400Body hzguqq985.96 cmBenjamin Ball DO Work Phone: [facility]06-25-2025 10:06-0400 Body mass index (BMI) [Ratio]41.2 kg/t8Ynwoidgp Ball DO Work Phone: [facility]06-25-2025 10:06-0400 Body yetiwx030.6 kgBenjamin Ball DO Work Phone: [phone]06-25-2025 10:06-0400 Diastolic blood mrqfyuiv32 mm[Hg]Corwin Ball DO Work Phone: [phone]06-25-2025 10:06-0400 Heart rate89 /minBenjamin Ball DO Work Phone: [phone]06-25-2025 10:06-0400 Respiratory rate12 /minBenjamin Ball DO Work Phone: [phone]06-25-2025 10:06-0400 Systolic blood ekrftfea601 mm[Hg]Corwin Ball DO Work Phone: [phone]06-11-2025 07:49-0400 Body gelpsd709.96 cmWay[facility]06-11-2025 07:49-0400Body mass index (BMI) [Ratio]41.3 kg/p4DmwldeoapWayne Hospital06-11-2025 07:49-0400Body ghzmix362 [facility]03-04-2025 14:34-0500Body bsicae987.96 cmWayne Hospital03-04-2025 14:34-0500Body mass index (BMI) [Ratio]41.3 kg/p0RgcfsuxgpWayne Hospital03-04-2025 14:34-0500Body .05 kgWay[facility] 05-14-2024 14:34-0500Diastolic blood zefhjhkk16 mm[Hg][facility]03-04-2025 14:34-0500Heart rate94 /[facility] 05-14-2024 14:34-0500Systolic blood qsxcikta543 mm[Hg][facility]02-21-2025 11:49-0500Body grfbti942.96 cmWayne Hospital02-21-2025 11:49-0500Body mass index (BMI) [Ratio]40.4 kg/h0SqfxvhhkdWayne Hospital02-21-2025 11:49-0500Body dyrdis134.93 kgWay[facility] Hospital02-21-2025 11:49-0500Diastolic blood yvmpirjd748 mm[Hg] [facility]02-21-2025 11:49-0500Heart qchi027 /min [facility]02-21-2025 11:49-0500Respiratory rate12 /min [facility]02-21-2025 11:49-0500Systolic blood tjhqpywm363 mm[Hg][facility]09-23-2024 13:32-0400Body .96 cmWay[facility] Hospital09-23-2024 13:32-0400Body mass index (BMI) [Ratio]40 kg/w2SjdddjoywWayne Hospital09-23-2024 13:32-0400Body iqsqycnknld76.8 [degF][facility]09-23-2024 13:32-0400Body ycqpip280.52 kgWay[facility] Hospital09-23-2024 13:32-0400Diastolic blood wufekyzm83 mm[Hg][facility]09-23-2024 13:32-0400 Heart rate90 /minWayne Hospital09-23-2024 13:32-8519WbD7% (BldA) [Mass fraction]98 %[facility]09-23-2024 13:32-0400 Systolic blood vjgryxzt935 mm[Hg][facility]05-28-2024 08:40-0400Body pdwyaa274.96 cmDO Stamps[employer] Work Phone: [facility]05-28-2024 08:40-0400 Body mass index (BMI) [Ratio]39.6 kg/m2DO Corwin Ball Work Phone: [facility]05-28-2024 08:40-0400 Body nfbazp876.33 kgDO Corwin [employer]pace Work Phone: [facility]05-28-2024 08:40-0400 Diastolic blood mm[Hg]DO Corwin [employer] Work Phone: [facility]05-28-2024 08:40-0400 Heart opmf966 /minDO Corwin Ball Work Phone: [phone]05-28-2024 08:40-0400 Respiratory rate16 /minDO Corwin Ball Work Phone: [phone]05-28-2024 08:40-0400 Systolic blood epmaqykb587 mm[Hg]DO Corwin Ball Work Phone: [phone]05-08-2024 09:06-0400 Body .96 cmDO Corwin Hannah Work Phone: [phone]05-08-2024 09:06-0400 Body mass index (BMI) [Ratio]39.5 kg/m2DO Corwin Hannah Work Phone: [phone]05-08-2024 09:06-0400 Body ezdgdg638.7 kgDO Corwin Hannah Work Phone: [phone]10-20-2023 09:30-0400 Body .96 cmBenjamin Ball Other [place] [employer] Other [id number] 09:30-0400Body mass index (BMI) [Ratio] 39.62 kg/a9Byefftmt Ball Other [place] [employer] Other 10-20-2023 09:30-0400Body wiyeqa028.98 kgBenjamin Ball Other [place] [employer] Other 10-20-2023 09:30-0400Diastolic blood ocficunh27 mm[Hg] Corwin Ball Other [place] [employer] Other 10-20-2023 09:30-0400Respiratory rate12 /minBenjamin Ball Other [employer] Other 10-20-2023 09:30-0400Systolic blood clalgukz985 mm[Hg] Corwin Ball Other [facility] [employer] Other 10-04-2023 06:56-0400Body ptjykpdnyrn02 [degF]DO Corwin Ball Work Phone: [phone]10-04-2023 06:56-0400 Diastolic blood zagicxjf54 mm[Hg]DO Corwin Ball Work Phone: [phone]10-04-2023 06:56-0400 Heart rate78 /minDO Corwin Ball Work Phone: [phone]10-04-2023 06:56-0400 Respiratory rate20 /minDO Corwin Ball Work Phone: [phone] [place], [place] [address]10-04-2023 06:56-0400 SaO2% (BldA) [Mass fraction]95 %DO Corwin Ball Work Phone: [phone]10-04-2023 06:56-0400 Systolic blood orwjnrbe139 mm[Hg]DO Corwin Ball Work Phone: [phone])[phone]10-04-2023 02:49-0400 Body gdiigy575.96 cmDO Corwin Ball Work Phone: [phone]10-04-2023 02:49-0400 Body khqoue231.54 kgDO Corwin Ball Work Phone: [phone]04-24-2023 12:15-0400 Body otzfux215.96 cmBenjamin Ball Other [place] [employer] Other 04-24-2023 12:15-0400Body mass index (BMI) [Ratio] 40.18 kg/b1Onkmdyfs Ball Other [place] [employer] Other 04-24-2023 12:15-0400Body qnrnai927.98 kgBenjamin Ball Other [employer] Other 04-24-2023 12:15-0400Diastolic blood jnqrvgqa59 mm[Hg] Corwin Ball Other [employer] Other 04-24-2023 12:15-0400Respiratory rate16 /minBenjamin Ball Other [employer] Other 04-24-2023 12:15-0400Systolic blood raxswrch831 mm[Hg] Corwin Ball Other [employer] Other 01-24-2023 10:00-0500Body cemjzh564.96 cmBenjamin Ball Other [employer] Other 01-24-2023 10:00-0500Body mass index (BMI) [Ratio] 38.94 kg/s4Ydmcoddr Ball Other [employer] Other 01-24-2023 10:00-0500Body .58 kgBenjamin Ball Other [employer] Other 01-24-2023 10:00-0500Respiratory rate16 /minBenjamin Ball Other Box Other Encounters Encounter DateEncounter TypeCare ProviderFacilityStart: 09-04-2024 End: 21-44-1444runiuwnanbAxoehvrz Ball DO Work Phone: [facility] Work Phone: Start: 09-04-2024 End: 84-59-1612Ucuxouh encounter procedureBenjamin Ball DO-[facility] Work Phone: Start: 09-04-2024 End: 04-68-8391Pggpsez encounter statusBenjamin [facility]: 08-21-2024 End: 08-52-2620ortvnysupzQxpbpjjnkOhioHealth [facility] Work Phone: Start: 08-21-2024 End: 43-60-0749Pmnpmqs encounter procedureFirsentara [facility] Physician GroupFormerly [facility] Work Phone: Start: 08-14-2024 End: 33-87-4339kgkfbbgcanQyeazodkgOhioHealth [facility]ide [facility] Work Phone: Start: 08-14-2024 End: 30-74-1176Xaphatb encounter procedureFirsentara [facility] Physician GroupFormerly [facility] Work Phone: Start: 87-38-7793Cdpjles encounter statusBluffton Hospitaltart: 08-07-2024 End: 74-19-0642yqiswhpgcsGwhfmqajdOhioHealth [facility]ide [facility] Hospital Work Phone: Start: 08-07-2024 End: 07-33-8635Mjfjjrl encounter procedureFirsentara [facility] Physician Formerly [facility]amed [facility] Work Phone: Start: 05-14-2024 End: 48-19-3560lvzmtombyjIlowaewxgOhioHealth [facility]ide [facility] Work Phone: Start: 05-14-2024 End: 97-57-2734Qqubrzg encounter procedureFirbudes Physician Group-[facility] Work Phone: Start: 92-08-7555Tbo-patient / Non-visitFirbudes Physician [facility] Work Phone: Start: 68-71-3099Jih-patient / Non-visitFirelands Physician [facility] Work Phone: Start: 05-03-2024 End: 02-13-9499xbmtkpxhrnDndcbmtqdOhioHealth [facility] Work Phone: Start: 05-03-2024 End: 18-94-7215Cbvlvyq encounter procedureFirbudes Physician Group-[facility] Work Phone: Start: 03-08-2024 End: 47-81-9546Jllmmss encounter procedureAt[facility] Work Phone: Start: 03-01-2024 End: 51-25-7830Ciyuxhl encounter procedureAtrium Health [facility] Physician Former[facility] Named [facility] Work Phone: Start: 02-23-2024 End: 64-74-7615Carskhj encounter procedureAtrium Health [facility] Physician Former[facility]amed [facility] Work Phone: Start: 12-04-2023 End: 63-74-3565nayrqgdjdyBvqsweycuHocking Valley [facility] Hospital Work Phone: Start: 12-04-2023 End: 78-47-4954Dmvbuhj encounter procedureAtrium Health [facility] Physician [facility] Work Phone: Start: 09-04-2023 End: 03-32-2835dpneztwtbmBN Corwin Ball Work Phone: [facility] Work Phone: Start: 09-04-2023 End: 18-15-9217Mxrftvt encounter procedureDO Corwin Ball Work Phone: [facility] GroupS[facility] Work Phone: Start: 08-28-2023 End: 89-94-9500okqkbpqtkdMJ Corwin Ball Work Phone: [facility] Work Phone: Start: 08-28-2023 End: 70-55-1899Cbndcms encounter procedureDO Corwin Ball Work Phone: [facility] Work Phone: Start: 08-21-2023 End: 31-06-0563jleqrcyhnwMX Corwin Ball Work Phone: [facility] Work Phone: Start: 08-21-2023 End: 69-47-3012Zzsmxzt encounter procedureDO Corwin Hannah Work Phone: [facility] Work Phone: Start: 08-08-2023 End: 63-25-5145khnuzmrycqSX Corwin Hannah Work Phone: [facility] Work Phone: Start: 08-08-2023 End: 38-07-9572Uusjxmvao for general adult medical examination without abnormal findingsDO Corwin Hannah Work Phone: [facility]art: 08-08-2023 End: 36-22-7709Pmbborx encounter procedureDO Corwin Hannah Work Phone: [facility] Work Phone: Start: 07-19-2023 End: 46-37-1780ebxgxrboubPhbniejr BallFacility:[facility] Start: 07-19-2023 End: 73-63-5592uomrmhcxfbFR Corwin Hannah Work Phone: [facility] Work Phone: Start: 07-19-2023 End: 10-34-9284Wuepjdq encounter procedureDO Corwin Hannah Work Phone: [facility] Work Phone: Start: 04-06-2023 End: 24-13-7743qmmiafvvzvQurtkqqt Ball Other Box Other Start: 25-39-3129Qwzaufdjo for general adult medical examination without abnormal findingsBenjamin BallFPG [facility] ClinicStart: 57-39-4108Chsieekr preventive med est patient 40-64yrsBenjamin BallFPG [facility] ClinicStart: 02-21-2023 End: 44-67-2231zeanqmwtwvOhizwiub Ball Other Box Other Start: 02-67-2826Cfgnkoitp encounterBenjamin BallFPG [facility] ClinicStart: 12-30-2022 End: 31-15-7436fvczlvqwapAbxpuvrk Ball Other [facility] [employer] Other Start: 46-14-9272Zfreah outpatient visit 25 minutes Corwin BallFPG [facility] ClinicStart: 12-20-2022 End: 52-12-2493vvcqmwwnmhFknvowwk Ball Other [facility] [employer] Other Start: 43-34-9457Tyfvbnhja encounterBenjamin BallFPG [facility] ClinicStart: 12-17-2022 End: 08-14-9249cqvrmtrshcVwkooaxm BallFacility:[facility] Start: 12-17-2022 End: 66-78-3344qctixufjlqWJ Corwin Hannah Work Phone: [facility] Work Phone: Start: 12-17-2022 End: 46-60-8691Cdubofce ReferredDO Corwin Hannah Work Phone: [facility]-Community Outreach Work Phone: start: 12-14-2022 End: 99-93-5140kkfyyjalswFovztoub Ball Other [facility] [employer] Other Start: 65-17-8867Mrqaquonx encounterBenjamin BallFPG [facility] ClinicStart: 12-14-2022 End: 85-82-1437Gkuddxlqf department patient visitPatricmikey Longo Facility:[facility] Hospitaltart: 12-14-2022 End: 26-69-7683Vlskohtxp department patient visitDO Corwin Hannah Work Phone: [facility]-Emergency Room Work Phone: Start: 07-04-2022 End: 99-68-7350pjqyqipwbvAwjbklll Ball Other Box Other Start: 38-81-8250Yvlyrs outpatient visit 25 minutes Corwin Howe [facility] ClinicStart: 81-25-0206Qvbdbucyq for general adult medical examination without abnormal findingsDR CORWIN HANNAHSouthwest General Health Center HospitalStart: 04-14-2022 End: 13-12-0585sowgnhbsjaJwfdwwym Ball Other Box Other Start: 57-57-7700Qxmnxzbsu encounterBenzuly GoodmanG [facility] ClinicStart: 04-13-2022 End: 88-39-7901uzicdhvpnhNO CORWIN BALLFacility:M1Sutyd: 04-13-2022 End: 45-04-8880Metcwbnik for general adult medical examination without abnormal findingsDR CORWIN BALLFacility:V6Dzfjo: 04-06-2022 End: 72-38-5410vvkcmxwllmMnijypcq Ball Other Box Other Start: 93-50-7906Bosgpepxq encounterBenzuly GoodmanG [facility] ClinicStart: 04-05-2022 End: 91-12-9869nrzhpmfvzyHawjedlq Ball Other Box Other Start: 69-98-0933Eoswhfa encounter procedureBenzuly BallTEODORAG [facility] ClinicStart: 29-48-5165Jlrrgbdt preventive med est patient 40-64yrsBenzuly GoodmanG [facility] ClinicStart: 01-10-2022 End: 20-07-4162myjtijgpxqKM CORWIN BALLFacility:Z1Eiody: 10-04-2021 End: 74-52-3630qjelxuymwaTZ CORWIN BALLFacility:Z1Vgjua: 57-89-5358Cbfpe health examinationBenzuly Ball Other Box Other Procedures DateProcedureProcedure DetailPerforming ClinicianStart: 14-03-1922T-ray of both kneesDO Corwin Hannah Work Phone: Start: 48-93-1926LZRK-CoV-2, Influenza & RSV (PCR)DO Corwin Hannah Work Phone: Start: 70-09-5997Waazt chest X-rayDO Corwin Hannah Work Phone: Start: 76-34-5028KGK screeningDR CORWIN HANNAHComment on above:Performed By: #### PSASC #### [facility] [address] [place] [address] Dr. Smitha FinneganStart: 08-13-6372Llicedghsq screeningCorwin Hannah Other Start: 30-94-0185Jxvopuz examination of patient Corwin Hannah Other Start: 85-18-7490Chpjfabpo for malignant neoplasm of colonBejosh Hannah Other Start: 83-23-5988Skidkjkhm for malignant neoplasm of prostateBenzuly Hannah Other Screening for malignant neoplasm of prostateCorwin Hannah Other Plan of Treatment DateCare ActivityDetailAuthorStart: 26-34-1815U-ray of both kneesXR knee BI 3V - NOT FOR ER USEBluffton Hospitaltart: 21-60-0435JJ Knee - bilateral 3 ViewsBluffton Hospitaltart: 36-55-5088Tsxlg chest X-rayXR chest 1V portableBluffton Hospitaltart: 19-40-8904YQ Chest Single viewWayne HospitalComprehensive metabolic 1999 panel - Serum or PlasmaWayne HospitalComprehensive metabolic 1999 panel - Serum or PlasmaWayne HospitalComprehensive metabolic 1999 panel - Serum or [facility] Comprehensive metabolic 1999 panel - Serum or [facility] HospitalCT Unspecified body region WO contrastWayne Hospital Microalbumin [Mass/volume] in UrineWayne HospitalPatient EducationPneumonia, Adult EDAtrium Health [facility] Work Phone: Patient referralCincinnati [facility] Work Phone: XR Thoracic spine 3 [facility] Payers DatePayer CategoryPayerPolicy [id number] [id number] [id number] [id number] [employer] Blue [id number] [id number] [id number] [id number] [id number]nAnthem /[id number] Social History DateTypeDetailFacilitySex Assigned At Birth[facility] Other Start: 80-00-2310Bskdeuw smoking status NHISSmoker (finding)[facility] 69-57-8896Pxz Assigned At MaleBluffton Hospitaltart: 04-09-2023 End: 73-16-3068Mntckcc smoking status NHISCurrent some day smokerBluffton Hospitaltart: 05-03-2024 End: 25-98-9576TnqXvgb (finding)[facility] Procedure CodeEquipment CodeEquipment Original TextEquipment IdentifierDates Clinical Notes 04-13-2016 to 08-07-2024 Note Date & [id number] Evaluation note* Diagnosis Onset Date Resolution Status Admit Date Primary osteoarthritis of knees, bilater al acuteMay 2024 3:14pmObesity (BMI 30-39.9)2024 3:14pm Primary osteoarthritis of knees, bilateralacuteJune 2024 3:10pm [facility] Work Phone: 1(281) 416-875205-28-2025 Evaluation note* Diagnosis Onset Date Resolution Status Admit Date Primary osteoarthritis of knees, bilater al acuteMay 2024 3:14pmObesity (BMI 30-39.9)2024 3:14pm Primary osteoarthritis of knees, bilateralacuteJune 2024 3:10pmPrimary osteoarthritis of knees, bilateralacuteJune 2024 7:48am [facility] Work Phone: 1([phone]) 987-834905-28-2025 Evaluation note* Diagnosis Onset Date Resolution Status [...] mellitus with hyperglycemiaacuteJune 2024 9:51amWellness examinationacuteJun2024 9:51am [facility] Work Phone: 1([phone]) 330-141903-04-2025 Evaluation note* Diagnosis Onset Date Resolution Status Admit Date Acute thoracic myofascial strain acuteMarch 2024 2:25pmPrimary hypertensionacuteMarch 2024 2:25pmType 2 diabetes mellitus with hyperglycemiaacuteMarch 2024 2:25pmObesity (BMI 30-39.9)acuteMay 2024 3:14pmPrimary osteoarthritis of knees, bilateral acuteMay 2024 3:14pm [facility] Work Phone: 1(872) 763-205912-13-2024 Evaluation note* Diagnosis Onset Date Resolution Status Admit Date Obesity (BMI 30-39.9) acuteDecember 2023 8:04amPrimary osteoarthritis of knees, bilateralacute February 23, 2024 8:04amObesity (BMI 30-39.9)acuteDece2023 7:56am Primary osteoarthritis of knees, bilateralacuteDecember 2023 7:56amObesity (BMI 30-39.9)acuteDecember 2023 8:20amPrimary osteoarthritis of knees, bilateralacuteDecember 2023 8:20am [facility] Work Phone: 1(142) 907-487912-13-2024 Evaluation note* Diagnosis Onset Date Resolution Status [...] 2 diabetes mellitus with hyperglycemiaacuteMarch 2024 2:25pm [facility] Work Phone: 1(293) 865-942501-25-2024 Evaluation note* Encounter Date Diagnosis Assessment Notes [...] antigen) (ICD-10 - Z12.5)Yearly PSA and HUONG Box Other 12-12-2023 Evaluation note* Encounter Date Diagnosis Assessment Notes Treatment Notes Treatment Clinical Notes Feb, Type 2 diabetes mellitus with hy perglycemia (ICD-10 - E11.65) Box Other 10-20-2023 Evaluation note* Encounter Date Diagnosis [...] (current) use of insulin (ICD-10 - Z79.4) Box Other 04-24-2023 Evaluation note* Encounter Date Diagnosis [...] E78.2)Continue Statin and Fenofibrate. Add Fish oil Box Other 01-25-2023 Evaluation note* Encounter Date Diagnosis Assessment Notes Treatment Notes Treatment Clinical Notes Mar, Gynecomastia, male (ICD-10 - N62 ) Left sided gynecomastia w/ fullness UIQ and UOQ Box Other 01-24-2023 Evaluation note* Encounter Date Diagnosis [...] continue exercise to achieve/maintain a normal BMI. Box Other 10-31-2022 NotePROCEDURE: XR KNEE RT 1_2 V COMPARISON: None. HISTORY: Contusion of knee FINDINGS: BONES:No acute fracture or dislocation. Enthesopathic spurring of the patella at the quadriceps insertion SOFT TISSUES:Negative. No visible soft tissue swelling. EFFUSION:None visible. OTHER: Negative. IMPRESSION: No acute abnormality Electronically authenticated by: NAHID ELIZABETH Date: 2022-01-10 13:34[facility]10-31-2022 NotePROCEDURE: XR HIP RT 2 3V WO PELVIS COMPARISON: None. HISTORY: Contusion of right hip region FINDINGS: BONES:No acute fracture or dislocation. Minimal marginal osteophyte formation of the acetabulum SOFT TISSUES:Negative. No visible soft tissue swelling. EFFUSION:None visible. OTHER: Negative. IMPRESSION: Minimal degenerative changes Electronically authenticated by: NAHID ELIZABETH Date: 2022-01-10 13:33[facility] [id number] NotePROCEDURE: XR ANKLE RT 2V COMPARISON: None. [...] authenticated by: NAHID ELIZABETH Date: 2022-01-10 13:32[facility] HospitalLyerkien05-79-1661 History general Narrative - Reported* Type Description Date Medical History Hypertension Medical HistoryAcid refluxMedical HistoryHyperlipidemiaSurgical History colonoscopy2/2017Surgical HistoryEGD2/2017Surgical HistoryExcision of Melanoma 2017Hospitalization Historysee surgical history [facility] [employer]ulous Other Evaluation noteNo InformationNortWellSpan [facility] FABPulous Other Evaluation noteNo assessment information available [facility] Work Phone: Evaluation note* Diagnosis Onset Date Resolution Status Obesity (BMI 30-39.9) acutePrimary osteoarthritis of knees, bilateralacute [facility] Work Phone: Evaluation note* Diagnosis Onset Date Resolution Status Obesity (BMI 30-39.9) acutePrimary osteoarthritis of knees, bilateralacuteChronic venous insufficiency acuteMixed hyperlipidemiaacutePrimary hypertensionacutePrimary osteoarthritis of kneeacuteType 2 diabetes mellitus with diabetic polyneuropathyacuteType 2 diabetes mellitus with hyperglycemiaacuteScreening PSA (prostate specific antigen)noneactiveWellness examinationnoneactive [facility] Work Phone: Evaluation note* Diagnosis Onset Date Resolution Status Obesity (BMI 30-39.9) acutePrimary osteoarthritis of knees, bilateralacuteChronic venous insufficiency acuteMixed hyperlipidemiaacutePrimary hypertensionacutePrimary osteoarthritis of kneeacuteType 2 diabetes mellitus with diabetic polyneuropathyacuteType 2 diabetes mellitus with hyperglycemiaacuteScreening PSA (prostate specific antigen)noneactiveWellness examinationnoneactiveObesity (BMI 30-39.9)acute Primary osteoarthritis of knees, bilateralacute [facility] Work Phone: Evaluation note* Diagnosis Onset Date Resolution Status Obesity (BMI 30-39.9) acutePrimary osteoarthritis of knees, bilateralacuteChronic venous insufficiency acuteMixed hyperlipidemiaacutePrimary hypertensionacutePrimary osteoarthritis of kneeacuteType 2 diabetes mellitus with diabetic polyneuropathyacuteType 2 diabetes mellitus with hyperglycemiaacuteScreening PSA (prostate specific antigen)noneactiveWellness examinationnoneactiveObesity (BMI 30-39.9)acute Primary osteoarthritis of knees, bilateralacuteObesity (BMI 30-39.9)acutePrimary osteoarthritis of knees, bilateralacute [facility] Work Phone: Evaluation note* Diagnosis Onset Date Resolution Status Obesity (BMI 30-39.9) acutePrimary osteoarthritis of knees, bilateralacuteChronic venous insufficiency acuteMixed hyperlipidemiaacutePrimary hypertensionacutePrimary osteoarthritis of kneeacuteType 2 diabetes mellitus with diabetic polyneuropathyacuteType 2 diabetes mellitus with hyperglycemiaacuteScreening PSA (prostate specific antigen)noneactiveWellness examinationnoneactiveObesity (BMI 30-39.9)acute Primary osteoarthritis of knees, bilateralacuteObesity (BMI 30-39.9)acutePrimary osteoarthritis of knees, bilateralacuteObesity (BMI 30-39.9)acutePrimary osteoarthritis of knees, bilateralacute [facility] Work Phone: Evaluation note* Diagnosis Onset Date Resolution Status Primary hypertension acuteType 2 diabetes mellitus with hyperglycemiaacute [facility] Work Phone: History general Narrative - Reported* Type Description Date Medical History Hypertension Medical HistoryAcid refluxMedical HistoryHyperlipidemia [facility] [employer]Pulous Other Reason for referral (narrative)No reason for referral information availableCrystal [facility] Work Phone: Summary Purpose Family History Relationship [...] ill cbc psa a1c Chief Complaint [place] [facility] [place] NX M25.561 - Pain in right kneeReason for VisitObesity (BMI 30-39.9) Primary osteoarthritis of knees, bilateral Chief Complaint ER [facility] [place] P AIN NX M25.561 M25.562 [...] osteoarthritis of knees, bilateral Chief Complaint ER [facility] [place] P AIN NX M25.561 M25.562 [...] osteoarthritis of knees, bilateral Chief Complaint ER [facility] [place] AIN NX M25.561 M25.562 [...] section and content) DATE CREATED AUTHOR 05/22/2020 [facility] DATE CREATED AUTHOR AUTHOR'S ORGANIZ ATION 06/19/2022 [facility] DATE CREATED AUTHOR AUTHOR'S ORGANIZ ATION 07/24/2023 [facility] REASON FOR VISIT (unrecogniz ed [...] Team Status: Active Member Role Status Dates oCrwin Hannah DO Primary Care Provider Active Start: [...] BE BASED ON THE PRIMARY CLINICAL RECORDS. [facility] [employer] [facility]. provides no warranty or guarantee of the accuracy or completeness of information in this document.
[2025-01-28 07:33] LABS: Hematocrit 38.1 % (42.0-54.0); Hemoglobin 13.8 g/dL (14.0-18.0); Immature Granulocytes Abs Auto 0.06 10^3/uL (0.00-0.03); Immature Granulocytes Pct Auto 1.3 % (0.0-0.5); Lymphocytes Absolute Auto 1.8 10^3/uL (1.2-3.8); Mean Corpuscular HGB Conc 36.2 g/dL (29.9-35.2); Mean Corpuscular Hemoglobin 32.4 pg (25.9-34.0); Mean Corpuscular Volume 89.4 fL (80.0-94.0); Platelet Count 177 10^3/uL (150-450); Red Blood Count 4.26 10^6/uL (4.70-6.10); White Blood Count 4.7 10^3/uL (4.0-11.0)
[2025-01-28 07:49] LABS: Microalbum Creatinine Ratio Ur 590.6 mg/g (0.0-29.9)
== END 2025-01-28 06:34 | disposition home or self-care (01) ==
LOC: LAB 06:33
PROVIDERS: PCP Internal Medicine; Visit Provider Internal Medicine
DX: Z00.00 Encounter for general adult medical examination without abnormal findings (principal); E78.2 Mixed hyperlipidemia; I10 Essential (primary) hypertension; E11.65 Type 2 diabetes mellitus with hyperglycemia; Z12.5 Encounter for screening for malignant neoplasm of prostate
CPT/HCPCS: 36415; 80053; 80061; 82043; 82570; 83036; 85025; G0103